=== PATIENT | male | born 1965 | race Caucasian/White ===

== ENCOUNTER 2020-04-20 17:35 | Inpatient (IN) | payer BC ==
[~2020-04-20] VITALS: Ht 177.8 cm; Wt 101.7 kg
[2020-04-20] MEDS ORDERED: ondansetron/PF 4mg/2ml inj IV ONE (17:45)
[2020-04-20] MEDS ORDERED: normal saline 1000ML IV soln IVB ONE (17:45)
[2020-04-20] MEDS ORDERED: KETAMINE IV ONE (17:45)
[2020-04-20] MEDS ORDERED: NORMAL SALINE IV ONE (17:45)
[2020-04-20 18:29] LABS: BASOPHILS # (AUTO) 0.1 X10'3 (0-0.2); BASOPHILS % (AUTO) 0.8 % (0-1); EOSINOPHILS # (AUTO) 0.1 X10'3 (0-0.9); EOSINOPHILS % (AUTO) 1.3 % (0-6); HEMATOCRIT 35.7 % (42.0-52.0); HEMOGLOBIN 11.9 g/dl (14.0-17.9); LYMPHOCYTES # (AUTO) 2.8 X10'3 (1.1-4.8); LYMPHOCYTES % (AUTO) 32.3 % (21-51); MEAN CORPUSCULAR HEMOGLOBIN 33.8 PG (27.0-31.0); MEAN CORPUSCULAR HGB CONC 33.2 g/dL (33.0-36.5); MEAN CORPUSCULAR VOLUME 101.7 FL (78-98); MEAN PLATELET VOLUME 7.5 FL (7.4-10.4); MONOCYTES # (AUTO) 0.9 X10'3 (0-0.9); MONOCYTES % (AUTO) 10.4 % (2-12); NEUTROPHILS # (AUTO) 4.8 X10'3 (1.8-7.7); NEUTROPHILS % (AUTO) 55.2 % (42-75); PLATELET COUNT 271 X10'3 (140-440); RED BLOOD COUNT 3.51 X10'6 (4.70-6.10); RED CELL DISTRIBUTION WIDTH 13.3 % (11.5-14.5); WHITE BLOOD COUNT 8.8 X10'3 (4.5-11.0)
[2020-04-20 18:45] LABS: ALANINE AMINOTRANSFERASE 33 U/L (12-78); ALBUMIN/GLOBULIN RATIO 0.9 (1.1-1.5); ALKALINE PHOSPHATASE 72 IU/L (46-116); ANION GAP 18 (8-16); ASPARTATE AMINO TRANSFERASE 18 U/L (10-37); BILIRUBIN,TOTAL 0.2 MG/DL (0.1-1.0); BLOOD UREA NITROGEN 9 MG/DL (7-18); BUN/CREATININE RATIO 5.6 (5.4-32.0); CALCIUM 7.8 MG/DL (8.5-10.1); CHLORIDE 105 MMOL/L (99-107); GLUCOSE 257 MG/DL (70-104); LIPASE 124 U/L (73-393); POTASSIUM 3.3 MMOL/L (3.5-5.1); SODIUM 143 MMOL/L (135-145); TOTAL CARBON DIOXIDE 20.1 MMOL/L (24-32); TOTAL PROTEIN 6.2 G/DL (6.4-8.2); eGFR 45 ML/MIN
[2020-04-20] MEDS ORDERED: normal saline 1000ML IV soln IV ONE (18:55)
--- NOTE | 2020-04-20 18:55 | NUR ---
COVERING PRIMARY RN FOR BREAK, PT PALE AND DIAPHORETIC AND BP 81/44. PLACED PT ON MONITOR TO GO TO CT. AT CT PT DESATED TO LOW 70S%. PLACED PT ON NC @ 8 L DUE TO LACK OF SUPPLIES IN CT ROOM. CAME BACK TO ER AND MOVED PT TO ROOM 4, [facility] AND AT BEDSIDE
[2020-04-20] MEDS ORDERED: iohexol 350MG/ML 100ml bottle IV ONE (18:57)
--- NOTE | 2020-04-20 19:20 | NUR ---
pt is still pale and diaphoretic. pt is alert and oriented. aware of situation. MD Aceves at bedside.
--- NOTE | 2020-04-20 19:29 | NUR ---
doing central line before going to OR
[2020-04-20] MEDS ORDERED: INSULIN R 100 UNIT in NS 100ML (1 UNIT/1 ML) BAG IV ONE (19:45)
[2020-04-20] MEDS ORDERED: desflurane 240ml liquid inh. IH ONE (19:45)
[2020-04-20] MEDS ORDERED: neostigmine methylsulfate 1 MG/ML 10ml vial ONE (19:45)
[2020-04-20] MEDS ORDERED: pancuronium br 1mg/ml inj IV ONE (19:45)
[2020-04-20] MEDS ORDERED: MIDAZolam 5mg/5ml vial ONE (19:51)
[2020-04-20] MEDS ORDERED: fentaNYL /PF 50mcg/ml 5ml ampule ONE ×2 (19:51→22:34)
--- NOTE | 2020-04-20 19:52 | NUR ---
PTS AT BEDSIDE NOW AND TALKING WITH DR. SALCIDO ABOUT PLAN OF CARE.
[2020-04-20] MEDS ORDERED: etomidate 2mg/ml inj. ONE (20:24)
[2020-04-20] MEDS ORDERED: phenylephrine inj 50 MG in normal saline 250ml IV soln 245 ML IV SCH (20:30)
[2020-04-20] MEDS ORDERED: rocuronium 10mg/ml inj IV ONE ×2 (20:36→23:59)
[2020-04-20] MEDS ORDERED: ceFAZolin 1000mg inj ONE ×2 (20:36)
[2020-04-20 21:01] LABS: ABG BASE EXCESS -12.1 mmol/L (-2.0-2.0); ABG HCO3 13.2 mmol/L (22.0-26.0); ABG OXYGEN SATURATION 98.4 % (94-97); ABG PCO2 (T) 28.6 mmHg (35.0-48.0); ABG PO2 (T) 176.9 mmHg (75.0-100.0); FCOHb 0.3 % (0.0-3.9); FMetHb 0.1 % (0.0-1.5); TOTAL HEMOGLOBIN 11.3 G/dl (14.0-18.0)
[2020-04-20] MEDS ORDERED: sodium bicarbonate (8.4%) inj. 1 MEQ/ML ML ONE ×4 (21:08→23:39)
[2020-04-20] MEDS: heparin 10,000 units/1 ML INJ ONE ×2 (21:14→22:59)
--- NOTE | 2020-04-20 21:38 | NUR ---
Patient to OR at approximately 2000.
[2020-04-20] MEDS ORDERED: ondansetron/PF 4mg/2ml inj IV PRN (22:00)
[2020-04-20] MEDS ORDERED: magnesium hydroxide 30ml (MOM) UD suspension PO PRN (22:00)
[2020-04-20] MEDS ORDERED: acetaminophen 325mg tablet PO PRN ×2 (22:00)
[2020-04-20 22:01] LABS: ISTAT CREATININE 1.2 mg/dL (0.8-1.3); ISTAT HGB 9.9 g/dl (14.0-18.0); ISTAT IONIZED CALCIUM 1.01 mmol/L (1.03-1.32); ISTAT K 3.8 mmol/L (3.5-5.1); POC BUN/CREATININE RATIO 6.7 (5.4-32.0)
[2020-04-20] MEDS ORDERED: FENTANYL-0.9 % NACL/PF 100 ML IV PRN (22:20)
[2020-04-20] MEDS ORDERED: propofol 1000mg/100ml bottle 100 ML IV SCH (22:20)
[2020-04-20] MEDS ORDERED: midazolam 100mg in NS 100ml 100 ML IV PRN (22:20)
[2020-04-20 23:36] LABS: ABG BASE EXCESS -16.3 mmol/L (-2.0-2.0); ABG HCO3 12.8 mmol/L (22.0-26.0); ABG OXYGEN SATURATION 98.3 % (94-97); ABG PCO2 (T) 42.5 mmHg (35.0-48.0); ABG PO2 (T) 182.6 mmHg (75.0-100.0); FCOHb 0.3 % (0.0-3.9); FMetHb 0.1 % (0.0-1.5); FO2Hb 97.9 % (94-97); TOTAL HEMOGLOBIN 11.9 G/dl (14.0-18.0)
[2020-04-20] MEDS ORDERED: insulin regular, human U-100 3ml vial - multi-dose ONE (23:38)
[2020-04-20] MEDS ORDERED: heparin 1,000unit/ml 10ml vial 10 ML ONE (23:59)
[2020-04-21] VITALS (37 sets, daily range): BP systolic 72–142; BP diastolic 49–103
[2020-04-21 00:02] LABS: PARTIAL THROMBOPLASTIN TIME 69 SECONDS (22-32)
[2020-04-21] MEDS ORDERED: morphine 10mg/ml inj. ONE (01:32)
[2020-04-21 01:45] LABS: ABG BASE EXCESS -10.4 mmol/L (-2.0-2.0); ABG HCO3 16.6 mmol/L (22.0-26.0); ABG OXYGEN SATURATION 98.8 % (94-97); ABG PCO2 (T) 38.9 mmHg (35.0-48.0); ABG PO2 (T) 390.9 mmHg (75.0-100.0); FCOHb 0.2 % (0.0-3.9); FMetHb 0.1 % (0.0-1.5); FO2Hb 98.5 % (94-97); PATIENT TEMPERATURE 35.9; PEEP 5 cm H2O; RESPIRATORY RATE 18 b/min; TIDAL VOLUME 600 mL
[2020-04-21] MEDS ORDERED: NORepinephrine 8mg/ 250ml NS 250 ML IV ONE ×2 (01:50→14:30)
[2020-04-21] MEDS ORDERED: acetaminophen 650mg rectal suppository RC PRN (01:50)
[2020-04-21] MEDS ORDERED: potassium Cl 20mEq/100mL bag 100 ML IV PRN ×3 (01:50→18:35)
[2020-04-21] MEDS ORDERED: NORepinephrine inj. 8 MG in normal saline 250ml IV soln 242 ML IV SCH (01:50)
[2020-04-21] MEDS ORDERED: albuterol 2.5 MG/3 ML nebule NEB PRN (01:50)
[2020-04-21] MEDS ORDERED: magnesium 4gm in 100ml NS 100 ML IV PRN (01:50)
[2020-04-21] MEDS ORDERED: acetaminophen 325mg tablet PO PRN ×2 (01:50)
[2020-04-21] MEDS: NORepinephrine 8mg/ 250ml NS 250 ML IV SCH ×2 (02:00→11:44)
[2020-04-21 02:34] LABS: BASOPHILS % (AUTO) 0.2 % (0-1); EOSINOPHILS % (AUTO) 0.1 % (0-6); HEMATOCRIT 25.8 % (42.0-52.0); HEMOGLOBIN 8.5 g/dl (14.0-17.9); LYMPHOCYTES # (AUTO) 1.6 X10'3 (1.1-4.8); LYMPHOCYTES % (AUTO) 11.9 % (21-51); MEAN CORPUSCULAR HEMOGLOBIN 32.3 PG (27.0-31.0); MEAN CORPUSCULAR VOLUME 97.9 FL (78-98); MONOCYTES # (AUTO) 0.9 X10'3 (0-0.9); MONOCYTES % (AUTO) 6.6 % (2-12); NEUTROPHILS # (AUTO) 10.6 X10'3 (1.8-7.7); NEUTROPHILS % (AUTO) 81.2 % (42-75); PLATELET COUNT 179 X10'3 (140-440); RED BLOOD COUNT 2.64 X10'6 (4.70-6.10); RED CELL DISTRIBUTION WIDTH 16.1 % (11.5-14.5)
[2020-04-21] MEDS ORDERED: calcium chloride 100 MG/1 ML inj IV ONE ×3 (02:44→20:22)
[2020-04-21 02:47] LABS: ALANINE AMINOTRANSFERASE 19 U/L (12-78); ALBUMIN 1.7 G/DL (3.4-5.0); ALKALINE PHOSPHATASE 42 IU/L (46-116); ANION GAP 19 (8-16); BILIRUBIN,TOTAL 0.8 MG/DL (0.1-1.0); BLOOD UREA NITROGEN 9 MG/DL (7-18); BUN/CREATININE RATIO 5.4 (5.4-32.0); CHLORIDE 117 MMOL/L (99-107); CREATININE 1.66 MG/DL (0.60-1.10); GLUCOSE 319 MG/DL (70-104); MAGNESIUM 1.9 MG/DL (1.5-2.4); SODIUM 152 MMOL/L (135-145); TOTAL CARBON DIOXIDE 15.7 MMOL/L (24-32); TOTAL PROTEIN 3.4 G/DL (6.4-8.2); eGFR 43 ML/MIN
[2020-04-21] MEDS ORDERED: albumin (Human) 5% 250ml 500 ML IV ONE (02:47)
[2020-04-21] MEDS: vasopressin inj. 40 UNIT in normal saline 50ml IV soln 38 ML IV SCH ×2 (02:50→11:44)
[2020-04-21] MEDS ORDERED: epiNEPHrine inj 5 MG, calcium chloride inj. 1,000 MG in normal saline 250ml IV soln 235 ML IV PRN (02:50)
[2020-04-21] MEDS ORDERED: albumin (Human) 5% 250ml 250 ML IV ONE ×2 (02:50)
[2020-04-21] MEDS ORDERED: vasopressin inj. 40 UNIT in normal saline 50ml IV soln 40 ML IV SCH (02:50)
[2020-04-21] MEDS ORDERED: vasoPRESSIN 20 units/ml inj. ONE ×2 (02:50→18:35)
[2020-04-21 02:52] LABS: ASPARTATE AMINO TRANSFERASE 47 U/L (10-37); PHOSPHORUS 4.1 MG/DL (2.3-4.5); POTASSIUM 4.5 MMOL/L (3.5-5.1)
[2020-04-21 03:13] LABS: CALCIUM 5.5 MG/DL (8.5-10.1)
[2020-04-21] MEDS ORDERED: calcium chloride 100 MG/1 ML inj IV PRN (03:20)
[2020-04-21 03:34] LABS: TOTAL CELLS COUNTED 100
[2020-04-21 03:35] LABS: ANISOCYTOSIS 1+; PLATELET ESTIMATE NORMAL; TOXIC GRANULATION 2+
[2020-04-21 03:47] LABS: D-DIMER 8.73 MG/L FEU (0-0.50)
[2020-04-21 03:49] LABS: PLATELET COUNT 179 X10'3 (140-440)
[2020-04-21] MEDS: ipratropium/albuterol 3ml nebule NEB SCH ×6 (04:10→23:24)
--- NOTE | 2020-04-21 04:50 | NUR ---
[id number] received pt from OR with minimal report. pt is in a ST at 140, CVL and Art line in place zeroed and transduced, CXR obtained. pt has a curlex wrap to the LLL that is has bright red blood oozing, folely cath in place with hematuria as well, distal pulses are weak but dopler, pt is mottled from the waist down, Dr Moreira requested 10mg morphine to be given. Pt became unstable SBP down to lower 50's nurse practitioner at bedside Levophed, vasopressin and briefly epi-faizan drip, Dr. Ca in placed large volume line in the Right groin, around 0245 1 amp ca cl given per orders, 0250 250 ml of 5% albumin given for low blood pressure. Pt had a clonic tonic sezure like activity lasting approximally 30 sec, 2 mg versed given per nurse practitioners orders, no further seizure like activity at this time.
[2020-04-21] MEDS ORDERED: vancomycin/NS 1 GM ADD-VANTAGE 250 ML IV SCH ×2 (06:00→19:00)
--- NOTE | 2020-04-21 06:30 | NUR ---
Patient in room ICU 2042. I have received report from Chantell GASTELUM and had the opportunity to ask questions and assume patient care. pateint laying in bed eyes closed, on ventilator fio2 50% peep5 sating high 90's having a hard time establishing a good pleth due to patients current temperature 35.9. levophed, vasopressin, fentanyl, versed and ns infusing to R ij central line, patient has a R writ art line in place as well as a R femoral cordis. Patel draining to gravity
[2020-04-21] MEDS: docusate sodium 100mg/10ml UD cup PO SCH ×2 (08:00→20:00)
[2020-04-21] MEDS: vancomycin/NS 1 GM ADD-VANTAGE 250 ML IV SCH ×2 (08:06→21:46)
[2020-04-21 08:23] LABS: BASOPHILS % (AUTO) 0.3 % (0-1); EOSINOPHILS % (AUTO) 0 % (0-6); HEMATOCRIT 31.9 % (42.0-52.0); HEMOGLOBIN 10.7 g/dl (14.0-17.9); LYMPHOCYTES # (AUTO) 1.3 X10'3 (1.1-4.8); MEAN CORPUSCULAR HEMOGLOBIN 31.6 PG (27.0-31.0); MEAN CORPUSCULAR HGB CONC 33.6 g/dL (33.0-36.5); MEAN PLATELET VOLUME 7.8 FL (7.4-10.4); MONOCYTES # (AUTO) 0.6 X10'3 (0-0.9); MONOCYTES % (AUTO) 6.8 % (2-12); NEUTROPHILS # (AUTO) 7.1 X10'3 (1.8-7.7); NEUTROPHILS % (AUTO) 78.9 % (42-75); PLATELET COUNT 143 X10'3 (140-440); RED CELL DISTRIBUTION WIDTH 15.4 % (11.5-14.5); WHITE BLOOD COUNT 9.1 X10'3 (4.5-11.0)
[2020-04-21 08:31] LABS: ALANINE AMINOTRANSFERASE 117 U/L (12-78); ALBUMIN 2.5 G/DL (3.4-5.0); ALBUMIN/GLOBULIN RATIO 1.3 (1.1-1.5); ALKALINE PHOSPHATASE 52 IU/L (46-116); ANION GAP 13 (8-16); BLOOD UREA NITROGEN 12 MG/DL (7-18); BUN/CREATININE RATIO 5.3 (5.4-32.0); CALCIUM 7.4 MG/DL (8.5-10.1); CHLORIDE 116 MMOL/L (99-107); CREATININE 2.27 MG/DL (0.60-1.10); GLUCOSE 152 MG/DL (70-104); SODIUM 151 MMOL/L (135-145); TOTAL PROTEIN 4.4 G/DL (6.4-8.2); eGFR 30 ML/MIN
[2020-04-21 08:33] LABS: ASPARTATE AMINO TRANSFERASE 203 U/L (10-37); PHOSPHORUS 3.7 MG/DL (2.3-4.5); POTASSIUM 4.7 MMOL/L (3.5-5.1)
[2020-04-21] MEDS ORDERED: dextrose 50%-water 50ml dispensing syringe IV PRN ×2 (08:40)
[2020-04-21] MEDS ORDERED: MESSAGE TO PHARMACY PO ONE (08:40)
[2020-04-21] MEDS ORDERED: glucagon, human recombinant 1mg kit SUBCUT PRN (08:40)
[2020-04-21] MEDS ORDERED: dextrose ORAL solution 15 GM/59 ML bottle PO PRN ×2 (08:40)
[2020-04-21] MEDS ORDERED: sodium bicarbonate (8.4%) inj. 150 MEQ in dextrose 5%-water 1,000 ML IV SCH (08:40)
[2020-04-21 08:56] LABS: D-DIMER 5.46 MG/L FEU (0-0.50); PARTIAL THROMBOPLASTIN TIME 30 SECONDS (22-32)
[2020-04-21 09:08] LABS: PLATELET COUNT 141 X10'3 (140-440)
[2020-04-21] MEDS: pantoprazole 40 MG vial IV SCH (09:16)
[2020-04-21] MEDS: piperacillin/tazo 3.375gm/50ml 50 ML IV SCH ×2 (09:17→16:32)
[2020-04-21] MEDS: levetiracetam inj 750 MG in normal saline 100ml IV soln 92.5 ML IV SCH ×2 (09:17→21:47)
[2020-04-21] MEDS ORDERED: normal saline 1000ml 1,000 ML IV ONE (09:45)
[2020-04-21] MEDS: sodium bicarbonate (8.4%) inj. 150 MEQ in dextrose 5%-water 1,000 ML IV SCH (10:47)
[2020-04-21] MEDS ORDERED: DIPH25TA62 PO (10:58)
[2020-04-21] MEDS ORDERED: calcium chloride inj. 1,000 MG in normal saline 100ml IV soln 100 ML IV PRN ×3 (11:45→18:35)
[2020-04-21 12:03] LABS: BASOPHILS % (AUTO) 0.2 % (0-1); EOSINOPHILS % (AUTO) 0.1 % (0-6); HEMATOCRIT 28.8 % (42.0-52.0); HEMOGLOBIN 9.7 g/dl (14.0-17.9); LYMPHOCYTES # (AUTO) 1.5 X10'3 (1.1-4.8); LYMPHOCYTES % (AUTO) 15.6 % (21-51); MEAN CORPUSCULAR HEMOGLOBIN 31.5 PG (27.0-31.0); MEAN CORPUSCULAR HGB CONC 33.7 g/dL (33.0-36.5); MEAN CORPUSCULAR VOLUME 93.4 FL (78-98); MEAN PLATELET VOLUME 8.1 FL (7.4-10.4); MONOCYTES # (AUTO) 0.7 X10'3 (0-0.9); MONOCYTES % (AUTO) 7.2 % (2-12); NEUTROPHILS # (AUTO) 7.4 X10'3 (1.8-7.7); NEUTROPHILS % (AUTO) 76.9 % (42-75); PLATELET COUNT 125 X10'3 (140-440); RED BLOOD COUNT 3.08 X10'6 (4.70-6.10); RED CELL DISTRIBUTION WIDTH 15.2 % (11.5-14.5); WHITE BLOOD COUNT 9.7 X10'3 (4.5-11.0)
--- NOTE | 2020-04-21 12:03 | NUR ---
Called Dr. Dela Cruz to update him on patients current pressure support status and the increase in size of his belly since shift change at 0630, He inquired about his H/H informed him of the most recent values from 8am, stated that he would be in around noon to round on his patients
--- NOTE | 2020-04-21 12:15 | NUR ---
Initial: Pt intubated s/p aortobiiliac bypass graft, L femoral embolectomy, L tibial embolectomy, and 4-compartment fasciotomy lower L leg per surgeon note. DX ruptured abdominal aortic aneurysm, large R iliac aneurysm, and moderate L iliac aneurysm per surgeon note. Also DX MARCELINO, hypernatremia, seizure, sepsis, and LE ischemia may need CVVH per reverberatory skimmer at rounds. OG in place w/ Na 151. MAP 73 receiving vasopressin and to remain NPO at this time per MD. EN recs below if to start once pt hemodynamically stable post-op. Receiving electrolyte replacement per protocol. Will continue to monitor. Rec: 1. IF TF; Vital High Protein at 70ml/hr 2. IF TF; water flush 200ml Q4 3. IF TF; PALB Q /; daily wts 4. IF TF; consider Mayito BID for wound healing needs post-op 5. Once PO/EN MVI/mineral supplementation for wound healing needs 6. bowel care per rx 7. daily wts Addendum: 04/21/20 at [address] Amended: Links added.
[2020-04-21 12:25] LABS: ALANINE AMINOTRANSFERASE 630 U/L (12-78); ALBUMIN 2.1 G/DL (3.4-5.0); ALBUMIN/GLOBULIN RATIO 1.1 (1.1-1.5); ALKALINE PHOSPHATASE 46 IU/L (46-116); ANION GAP 17 (8-16); BILIRUBIN,TOTAL 1.1 MG/DL (0.1-1.0); BLOOD UREA NITROGEN 15 MG/DL (7-18); BUN/CREATININE RATIO 6.5 (5.4-32.0); CALCIUM 6.8 MG/DL (8.5-10.1); CHLORIDE 120 MMOL/L (99-107); CREATININE 2.32 MG/DL (0.60-1.10); GLUCOSE 112 MG/DL (70-104); SODIUM 153 MMOL/L (135-145); TOTAL CARBON DIOXIDE 16.3 MMOL/L (24-32); eGFR 29 ML/MIN
[2020-04-21 12:30] LABS: ASPARTATE AMINO TRANSFERASE 862 U/L (10-37); POTASSIUM 5.2 MMOL/L (3.5-5.1)
[2020-04-21] MEDS ORDERED: calcium chloride inj. 1,000 MG in normal saline 100ml IV soln 90 ML IV PRN (12:58)
[2020-04-21 13:39] LABS: TROPONIN I 1.07 NG/ML (0.0-0.05)
[2020-04-21] MEDS ORDERED: hydrocortisone sod succ/PF 100mg/2ml inj. IV ONE (15:21)
--- NOTE | 2020-04-21 15:30 | NUR ---
Sent patients yellow ring home with Aissatou Hansen.
[2020-04-21] MEDS: NORepinephrine inj. 32 MG in normal saline 250ml IV soln 218 ML IV SCH (16:32)
--- NOTE | 2020-04-21 17:25 | NUR ---
Shift note Rounds: Q6 labs; lactic ionca, cmp, cbc and a random trop, added hydrocortisone 100mg Q6. Dr. Pappas stated he will discuss with the patients with that he needs CVVH and that he will need to place a sarika 1300 Dr. Pappas placed sarika and discussed case the Dr. Dela Cruz, they agreed that patient needs to go back to OR. [address] Pappas to make him aware of patients increased heart rate and fever, stated that the patient is very septic and that he needs to go back to OR and needs CVVH started as soon as back from OR
[2020-04-21 17:30] LABS: ABG BASE EXCESS -13.3 mmol/L (-2.0-2.0); ABG OXYGEN SATURATION 93.3 % (94-97); ABG PCO2 (T) 33.7 mmHg (35.0-48.0); ABG PO2 (T) 88.8 mmHg (75.0-100.0); FCOHb 0.2 % (0.0-3.9); FMetHb 0.2 % (0.0-1.5); FO2Hb 92.9 % (94-97); PATIENT TEMPERATURE 38.7; PEEP 5 cm H2O; RESPIRATORY RATE 18 b/min; TIDAL VOLUME 600 mL; TOTAL HEMOGLOBIN 10.6 G/dl (14.0-18.0)
[2020-04-21 17:32] LABS: BASOPHILS % (AUTO) 0.2 % (0-1); EOSINOPHILS % (AUTO) 0 % (0-6); HEMATOCRIT 28.9 % (42.0-52.0); HEMOGLOBIN 9.7 g/dl (14.0-17.9); LYMPHOCYTES # (AUTO) 1.1 X10'3 (1.1-4.8); LYMPHOCYTES % (AUTO) 9.1 % (21-51); MEAN CORPUSCULAR HEMOGLOBIN 31.4 PG (27.0-31.0); MEAN CORPUSCULAR HGB CONC 33.4 g/dL (33.0-36.5); MEAN CORPUSCULAR VOLUME 93.9 FL (78-98); MEAN PLATELET VOLUME 8.7 FL (7.4-10.4); MONOCYTES % (AUTO) 7.8 % (2-12); NEUTROPHILS # (AUTO) 10.2 X10'3 (1.8-7.7); NEUTROPHILS % (AUTO) 82.9 % (42-75); PLATELET COUNT 120 X10'3 (140-440); RED BLOOD COUNT 3.08 X10'6 (4.70-6.10); RED CELL DISTRIBUTION WIDTH 15.7 % (11.5-14.5); WHITE BLOOD COUNT 12.4 X10'3 (4.5-11.0)
[2020-04-21 17:42] LABS: ALBUMIN 2.2 G/DL (3.4-5.0); ALBUMIN/GLOBULIN RATIO 1.2 (1.1-1.5); ALKALINE PHOSPHATASE 58 IU/L (46-116); ANION GAP 14 (8-16); BILIRUBIN,TOTAL 0.8 MG/DL (0.1-1.0); BLOOD UREA NITROGEN 19 MG/DL (7-18); CALCIUM 7.2 MG/DL (8.5-10.1); CHLORIDE 120 MMOL/L (99-107); CREATININE 3.16 MG/DL (0.60-1.10); GLUCOSE 127 MG/DL (70-104); POTASSIUM 5.3 MMOL/L (3.5-5.1); SODIUM 152 MMOL/L (135-145); TOTAL CARBON DIOXIDE 17.8 MMOL/L (24-32); TOTAL PROTEIN 4.1 G/DL (6.4-8.2); eGFR 20 ML/MIN
[2020-04-21 17:56] LABS: VANCOMYCIN,RANDOM 12.8 UG/ML
[2020-04-21 18:18] LABS: ALANINE AMINOTRANSFERASE 3330 U/L (12-78); ASPARTATE AMINO TRANSFERASE > 7000 U/L (10-37)
[2020-04-21] MEDS ORDERED: albumin (human) 25% 100ml IV 100 ML IV ONE (18:25)
[2020-04-21] MEDS ORDERED: VANCOMYCIN LEVEL IV ONE (18:30)
--- NOTE | 2020-04-21 18:30 | NUR ---
Patient in room ICU 2042. I have received report from Rossana GASTELUM and had the opportunity to ask questions and assume patient care. Patient hypotensive, on max dose pressors. To OR with anesthesiologist and surgical team Addendum: 04/22/20 at 0319 by Rosey Luna RN Amended: Links added.
[2020-04-21] MEDS ORDERED: fentaNYL /PF 50mcg/ml 5ml ampule ONE (18:34)
[2020-04-21] MEDS ORDERED: sevoflurane 250ml liquid IH ONE (18:35)
[2020-04-21] MEDS ORDERED: NORepinephrine 8 MG in NS 250 ML BAG (32 mcg/ml) IV ONE (18:35)
[2020-04-21] MEDS ORDERED: rocuronium 10mg/ml inj IV ONE (18:35)
[2020-04-21] MEDS ORDERED: phenylephrine 10mg/ml inj. ONE (18:36)
--- NOTE | 2020-04-21 20:18 | NUR ---
Received to room 2043B, accompanied by anesthesia and surgical crew. See assessment records. Report received from anesthesia and circulating RN. [place]/CVP line and IVs noted in IV assessment records. All sites without redness or swelling. Vasoactive drugs infusing per Central Line. Transfered to bedside monitor, Art line and CVP zeroed and transduced. Placed on ventilator by RT.
[2020-04-21 20:35] LABS: ABG BASE EXCESS -13.7 mmol/L (-2.0-2.0); ABG HCO3 13.5 mmol/L (22.0-26.0); ABG OXYGEN SATURATION 92.1 % (94-97); ABG PCO2 (T) 36.8 mmHg (35.0-48.0); ABG PO2 (T) 74.2 mmHg (75.0-100.0); FCOHb 0.3 % (0.0-3.9); FMetHb 0.2 % (0.0-1.5); FO2Hb 91.6 % (94-97); PATIENT TEMPERATURE 37.5; PEEP 5 cm H2O; RESPIRATORY RATE 18 b/min; TIDAL VOLUME 600 mL; TOTAL HEMOGLOBIN 11.7 G/dl (14.0-18.0)
[2020-04-21 20:37] LABS: BASOPHILS % (AUTO) 0.1 % (0-1); EOSINOPHILS # (AUTO) 0.1 X10'3 (0-0.9); EOSINOPHILS % (AUTO) 0.6 % (0-6); HEMATOCRIT 32.4 % (42.0-52.0); HEMOGLOBIN 10.9 g/dl (14.0-17.9); LYMPHOCYTES # (AUTO) 0.7 X10'3 (1.1-4.8); LYMPHOCYTES % (AUTO) 6.7 % (21-51); MEAN CORPUSCULAR HEMOGLOBIN 31.7 PG (27.0-31.0); MEAN CORPUSCULAR HGB CONC 33.6 g/dL (33.0-36.5); MEAN CORPUSCULAR VOLUME 94.4 FL (78-98); MEAN PLATELET VOLUME 8.5 FL (7.4-10.4); MONOCYTES # (AUTO) 0.5 X10'3 (0-0.9); MONOCYTES % (AUTO) 5.4 % (2-12); NEUTROPHILS # (AUTO) 8.8 X10'3 (1.8-7.7); NEUTROPHILS % (AUTO) 87.2 % (42-75); PLATELET COUNT 80 X10'3 (140-440); RED BLOOD COUNT 3.43 X10'6 (4.70-6.10); RED CELL DISTRIBUTION WIDTH 14.9 % (11.5-14.5); WHITE BLOOD COUNT 10.1 X10'3 (4.5-11.0)
[2020-04-21 20:50] LABS: PARTIAL THROMBOPLASTIN TIME 35 SECONDS (22-32)
[2020-04-21 21:02] LABS: ALBUMIN 1.8 G/DL (3.4-5.0); ALKALINE PHOSPHATASE 59 IU/L (46-116); ANION GAP 15 (8-16); BILIRUBIN,TOTAL 0.7 MG/DL (0.1-1.0); BLOOD UREA NITROGEN 22 MG/DL (7-18); BUN/CREATININE RATIO 6.7 (5.4-32.0); CALCIUM 6.5 MG/DL (8.5-10.1); CHLORIDE 116 MMOL/L (99-107); GLUCOSE 158 MG/DL (70-104); MAGNESIUM 1.3 MG/DL (1.5-2.4); PHOSPHORUS 7.8 MG/DL (2.3-4.5); SODIUM 148 MMOL/L (135-145); TOTAL CARBON DIOXIDE 16.6 MMOL/L (24-32); TOTAL PROTEIN 3.6 G/DL (6.4-8.2); eGFR 19 ML/MIN
[2020-04-21 21:20] LABS: POTASSIUM 5.6 MMOL/L (3.5-5.1)
[2020-04-21] MEDS: hydrocortisone sod succ/PF 100mg/2ml inj. IV SCH (21:46)
[2020-04-21 22:34] LABS: ALANINE AMINOTRANSFERASE 3951 U/L (12-78)
[2020-04-21 22:41] LABS: ASPARTATE AMINO TRANSFERASE 6016 U/L (10-37)
--- NOTE | 2020-04-21 23:22 | NUR ---
CVVLois Ordonez at bedside, orders received. Dialysis nurse at bedside. Line care per terry cloth cutter hand. Titrating Levophed per MD order.
[2020-04-21] MEDS ORDERED: tPA-cathflo 2 MG/2 ml IV flush IVF ONE ×2 (23:25)
[2020-04-21] MEDS: bicarb dialysis sol 2K+/3 Ca2+ 5,000 ML HE SCH (23:58)
[2020-04-22] VITALS (24 sets, daily range): BP systolic 91–126; BP diastolic 55–70
--- NOTE | 2020-04-22 01:33 | NUR ---
0053: CVVH restarted. 0133: CVVH running without issue, patient tolerating well.
[2020-04-22] MEDS: sodium bicarbonate (8.4%) inj. 150 MEQ in dextrose 5%-water 1,000 ML IV SCH ×2 (01:41→16:43)
[2020-04-22] MEDS: piperacillin/tazo 3.375gm/50ml 50 ML IV SCH ×3 (01:41→16:43)
[2020-04-22] MEDS: mineral oil/petrolatum ophthal oint EACHEYE SCH ×4 (02:54→20:40)
[2020-04-22] MEDS: hydrocortisone sod succ/PF 100mg/2ml inj. IV SCH ×4 (02:54→20:39)
[2020-04-22 02:56] LABS: BASOPHILS % (AUTO) 0.2 % (0-1); EOSINOPHILS # (AUTO) 0.1 X10'3 (0-0.9); EOSINOPHILS % (AUTO) 0.7 % (0-6); HEMATOCRIT 33.3 % (42.0-52.0); HEMOGLOBIN 11.4 g/dl (14.0-17.9); LYMPHOCYTES # (AUTO) 0.9 X10'3 (1.1-4.8); LYMPHOCYTES % (AUTO) 7.2 % (21-51); MEAN CORPUSCULAR HEMOGLOBIN 31.7 PG (27.0-31.0); MEAN CORPUSCULAR HGB CONC 34.3 g/dL (33.0-36.5); MEAN CORPUSCULAR VOLUME 92.5 FL (78-98); MEAN PLATELET VOLUME 8.9 FL (7.4-10.4); MONOCYTES # (AUTO) 0.4 X10'3 (0-0.9); MONOCYTES % (AUTO) 3.3 % (2-12); NEUTROPHILS # (AUTO) 10.4 X10'3 (1.8-7.7); NEUTROPHILS % (AUTO) 88.6 % (42-75); PLATELET COUNT 107 X10'3 (140-440); RED CELL DISTRIBUTION WIDTH 14.8 % (11.5-14.5); WHITE BLOOD COUNT 11.8 X10'3 (4.5-11.0)
[2020-04-22] MEDS: insulin Lispro (HumaLOG) vial - multi-dose SQ SCH ×3 (02:57→14:00)
[2020-04-22] MEDS: FENTANYL-0.9 % NACL/PF 100 ML IV PRN ×4 (03:03→18:08)
[2020-04-22] MEDS: midazolam 100mg in NS 100ml 100 ML IV PRN ×2 (03:04→08:58)
[2020-04-22 03:10] LABS: PARTIAL THROMBOPLASTIN TIME 35 SECONDS (22-32)
[2020-04-22 03:15] LABS: ALBUMIN 2.1 G/DL (3.4-5.0); ALKALINE PHOSPHATASE 63 IU/L (46-116); ANION GAP 14 (8-16); BILIRUBIN,TOTAL 1.1 MG/DL (0.1-1.0); BLOOD UREA NITROGEN 25 MG/DL (7-18); BUN/CREATININE RATIO 7.6 (5.4-32.0); CALCIUM 6.9 MG/DL (8.5-10.1); CHLORIDE 117 MMOL/L (99-107); CREATININE 3.31 MG/DL (0.60-1.10); GLUCOSE 198 MG/DL (70-104); MAGNESIUM 1.5 MG/DL (1.5-2.4); PHOSPHORUS 5.5 MG/DL (2.3-4.5); POTASSIUM 4.6 MMOL/L (3.5-5.1); SODIUM 149 MMOL/L (135-145); TOTAL CARBON DIOXIDE 17.6 MMOL/L (24-32); TOTAL PROTEIN 4.2 G/DL (6.4-8.2); eGFR 19 ML/MIN
[2020-04-22] MEDS: ipratropium/albuterol 3ml nebule NEB SCH ×6 (03:22→23:13)
[2020-04-22 03:26] LABS: TOTAL CELLS COUNTED 100
[2020-04-22 03:27] LABS: PLATELET ESTIMATE DECREASED
[2020-04-22 03:36] LABS: ABG BASE EXCESS -11.3 mmol/L (-2.0-2.0); ABG HCO3 14.5 mmol/L (22.0-26.0); ABG OXYGEN SATURATION 91.7 % (94-97); ABG PCO2 (T) 31.7 mmHg (35.0-48.0); ABG PO2 (T) 64.9 mmHg (75.0-100.0); FCOHb 0.3 % (0.0-3.9); FMetHb 0.1 % (0.0-1.5); FO2Hb 91.3 % (94-97); PATIENT TEMPERATURE 36.6; PEEP 5 cm H2O; RESPIRATORY RATE 18 b/min; TIDAL VOLUME 600 mL; TOTAL HEMOGLOBIN 12.1 G/dl (14.0-18.0)
[2020-04-22 03:40] LABS: ALANINE AMINOTRANSFERASE 4706 U/L (12-78); ASPARTATE AMINO TRANSFERASE 3204 U/L (10-37)
[2020-04-22] MEDS: NORepinephrine inj. 32 MG in normal saline 250ml IV soln 218 ML IV SCH ×2 (03:57→13:55)
[2020-04-22 04:07] LABS: BASOPHILS % (AUTO) 0.3 % (0-1); EOSINOPHILS # (AUTO) 0.2 X10'3 (0-0.9); EOSINOPHILS % (AUTO) 1.3 % (0-6); HEMATOCRIT 34.3 % (42.0-52.0); HEMOGLOBIN 11.7 g/dl (14.0-17.9); LYMPHOCYTES # (AUTO) 0.9 X10'3 (1.1-4.8); LYMPHOCYTES % (AUTO) 7.2 % (21-51); MEAN CORPUSCULAR HGB CONC 34.3 g/dL (33.0-36.5); MEAN CORPUSCULAR VOLUME 93.2 FL (78-98); MONOCYTES # (AUTO) 0.4 X10'3 (0-0.9); MONOCYTES % (AUTO) 3.3 % (2-12); NEUTROPHILS # (AUTO) 10.5 X10'3 (1.8-7.7); NEUTROPHILS % (AUTO) 87.9 % (42-75); PLATELET COUNT 110 X10'3 (140-440); RED BLOOD COUNT 3.67 X10'6 (4.70-6.10); RED CELL DISTRIBUTION WIDTH 15.3 % (11.5-14.5); WHITE BLOOD COUNT 11.9 X10'3 (4.5-11.0)
[2020-04-22 04:19] LABS: ALBUMIN 2.2 G/DL (3.4-5.0); ANION GAP 15 (8-16); BLOOD UREA NITROGEN 24 MG/DL (7-18); BUN/CREATININE RATIO 7.2 (5.4-32.0); CHLORIDE 112 MMOL/L (99-107); CREATININE 3.32 MG/DL (0.60-1.10); GLUCOSE 207 MG/DL (70-104); MAGNESIUM 1.2 MG/DL (1.5-2.4); PHOSPHORUS 5.6 MG/DL (2.3-4.5); POTASSIUM 4.4 MMOL/L (3.5-5.1); SODIUM 145 MMOL/L (135-145); TOTAL CARBON DIOXIDE 17.8 MMOL/L (24-32); eGFR 19 ML/MIN
[2020-04-22] MEDS ORDERED: albumin (Human) 5% 250ml 250 ML IV ONE ×2 (04:40)
--- NOTE | 2020-04-22 06:22 | NUR ---
Late entry: 0300: CVVH machine access pressure greater than -350, machine keeps stopping. Turned down rate from 350 to 300. No further issues. Lois notified. 0622: Problems reprioritized. Patient report given, questions answered & plan of care reviewed with Rossana GASTELUM.
--- NOTE | 2020-04-22 06:30 | NUR ---
Patient in room ICU 2042. I have received report from Rosey GASTELUM and had the opportunity to ask questions and assume patient care.
[2020-04-22] MEDS: docusate sodium 100mg/10ml UD cup PO SCH ×2 (08:00→20:00)
[2020-04-22] MEDS: pantoprazole 40 MG vial IV SCH (08:23)
[2020-04-22] MEDS: vancomycin/NS 1 GM ADD-VANTAGE 250 ML IV SCH (08:24)
[2020-04-22] MEDS: levetiracetam inj 750 MG in normal saline 100ml IV soln 92.5 ML IV SCH ×2 (08:24→20:39)
[2020-04-22] MEDS ORDERED: sodium phosphate inj. 30 MMOL in normal saline 250ml IV soln 250 ML IV PRN (09:30)
[2020-04-22] MEDS ORDERED: calcium chloride inj. 1,000 MG in normal saline 100ml IV soln 100 ML IV PRN (09:30)
--- NOTE | 2020-04-22 10:10 | NUR ---
Rounds note continue CVVH keep even, not ready to take off additional fluid, start TPN today, will need a custom blend per Clinical Sociologist. Added q12 pt/inr labs 1110 Yoni by to round on patient, satisfied with colostomy acknowledged the dark color of loop of bowel says its to be expected since he is still on pressors, stated to reinforce the fasciotomy do not change as he will take him back to OR to close it.
[2020-04-22 10:32] LABS: BASOPHILS % (AUTO) 0.3 % (0-1); EOSINOPHILS # (AUTO) 0.1 X10'3 (0-0.9); HEMATOCRIT 29.8 % (42.0-52.0); HEMOGLOBIN 10.3 g/dl (14.0-17.9); LYMPHOCYTES # (AUTO) 0.8 X10'3 (1.1-4.8); MEAN CORPUSCULAR HEMOGLOBIN 31.9 PG (27.0-31.0); MEAN CORPUSCULAR HGB CONC 34.7 g/dL (33.0-36.5); MONOCYTES # (AUTO) 0.3 X10'3 (0-0.9); MONOCYTES % (AUTO) 2.6 % (2-12); NEUTROPHILS # (AUTO) 9.7 X10'3 (1.8-7.7); NEUTROPHILS % (AUTO) 89.1 % (42-75); PLATELET COUNT 95 X10'3 (140-440); RED BLOOD COUNT 3.24 X10'6 (4.70-6.10); RED CELL DISTRIBUTION WIDTH 14.8 % (11.5-14.5); WHITE BLOOD COUNT 10.8 X10'3 (4.5-11.0)
[2020-04-22 10:50] LABS: ALBUMIN 2.6 G/DL (3.4-5.0); ALBUMIN/GLOBULIN RATIO 1.4 (1.1-1.5); ALKALINE PHOSPHATASE 63 IU/L (46-116); ANION GAP 13 (8-16); BILIRUBIN,TOTAL 1.4 MG/DL (0.1-1.0); BLOOD UREA NITROGEN 23 MG/DL (7-18); BUN/CREATININE RATIO 7.3 (5.4-32.0); CALCIUM 6.8 MG/DL (8.5-10.1); CHLORIDE 110 MMOL/L (99-107); CREATININE 3.13 MG/DL (0.60-1.10); GLUCOSE 228 MG/DL (70-104); MAGNESIUM 1.3 MG/DL (1.5-2.4); PHOSPHORUS 4.5 MG/DL (2.3-4.5); POTASSIUM 3.7 MMOL/L (3.5-5.1); SODIUM 143 MMOL/L (135-145); TOTAL PROTEIN 4.5 G/DL (6.4-8.2); eGFR 21 ML/MIN
[2020-04-22 11:07] LABS: ALANINE AMINOTRANSFERASE 4022 U/L (12-78); ASPARTATE AMINO TRANSFERASE > 7000 U/L (10-37); PLATELET ESTIMATE DECREASED; TOTAL CELLS COUNTED 100
--- NOTE | 2020-04-22 11:16 | NUR ---
unable to elevate patients head to 30 degree, due to a very positional sarika line in the r robbi Addendum: 04/22/20 at 1116 by Rossana Mai RN Amended: Links added.
[2020-04-22] MEDS: fluconazole-Diflucan 200mg/NS 100 ML IV SCH (11:40)
--- NOTE | 2020-04-22 12:16 | NUR ---
TPN Consult: Pt s/p return to OR last night for LE ischemia found to have sigmoid colon ischemia s/p colostomy w/ resection per surgeon note. Pt septic and started on CVVH for renal failure w/ Custom TPN to start today per teletypewriter installer. RD collaborated w/ clinical pharmacist; PN recs below. Electrolytes to dose per pharmacy per teletypewriter installer at rounds. MAP 68 this AM w/ no colostomy output at this time receiving vasopressin and norepinephrine. Will monitor for PN tolerance and sign of refeeding. Rec: 1. Custom TPN per teletypewriter installer on CVVH; to run at 95ml/hr goal. To provide; 2280ml volume, 166g AA, 363g DEX(2.25mg/kg/min), and 2108 total kcals. Initiate at 30ml/hr and advance Q12 as tolerated. 2. monitor for PN tolerance 3. PALB/TG Q /; daily wts 4. monitor for bowel function and colostomy output post-op 5. IF bowel function returns and hemodynamically stable; consider EN Addendum: 04/22/20 at [address] Amended: Links added. Addendum: 04/22/20 at [address] CORRECTION: Rec: 1. Custom TPN per teletypewriter installer on CVVH; to run at 95ml/hr goal. To provide; 2280ml volume, 166g AA, 363g DEX(2.25mg/kg/min), 21g lipids, and 2108 total kcals. Initiate at 30ml/hr and advance Q12 as tolerated.
[2020-04-22] MEDS: magnesium 4gm in 100ml NS 100 ML IV PRN (12:27)
[2020-04-22] MEDS: potassium Cl 20mEq/100mL bag 100 ML IV PRN ×4 (12:41→20:08)
[2020-04-22] MEDS ORDERED: vancomycin/NS 1 GM ADD-VANTAGE 250 ML IV PRN (13:05)
--- NOTE | 2020-04-22 14:17 | NUR ---
Retrieved from pts EMR: Pt is a 54-year-old male who presented with ruptured abdominal aortic and iliac aneurysm. Pt labs show HGB slightly low 10.3, lowered HCT at 10.3, low platelets 95, high lactic acid 6.4, elevated glucose up to 319, very low EGFR at 21, elevated liver enzymes with AST >7000, and ALT 4022 high, and albumin is low 2.6. Wound care consulted for: New ostomy Wound care bedside to see pt. Pt is intubated and sedated at time of visit. On examination, the ostomy has a dark red color, almost purplish. There is no drainage in the bag. Bag was quickly exchanged as an area in the seal was impaired. The sutures are intact and peristomal skin in good condition. Will continue to follow and educate when pt is awake. Addendum: 04/22/20 at 1418 by Keli Farr RN Amended: Links added.
[2020-04-22 16:54] LABS: BASOPHILS % (AUTO) 0.4 % (0-1); EOSINOPHILS # (AUTO) 0.1 X10'3 (0-0.9); EOSINOPHILS % (AUTO) 1.1 % (0-6); HEMATOCRIT 29.4 % (42.0-52.0); HEMOGLOBIN 10.2 g/dl (14.0-17.9); LYMPHOCYTES # (AUTO) 0.7 X10'3 (1.1-4.8); LYMPHOCYTES % (AUTO) 6.4 % (21-51); MEAN CORPUSCULAR HEMOGLOBIN 31.7 PG (27.0-31.0); MEAN CORPUSCULAR HGB CONC 34.7 g/dL (33.0-36.5); MEAN CORPUSCULAR VOLUME 91.5 FL (78-98); MEAN PLATELET VOLUME 8.8 FL (7.4-10.4); MONOCYTES # (AUTO) 0.3 X10'3 (0-0.9); MONOCYTES % (AUTO) 2.9 % (2-12); NEUTROPHILS % (AUTO) 89.2 % (42-75); PLATELET COUNT 91 X10'3 (140-440); RED BLOOD COUNT 3.21 X10'6 (4.70-6.10); RED CELL DISTRIBUTION WIDTH 14.9 % (11.5-14.5); WHITE BLOOD COUNT 11.2 X10'3 (4.5-11.0)
[2020-04-22 17:26] LABS: ALBUMIN 2.5 G/DL (3.4-5.0); ALBUMIN/GLOBULIN RATIO 1.2 (1.1-1.5); ALKALINE PHOSPHATASE 60 IU/L (46-116); ANION GAP 9 (8-16); BILIRUBIN,TOTAL 1.6 MG/DL (0.1-1.0); BLOOD UREA NITROGEN 22 MG/DL (7-18); BUN/CREATININE RATIO 7.2 (5.4-32.0); CALCIUM 7.2 MG/DL (8.5-10.1); CHLORIDE 112 MMOL/L (99-107); CREATININE 3.06 MG/DL (0.60-1.10); GLUCOSE 221 MG/DL (70-104); MAGNESIUM 2.4 MG/DL (1.5-2.4); PHOSPHORUS 3.1 MG/DL (2.3-4.5); POTASSIUM 3.4 MMOL/L (3.5-5.1); SODIUM 144 MMOL/L (135-145); TOTAL CARBON DIOXIDE 23.4 MMOL/L (24-32); TOTAL PROTEIN 4.6 G/DL (6.4-8.2); eGFR 21 ML/MIN
[2020-04-22 17:49] LABS: ALANINE AMINOTRANSFERASE 3673 U/L (12-78); ASPARTATE AMINO TRANSFERASE > 7000 U/L (10-37)
--- NOTE | 2020-04-22 18:24 | NUR ---
Problems reprioritized. Patient report given, questions answered & plan of care reviewed with Rosey GASTELUM.
--- NOTE | 2020-04-22 18:30 | NUR ---
Patient in room ICU 2042. I have received report from Rossana GASTELUM and had the opportunity to ask questions and assume patient care. Addendum: 04/22/20 at 1943 by Rosey Luna RN Amended: Links added.
--- NOTE | 2020-04-22 20:21 | NUR ---
HOB 10 degrees dialysis catheter in R groin positional, patient unstable. Addendum: 04/22/20 at 2021 by Rosey Luna RN Amended: Links added.
[2020-04-22] MEDS: insulin regular, human U-100 3ml vial - multi-dose SQ SCH (20:55)
[2020-04-22] MEDS ORDERED: [UNRECOGNIZED DRUG - REMARK] IV SCH ×7 (21:00)
[2020-04-22] MEDS: insulin glargine (Lantus) pen - multi-dose SQ SCH (21:06)
--- NOTE | 2020-04-22 22:47 | NUR ---
CVVH running without incident. Titrating levophed.
[2020-04-22 23:17] LABS: BASOPHILS % (AUTO) 0.3 % (0-1); EOSINOPHILS # (AUTO) 0.1 X10'3 (0-0.9); EOSINOPHILS % (AUTO) 1.3 % (0-6); HEMATOCRIT 28.6 % (42.0-52.0); HEMOGLOBIN 10.1 g/dl (14.0-17.9); LYMPHOCYTES # (AUTO) 0.5 X10'3 (1.1-4.8); LYMPHOCYTES % (AUTO) 4.3 % (21-51); MEAN CORPUSCULAR HEMOGLOBIN 32.6 PG (27.0-31.0); MEAN CORPUSCULAR HGB CONC 35.3 g/dL (33.0-36.5); MEAN CORPUSCULAR VOLUME 92.5 FL (78-98); MEAN PLATELET VOLUME 8.9 FL (7.4-10.4); MONOCYTES # (AUTO) 0.3 X10'3 (0-0.9); MONOCYTES % (AUTO) 2.4 % (2-12); NEUTROPHILS # (AUTO) 9.9 X10'3 (1.8-7.7); NEUTROPHILS % (AUTO) 91.7 % (42-75); PLATELET COUNT 81 X10'3 (140-440); RED BLOOD COUNT 3.09 X10'6 (4.70-6.10); RED CELL DISTRIBUTION WIDTH 14.8 % (11.5-14.5); WHITE BLOOD COUNT 10.8 X10'3 (4.5-11.0)
[2020-04-22 23:40] LABS: ALBUMIN 2.3 G/DL (3.4-5.0); ALKALINE PHOSPHATASE 71 IU/L (46-116); ANION GAP 6 (8-16); BILIRUBIN,TOTAL 1.7 MG/DL (0.1-1.0); BLOOD UREA NITROGEN 22 MG/DL (7-18); BUN/CREATININE RATIO 7.3 (5.4-32.0); CALCIUM 7.1 MG/DL (8.5-10.1); CHLORIDE 111 MMOL/L (99-107); CREATININE 3.01 MG/DL (0.60-1.10); GLUCOSE 237 MG/DL (70-104); PHOSPHORUS 2.6 MG/DL (2.3-4.5); POTASSIUM 3.6 MMOL/L (3.5-5.1); SODIUM 143 MMOL/L (135-145); TOTAL CARBON DIOXIDE 25.6 MMOL/L (24-32); TOTAL PROTEIN 4.5 G/DL (6.4-8.2); eGFR 22 ML/MIN
[2020-04-22] MEDS: bicarb dialysis sol 2K+/3 Ca2+ 5,000 ML HE SCH (23:45)
[2020-04-23] VITALS (24 sets, daily range): BP systolic 82–141; BP diastolic 48–78
[2020-04-23 00:27] LABS: ALANINE AMINOTRANSFERASE 2973 U/L (12-78); ASPARTATE AMINO TRANSFERASE 4507 U/L (10-37)
[2020-04-23] MEDS: FENTANYL-0.9 % NACL/PF 100 ML IV PRN ×4 (01:11→23:47)
[2020-04-23] MEDS: midazolam 100mg in NS 100ml 100 ML IV PRN ×3 (01:12→20:08)
[2020-04-23] MEDS: hydrocortisone sod succ/PF 100mg/2ml inj. IV SCH ×4 (01:12→20:13)
[2020-04-23] MEDS: mineral oil/petrolatum ophthal oint EACHEYE SCH ×4 (01:12→20:08)
[2020-04-23] MEDS: NORepinephrine inj. 32 MG in normal saline 250ml IV soln 218 ML IV SCH ×2 (01:45→14:57)
[2020-04-23] MEDS ORDERED: lactulose 20gm/30ml cup PO PRN (01:50)
[2020-04-23 01:51] LABS: ABG BASE EXCESS -2.8 mmol/L (-2.0-2.0); ABG HCO3 21.9 mmol/L (22.0-26.0); ABG OXYGEN SATURATION 89.6 % (94-97); ABG PCO2 (T) 38.1 mmHg (35.0-48.0); ABG PO2 (T) 63.1 mmHg (75.0-100.0); FCOHb 0.3 % (0.0-3.9); FMetHb 0.1 % (0.0-1.5); FO2Hb 89.2 % (94-97); PATIENT TEMPERATURE 37.5; PEEP 5 cm H2O; RESPIRATORY RATE 18 b/min; TIDAL VOLUME 600 mL; TOTAL HEMOGLOBIN 9.5 G/dl (14.0-18.0)
[2020-04-23] MEDS: vasopressin inj. 40 UNIT in normal saline 50ml IV soln 38 ML IV SCH (02:50)
[2020-04-23] MEDS: VANCOMYCIN LEVEL IV SCH (03:00)
[2020-04-23] MEDS: ipratropium/albuterol 3ml nebule NEB SCH ×6 (03:03→23:32)
--- NOTE | 2020-04-23 03:19 | NUR ---
[id number] CVVH down, jewelry bench worker notified. restarted at 0205 but line positional. line repositioned and secured, moved CVVH machine and placed patient in reverse trendelenburg to reduce pressure. patient also requiring increased FiO2, ABG and chest xray obtained. Lois at bedside, no new orders at this time. 0319:CVVH running without issue at this time. Maintaining sat of 92% on current FiO2. Will continue to monitor closely.
[2020-04-23] MEDS: insulin regular, human U-100 3ml vial - multi-dose SQ SCH ×4 (04:28→20:36)
[2020-04-23 04:31] LABS: PARTIAL THROMBOPLASTIN TIME 40 SECONDS (22-32)
[2020-04-23 04:35] LABS: BASOPHILS # (AUTO) 0.1 X10'3 (0-0.2); BASOPHILS % (AUTO) 0.6 % (0-1); EOSINOPHILS % (AUTO) 0.3 % (0-6); HEMATOCRIT 27.4 % (42.0-52.0); HEMOGLOBIN 9.5 g/dl (14.0-17.9); LYMPHOCYTES # (AUTO) 0.5 X10'3 (1.1-4.8); LYMPHOCYTES % (AUTO) 4.5 % (21-51); MEAN CORPUSCULAR HGB CONC 34.6 g/dL (33.0-36.5); MEAN CORPUSCULAR VOLUME 92.5 FL (78-98); MEAN PLATELET VOLUME 8.7 FL (7.4-10.4); MONOCYTES # (AUTO) 0.3 X10'3 (0-0.9); MONOCYTES % (AUTO) 2.4 % (2-12); NEUTROPHILS # (AUTO) 10.2 X10'3 (1.8-7.7); NEUTROPHILS % (AUTO) 92.2 % (42-75); PLATELET COUNT 77 X10'3 (140-440); RED BLOOD COUNT 2.96 X10'6 (4.70-6.10); RED CELL DISTRIBUTION WIDTH 14.7 % (11.5-14.5)
[2020-04-23 04:43] LABS: ALBUMIN 2.1 G/DL (3.4-5.0); ALBUMIN/GLOBULIN RATIO 0.9 (1.1-1.5); ALKALINE PHOSPHATASE 68 IU/L (46-116); ANION GAP 6 (8-16); BILIRUBIN,TOTAL 1.8 MG/DL (0.1-1.0); BLOOD UREA NITROGEN 23 MG/DL (7-18); BUN/CREATININE RATIO 7.3 (5.4-32.0); CALCIUM 6.6 MG/DL (8.5-10.1); CHLORIDE 111 MMOL/L (99-107); CREATININE 3.16 MG/DL (0.60-1.10); GLUCOSE 235 MG/DL (70-104); MAGNESIUM 1.9 MG/DL (1.5-2.4); PHOSPHORUS 2.2 MG/DL (2.3-4.5); POTASSIUM 3.3 MMOL/L (3.5-5.1); PREALBUMIN 12.5 MG/DL (19-36); SODIUM 143 MMOL/L (135-145); TOTAL CARBON DIOXIDE 25.8 MMOL/L (24-32); TOTAL PROTEIN 4.4 G/DL (6.4-8.2); TRIGLYCERIDES 241 MG/DL (20-135); VANCOMYCIN,TROUGH 16.4 UG/ML (6.0-14.0); eGFR 20 ML/MIN
[2020-04-23 04:54] LABS: PLATELET ESTIMATE DECREASED; TOTAL CELLS COUNTED 100
[2020-04-23 05:06] LABS: ALANINE AMINOTRANSFERASE 2786 U/L (12-78); ASPARTATE AMINO TRANSFERASE 3374 U/L (10-37)
[2020-04-23] MEDS: potassium Cl 20mEq/100mL bag 100 ML IV PRN ×5 (05:13→23:30)
--- NOTE | 2020-04-23 06:25 | NUR ---
Problems reprioritized. Patient report given, questions answered & plan of care reviewed with Jigar GASTELUM.
[2020-04-23] MEDS: piperacillin/tazo 3.375gm/50ml 50 ML IV SCH ×4 (07:57→23:30)
[2020-04-23] MEDS: fluconazole-Diflucan 200mg/NS 100 ML IV SCH (07:58)
[2020-04-23] MEDS: sodium bicarbonate (8.4%) inj. 150 MEQ in dextrose 5%-water 1,000 ML IV SCH ×2 (07:58→23:29)
[2020-04-23] MEDS: docusate sodium 100mg/10ml UD cup PO SCH ×2 (07:58→20:00)
[2020-04-23] MEDS: pantoprazole 40 MG vial IV SCH (07:58)
[2020-04-23] MEDS: levetiracetam inj 750 MG in normal saline 100ml IV soln 92.5 ML IV SCH ×2 (07:58→20:13)
[2020-04-23] MEDS ORDERED: BICARB DIALYSIS 4K/2.5 Ca2+sol 5,000 ML HE SCH (09:40)
--- NOTE | 2020-04-23 10:00 | NUR ---
Dr. Olsen at bedside rounding on patient. Orders to have wound care put wound care orders in for all wounds.
[2020-04-23 10:42] LABS: BASOPHILS % (AUTO) 0.3 % (0-1); EOSINOPHILS # (AUTO) 0.1 X10'3 (0-0.9); NEUTROPHILS # (AUTO) 9.4 X10'3 (1.8-7.7); WHITE BLOOD COUNT 10.2 X10'3 (4.5-11.0)
[2020-04-23 10:44] LABS: EOSINOPHILS % (AUTO) 0.7 % (0-6); HEMOGLOBIN 9.1 g/dl (14.0-17.9); LYMPHOCYTES # (AUTO) 0.5 X10'3 (1.1-4.8); LYMPHOCYTES % (AUTO) 4.7 % (21-51); MEAN CORPUSCULAR HEMOGLOBIN 32.2 PG (27.0-31.0); MEAN CORPUSCULAR VOLUME 91.9 FL (78-98); MONOCYTES # (AUTO) 0.2 X10'3 (0-0.9); MONOCYTES % (AUTO) 2.4 % (2-12); NEUTROPHILS % (AUTO) 91.9 % (42-75); PLATELET COUNT 69 X10'3 (140-440); RED BLOOD COUNT 2.84 X10'6 (4.70-6.10); RED CELL DISTRIBUTION WIDTH 14.8 % (11.5-14.5)
[2020-04-23] MEDS: Duosol 4K/3 Ca (w/calcium) 5,000 ML HE SCH ×8 (10:57→19:34)
[2020-04-23 11:05] LABS: ALBUMIN/GLOBULIN RATIO 0.9 (1.1-1.5); ALKALINE PHOSPHATASE 69 IU/L (46-116); ANION GAP 7 (8-16); BILIRUBIN,TOTAL 1.8 MG/DL (0.1-1.0); BLOOD UREA NITROGEN 26 MG/DL (7-18); BUN/CREATININE RATIO 8.8 (5.4-32.0); CHLORIDE 109 MMOL/L (99-107); CREATININE 2.96 MG/DL (0.60-1.10); GLUCOSE 289 MG/DL (70-104); MAGNESIUM 1.8 MG/DL (1.5-2.4); SODIUM 142 MMOL/L (135-145); TOTAL CARBON DIOXIDE 26.1 MMOL/L (24-32); TOTAL PROTEIN 4.2 G/DL (6.4-8.2); eGFR 22 ML/MIN
[2020-04-23 11:13] LABS: ALANINE AMINOTRANSFERASE 2498 U/L (12-78); POTASSIUM 3.6 MMOL/L (3.5-5.1)
[2020-04-23 11:50] LABS: PHOSPHORUS 1.6 MG/DL (2.3-4.5)
[2020-04-23 11:52] LABS: ASPARTATE AMINO TRANSFERASE 2370 U/L (10-37)
[2020-04-23] MEDS: sodium phosphate inj. 30 MMOL in normal saline 250ml IV soln 250 ML IV PRN ×2 (12:19→20:07)
[2020-04-23 12:46] LABS: NUCLEATED RED BLOOD CELLS 3 /100WBC (0-0); TOTAL CELLS COUNTED 100
--- NOTE | 2020-04-23 12:53 | NUR ---
Dr. Pappas aware of Bicarb of 21 on ABG this AM; orders to continue Bicarb drip for now.
[2020-04-23 12:56] LABS: PLATELET ESTIMATE DECREASED; TOXIC GRANULATION 2+; TOXIC VACUOLATION 2+
[2020-04-23] MEDS ORDERED: [UNRECOGNIZED DRUG - REMARK] IV SCH ×7 (17:00)
[2020-04-23 17:41] LABS: EOSINOPHILS % (AUTO) 0.3 % (0-6); LYMPHOCYTES # (AUTO) 0.5 X10'3 (1.1-4.8); MONOCYTES # (AUTO) 0.3 X10'3 (0-0.9); MONOCYTES % (AUTO) 2.9 % (2-12); NEUTROPHILS # (AUTO) 10.1 X10'3 (1.8-7.7); PLATELET COUNT 61 X10'3 (140-440)
[2020-04-23 17:43] LABS: BASOPHILS % (AUTO) 0.2 % (0-1); HEMOGLOBIN 8.7 g/dl (14.0-17.9); LYMPHOCYTES % (AUTO) 4.4 % (21-51); MEAN CORPUSCULAR HGB CONC 34.9 g/dL (33.0-36.5); MEAN CORPUSCULAR VOLUME 91.6 FL (78-98); MEAN PLATELET VOLUME 8.8 FL (7.4-10.4); NEUTROPHILS % (AUTO) 92.2 % (42-75); RED BLOOD COUNT 2.73 X10'6 (4.70-6.10); RED CELL DISTRIBUTION WIDTH 15.1 % (11.5-14.5); WHITE BLOOD COUNT 10.9 X10'3 (4.5-11.0)
[2020-04-23 17:59] LABS: ALBUMIN 1.9 G/DL (3.4-5.0); ALBUMIN/GLOBULIN RATIO 0.8 (1.1-1.5); ALKALINE PHOSPHATASE 74 IU/L (46-116); ANION GAP 6 (8-16); BLOOD UREA NITROGEN 29 MG/DL (7-18); BUN/CREATININE RATIO 9.6 (5.4-32.0); CALCIUM 6.9 MG/DL (8.5-10.1); CHLORIDE 108 MMOL/L (99-107); CREATININE 3.01 MG/DL (0.60-1.10); GLUCOSE 287 MG/DL (70-104); MAGNESIUM 1.7 MG/DL (1.5-2.4); PHOSPHORUS 2.1 MG/DL (2.3-4.5); POTASSIUM 3.3 MMOL/L (3.5-5.1); SODIUM 141 MMOL/L (135-145); TOTAL CARBON DIOXIDE 27.5 MMOL/L (24-32); TOTAL PROTEIN 4.3 G/DL (6.4-8.2); eGFR 22 ML/MIN
[2020-04-23 18:05] LABS: ALANINE AMINOTRANSFERASE 2269 U/L (12-78); ASPARTATE AMINO TRANSFERASE 1676 U/L (10-37)
--- NOTE | 2020-04-23 18:19 | NUR ---
Problems reprioritized. Patient report given, questions answered & plan of care reviewed with Deana GASTELUM.
--- NOTE | 2020-04-23 18:25 | NUR ---
Patient in room ICU 2042. I have received report from Jigar GASTELUM and had the opportunity to ask questions and assume patient care.
[2020-04-23] MEDS: insulin glargine (Lantus) pen - multi-dose SQ SCH (20:36)
[2020-04-23] MEDS: [UNRECOGNIZED DRUG - REMARK] IV SCH ×7 (20:37)
[2020-04-23] MEDS: magnesium 4gm in 100ml NS 100 ML IV PRN (21:11)
[2020-04-23 22:59] LABS: BASOPHILS % (AUTO) 0.2 % (0-1); EOSINOPHILS # (AUTO) 0.1 X10'3 (0-0.9); EOSINOPHILS % (AUTO) 0.4 % (0-6); HEMOGLOBIN 8.9 g/dl (14.0-17.9); LYMPHOCYTES # (AUTO) 0.8 X10'3 (1.1-4.8); MONOCYTES # (AUTO) 0.4 X10'3 (0-0.9)
[2020-04-23 23:02] LABS: HEMATOCRIT 25.5 % (42.0-52.0); LYMPHOCYTES % (AUTO) 5.9 % (21-51); MEAN CORPUSCULAR HEMOGLOBIN 32.2 PG (27.0-31.0); MEAN CORPUSCULAR HGB CONC 34.8 g/dL (33.0-36.5); MEAN CORPUSCULAR VOLUME 92.6 FL (78-98); MEAN PLATELET VOLUME 8.9 FL (7.4-10.4); MONOCYTES % (AUTO) 3.1 % (2-12); NEUTROPHILS # (AUTO) 12.3 X10'3 (1.8-7.7); NEUTROPHILS % (AUTO) 90.4 % (42-75); PLATELET COUNT 64 X10'3 (140-440); RED BLOOD COUNT 2.76 X10'6 (4.70-6.10); RED CELL DISTRIBUTION WIDTH 14.7 % (11.5-14.5); WHITE BLOOD COUNT 13.6 X10'3 (4.5-11.0)
[2020-04-23 23:15] LABS: ALBUMIN 1.9 G/DL (3.4-5.0); ALBUMIN/GLOBULIN RATIO 0.7 (1.1-1.5); ALKALINE PHOSPHATASE 82 IU/L (46-116); ANION GAP 4 (8-16); BILIRUBIN,TOTAL 2.3 MG/DL (0.1-1.0); BLOOD UREA NITROGEN 32 MG/DL (7-18); BUN/CREATININE RATIO 10.5 (5.4-32.0); CALCIUM 7.3 MG/DL (8.5-10.1); CHLORIDE 108 MMOL/L (99-107); CREATININE 3.06 MG/DL (0.60-1.10); GLUCOSE 288 MG/DL (70-104); MAGNESIUM 2.6 MG/DL (1.5-2.4); PHOSPHORUS 2.5 MG/DL (2.3-4.5); POTASSIUM 3.7 MMOL/L (3.5-5.1); SODIUM 140 MMOL/L (135-145); TOTAL CARBON DIOXIDE 28.3 MMOL/L (24-32); TOTAL PROTEIN 4.5 G/DL (6.4-8.2); eGFR 21 ML/MIN
[2020-04-23 23:17] LABS: ALANINE AMINOTRANSFERASE 2163 U/L (12-78); ASPARTATE AMINO TRANSFERASE 1387 U/L (10-37)
[2020-04-24] VITALS (24 sets, daily range): BP systolic 88–132; BP diastolic 20–79
--- NOTE | 2020-04-24 00:15 | NUR ---
Fi02 increased from 75-80% d/t O2 sat consistently ranging from 89-92%. Will continue to monitor.
--- NOTE | 2020-04-24 02:00 | NUR ---
CVVH Machine went down at 0120, child care counselor was still in unit. Machine was back up an running by 0200. Will continue to monitor.
[2020-04-24] MEDS: mineral oil/petrolatum ophthal oint EACHEYE SCH ×4 (02:13→19:42)
[2020-04-24] MEDS: hydrocortisone sod succ/PF 100mg/2ml inj. IV SCH ×4 (02:14→19:41)
[2020-04-24] MEDS: insulin regular, human U-100 3ml vial - multi-dose SQ SCH ×2 (02:17→07:36)
[2020-04-24] MEDS: VANCOMYCIN LEVEL IV SCH (02:26)
[2020-04-24 03:41] LABS: BASOPHILS % (AUTO) 0.3 % (0-1); HEMOGLOBIN 8.7 g/dl (14.0-17.9); LYMPHOCYTES # (AUTO) 0.8 X10'3 (1.1-4.8); RED BLOOD COUNT 2.77 X10'6 (4.70-6.10)
[2020-04-24 03:42] LABS: EOSINOPHILS # (AUTO) 0.1 X10'3 (0-0.9); EOSINOPHILS % (AUTO) 0.4 % (0-6); HEMATOCRIT 25.6 % (42.0-52.0); LYMPHOCYTES % (AUTO) 5.9 % (21-51); MEAN CORPUSCULAR HEMOGLOBIN 31.4 PG (27.0-31.0); MEAN CORPUSCULAR VOLUME 92.5 FL (78-98); MEAN PLATELET VOLUME 10.3 FL (7.4-10.4); MONOCYTES # (AUTO) 0.4 X10'3 (0-0.9); MONOCYTES % (AUTO) 3.1 % (2-12); NEUTROPHILS # (AUTO) 12.6 X10'3 (1.8-7.7); NEUTROPHILS % (AUTO) 90.3 % (42-75); PLATELET COUNT 67 X10'3 (140-440); RED CELL DISTRIBUTION WIDTH 14.9 % (11.5-14.5)
[2020-04-24 03:54] LABS: PARTIAL THROMBOPLASTIN TIME 36 SECONDS (22-32)
[2020-04-24] MEDS: ipratropium/albuterol 3ml nebule NEB SCH ×6 (03:57→22:45)
[2020-04-24 04:04] LABS: NUCLEATED RED BLOOD CELLS 3 /100WBC (0-0); TOTAL CELLS COUNTED 100
[2020-04-24 04:05] LABS: ALANINE AMINOTRANSFERASE 2082 U/L (12-78); ALBUMIN 1.9 G/DL (3.4-5.0); ALBUMIN/GLOBULIN RATIO 0.7 (1.1-1.5); ALKALINE PHOSPHATASE 83 IU/L (46-116); ANION GAP 6 (8-16); ASPARTATE AMINO TRANSFERASE 1213 U/L (10-37); BILIRUBIN,TOTAL 2.3 MG/DL (0.1-1.0); BLOOD UREA NITROGEN 34 MG/DL (7-18); BUN/CREATININE RATIO 11.2 (5.4-32.0); CALCIUM 7.3 MG/DL (8.5-10.1); CHLORIDE 107 MMOL/L (99-107); CREATININE 3.03 MG/DL (0.60-1.10); GLUCOSE 302 MG/DL (70-104); MAGNESIUM 2.4 MG/DL (1.5-2.4); PHOSPHORUS 2.6 MG/DL (2.3-4.5); PLATELET ESTIMATE DECREASED; POTASSIUM 4.2 MMOL/L (3.5-5.1); SODIUM 139 MMOL/L (135-145); TOTAL CARBON DIOXIDE 26.5 MMOL/L (24-32); TOTAL PROTEIN 4.6 G/DL (6.4-8.2); VANCOMYCIN,TROUGH 8.9 UG/ML (6.0-14.0); eGFR 22 ML/MIN
[2020-04-24 04:20] LABS: ABG BASE EXCESS 0.2 mmol/L (-2.0-2.0); ABG HCO3 24.6 mmol/L (22.0-26.0); ABG OXYGEN SATURATION 90.9 % (94-97); ABG PCO2 (T) 38.9 mmHg (35.0-48.0); ABG PO2 (T) 62.4 mmHg (75.0-100.0); FCOHb 0.3 % (0.0-3.9); FMetHb 0.3 % (0.0-1.5); FO2Hb 90.4 % (94-97); PATIENT TEMPERATURE 37.1; PEEP 5 cm H2O; RESPIRATORY RATE 18 b/min; TIDAL VOLUME 600 mL; TOTAL HEMOGLOBIN 9.5 G/dl (14.0-18.0)
[2020-04-24] MEDS: midazolam 100mg in NS 100ml 100 ML IV PRN ×2 (05:05→15:10)
[2020-04-24] MEDS: Duosol 4K/3 Ca (w/calcium) 5,000 ML HE SCH ×5 (05:58→13:22)
--- NOTE | 2020-04-24 06:29 | NUR ---
Problems reprioritized. Patient report given, questions answered & plan of care reviewed with Jigar GASTELUM.
[2020-04-24] MEDS: pantoprazole 40 MG vial IV SCH (07:20)
[2020-04-24] MEDS: piperacillin/tazo 3.375gm/50ml 50 ML IV SCH ×2 (07:20→16:11)
[2020-04-24] MEDS: fluconazole-Diflucan 200mg/NS 100 ML IV SCH (07:21)
[2020-04-24] MEDS: levetiracetam inj 750 MG in normal saline 100ml IV soln 92.5 ML IV SCH ×2 (07:21→19:42)
[2020-04-24] MEDS: docusate sodium 100mg/10ml UD cup PO SCH ×2 (07:21→19:42)
[2020-04-24] MEDS ORDERED: vancomycin/NS 1 GM ADD-VANTAGE 250 ML IV ONE (08:00)
[2020-04-24] MEDS: FENTANYL-0.9 % NACL/PF 100 ML IV PRN ×2 (08:54→18:29)
--- NOTE | 2020-04-24 09:36 | NUR ---
IR to patient bedside for Thoracentesis, scanned and not enough fluid to drain per bao cruz Nursing staff informed
[2020-04-24 10:15] LABS: HEMATOCRIT 24.5 % (42.0-52.0); LYMPHOCYTES # (AUTO) 0.9 X10'3 (1.1-4.8); MONOCYTES # (AUTO) 0.5 X10'3 (0-0.9); NEUTROPHILS # (AUTO) 12.6 X10'3 (1.8-7.7); WHITE BLOOD COUNT 14.1 X10'3 (4.5-11.0)
[2020-04-24 10:17] LABS: BASOPHILS # (AUTO) 0.1 X10'3 (0-0.2); BASOPHILS % (AUTO) 0.4 % (0-1); EOSINOPHILS % (AUTO) 0.1 % (0-6); HEMOGLOBIN 8.3 g/dl (14.0-17.9); LYMPHOCYTES % (AUTO) 6.7 % (21-51); MEAN CORPUSCULAR HEMOGLOBIN 31.5 PG (27.0-31.0); MEAN CORPUSCULAR HGB CONC 33.9 g/dL (33.0-36.5); MEAN CORPUSCULAR VOLUME 92.9 FL (78-98); MONOCYTES % (AUTO) 3.4 % (2-12); NEUTROPHILS % (AUTO) 89.4 % (42-75); PLATELET COUNT 61 X10'3 (140-440); RED BLOOD COUNT 2.64 X10'6 (4.70-6.10); RED CELL DISTRIBUTION WIDTH 14.9 % (11.5-14.5)
[2020-04-24 10:26] LABS: ALBUMIN 1.8 G/DL (3.4-5.0); ANION GAP 10 (8-16); BLOOD UREA NITROGEN 37 MG/DL (7-18); BUN/CREATININE RATIO 12.5 (5.4-32.0); CALCIUM 7.4 MG/DL (8.5-10.1); CHLORIDE 104 MMOL/L (99-107); CREATININE 2.97 MG/DL (0.60-1.10); GLUCOSE 294 MG/DL (70-104); PHOSPHORUS 1.5 MG/DL (2.3-4.5); POTASSIUM 3.8 MMOL/L (3.5-5.1); SODIUM 138 MMOL/L (135-145); TOTAL CARBON DIOXIDE 24.4 MMOL/L (24-32); eGFR 22 ML/MIN
--- NOTE | 2020-04-24 11:30 | NUR ---
After sedation vacation, patient started to have small hiccups/seizure-like activity. Dr. Pappas called. Orders to re-sedate the patient and get an EEG.
[2020-04-24] MEDS: sodium phosphate inj. 30 MMOL in normal saline 250ml IV soln 250 ML IV PRN (11:47)
[2020-04-24] MEDS: NORepinephrine inj. 32 MG in normal saline 250ml IV soln 218 ML IV SCH (12:33)
[2020-04-24] MEDS: Insulin Reg/NS 100units/100mL 100 ML IV SCH ×2 (13:10→21:50)
--- NOTE | 2020-04-24 13:15 | NUR ---
Reassessment: continues with intubation, sedation, and custom TPN-tolerating. S/p ex lap with sigmoid resection and colostomy. Pt septic and started on CVVH for renal failure. No colostomy output yet. Pt receiving insulin drip in view of elevated blood glucose. Will continue to follow, no change in nutrition intervention at this time. Rec: 1. Custom TPN per assistant casino shift manager on CVVH; to run at 95ml/hr goal. To provide; 2280ml volume, 166g AA, 363g DEX(2.25mg/kg/min), 21g lipids, and 2108 total kcals. 2. PALB/TG Q /; daily wts 3. monitor for bowel function and colostomy output post-op 4. When bowel function returns and hemodynamically stable; consider EN Addendum: 04/24/20 at [address] Amended: Links added.
[2020-04-24] MEDS: sodium bicarbonate (8.4%) inj. 150 MEQ in dextrose 5%-water 1,000 ML IV SCH (13:55)
[2020-04-24] MEDS: insulin Lispro (HumaLOG) vial - multi-dose SQ PRN ×3 (14:14→16:15)
[2020-04-24 17:31] LABS: BASOPHILS % (AUTO) 0.3 % (0-1); EOSINOPHILS # (AUTO) 0.1 X10'3 (0-0.9); EOSINOPHILS % (AUTO) 0.4 % (0-6); HEMOGLOBIN 8.3 g/dl (14.0-17.9); RED BLOOD COUNT 2.64 X10'6 (4.70-6.10); WHITE BLOOD COUNT 15.8 X10'3 (4.5-11.0)
[2020-04-24 17:32] LABS: HEMATOCRIT 24.5 % (42.0-52.0); LYMPHOCYTES # (AUTO) 1.1 X10'3 (1.1-4.8); LYMPHOCYTES % (AUTO) 6.9 % (21-51); MEAN CORPUSCULAR HEMOGLOBIN 31.5 PG (27.0-31.0); MEAN CORPUSCULAR VOLUME 92.8 FL (78-98); MEAN PLATELET VOLUME 9.6 FL (7.4-10.4); MONOCYTES # (AUTO) 0.7 X10'3 (0-0.9); MONOCYTES % (AUTO) 4.4 % (2-12); NEUTROPHILS # (AUTO) 13.9 X10'3 (1.8-7.7); PLATELET COUNT 59 X10'3 (140-440); RED CELL DISTRIBUTION WIDTH 14.9 % (11.5-14.5)
[2020-04-24 17:40] LABS: ALBUMIN 1.8 G/DL (3.4-5.0); ANION GAP 9 (8-16); BLOOD UREA NITROGEN 40 MG/DL (7-18); BUN/CREATININE RATIO 13.4 (5.4-32.0); CALCIUM 7.1 MG/DL (8.5-10.1); CHLORIDE 104 MMOL/L (99-107); CREATININE 2.98 MG/DL (0.60-1.10); GLUCOSE 245 MG/DL (70-104); MAGNESIUM 1.8 MG/DL (1.5-2.4); PHOSPHORUS 2.7 MG/DL (2.3-4.5); POTASSIUM 3.7 MMOL/L (3.5-5.1); SODIUM 139 MMOL/L (135-145); TOTAL CARBON DIOXIDE 26.1 MMOL/L (24-32); eGFR 22 ML/MIN
--- NOTE | 2020-04-24 18:16 | NUR ---
Problems reprioritized. Patient report given, questions answered & plan of care reviewed with Deana GASTELUM.
[2020-04-24] MEDS: potassium Cl 20mEq/100mL bag 100 ML IV PRN ×2 (18:28→19:47)
[2020-04-24] MEDS: [UNRECOGNIZED DRUG - REMARK] IV SCH ×7 (19:41)
--- NOTE | 2020-04-24 20:40 | NUR ---
CVVH Machine went down and partial return possible. Several attempts were made to get it running all with no effect. Laborer [place] professor of voice called and will be in.
[2020-04-24] MEDS ORDERED: tPA-cathflo 2 MG/2 ml IV flush IVF ONE (21:00)
[2020-04-24] MEDS: insulin glargine (Lantus) pen - multi-dose SQ SCH (21:00)
--- NOTE | 2020-04-24 21:30 | NUR ---
technical service specialist instilled tPA into both ports of the Marco A Cath with plan of leaving in line for 1 hr. Will continue to monitor.
[2020-04-24 22:54] LABS: EOSINOPHILS # (AUTO) 0.1 X10'3 (0-0.9); HEMOGLOBIN 7.7 g/dl (14.0-17.9); MONOCYTES # (AUTO) 0.7 X10'3 (0-0.9); MONOCYTES % (AUTO) 4.3 % (2-12); RED BLOOD COUNT 2.41 X10'6 (4.70-6.10)
[2020-04-24 22:56] LABS: BASOPHILS % (AUTO) 0.2 % (0-1); EOSINOPHILS % (AUTO) 0.4 % (0-6); HEMATOCRIT 22.8 % (42.0-52.0); LYMPHOCYTES # (AUTO) 1.2 X10'3 (1.1-4.8); LYMPHOCYTES % (AUTO) 7.6 % (21-51); MEAN CORPUSCULAR HEMOGLOBIN 31.9 PG (27.0-31.0); MEAN CORPUSCULAR HGB CONC 33.7 g/dL (33.0-36.5); MEAN CORPUSCULAR VOLUME 94.7 FL (78-98); NEUTROPHILS # (AUTO) 13.3 X10'3 (1.8-7.7); NEUTROPHILS % (AUTO) 87.5 % (42-75); PLATELET COUNT 60 X10'3 (140-440); RED CELL DISTRIBUTION WIDTH 14.9 % (11.5-14.5); WHITE BLOOD COUNT 15.2 X10'3 (4.5-11.0)
[2020-04-24 23:16] LABS: ALBUMIN 1.7 G/DL (3.4-5.0); ANION GAP 8 (8-16); BLOOD UREA NITROGEN 47 MG/DL (7-18); BUN/CREATININE RATIO 14.7 (5.4-32.0); CALCIUM 7.5 MG/DL (8.5-10.1); CHLORIDE 104 MMOL/L (99-107); GLUCOSE 212 MG/DL (70-104); MAGNESIUM 1.9 MG/DL (1.5-2.4); PHOSPHORUS 2.3 MG/DL (2.3-4.5); SODIUM 139 MMOL/L (135-145); TOTAL CARBON DIOXIDE 26.8 MMOL/L (24-32); eGFR 20 ML/MIN
[2020-04-24 23:23] LABS: POTASSIUM 4.6 MMOL/L (3.5-5.1)
[2020-04-25] VITALS (26 sets, daily range): BP systolic 85–137; BP diastolic 53–76
[2020-04-25] MEDS: piperacillin/tazo 3.375gm/50ml 50 ML IV SCH ×3 (00:09→15:29)
[2020-04-25] MEDS ORDERED: heparin 1,000 units/ml 10ml inj HE ONE ×2 (00:45)
--- NOTE | 2020-04-25 01:00 | NUR ---
charging machine operator called transmission operator MD to make aware of Marco A not working properly despite trying tPA in both ports. No new orders were received and requested to be addressed during day shift.
[2020-04-25] MEDS: Insulin Reg/NS 100units/100mL 100 ML IV SCH ×4 (01:12→19:20)
[2020-04-25] MEDS: FENTANYL-0.9 % NACL/PF 100 ML IV PRN ×3 (01:12→22:54)
[2020-04-25] MEDS: midazolam 100mg in NS 100ml 100 ML IV PRN ×2 (01:13→21:22)
[2020-04-25] MEDS: mineral oil/petrolatum ophthal oint EACHEYE SCH ×4 (02:05→20:29)
[2020-04-25] MEDS: hydrocortisone sod succ/PF 100mg/2ml inj. IV SCH ×4 (02:05→20:29)
[2020-04-25] MEDS: ipratropium/albuterol 3ml nebule NEB SCH ×6 (02:36→22:38)
[2020-04-25] MEDS: VANCOMYCIN LEVEL IV SCH (02:38)
[2020-04-25 02:50] LABS: ABG BASE EXCESS -3.6 mmol/L (-2.0-2.0); ABG HCO3 20.2 mmol/L (22.0-26.0); ABG OXYGEN SATURATION 93.4 % (94-97); ABG PCO2 (T) 32.2 mmHg (35.0-48.0); ABG PO2 (T) 70.1 mmHg (75.0-100.0); FCOHb 0.3 % (0.0-3.9); FMetHb 0.1 % (0.0-1.5); PATIENT TEMPERATURE 37.4; PEEP 5 cm H2O; RESPIRATORY RATE 18 b/min; TIDAL VOLUME 600 mL; TOTAL HEMOGLOBIN 8.1 G/dl (14.0-18.0)
[2020-04-25 03:37] LABS: EOSINOPHILS # (AUTO) 0.1 X10'3 (0-0.9); MONOCYTES # (AUTO) 0.8 X10'3 (0-0.9)
[2020-04-25 03:40] LABS: BASOPHILS % (AUTO) 0.3 % (0-1); EOSINOPHILS % (AUTO) 0.4 % (0-6); HEMOGLOBIN 7.2 g/dl (14.0-17.9); LYMPHOCYTES # (AUTO) 1.2 X10'3 (1.1-4.8); LYMPHOCYTES % (AUTO) 8.3 % (21-51); MEAN CORPUSCULAR HEMOGLOBIN 31.7 PG (27.0-31.0); MEAN CORPUSCULAR HGB CONC 33.9 g/dL (33.0-36.5); MEAN CORPUSCULAR VOLUME 93.6 FL (78-98); MEAN PLATELET VOLUME 9.7 FL (7.4-10.4); MONOCYTES % (AUTO) 5.6 % (2-12); NEUTROPHILS # (AUTO) 12.7 X10'3 (1.8-7.7); NEUTROPHILS % (AUTO) 85.4 % (42-75); PLATELET COUNT 58 X10'3 (140-440); RED BLOOD COUNT 2.29 X10'6 (4.70-6.10); RED CELL DISTRIBUTION WIDTH 15.3 % (11.5-14.5); WHITE BLOOD COUNT 14.9 X10'3 (4.5-11.0)
[2020-04-25 03:41] LABS: PARTIAL THROMBOPLASTIN TIME 32 SECONDS (22-32)
[2020-04-25 03:56] LABS: HEMATOCRIT 21.4 % (42.0-52.0)
[2020-04-25 04:04] LABS: ALBUMIN 1.6 G/DL (3.4-5.0); ALBUMIN/GLOBULIN RATIO 0.6 (1.1-1.5); ALKALINE PHOSPHATASE 82 IU/L (46-116); ANION GAP 8 (8-16); ASPARTATE AMINO TRANSFERASE 457 U/L (10-37); BILIRUBIN,TOTAL 3.2 MG/DL (0.1-1.0); BLOOD UREA NITROGEN 56 MG/DL (7-18); BUN/CREATININE RATIO 15.3 (5.4-32.0); CALCIUM 7.3 MG/DL (8.5-10.1); CHLORIDE 107 MMOL/L (99-107); CREATININE 3.65 MG/DL (0.60-1.10); GLUCOSE 171 MG/DL (70-104); MAGNESIUM 1.8 MG/DL (1.5-2.4); PHOSPHORUS 1.7 MG/DL (2.3-4.5); POTASSIUM 4.4 MMOL/L (3.5-5.1); SODIUM 141 MMOL/L (135-145); TOTAL CARBON DIOXIDE 25.7 MMOL/L (24-32); TOTAL PROTEIN 4.5 G/DL (6.4-8.2); eGFR 17 ML/MIN
[2020-04-25 04:05] LABS: VANCOMYCIN,TROUGH 15.4 UG/ML (6.0-14.0)
[2020-04-25 04:07] LABS: ALANINE AMINOTRANSFERASE 1372 U/L (12-78)
--- NOTE | 2020-04-25 04:10 | NUR ---
TANJA Monique notified d/t receiving a critical HCT of 21.4. Vital signs are stable with HR trending in mid 90's and SBP greater than 110. PT is on Levophed and has remained on same dose with no need to titrate up. No outwards sign of bleeding noted. Will continue to monitor.
[2020-04-25] MEDS: sodium bicarbonate (8.4%) inj. 150 MEQ in dextrose 5%-water 1,000 ML IV SCH ×2 (05:15→20:35)
[2020-04-25] MEDS: sodium phosphate inj. 30 MMOL in normal saline 250ml IV soln 250 ML IV PRN (05:34)
[2020-04-25 06:27] LABS: ANISOCYTOSIS 1+; NUCLEATED RED BLOOD CELLS 7 /100WBC (0-0); PLATELET ESTIMATE DECREASED; POLYCHROMASIA FEW; TOTAL CELLS COUNTED 100; TOXIC GRANULATION 1+
--- NOTE | 2020-04-25 06:32 | NUR ---
Problems reprioritized. Patient report given, questions answered & plan of care reviewed with Pilar GASTELUM.
[2020-04-25] MEDS: levetiracetam inj 750 MG in normal saline 100ml IV soln 92.5 ML IV SCH ×2 (07:29→20:29)
[2020-04-25] MEDS: fluconazole-Diflucan 200mg/NS 100 ML IV SCH (07:30)
[2020-04-25] MEDS: pantoprazole 40 MG vial IV SCH (07:31)
[2020-04-25] MEDS: docusate sodium 100mg/10ml UD cup PO SCH ×3 (07:32→20:00)
[2020-04-25 10:12] LABS: EOSINOPHILS # (AUTO) 0.1 X10'3 (0-0.9); EOSINOPHILS % (AUTO) 0.5 % (0-6)
[2020-04-25 10:14] LABS: BASOPHILS % (AUTO) 0.1 % (0-1); LYMPHOCYTES % (AUTO) 6.2 % (21-51); MEAN CORPUSCULAR HEMOGLOBIN 32.1 PG (27.0-31.0); MEAN CORPUSCULAR HGB CONC 33.8 g/dL (33.0-36.5); MEAN CORPUSCULAR VOLUME 95.2 FL (78-98); MEAN PLATELET VOLUME 9.7 FL (7.4-10.4); MONOCYTES % (AUTO) 6.6 % (2-12); NEUTROPHILS # (AUTO) 13.5 X10'3 (1.8-7.7); NEUTROPHILS % (AUTO) 86.6 % (42-75); PLATELET COUNT 60 X10'3 (140-440); RED BLOOD COUNT 2.14 X10'6 (4.70-6.10); RED CELL DISTRIBUTION WIDTH 15.3 % (11.5-14.5); WHITE BLOOD COUNT 15.5 X10'3 (4.5-11.0)
[2020-04-25 10:20] LABS: ALBUMIN 1.5 G/DL (3.4-5.0); ANION GAP 11 (8-16); BLOOD UREA NITROGEN 70 MG/DL (7-18); BUN/CREATININE RATIO 17.1 (5.4-32.0); CHLORIDE 103 MMOL/L (99-107); CREATININE 4.09 MG/DL (0.60-1.10); GLUCOSE 113 MG/DL (70-104); HEMATOCRIT 20.4 % (42.0-52.0); HEMOGLOBIN 6.9 g/dl (14.0-17.9); MAGNESIUM 1.7 MG/DL (1.5-2.4); PHOSPHORUS 3.1 MG/DL (2.3-4.5); POTASSIUM 4.3 MMOL/L (3.5-5.1); SODIUM 139 MMOL/L (135-145); TOTAL CARBON DIOXIDE 24.7 MMOL/L (24-32); eGFR 15 ML/MIN
[2020-04-25 10:57] LABS: NUCLEATED RED BLOOD CELLS 11 /100WBC (0-0); TOTAL CELLS COUNTED 100
[2020-04-25 10:58] LABS: ANISOCYTOSIS 1+; PLATELET ESTIMATE DECREASED
[2020-04-25 10:59] LABS: POLYCHROMASIA 3+; TOXIC GRANULATION 1+
[2020-04-25] MEDS: NORepinephrine inj. 32 MG in normal saline 250ml IV soln 218 ML IV SCH (14:05)
[2020-04-25 15:26] LABS: ABG BASE EXCESS -2.7 mmol/L (-2.0-2.0); ABG HCO3 21.1 mmol/L (22.0-26.0); ABG OXYGEN SATURATION 92.8 % (94-97); ABG PO2 (T) 59.9 mmHg (75.0-100.0); FCOHb 0.3 % (0.0-3.9); FLOW 40 L/min; FMetHb 0.3 % (0.0-1.5); FO2Hb 92.2 % (94-97); PATIENT TEMPERATURE 35.9; PEEP 5 cm H2O; RESPIRATORY RATE 18 b/min; TIDAL VOLUME 600 mL; TOTAL HEMOGLOBIN 8.2 G/dl (14.0-18.0)
[2020-04-25 15:59] LABS: EOSINOPHILS # (AUTO) 0.1 X10'3 (0-0.9); LYMPHOCYTES # (AUTO) 1.5 X10'3 (1.1-4.8)
[2020-04-25 16:00] LABS: BASOPHILS % (AUTO) 0.3 % (0-1); EOSINOPHILS % (AUTO) 0.8 % (0-6); HEMATOCRIT 22.8 % (42.0-52.0); HEMOGLOBIN 7.6 g/dl (14.0-17.9); LYMPHOCYTES % (AUTO) 10.1 % (21-51); MEAN CORPUSCULAR HEMOGLOBIN 31.2 PG (27.0-31.0); MEAN CORPUSCULAR HGB CONC 33.6 g/dL (33.0-36.5); MEAN CORPUSCULAR VOLUME 92.7 FL (78-98); MEAN PLATELET VOLUME 9.8 FL (7.4-10.4); MONOCYTES # (AUTO) 0.6 X10'3 (0-0.9); MONOCYTES % (AUTO) 3.7 % (2-12); NEUTROPHILS # (AUTO) 12.8 X10'3 (1.8-7.7); NEUTROPHILS % (AUTO) 85.1 % (42-75); RED BLOOD COUNT 2.46 X10'6 (4.70-6.10); RED CELL DISTRIBUTION WIDTH 15.3 % (11.5-14.5)
[2020-04-25 16:10] LABS: ALBUMIN 1.4 G/DL (3.4-5.0); ANION GAP 8 (8-16); BLOOD UREA NITROGEN 69 MG/DL (7-18); BUN/CREATININE RATIO 18.1 (5.4-32.0); CALCIUM 7.1 MG/DL (8.5-10.1); CHLORIDE 105 MMOL/L (99-107); CREATININE 3.81 MG/DL (0.60-1.10); GLUCOSE 153 MG/DL (70-104); PHOSPHORUS 2.6 MG/DL (2.3-4.5); POTASSIUM 4.3 MMOL/L (3.5-5.1); SODIUM 137 MMOL/L (135-145); TOTAL CARBON DIOXIDE 24.3 MMOL/L (24-32); eGFR 17 ML/MIN
[2020-04-25 16:20] LABS: PLATELET COUNT 50 X10'3 (140-440)
[2020-04-25 16:53] LABS: MAGNESIUM 1.7 MG/DL (1.5-2.4)
--- NOTE | 2020-04-25 18:20 | NUR ---
Patient in room ICU 2042. I have received report from NIRAV Quezada and had the opportunity to ask questions and assume patient care.
--- NOTE | 2020-04-25 18:49 | NUR ---
phone call to hot pond operator animal humane agent supervisor. Machine is currently down and off. Alarmed "venous air" attempted to clear alarm by regional sales manager. Lines flushed with normal saline. Blood unable to be returned.
[2020-04-25] MEDS: [UNRECOGNIZED DRUG - REMARK] IV SCH ×7 (20:30)
[2020-04-25] MEDS: insulin glargine (Lantus) pen - multi-dose SQ SCH (21:26)
[2020-04-25] MEDS: CALCIUM CHLORIDE IV SCH ×4 (21:33→21:45)
[2020-04-25] MEDS: [UNRECOGNIZED DRUG - OTHER] IV SCH ×4 (21:33→21:45)
[2020-04-25] MEDS: CALCIUM IV SCH ×4 (21:33→21:45)
[2020-04-25 22:45] LABS: EOSINOPHILS # (AUTO) 0.1 X10'3 (0-0.9); EOSINOPHILS % (AUTO) 0.6 % (0-6); HEMOGLOBIN 7.9 g/dl (14.0-17.9)
[2020-04-25 22:47] LABS: BASOPHILS % (AUTO) 0.2 % (0-1); HEMATOCRIT 23.4 % (42.0-52.0); LYMPHOCYTES # (AUTO) 1.5 X10'3 (1.1-4.8); LYMPHOCYTES % (AUTO) 9.3 % (21-51); MEAN CORPUSCULAR HEMOGLOBIN 31.6 PG (27.0-31.0); MEAN CORPUSCULAR HGB CONC 33.8 g/dL (33.0-36.5); MEAN CORPUSCULAR VOLUME 93.7 FL (78-98); MEAN PLATELET VOLUME 9.8 FL (7.4-10.4); MONOCYTES # (AUTO) 0.8 X10'3 (0-0.9); MONOCYTES % (AUTO) 5.2 % (2-12); NEUTROPHILS # (AUTO) 13.7 X10'3 (1.8-7.7); NEUTROPHILS % (AUTO) 84.7 % (42-75); PLATELET COUNT 54 X10'3 (140-440); WHITE BLOOD COUNT 16.2 X10'3 (4.5-11.0)
[2020-04-25 23:30] LABS: CHLORIDE 104 MMOL/L (99-107); POTASSIUM 4.3 MMOL/L (3.5-5.1); SODIUM 137 MMOL/L (135-145)
[2020-04-25 23:51] LABS: ALBUMIN 1.5 G/DL (3.4-5.0); ANION GAP 11 (8-16); BLOOD UREA NITROGEN 70 MG/DL (7-18); CREATININE 3.68 MG/DL (0.60-1.10); GLUCOSE 135 MG/DL (70-104); PHOSPHORUS 2.3 MG/DL (2.3-4.5); TOTAL CARBON DIOXIDE 21.7 MMOL/L (24-32); eGFR 17 ML/MIN
[2020-04-26] VITALS (24 sets, daily range): BP systolic 89–132; BP diastolic 48–63
[2020-04-26] MEDS: piperacillin/tazo 3.375gm/50ml 50 ML IV SCH ×3 (00:09→16:02)
[2020-04-26] MEDS: Insulin Reg/NS 100units/100mL 100 ML IV SCH ×4 (01:18→20:02)
[2020-04-26] MEDS: magnesium 4gm in 100ml NS 100 ML IV PRN (01:23)
[2020-04-26] MEDS: sodium phosphate inj. 30 MMOL in normal saline 250ml IV soln 250 ML IV PRN (02:08)
[2020-04-26] MEDS: mineral oil/petrolatum ophthal oint EACHEYE SCH ×4 (02:09→19:58)
[2020-04-26] MEDS: hydrocortisone sod succ/PF 100mg/2ml inj. IV SCH ×4 (02:15→19:58)
[2020-04-26] MEDS: VANCOMYCIN LEVEL IV SCH (03:00)
[2020-04-26] MEDS: ipratropium/albuterol 3ml nebule NEB SCH ×6 (03:37→23:12)
[2020-04-26 04:36] LABS: ABG BASE EXCESS -5.8 mmol/L (-2.0-2.0); ABG HCO3 18.2 mmol/L (22.0-26.0); ABG OXYGEN SATURATION 92.5 % (94-97); ABG PCO2 (T) 29.4 mmHg (35.0-48.0); ABG PO2 (T) 65.2 mmHg (75.0-100.0); FCOHb 0.3 % (0.0-3.9); FMetHb 0.3 % (0.0-1.5); FO2Hb 91.9 % (94-97); PATIENT TEMPERATURE 36.5; RESPIRATORY RATE 18 b/min; TIDAL VOLUME 600 mL; TOTAL HEMOGLOBIN 8.6 G/dl (14.0-18.0)
[2020-04-26 04:54] LABS: MEAN PLATELET VOLUME 10.1 FL (7.4-10.4); MONOCYTES # (AUTO) 1.2 X10'3 (0-0.9); RED CELL DISTRIBUTION WIDTH 16.1 % (11.5-14.5)
[2020-04-26 04:55] LABS: HEMATOCRIT 23.7 % (42.0-52.0); LYMPHOCYTES % (AUTO) 9.5 % (21-51); MEAN CORPUSCULAR HEMOGLOBIN 31.4 PG (27.0-31.0); MEAN CORPUSCULAR HGB CONC 33.6 g/dL (33.0-36.5); MEAN CORPUSCULAR VOLUME 93.6 FL (78-98); NEUTROPHILS % (AUTO) 83.6 % (42-75); PLATELET COUNT 66 X10'3 (140-440); RED BLOOD COUNT 2.53 X10'6 (4.70-6.10)
[2020-04-26 04:56] LABS: BASOPHILS % (AUTO) 0.1 % (0-1); EOSINOPHILS # (AUTO) 0.2 X10'3 (0-0.9); EOSINOPHILS % (AUTO) 0.8 % (0-6); LYMPHOCYTES # (AUTO) 1.9 X10'3 (1.1-4.8); NEUTROPHILS # (AUTO) 16.7 X10'3 (1.8-7.7)
[2020-04-26 05:05] LABS: CHLORIDE 104 MMOL/L (99-107); SODIUM 135 MMOL/L (135-145)
[2020-04-26] MEDS: CALCIUM CHLORIDE IV SCH ×7 (05:09→21:19)
[2020-04-26] MEDS: CALCIUM IV SCH ×7 (05:09→21:19)
[2020-04-26] MEDS: [UNRECOGNIZED DRUG - OTHER] IV SCH ×7 (05:09→21:19)
[2020-04-26] MEDS: FENTANYL-0.9 % NACL/PF 100 ML IV PRN ×3 (05:25→19:16)
[2020-04-26 05:37] LABS: ALANINE AMINOTRANSFERASE 848 U/L (12-78); ALBUMIN 1.5 G/DL (3.4-5.0); ALBUMIN/GLOBULIN RATIO 0.5 (1.1-1.5); ALKALINE PHOSPHATASE 90 IU/L (46-116); ANION GAP 10 (8-16); ASPARTATE AMINO TRANSFERASE 289 U/L (10-37); BILIRUBIN,TOTAL 3.8 MG/DL (0.1-1.0); BLOOD UREA NITROGEN 67 MG/DL (7-18); BUN/CREATININE RATIO 19.2 (5.4-32.0); CALCIUM 7.3 MG/DL (8.5-10.1); CREATININE 3.49 MG/DL (0.60-1.10); GLUCOSE 154 MG/DL (70-104); MAGNESIUM 2.6 MG/DL (1.5-2.4); PHOSPHORUS 3.5 MG/DL (2.3-4.5); TOTAL CARBON DIOXIDE 20.8 MMOL/L (24-32); TOTAL PROTEIN 4.6 G/DL (6.4-8.2); eGFR 18 ML/MIN
[2020-04-26 05:40] LABS: PARTIAL THROMBOPLASTIN TIME 27 SECONDS (22-32)
[2020-04-26 05:41] LABS: ANISOCYTOSIS 1+; NUCLEATED RED BLOOD CELLS 10 /100WBC (0-0); PLATELET ESTIMATE DECREASED; TOTAL CELLS COUNTED 100; TOXIC GRANULATION 1+
[2020-04-26 05:42] LABS: POLYCHROMASIA 1+
--- NOTE | 2020-04-26 06:24 | NUR ---
Problems reprioritized. Patient report given, questions answered & plan of care reviewed with NIRAV Tracy.
--- NOTE | 2020-04-26 06:30 | NUR ---
Patient in room ICU 2042. I have received report from Wilda GASTELUM and had the opportunity to ask questions and assume patient care.
[2020-04-26] MEDS: pantoprazole 40 MG vial IV SCH (07:42)
[2020-04-26] MEDS: levetiracetam inj 750 MG in normal saline 100ml IV soln 92.5 ML IV SCH ×2 (07:42→19:58)
[2020-04-26] MEDS: fluconazole-Diflucan 200mg/NS 100 ML IV SCH (07:42)
[2020-04-26] MEDS: docusate sodium 100mg/10ml UD cup PO SCH ×3 (07:43→20:29)
[2020-04-26] MEDS: midazolam 100mg in NS 100ml 100 ML IV PRN ×2 (07:43→21:36)
[2020-04-26 10:13] LABS: EOSINOPHILS # (AUTO) 0.1 X10'3 (0-0.9); HEMOGLOBIN 7.9 g/dl (14.0-17.9)
[2020-04-26 10:14] LABS: BASOPHILS % (AUTO) 0.1 % (0-1); EOSINOPHILS % (AUTO) 0.7 % (0-6); HEMATOCRIT 23.8 % (42.0-52.0); LYMPHOCYTES # (AUTO) 1.4 X10'3 (1.1-4.8); LYMPHOCYTES % (AUTO) 7.6 % (21-51); MEAN CORPUSCULAR HEMOGLOBIN 31.3 PG (27.0-31.0); MEAN CORPUSCULAR HGB CONC 33.1 g/dL (33.0-36.5); MEAN CORPUSCULAR VOLUME 94.5 FL (78-98); MONOCYTES # (AUTO) 0.4 X10'3 (0-0.9); MONOCYTES % (AUTO) 2.1 % (2-12); NEUTROPHILS # (AUTO) 16.2 X10'3 (1.8-7.7); NEUTROPHILS % (AUTO) 89.5 % (42-75); PLATELET COUNT 63 X10'3 (140-440); RED BLOOD COUNT 2.52 X10'6 (4.70-6.10); RED CELL DISTRIBUTION WIDTH 16.3 % (11.5-14.5); WHITE BLOOD COUNT 18.1 X10'3 (4.5-11.0)
[2020-04-26 10:28] LABS: ALBUMIN 1.6 G/DL (3.4-5.0); BLOOD UREA NITROGEN 67 MG/DL (7-18); BUN/CREATININE RATIO 20.7 (5.4-32.0); CALCIUM 7.6 MG/DL (8.5-10.1); CREATININE 3.24 MG/DL (0.60-1.10); GLUCOSE 131 MG/DL (70-104); PHOSPHORUS 3.3 MG/DL (2.3-4.5); TOTAL CARBON DIOXIDE 19.4 MMOL/L (24-32); eGFR 20 ML/MIN
[2020-04-26] MEDS: sodium bicarbonate (8.4%) inj. 150 MEQ in dextrose 5%-water 1,000 ML IV SCH (10:49)
[2020-04-26 11:30] LABS: CHLORIDE 104 MMOL/L (99-107); POTASSIUM 4.7 MMOL/L (3.5-5.1)
[2020-04-26 11:35] LABS: ANION GAP 10 (8-16); SODIUM 133 MMOL/L (135-145)
[2020-04-26 13:49] LABS: MAGNESIUM 2.6 MG/DL (1.5-2.4)
[2020-04-26 14:36] LABS: VANCOMYCIN,RANDOM 9.2 UG/ML
[2020-04-26] MEDS ORDERED: vancomycin/NS 1 GM ADD-VANTAGE 250 ML IV ONE (15:00)
[2020-04-26 16:11] LABS: EOSINOPHILS # (AUTO) 0.1 X10'3 (0-0.9); HEMATOCRIT 22.4 % (42.0-52.0); HEMOGLOBIN 7.5 g/dl (14.0-17.9); MONOCYTES # (AUTO) 0.7 X10'3 (0-0.9); RED BLOOD COUNT 2.37 X10'6 (4.70-6.10); RED CELL DISTRIBUTION WIDTH 16.1 % (11.5-14.5)
[2020-04-26 16:13] LABS: BASOPHILS # (AUTO) 0.1 X10'3 (0-0.2); BASOPHILS % (AUTO) 0.3 % (0-1); EOSINOPHILS % (AUTO) 0.5 % (0-6); LYMPHOCYTES # (AUTO) 1.4 X10'3 (1.1-4.8); LYMPHOCYTES % (AUTO) 7.5 % (21-51); MEAN CORPUSCULAR HEMOGLOBIN 31.6 PG (27.0-31.0); MEAN CORPUSCULAR HGB CONC 33.4 g/dL (33.0-36.5); MEAN CORPUSCULAR VOLUME 94.6 FL (78-98); MEAN PLATELET VOLUME 9.9 FL (7.4-10.4); MONOCYTES % (AUTO) 3.8 % (2-12); NEUTROPHILS # (AUTO) 16.5 X10'3 (1.8-7.7); NEUTROPHILS % (AUTO) 87.9 % (42-75); PLATELET COUNT 65 X10'3 (140-440); WHITE BLOOD COUNT 18.8 X10'3 (4.5-11.0)
[2020-04-26 16:24] LABS: ALBUMIN 1.5 G/DL (3.4-5.0); ANION GAP 11 (8-16); BLOOD UREA NITROGEN 67 MG/DL (7-18); BUN/CREATININE RATIO 22.1 (5.4-32.0); CALCIUM 7.6 MG/DL (8.5-10.1); CHLORIDE 105 MMOL/L (99-107); CREATININE 3.03 MG/DL (0.60-1.10); GLUCOSE 117 MG/DL (70-104); MAGNESIUM 2.5 MG/DL (1.5-2.4); PHOSPHORUS 2.8 MG/DL (2.3-4.5); POTASSIUM 4.6 MMOL/L (3.5-5.1); SODIUM 135 MMOL/L (135-145); TOTAL CARBON DIOXIDE 19.1 MMOL/L (24-32); eGFR 22 ML/MIN
[2020-04-26] MEDS: [UNRECOGNIZED DRUG - REMARK] IV SCH ×7 (16:59)
--- NOTE | 2020-04-26 18:20 | NUR ---
Patient in room ICU 2042. I have received report from NIRAV Tracy and had the opportunity to ask questions and assume patient care.
--- NOTE | 2020-04-26 18:23 | NUR ---
Problems reprioritized. Patient report given, questions answered & plan of care reviewed with Wilda GASTELUM.
--- NOTE | 2020-04-26 19:00 | NUR ---
Unable to turn patient secondary to positional sarika, CVVH in progress. Heels floated and have padded socked on heels. hips shifted left and right every 2 hours. Upper extremities on pillows.
[2020-04-26] MEDS: insulin glargine (Lantus) pen - multi-dose SQ SCH (20:32)
--- NOTE | 2020-04-26 22:40 | NUR ---
Phone call to Amanda Monique NP re: rust/ blood colored output in OG tube. Patient currently getting 40mg once daily. ORDER to increase Protonix 40 mg BID to start in the morning.
[2020-04-26 22:49] LABS: BASOPHILS % (AUTO) 0.2 % (0-1); EOSINOPHILS # (AUTO) 0.1 X10'3 (0-0.9)
[2020-04-26 22:50] LABS: EOSINOPHILS % (AUTO) 0.6 % (0-6); HEMATOCRIT 22.6 % (42.0-52.0); HEMOGLOBIN 7.6 g/dl (14.0-17.9); LYMPHOCYTES # (AUTO) 1.3 X10'3 (1.1-4.8); LYMPHOCYTES % (AUTO) 6.7 % (21-51); MEAN CORPUSCULAR HGB CONC 33.7 g/dL (33.0-36.5); MEAN PLATELET VOLUME 9.8 FL (7.4-10.4); MONOCYTES # (AUTO) 0.8 X10'3 (0-0.9); NEUTROPHILS # (AUTO) 17.6 X10'3 (1.8-7.7); NEUTROPHILS % (AUTO) 88.5 % (42-75); PLATELET COUNT 68 X10'3 (140-440); RED BLOOD COUNT 2.38 X10'6 (4.70-6.10); RED CELL DISTRIBUTION WIDTH 16.2 % (11.5-14.5); WHITE BLOOD COUNT 19.9 X10'3 (4.5-11.0)
[2020-04-26 23:00] LABS: ALBUMIN 1.5 G/DL (3.4-5.0); ANION GAP 11 (8-16); BLOOD UREA NITROGEN 63 MG/DL (7-18); BUN/CREATININE RATIO 22.1 (5.4-32.0); CALCIUM 7.8 MG/DL (8.5-10.1); CHLORIDE 104 MMOL/L (99-107); CREATININE 2.85 MG/DL (0.60-1.10); GLUCOSE 115 MG/DL (70-104); MAGNESIUM 2.4 MG/DL (1.5-2.4); PHOSPHORUS 2.7 MG/DL (2.3-4.5); POTASSIUM 4.5 MMOL/L (3.5-5.1); SODIUM 135 MMOL/L (135-145); TOTAL CARBON DIOXIDE 20.1 MMOL/L (24-32); eGFR 23 ML/MIN
[2020-04-27] VITALS (22 sets, daily range): BP systolic 105–135; BP diastolic 51–64
[2020-04-27] MEDS: piperacillin/tazo 3.375gm/50ml 50 ML IV SCH ×3 (00:08→18:10)
[2020-04-27] MEDS: sodium bicarbonate (8.4%) inj. 150 MEQ in dextrose 5%-water 1,000 ML IV SCH ×2 (01:18→14:17)
[2020-04-27] MEDS: FENTANYL-0.9 % NACL/PF 100 ML IV PRN ×4 (01:23→20:59)
[2020-04-27] MEDS: hydrocortisone sod succ/PF 100mg/2ml inj. IV SCH ×4 (02:01→19:24)
[2020-04-27] MEDS: mineral oil/petrolatum ophthal oint EACHEYE SCH ×4 (02:01→19:24)
--- NOTE | 2020-04-27 02:02 | NUR ---
patient restless during dressing change and bed bath. Opens eyes, moves his head and lower extremities. Increase in heart rate, respiratory rate and blood pressure noted. Patient given bolus of Versed and Fentanyl for sedation and pain control. Dressing to Marco A catheter to right femoral reinforced. CVVH machine not tolerating movement of sand bags.
[2020-04-27] MEDS: ipratropium/albuterol 3ml nebule NEB SCH ×6 (02:20→22:51)
[2020-04-27 02:40] LABS: ABG BASE EXCESS -8.7 mmol/L (-2.0-2.0); ABG HCO3 15.4 mmol/L (22.0-26.0); ABG OXYGEN SATURATION 94.3 % (94-97); ABG PCO2 (T) 25.9 mmHg (35.0-48.0); ABG PO2 (T) 73.4 mmHg (75.0-100.0); FCOHb 0.3 % (0.0-3.9); FMetHb 0.1 % (0.0-1.5); FO2Hb 93.9 % (94-97); PATIENT TEMPERATURE 36.1; PEEP 5 cm H2O; RESPIRATORY RATE 18 b/min; TIDAL VOLUME 600 mL; TOTAL HEMOGLOBIN 8.4 G/dl (14.0-18.0)
[2020-04-27] MEDS: VANCOMYCIN LEVEL IV SCH (03:00)
[2020-04-27 04:04] LABS: BASOPHILS # (AUTO) 0.1 X10'3 (0-0.2); BASOPHILS % (AUTO) 0.2 % (0-1); EOSINOPHILS # (AUTO) 0.1 X10'3 (0-0.9); EOSINOPHILS % (AUTO) 0.6 % (0-6); HEMOGLOBIN 7.8 g/dl (14.0-17.9)
[2020-04-27 04:06] LABS: HEMATOCRIT 23.5 % (42.0-52.0); LYMPHOCYTES # (AUTO) 1.4 X10'3 (1.1-4.8); MEAN CORPUSCULAR HEMOGLOBIN 31.4 PG (27.0-31.0); MEAN CORPUSCULAR VOLUME 95.1 FL (78-98); MEAN PLATELET VOLUME 9.5 FL (7.4-10.4); MONOCYTES # (AUTO) 0.8 X10'3 (0-0.9); MONOCYTES % (AUTO) 3.5 % (2-12); NEUTROPHILS # (AUTO) 20.6 X10'3 (1.8-7.7); NEUTROPHILS % (AUTO) 89.7 % (42-75); PLATELET COUNT 67 X10'3 (140-440); RED BLOOD COUNT 2.47 X10'6 (4.70-6.10); RED CELL DISTRIBUTION WIDTH 16.3 % (11.5-14.5)
[2020-04-27 04:11] LABS: PARTIAL THROMBOPLASTIN TIME 24 SECONDS (22-32)
[2020-04-27 04:16] LABS: ALANINE AMINOTRANSFERASE 677 U/L (12-78); ALBUMIN 1.6 G/DL (3.4-5.0); ALKALINE PHOSPHATASE 106 IU/L (46-116); ANION GAP 10 (8-16); ASPARTATE AMINO TRANSFERASE 154 U/L (10-37); BLOOD UREA NITROGEN 64 MG/DL (7-18); BUN/CREATININE RATIO 23.4 (5.4-32.0); CHLORIDE 103 MMOL/L (99-107); CREATININE 2.74 MG/DL (0.60-1.10); GLUCOSE 155 MG/DL (70-104); MAGNESIUM 2.5 MG/DL (1.5-2.4); POTASSIUM 5.1 MMOL/L (3.5-5.1); PREALBUMIN 12.7 MG/DL (19-36); SODIUM 133 MMOL/L (135-145); TOTAL CARBON DIOXIDE 20.2 MMOL/L (24-32); VANCOMYCIN,TROUGH 14.2 UG/ML (6.0-14.0); eGFR 24 ML/MIN
[2020-04-27 04:17] LABS: ALBUMIN/GLOBULIN RATIO 0.5 (1.1-1.5); PHOSPHORUS 3.1 MG/DL (2.3-4.5); TOTAL PROTEIN 4.9 G/DL (6.4-8.2); TRIGLYCERIDES 134 MG/DL (20-135)
[2020-04-27] MEDS: CALCIUM IV SCH ×11 (05:05→22:15)
[2020-04-27] MEDS: [UNRECOGNIZED DRUG - OTHER] IV SCH ×11 (05:05→22:15)
[2020-04-27] MEDS: CALCIUM CHLORIDE IV SCH ×11 (05:05→22:15)
[2020-04-27 05:12] LABS: ANISOCYTOSIS 1+; PLATELET ESTIMATE DECREASED; POLYCHROMASIA FEW; TOTAL CELLS COUNTED 100; TOXIC GRANULATION 2+
[2020-04-27] MEDS: Insulin Reg/NS 100units/100mL 100 ML IV SCH ×3 (06:05→21:21)
--- NOTE | 2020-04-27 06:18 | NUR ---
Problems reprioritized. Patient report given, questions answered & plan of care reviewed with NIRAV Tracy.
--- NOTE | 2020-04-27 06:30 | NUR ---
Patient in room ICU 2042. I have received report from Wilda GASTELUM and had the opportunity to ask questions and assume patient care.
[2020-04-27] MEDS: docusate sodium 100mg/10ml UD cup PO SCH ×2 (08:00→18:44)
[2020-04-27] MEDS: pantoprazole 40 MG vial IV SCH ×2 (08:15→19:24)
[2020-04-27] MEDS: fluconazole-Diflucan 200mg/NS 100 ML IV SCH (08:16)
[2020-04-27] MEDS: levetiracetam inj 750 MG in normal saline 100ml IV soln 92.5 ML IV SCH ×2 (08:16→19:24)
[2020-04-27] MEDS: midazolam 100mg in NS 100ml 100 ML IV PRN ×3 (08:17→22:33)
--- NOTE | 2020-04-27 08:39 | NUR ---
UNABLE TO RAISE BED TO 30 DEGREES DUE TO POSITIONAL R SONIA SANDEEP BEING VERY POSITIONAL Addendum: 04/27/20 at 0840 by Rossana Mai RN Amended: Links added.
--- NOTE | 2020-04-27 10:24 | NUR ---
ROUNDS NOTE Per Dr. Pappas we will get a cta as a follow up to an abnormal EEG, he has also ordered a picc line and would like to see if we could get a TDC placed, he would like to try and remove 100mls/hr in addition to the fluids running in he would also like a daily lactic acid and increase the rate of the bicarb drip to 100mls/hr instead of 75mls/hr
[2020-04-27 10:28] LABS: EOSINOPHILS # (AUTO) 0.1 X10'3 (0-0.9); MEAN PLATELET VOLUME 9.8 FL (7.4-10.4); NEUTROPHILS # (AUTO) 18.5 X10'3 (1.8-7.7); RED BLOOD COUNT 2.42 X10'6 (4.70-6.10)
[2020-04-27 10:30] LABS: BASOPHILS % (AUTO) 0.1 % (0-1); EOSINOPHILS % (AUTO) 0.5 % (0-6); HEMATOCRIT 22.9 % (42.0-52.0); HEMOGLOBIN 7.5 g/dl (14.0-17.9); LYMPHOCYTES % (AUTO) 5.1 % (21-51); MEAN CORPUSCULAR HEMOGLOBIN 31.2 PG (27.0-31.0); MEAN CORPUSCULAR HGB CONC 32.9 g/dL (33.0-36.5); MEAN CORPUSCULAR VOLUME 94.8 FL (78-98); MONOCYTES # (AUTO) 0.7 X10'3 (0-0.9); MONOCYTES % (AUTO) 3.3 % (2-12); PLATELET COUNT 70 X10'3 (140-440); RED CELL DISTRIBUTION WIDTH 16.2 % (11.5-14.5); WHITE BLOOD COUNT 20.4 X10'3 (4.5-11.0)
[2020-04-27 10:47] LABS: ANION GAP 10 (8-16); BLOOD UREA NITROGEN 64 MG/DL (7-18); BUN/CREATININE RATIO 24.6 (5.4-32.0); CALCIUM 7.9 MG/DL (8.5-10.1); CHLORIDE 104 MMOL/L (99-107); GLUCOSE 145 MG/DL (70-104); MAGNESIUM 2.3 MG/DL (1.5-2.4); PHOSPHORUS 2.8 MG/DL (2.3-4.5); POTASSIUM 4.7 MMOL/L (3.5-5.1); SODIUM 134 MMOL/L (135-145); TOTAL CARBON DIOXIDE 19.7 MMOL/L (24-32); TOTAL PROTEIN 4.8 G/DL (6.4-8.2); eGFR 26 ML/MIN
[2020-04-27 10:48] LABS: ALANINE AMINOTRANSFERASE 604 U/L (12-78); ALBUMIN 1.5 G/DL (3.4-5.0); ALBUMIN/GLOBULIN RATIO 0.5 (1.1-1.5); ALKALINE PHOSPHATASE 109 IU/L (46-116); ASPARTATE AMINO TRANSFERASE 142 U/L (10-37)
[2020-04-27 11:12] LABS: ANISOCYTOSIS 1+; NUCLEATED RED BLOOD CELLS 2 /100WBC (0-0); PLATELET ESTIMATE DECREASED; TOTAL CELLS COUNTED 100
[2020-04-27 11:13] LABS: TOXIC GRANULATION 1+
[2020-04-27 11:14] LABS: POLYCHROMASIA FEW
[2020-04-27] MEDS: NORepinephrine inj. 32 MG in normal saline 250ml IV soln 218 ML IV SCH (14:05)
[2020-04-27] MEDS: vancomycin/NS 1 GM ADD-VANTAGE 250 ML IV SCH (14:16)
[2020-04-27] MEDS ORDERED: iohexol 350MG/ML 100ml bottle IV ONE (15:11)
--- NOTE | 2020-04-27 15:13 | NUR ---
[facility] LINE INFORMATION: REF: [id number] LOT: [id number] EXP: 04/01/2021 Addendum: 04/27/20 at 1513 by Ramila Thornton RN Amended: Links added.
[2020-04-27] MEDS ORDERED: LIDOcaine 1%/PF 5ML 10 MG/ML VIAL ONE ×2 (16:00→16:30)
[2020-04-27] MEDS ORDERED: heparin 1,000unit/ml 10ml vial 10 ML ONE (16:00)
--- NOTE | 2020-04-27 16:45 | NUR ---
Back from CT and Angio for CTA head and TDC placement, vital signs stable during transportation and procedures, vital signs did not transfer with monitor once back to bedside, insulin gtt shut off during transport and procedures due to lack of having a working glucometer
--- NOTE | 2020-04-27 16:47 | NUR ---
Stoma was visualized at bedside, very dark in coloration, a deep, beet red. Minimal serosanginous drainage has not changed even though pt is several days post-op. Bag is intact without any impairment at this time. Will continue to follow Addendum: 04/27/20 at 1648 by Keli Farr RN Amended: Links added.
--- NOTE | 2020-04-27 18:30 | NUR ---
Patient in room ICU 2042. I have received report from NIRAV Tracy and had the opportunity to ask questions and assume patient care. Patient with new TDC placed to right upper chest. New PICC line to right arm. New peripheral IV line to left arm. java developer consultant at bedside to restart CVVH. CVVH was off while patient was off unit with day shift RN for CT and TDC placement. Patient is intubated and sedated. FiO2 70%. PEEP 8 on the ventilator.
--- NOTE | 2020-04-27 18:34 | NUR ---
Problems reprioritized. Patient report given, questions answered & plan of care reviewed with Wilda GASTELUM.
[2020-04-27] MEDS: heparin, porcine 5000 units/ml vial SQ SCH (19:25)
[2020-04-27] MEDS: insulin glargine (Lantus) pen - multi-dose SQ SCH (21:41)
[2020-04-27] MEDS: [UNRECOGNIZED DRUG - REMARK] IV SCH ×7 (22:17)
[2020-04-27 23:00] LABS: EOSINOPHILS # (AUTO) 0.1 X10'3 (0-0.9); LYMPHOCYTES # (AUTO) 0.8 X10'3 (1.1-4.8); MONOCYTES # (AUTO) 1.3 X10'3 (0-0.9); MONOCYTES % (AUTO) 5.7 % (2-12)
[2020-04-27 23:02] LABS: BASOPHILS # (AUTO) 0.1 X10'3 (0-0.2); BASOPHILS % (AUTO) 0.3 % (0-1); EOSINOPHILS % (AUTO) 0.4 % (0-6); HEMATOCRIT 22.1 % (42.0-52.0); HEMOGLOBIN 7.3 g/dl (14.0-17.9); LYMPHOCYTES % (AUTO) 3.2 % (21-51); MEAN CORPUSCULAR HEMOGLOBIN 31.7 PG (27.0-31.0); MEAN CORPUSCULAR HGB CONC 33.2 g/dL (33.0-36.5); MEAN CORPUSCULAR VOLUME 95.7 FL (78-98); MEAN PLATELET VOLUME 10.5 FL (7.4-10.4); NEUTROPHILS # (AUTO) 21.1 X10'3 (1.8-7.7); NEUTROPHILS % (AUTO) 90.4 % (42-75); PLATELET COUNT 77 X10'3 (140-440); RED BLOOD COUNT 2.31 X10'6 (4.70-6.10); RED CELL DISTRIBUTION WIDTH 16.1 % (11.5-14.5); WHITE BLOOD COUNT 23.3 X10'3 (4.5-11.0)
[2020-04-27 23:16] LABS: ALANINE AMINOTRANSFERASE 518 U/L (12-78); ALBUMIN 1.5 G/DL (3.4-5.0); ALKALINE PHOSPHATASE 118 IU/L (46-116); ANION GAP 12 (8-16); ASPARTATE AMINO TRANSFERASE 136 U/L (10-37); BILIRUBIN,TOTAL 4.4 MG/DL (0.1-1.0); BLOOD UREA NITROGEN 68 MG/DL (7-18); BUN/CREATININE RATIO 24.8 (5.4-32.0); CALCIUM 7.8 MG/DL (8.5-10.1); CHLORIDE 101 MMOL/L (99-107); CREATININE 2.74 MG/DL (0.60-1.10); GLUCOSE 121 MG/DL (70-104); MAGNESIUM 2.4 MG/DL (1.5-2.4); POTASSIUM 4.8 MMOL/L (3.5-5.1); SODIUM 133 MMOL/L (135-145); TOTAL CARBON DIOXIDE 20.2 MMOL/L (24-32); eGFR 24 ML/MIN
[2020-04-27 23:22] LABS: ALBUMIN/GLOBULIN RATIO 0.5 (1.1-1.5); PHOSPHORUS 3.3 MG/DL (2.3-4.5); TOTAL PROTEIN 4.7 G/DL (6.4-8.2)
[2020-04-28] VITALS (28 sets, daily range): BP systolic 89–139; BP diastolic 46–70
[2020-04-28] MEDS: piperacillin/tazo 3.375gm/50ml 50 ML IV SCH ×3 (00:14→17:25)
[2020-04-28] MEDS: sodium bicarbonate (8.4%) inj. 150 MEQ in dextrose 5%-water 1,000 ML IV SCH ×2 (00:59→14:51)
[2020-04-28] MEDS: CALCIUM IV SCH (01:48)
[2020-04-28] MEDS: CALCIUM CHLORIDE IV SCH (01:48)
[2020-04-28] MEDS: [UNRECOGNIZED DRUG - OTHER] IV SCH (01:48)
--- NOTE | 2020-04-28 02:05 | NUR ---
Spoke with nurse practitioner Amanda Monique regarding rt Yair needing dc'd. Explained that in report we were told to Dc the rt femoral Yair, however there are no orders to reflect the need to DC the line. Amanda Monique stated to not dec the Yair at this time and to have the day nurse clarify With dr Pappas in the morning
[2020-04-28] MEDS: mineral oil/petrolatum ophthal oint EACHEYE SCH ×4 (02:35→20:19)
[2020-04-28] MEDS: hydrocortisone sod succ/PF 100mg/2ml inj. IV SCH ×4 (02:35→20:19)
[2020-04-28] MEDS: FENTANYL-0.9 % NACL/PF 100 ML IV PRN ×4 (02:47→20:20)
[2020-04-28 02:49] LABS: ANISOCYTOSIS 1+; NUCLEATED RED BLOOD CELLS 2 /100WBC (0-0); PLATELET ESTIMATE DECREASED; TOTAL CELLS COUNTED 100
[2020-04-28 02:51] LABS: POLYCHROMASIA 1+
[2020-04-28 02:53] LABS: TOXIC GRANULATION 1+
[2020-04-28 02:57] LABS: BURR CELLS FEW
--- NOTE | 2020-04-28 03:00 | NUR ---
Dressing changes for Abdominal incision and left lower leg per wound care instructions completed. Patient tolerated well. Patient able to tolerate full turn to change linen and assess backside. Patient with blanchable redness to coccyx, optifoam placed.
[2020-04-28] MEDS: ipratropium/albuterol 3ml nebule NEB SCH ×6 (03:29→23:23)
[2020-04-28 03:41] LABS: ABG BASE EXCESS -6.5 mmol/L (-2.0-2.0); ABG HCO3 18.4 mmol/L (22.0-26.0); ABG OXYGEN SATURATION 97.6 % (94-97); ABG PCO2 (T) 32.3 mmHg (35.0-48.0); ABG PO2 (T) 97.3 mmHg (75.0-100.0); FCOHb 0.3 % (0.0-3.9); FO2Hb 97.3 % (94-97); PATIENT TEMPERATURE 35.8; PEEP 8 cm H2O; RESPIRATORY RATE 18 b/min; TIDAL VOLUME 600 mL; TOTAL HEMOGLOBIN 7.9 G/dl (14.0-18.0)
[2020-04-28 04:16] LABS: HEMOGLOBIN 7.4 g/dl (14.0-17.9); MONOCYTES # (AUTO) 0.9 X10'3 (0-0.9); MONOCYTES % (AUTO) 4.4 % (2-12); NEUTROPHILS # (AUTO) 19.6 X10'3 (1.8-7.7)
[2020-04-28 04:18] LABS: BASOPHILS # (AUTO) 0.1 X10'3 (0-0.2); BASOPHILS % (AUTO) 0.3 % (0-1); EOSINOPHILS # (AUTO) 0.1 X10'3 (0-0.9); EOSINOPHILS % (AUTO) 0.3 % (0-6); HEMATOCRIT 22.5 % (42.0-52.0); LYMPHOCYTES # (AUTO) 0.7 X10'3 (1.1-4.8); LYMPHOCYTES % (AUTO) 3.5 % (21-51); MEAN CORPUSCULAR HEMOGLOBIN 31.5 PG (27.0-31.0); MEAN CORPUSCULAR HGB CONC 32.9 g/dL (33.0-36.5); MEAN CORPUSCULAR VOLUME 95.8 FL (78-98); MEAN PLATELET VOLUME 9.7 FL (7.4-10.4); NEUTROPHILS % (AUTO) 91.5 % (42-75); PLATELET COUNT 77 X10'3 (140-440); RED BLOOD COUNT 2.35 X10'6 (4.70-6.10); RED CELL DISTRIBUTION WIDTH 16.1 % (11.5-14.5); WHITE BLOOD COUNT 21.4 X10'3 (4.5-11.0)
[2020-04-28 04:23] LABS: PARTIAL THROMBOPLASTIN TIME 24 SECONDS (22-32)
[2020-04-28 04:26] LABS: ALANINE AMINOTRANSFERASE 462 U/L (12-78); ALBUMIN 1.5 G/DL (3.4-5.0); ALKALINE PHOSPHATASE 125 IU/L (46-116); ANION GAP 7 (8-16); ASPARTATE AMINO TRANSFERASE 141 U/L (10-37); BILIRUBIN,TOTAL 4.5 MG/DL (0.1-1.0); BLOOD UREA NITROGEN 63 MG/DL (7-18); BUN/CREATININE RATIO 24.1 (5.4-32.0); CALCIUM 7.7 MG/DL (8.5-10.1); CHLORIDE 103 MMOL/L (99-107); CREATININE 2.61 MG/DL (0.60-1.10); GLUCOSE 122 MG/DL (70-104); MAGNESIUM 2.2 MG/DL (1.5-2.4); POTASSIUM 4.7 MMOL/L (3.5-5.1); SODIUM 132 MMOL/L (135-145); TOTAL CARBON DIOXIDE 21.9 MMOL/L (24-32); eGFR 26 ML/MIN
[2020-04-28 04:29] LABS: ALBUMIN/GLOBULIN RATIO 0.5 (1.1-1.5); PHOSPHORUS 3.2 MG/DL (2.3-4.5); TOTAL PROTEIN 4.7 G/DL (6.4-8.2)
[2020-04-28] MEDS: Duosol 4K/3 Ca (w/calcium) 5,000 ML HE SCH ×6 (05:20→11:00)
--- NOTE | 2020-04-28 06:26 | NUR ---
Problems reprioritized. Patient report given, questions answered & plan of care reviewed with NIRAV Tracy.
--- NOTE | 2020-04-28 06:30 | NUR ---
Patient in room ICU 2042. I have received report from Wilda GASTELUM and had the opportunity to ask questions and assume patient care.
[2020-04-28] MEDS: heparin, porcine 5000 units/ml vial SQ SCH ×2 (07:27→20:20)
[2020-04-28] MEDS: fluconazole-Diflucan 200mg/NS 100 ML IV SCH (07:27)
[2020-04-28] MEDS: pantoprazole 40 MG vial IV SCH ×2 (07:27→20:19)
[2020-04-28] MEDS: levetiracetam inj 750 MG in normal saline 100ml IV soln 92.5 ML IV SCH ×2 (07:27→20:19)
[2020-04-28] MEDS: docusate sodium 100mg/10ml UD cup PO SCH (08:00)
--- NOTE | 2020-04-28 08:24 | NUR ---
large mid line incision patient in reverse Trendelenburg Addendum: 04/28/20 at 0824 by Rossana Mai RN Amended: Links added.
[2020-04-28] MEDS ORDERED: albumin (human) 25% 100ml IV 100 ML IV PRN (10:00)
[2020-04-28] MEDS ORDERED: epoetin 20,000 units/ml inj IV ONE (10:00)
--- NOTE | 2020-04-28 10:00 | NUR ---
Rounds note, per Dr. Pappas he would like a thoracentesis based on the AM cxr, he ordered Relistor, he will be stopping the CVVH and trying HD he would like 3L off dependant on patients tolerance
[2020-04-28] MEDS ORDERED: heparin 1,000 units/ml 10ml inj HE ONE ×2 (10:05)
[2020-04-28 10:19] LABS: BASOPHILS % (AUTO) 0 % (0-1); EOSINOPHILS # (AUTO) 0.1 X10'3 (0-0.9); EOSINOPHILS % (AUTO) 0.2 % (0-6); LYMPHOCYTES # (AUTO) 0.5 X10'3 (1.1-4.8); LYMPHOCYTES % (AUTO) 2.2 % (21-51); MEAN CORPUSCULAR HEMOGLOBIN 31.1 PG (27.0-31.0); MEAN CORPUSCULAR HGB CONC 32.6 g/dL (33.0-36.5); MEAN CORPUSCULAR VOLUME 95.4 FL (78-98); MEAN PLATELET VOLUME 9.9 FL (7.4-10.4); MONOCYTES % (AUTO) 4.6 % (2-12); NEUTROPHILS # (AUTO) 19.5 X10'3 (1.8-7.7); PLATELET COUNT 80 X10'3 (140-440); RED BLOOD COUNT 2.26 X10'6 (4.70-6.10); RED CELL DISTRIBUTION WIDTH 16.2 % (11.5-14.5)
[2020-04-28 10:22] LABS: HEMATOCRIT 21.5 % (42.0-52.0)
[2020-04-28 10:35] LABS: ALANINE AMINOTRANSFERASE 444 U/L (12-78); ALBUMIN 1.5 G/DL (3.4-5.0); ALKALINE PHOSPHATASE 120 IU/L (46-116); ANION GAP 8 (8-16); ASPARTATE AMINO TRANSFERASE 115 U/L (10-37); BILIRUBIN,TOTAL 4.4 MG/DL (0.1-1.0); BLOOD UREA NITROGEN 66 MG/DL (7-18); BUN/CREATININE RATIO 26.8 (5.4-32.0); CALCIUM 7.7 MG/DL (8.5-10.1); CHLORIDE 102 MMOL/L (99-107); CREATININE 2.46 MG/DL (0.60-1.10); GLUCOSE 170 MG/DL (70-104); MAGNESIUM 2.2 MG/DL (1.5-2.4); POTASSIUM 4.9 MMOL/L (3.5-5.1); SODIUM 133 MMOL/L (135-145); TOTAL CARBON DIOXIDE 23.3 MMOL/L (24-32); eGFR 27 ML/MIN
[2020-04-28] MEDS ORDERED: methylnaltrexone br 12mg/0.6ml inj***SubQ only SQ ONE (10:35)
[2020-04-28 10:38] LABS: ALBUMIN/GLOBULIN RATIO 0.5 (1.1-1.5); PHOSPHORUS 3.2 MG/DL (2.3-4.5); TOTAL PROTEIN 4.7 G/DL (6.4-8.2)
[2020-04-28 10:45] LABS: ANISOCYTOSIS 1+; PLATELET ESTIMATE DECREASED; TOTAL CELLS COUNTED 100
[2020-04-28 10:46] LABS: POLYCHROMASIA 1+
[2020-04-28] MEDS: midazolam 100mg in NS 100ml 100 ML IV PRN ×2 (10:51→18:58)
--- NOTE | 2020-04-28 11:27 | NUR ---
Marco A from right groin removed cannula intact, no hematoma present pulses in bilateral feet will continue to monitor
--- NOTE | 2020-04-28 11:31 | NUR ---
TF Consult: Trickle TF to start via OGTF today per surgeon request. Pt tolerating TPN at goal. EN recs below; will monitor for EN tolerance and colostomy output. S/p TDC w/ CVVH to stop today and to start on scheduled HD per dedicated local truck driver at rounds. So far little ostomy output post-op per RN w/ relistor to start today per dedicated local truck driver at rounds. Consider weaning PN IF EN advances, pt tolerating EN, and colostomy output post-op. Rec: 1. Custom TPN per dedicated local truck driver on CVVH; to run at 95ml/hr goal. To provide; 2280ml volume, 166g AA, 363g DEX(2.25mg/kg/min), 21g lipids, and 2108 total kcals. 2. Trickle OGTF per MD using Vital High Protein at 10ml/hr; to provide 240ml volume, 240kcals, 202ml free water, and 21g protein. 3. IF to advance EN; Vital High Protein at 95ml/hr goal; to provide 2280ml volume, 1915ml free water, 2280kcals, and 200g protein. Advance 20ml Q8 to goal as tolerated. 3. PALB/TG Q /; daily wts 4. monitor for bowel function and colostomy output post-op 5. monitor for EN tolerance Addendum: 04/28/20 at [address] Amended: Links added.
[2020-04-28] MEDS: Insulin Reg/NS 100units/100mL 100 ML IV SCH (12:20)
[2020-04-28] MEDS ORDERED: dextrose ORAL solution 15 GM/59 ML bottle OGT PRN ×2 (15:03)
[2020-04-28] MEDS ORDERED: lactulose 20gm/30ml cup OGT PRN (15:04)
[2020-04-28] MEDS ORDERED: magnesium hydroxide 30ml (MOM) UD suspension OGT PRN (15:04)
[2020-04-28 16:34] LABS: HEMATOCRIT 22.1 % (42.0-52.0); HEMOGLOBIN 7.4 g/dl (14.0-17.9); MEAN CORPUSCULAR HEMOGLOBIN 31.7 PG (27.0-31.0); MEAN CORPUSCULAR HGB CONC 33.6 g/dL (33.0-36.5); MEAN CORPUSCULAR VOLUME 94.3 FL (78-98); MEAN PLATELET VOLUME 9.3 FL (7.4-10.4); PLATELET COUNT 74 X10'3 (140-440); RED BLOOD COUNT 2.34 X10'6 (4.70-6.10); RED CELL DISTRIBUTION WIDTH 15.6 % (11.5-14.5); WHITE BLOOD COUNT 20.1 X10'3 (4.5-11.0)
[2020-04-28 16:51] LABS: ABG BASE EXCESS 4.2 mmol/L (-2.0-2.0); ABG HCO3 28.7 mmol/L (22.0-26.0); ABG OXYGEN SATURATION 93.8 % (94-97); ABG PO2 (T) 68.1 mmHg (75.0-100.0); FCOHb 0.3 % (0.0-3.9); FMetHb 0.1 % (0.0-1.5); FO2Hb 93.4 % (94-97); PEEP 8 cm H2O; RESPIRATORY RATE 18 b/min; TIDAL VOLUME 600 mL; TOTAL HEMOGLOBIN 7.8 G/dl (14.0-18.0)
--- NOTE | 2020-04-28 17:00 | NUR ---
Notified Dr. Pappas of new ABG results and the HCO3 of 28, he ordered to stop the HCO3 gtt until the patient meets protocol.
[2020-04-28] MEDS: vancomycin/NS 1 GM ADD-VANTAGE 250 ML IV SCH (17:25)
--- NOTE | 2020-04-28 18:18 | NUR ---
Problems reprioritized. Patient report given, questions answered & plan of care reviewed with Flor GASTELUM.
--- NOTE | 2020-04-28 18:25 | NUR ---
Patient in room ICU 2042. I have received report from Rossana Blake RN and had the opportunity to ask questions and assume patient care.
[2020-04-28] MEDS: docusate sodium 100mg/10ml UD cup OGT SCH (20:19)
[2020-04-28] MEDS: insulin glargine (Lantus) pen - multi-dose SQ SCH (21:10)
[2020-04-28 21:16] LABS: HEMATOCRIT 22.5 % (42.0-52.0); HEMOGLOBIN 7.6 g/dl (14.0-17.9); MEAN CORPUSCULAR HGB CONC 33.9 g/dL (33.0-36.5); MEAN CORPUSCULAR VOLUME 94.5 FL (78-98); MEAN PLATELET VOLUME 9.5 FL (7.4-10.4); PLATELET COUNT 77 X10'3 (140-440); RED BLOOD COUNT 2.38 X10'6 (4.70-6.10); RED CELL DISTRIBUTION WIDTH 15.3 % (11.5-14.5); WHITE BLOOD COUNT 18.8 X10'3 (4.5-11.0)
[2020-04-28] MEDS: [UNRECOGNIZED DRUG - REMARK] IV SCH ×7 (22:06)
[2020-04-29] VITALS (24 sets, daily range): BP systolic 99–193; BP diastolic 50–90
--- NOTE | 2020-04-29 00:08 | NUR ---
Problems reprioritized. Patient report given, questions answered & plan of care reviewed with Nicky GASTELUM.
[2020-04-29] MEDS: piperacillin/tazo 3.375gm/50ml 50 ML IV SCH ×4 (00:10→23:58)
--- NOTE | 2020-04-29 00:30 | NUR ---
assumed care of pt, drips checked
[2020-04-29 01:15] LABS: HEMATOCRIT 23.6 % (42.0-52.0); MEAN CORPUSCULAR HEMOGLOBIN 32.1 PG (27.0-31.0); MEAN CORPUSCULAR VOLUME 94.4 FL (78-98); MEAN PLATELET VOLUME 9.8 FL (7.4-10.4); PLATELET COUNT 90 X10'3 (140-440); RED CELL DISTRIBUTION WIDTH 15.4 % (11.5-14.5); WHITE BLOOD COUNT 21.4 X10'3 (4.5-11.0)
[2020-04-29] MEDS: FENTANYL-0.9 % NACL/PF 100 ML IV PRN ×5 (01:28→21:56)
[2020-04-29] MEDS: midazolam 100mg in NS 100ml 100 ML IV PRN ×4 (01:29→20:27)
[2020-04-29] MEDS: mineral oil/petrolatum ophthal oint EACHEYE SCH ×4 (02:00→20:21)
[2020-04-29] MEDS: ipratropium/albuterol 3ml nebule NEB SCH ×6 (02:54→23:15)
[2020-04-29] MEDS: hydrocortisone sod succ/PF 100mg/2ml inj. IV SCH ×4 (03:33→20:21)
[2020-04-29 03:56] LABS: ABG BASE EXCESS -2.7 mmol/L (-2.0-2.0); ABG HCO3 21.4 mmol/L (22.0-26.0); ABG OXYGEN SATURATION 95.6 % (94-97); ABG PO2 (T) 84.1 mmHg (75.0-100.0); FCOHb 0.3 % (0.0-3.9); FMetHb 0.3 % (0.0-1.5); PATIENT TEMPERATURE 37.1; PEEP 8 cm H2O; RESPIRATORY RATE 18 b/min; TIDAL VOLUME 600 mL; TOTAL HEMOGLOBIN 8.4 G/dl (14.0-18.0)
[2020-04-29 05:14] LABS: BASOPHILS % (AUTO) 0.1 % (0-1); EOSINOPHILS % (AUTO) 0.1 % (0-6); HEMATOCRIT 23.2 % (42.0-52.0); HEMOGLOBIN 7.7 g/dl (14.0-17.9); LYMPHOCYTES # (AUTO) 0.8 X10'3 (1.1-4.8); LYMPHOCYTES % (AUTO) 3.9 % (21-51); MEAN CORPUSCULAR HEMOGLOBIN 31.6 PG (27.0-31.0); MEAN CORPUSCULAR HGB CONC 33.4 g/dL (33.0-36.5); MEAN CORPUSCULAR VOLUME 94.8 FL (78-98); MEAN PLATELET VOLUME 9.6 FL (7.4-10.4); MONOCYTES # (AUTO) 0.8 X10'3 (0-0.9); MONOCYTES % (AUTO) 3.9 % (2-12); NEUTROPHILS # (AUTO) 18.7 X10'3 (1.8-7.7); PLATELET COUNT 95 X10'3 (140-440); RED BLOOD COUNT 2.44 X10'6 (4.70-6.10); RED CELL DISTRIBUTION WIDTH 15.8 % (11.5-14.5); WHITE BLOOD COUNT 20.3 X10'3 (4.5-11.0)
[2020-04-29 05:26] LABS: PARTIAL THROMBOPLASTIN TIME 24 SECONDS (22-32)
[2020-04-29 05:28] LABS: ALANINE AMINOTRANSFERASE 346 U/L (12-78); ALBUMIN 1.4 G/DL (3.4-5.0); ALKALINE PHOSPHATASE 141 IU/L (46-116); ANION GAP 8 (8-16); ASPARTATE AMINO TRANSFERASE 118 U/L (10-37); BILIRUBIN,TOTAL 5.3 MG/DL (0.1-1.0); BLOOD UREA NITROGEN 61 MG/DL (7-18); BUN/CREATININE RATIO 23.3 (5.4-32.0); CALCIUM 7.3 MG/DL (8.5-10.1); CHLORIDE 101 MMOL/L (99-107); CREATININE 2.62 MG/DL (0.60-1.10); GLUCOSE 134 MG/DL (70-104); SODIUM 135 MMOL/L (135-145); TOTAL CARBON DIOXIDE 25.9 MMOL/L (24-32); eGFR 25 ML/MIN
[2020-04-29] MEDS: Insulin Reg/NS 100units/100mL 100 ML IV SCH ×2 (05:31→22:17)
[2020-04-29 05:37] LABS: ALBUMIN/GLOBULIN RATIO 0.5 (1.1-1.5); PHOSPHORUS 2.7 MG/DL (2.3-4.5); TOTAL PROTEIN 4.5 G/DL (6.4-8.2)
--- NOTE | 2020-04-29 06:30 | NUR ---
Patient in room ICU 2042. I have received report from NIRAV Mcgregor and had the opportunity to ask questions and assume patient care. Patient in bed, sedation infusing per protocol. No distress noted. Patient VS stable at this time. Will continue to monitor.
[2020-04-29 06:35] LABS: LARGE PLATELETS FEW; PLATELET ESTIMATE DECREASED; POLYCHROMASIA 1+; TOTAL CELLS COUNTED 100; TOXIC GRANULATION 3+
[2020-04-29 06:36] LABS: ANISOCYTOSIS 1+
[2020-04-29] MEDS: levetiracetam inj 750 MG in normal saline 100ml IV soln 92.5 ML IV SCH ×2 (08:04→20:21)
[2020-04-29] MEDS: fluconazole-Diflucan 200mg/NS 100 ML IV SCH (08:04)
[2020-04-29] MEDS: pantoprazole 40 MG vial IV SCH ×2 (08:04→20:21)
[2020-04-29] MEDS: heparin, porcine 5000 units/ml vial SQ SCH ×2 (08:05→20:24)
[2020-04-29] MEDS: docusate sodium 100mg/10ml UD cup OGT SCH ×2 (08:05→20:21)
[2020-04-29 09:30] LABS: HEMATOCRIT 22.9 % (42.0-52.0); HEMOGLOBIN 7.6 g/dl (14.0-17.9); MEAN CORPUSCULAR HEMOGLOBIN 31.1 PG (27.0-31.0); MEAN CORPUSCULAR VOLUME 94.2 FL (78-98); MEAN PLATELET VOLUME 9.8 FL (7.4-10.4); PLATELET COUNT 94 X10'3 (140-440); RED BLOOD COUNT 2.43 X10'6 (4.70-6.10); RED CELL DISTRIBUTION WIDTH 15.9 % (11.5-14.5); WHITE BLOOD COUNT 19.8 X10'3 (4.5-11.0)
[2020-04-29] MEDS ORDERED: calcium chloride inj. 1,000 MG in normal saline 100ml IV soln 100 ML IV PRN (09:30)
[2020-04-29] MEDS ORDERED: Duosol 4K/3 Ca (w/calcium) 5,000 ML HE SCH (09:30)
[2020-04-29] MEDS ORDERED: potassium Cl 20mEq/100mL bag 100 ML IV PRN (09:30)
[2020-04-29] MEDS ORDERED: calcium chloride inj. 10,000 MG in normal saline 500ml IV soln 400 ML IV PRN (09:30)
[2020-04-29] MEDS ORDERED: sodium phosphate inj. 30 MMOL in normal saline 250ml IV soln 250 ML IV PRN (09:30)
[2020-04-29] MEDS ORDERED: magnesium 4gm in 100ml NS 100 ML IV PRN (09:30)
[2020-04-29] MEDS: Duosol 4K/3 Ca (w/calcium) 5,000 ML HE SCH ×7 (10:03→20:37)
[2020-04-29 13:15] LABS: HEMATOCRIT 23.9 % (42.0-52.0); HEMOGLOBIN 7.8 g/dl (14.0-17.9); MEAN CORPUSCULAR HEMOGLOBIN 30.9 PG (27.0-31.0); MEAN CORPUSCULAR HGB CONC 32.5 g/dL (33.0-36.5); MEAN PLATELET VOLUME 9.5 FL (7.4-10.4); PLATELET COUNT 101 X10'3 (140-440); RED BLOOD COUNT 2.52 X10'6 (4.70-6.10); RED CELL DISTRIBUTION WIDTH 16.2 % (11.5-14.5); WHITE BLOOD COUNT 20.9 X10'3 (4.5-11.0)
[2020-04-29] MEDS: NORepinephrine inj. 32 MG in normal saline 250ml IV soln 218 ML IV SCH (14:05)
--- NOTE | 2020-04-29 15:08 | NUR ---
Ostomy still looking very dark red in color, minimal drainage in bag, serosanguinous. The primary RN states no bowel sound at this time Addendum: 04/29/20 at 1509 by Keli Farr RN Amended: Links added.
[2020-04-29] MEDS ORDERED: metoclopramide 10mg tablet OGT SCH (15:55)
[2020-04-29 16:17] LABS: BASOPHILS % (AUTO) 0.2 % (0-1); EOSINOPHILS % (AUTO) 0.2 % (0-6); HEMATOCRIT 23.8 % (42.0-52.0); HEMOGLOBIN 7.8 g/dl (14.0-17.9); LYMPHOCYTES # (AUTO) 0.7 X10'3 (1.1-4.8); LYMPHOCYTES % (AUTO) 3.4 % (21-51); MEAN CORPUSCULAR HGB CONC 32.7 g/dL (33.0-36.5); MEAN CORPUSCULAR VOLUME 94.9 FL (78-98); MEAN PLATELET VOLUME 9.7 FL (7.4-10.4); MONOCYTES % (AUTO) 4.7 % (2-12); NEUTROPHILS # (AUTO) 19.2 X10'3 (1.8-7.7); NEUTROPHILS % (AUTO) 91.5 % (42-75); PLATELET COUNT 103 X10'3 (140-440); RED BLOOD COUNT 2.51 X10'6 (4.70-6.10); RED CELL DISTRIBUTION WIDTH 15.8 % (11.5-14.5)
[2020-04-29 16:30] LABS: ALBUMIN 1.4 G/DL (3.4-5.0); ANION GAP 9 (8-16); BLOOD UREA NITROGEN 74 MG/DL (7-18); BUN/CREATININE RATIO 25.6 (5.4-32.0); CHLORIDE 101 MMOL/L (99-107); CREATININE 2.89 MG/DL (0.60-1.10); GLUCOSE 147 MG/DL (70-104); MAGNESIUM 2.1 MG/DL (1.5-2.4); POTASSIUM 4.1 MMOL/L (3.5-5.1); SODIUM 135 MMOL/L (135-145); TOTAL CARBON DIOXIDE 24.6 MMOL/L (24-32); eGFR 23 ML/MIN
[2020-04-29 16:37] LABS: PHOSPHORUS 3.4 MG/DL (2.3-4.5)
[2020-04-29] MEDS: methylnaltrexone br 12mg/0.6ml inj***SubQ only SQ SCH (16:38)
[2020-04-29] MEDS: [UNRECOGNIZED DRUG - REMARK] IV SCH ×7 (17:28)
--- NOTE | 2020-04-29 18:30 | NUR ---
Patient in room ICU 2042. I have received report from Janene GASTELUM and had the opportunity to ask questions and assume patient care.
[2020-04-29] MEDS: insulin glargine (Lantus) pen - multi-dose SQ SCH (20:35)
[2020-04-29 21:42] LABS: BASOPHILS % (AUTO) 0.1 % (0-1); EOSINOPHILS % (AUTO) 0.2 % (0-6); HEMATOCRIT 25.7 % (42.0-52.0); HEMOGLOBIN 8.7 g/dl (14.0-17.9); LYMPHOCYTES # (AUTO) 0.8 X10'3 (1.1-4.8); LYMPHOCYTES % (AUTO) 3.5 % (21-51); MEAN CORPUSCULAR HEMOGLOBIN 32.1 PG (27.0-31.0); MEAN CORPUSCULAR HGB CONC 33.7 g/dL (33.0-36.5); MEAN PLATELET VOLUME 9.5 FL (7.4-10.4); MONOCYTES # (AUTO) 0.9 X10'3 (0-0.9); MONOCYTES % (AUTO) 3.9 % (2-12); NEUTROPHILS # (AUTO) 21.5 X10'3 (1.8-7.7); NEUTROPHILS % (AUTO) 92.3 % (42-75); PLATELET COUNT 109 X10'3 (140-440); WHITE BLOOD COUNT 23.3 X10'3 (4.5-11.0)
[2020-04-29 21:48] LABS: ALBUMIN 1.6 G/DL (3.4-5.0); ANION GAP 7 (8-16); BLOOD UREA NITROGEN 71 MG/DL (7-18); BUN/CREATININE RATIO 25.7 (5.4-32.0); CHLORIDE 99 MMOL/L (99-107); CREATININE 2.76 MG/DL (0.60-1.10); GLUCOSE 102 MG/DL (70-104); POTASSIUM 3.7 MMOL/L (3.5-5.1); SODIUM 131 MMOL/L (135-145); eGFR 24 ML/MIN
[2020-04-29 21:54] LABS: PHOSPHORUS 2.9 MG/DL (2.3-4.5)
[2020-04-29] MEDS: potassium Cl 20mEq/100mL bag 100 ML IV PRN ×2 (22:00→23:07)
[2020-04-30] VITALS (24 sets, daily range): BP systolic 89–158; BP diastolic 50–81
[2020-04-30] MEDS: hydrocortisone sod succ/PF 100mg/2ml inj. IV SCH ×4 (01:35→20:33)
[2020-04-30] MEDS: mineral oil/petrolatum ophthal oint EACHEYE SCH ×4 (01:35→20:33)
[2020-04-30] MEDS: midazolam 100mg in NS 100ml 100 ML IV PRN ×3 (01:36→13:19)
[2020-04-30] MEDS: FENTANYL-0.9 % NACL/PF 100 ML IV PRN ×4 (01:37→17:12)
[2020-04-30 03:13] LABS: BASOPHILS # (AUTO) 0.1 X10'3 (0-0.2); BASOPHILS % (AUTO) 0.4 % (0-1); EOSINOPHILS % (AUTO) 0.2 % (0-6); HEMATOCRIT 24.2 % (42.0-52.0); LYMPHOCYTES # (AUTO) 0.5 X10'3 (1.1-4.8); LYMPHOCYTES % (AUTO) 2.7 % (21-51); MEAN CORPUSCULAR HEMOGLOBIN 31.1 PG (27.0-31.0); MEAN CORPUSCULAR HGB CONC 33.1 g/dL (33.0-36.5); MEAN CORPUSCULAR VOLUME 93.9 FL (78-98); MEAN PLATELET VOLUME 9.8 FL (7.4-10.4); MONOCYTES # (AUTO) 0.7 X10'3 (0-0.9); MONOCYTES % (AUTO) 3.6 % (2-12); NEUTROPHILS # (AUTO) 18.1 X10'3 (1.8-7.7); NEUTROPHILS % (AUTO) 93.1 % (42-75); PLATELET COUNT 96 X10'3 (140-440); RED BLOOD COUNT 2.58 X10'6 (4.70-6.10); WHITE BLOOD COUNT 19.4 X10'3 (4.5-11.0)
[2020-04-30 03:17] LABS: PARTIAL THROMBOPLASTIN TIME 22 SECONDS (22-32)
[2020-04-30] MEDS: ipratropium/albuterol 3ml nebule NEB SCH ×6 (03:17→23:03)
[2020-04-30 03:21] LABS: ALANINE AMINOTRANSFERASE 297 U/L (12-78); ALBUMIN 1.4 G/DL (3.4-5.0); ALKALINE PHOSPHATASE 159 IU/L (46-116); ANION GAP 9 (8-16); ASPARTATE AMINO TRANSFERASE 99 U/L (10-37); BILIRUBIN,TOTAL 5.4 MG/DL (0.1-1.0); BLOOD UREA NITROGEN 71 MG/DL (7-18); BUN/CREATININE RATIO 26.8 (5.4-32.0); CALCIUM 7.7 MG/DL (8.5-10.1); CHLORIDE 101 MMOL/L (99-107); CREATININE 2.65 MG/DL (0.60-1.10); GLUCOSE 99 MG/DL (70-104); POTASSIUM 3.9 MMOL/L (3.5-5.1); PREALBUMIN 20.3 MG/DL (19-36); SODIUM 135 MMOL/L (135-145); TOTAL CARBON DIOXIDE 25.5 MMOL/L (24-32); eGFR 25 ML/MIN
[2020-04-30 03:25] LABS: ALBUMIN/GLOBULIN RATIO 0.4 (1.1-1.5); PHOSPHORUS 2.5 MG/DL (2.3-4.5); TOTAL PROTEIN 4.8 G/DL (6.4-8.2); TRIGLYCERIDES 145 MG/DL (20-135)
[2020-04-30] MEDS: Duosol 4K/3 Ca (w/calcium) 5,000 ML HE SCH ×8 (03:28→22:46)
[2020-04-30 03:31] LABS: ABG BASE EXCESS -2.6 mmol/L (-2.0-2.0); ABG HCO3 21.5 mmol/L (22.0-26.0); ABG OXYGEN SATURATION 95.7 % (94-97); ABG PCO2 (T) 32.9 mmHg (35.0-48.0); ABG PO2 (T) 76.7 mmHg (75.0-100.0); FCOHb 0.3 % (0.0-3.9); FO2Hb 95.4 % (94-97); PEEP 8 cm H2O; RESPIRATORY RATE 18 b/min; TIDAL VOLUME 600 mL
[2020-04-30] MEDS: potassium Cl 20mEq/100mL bag 100 ML IV PRN ×2 (04:40→05:27)
[2020-04-30 05:06] LABS: PLATELET ESTIMATE DECREASED; TOTAL CELLS COUNTED 100
[2020-04-30 05:08] LABS: ANISOCYTOSIS 1+; POLYCHROMASIA 1+
[2020-04-30 05:09] LABS: TOXIC VACUOLATION 2+
[2020-04-30 05:10] LABS: LARGE PLATELETS FEW; STOMATOCYTES FEW; TARGET CELLS FEW
--- NOTE | 2020-04-30 05:46 | NUR ---
CVVH filter clotted off and machine down at 0515. Able to flush blood back to pt. janitor caretaker notified.
--- NOTE | 2020-04-30 06:27 | NUR ---
Problems reprioritized. Patient report given, questions answered & plan of care reviewed with Ajay GASTELUM.
[2020-04-30] MEDS: docusate sodium 100mg/10ml UD cup OGT SCH ×2 (07:40→20:33)
[2020-04-30] MEDS: fluconazole-Diflucan 200mg/NS 100 ML IV SCH (07:40)
[2020-04-30] MEDS: pantoprazole 40 MG vial IV SCH ×2 (07:41→20:32)
[2020-04-30] MEDS: heparin, porcine 5000 units/ml vial SQ SCH ×2 (07:41→19:40)
[2020-04-30] MEDS ORDERED: methylnaltrexone br 12mg/0.6ml inj***SubQ only SQ SCH (08:00)
[2020-04-30] MEDS ORDERED: metoclopramide 5 mg/ml inj IV PRN (08:35)
[2020-04-30] MEDS: Insulin Reg/NS 100units/100mL 100 ML IV SCH (08:47)
[2020-04-30] MEDS: levetiracetam inj 750 MG in normal saline 100ml IV soln 92.5 ML IV SCH ×2 (08:48→20:37)
[2020-04-30 08:53] LABS: HBSAG SCREEN Negative (Negative)
[2020-04-30] MEDS: piperacillin/tazo 3.375gm/50ml 50 ML IV SCH ×2 (09:23→16:53)
[2020-04-30 10:13] LABS: ALBUMIN 1.6 G/DL (3.4-5.0); ANION GAP 10 (8-16); BLOOD UREA NITROGEN 74 MG/DL (7-18); BUN/CREATININE RATIO 26.9 (5.4-32.0); CHLORIDE 95 MMOL/L (99-107); CREATININE 2.75 MG/DL (0.60-1.10); MAGNESIUM 1.9 MG/DL (1.5-2.4); POTASSIUM 4.4 MMOL/L (3.5-5.1); SODIUM 129 MMOL/L (135-145); TOTAL CARBON DIOXIDE 23.7 MMOL/L (24-32); eGFR 24 ML/MIN
[2020-04-30 10:14] LABS: GLUCOSE 122 MG/DL (70-104); PHOSPHORUS 2.4 MG/DL (2.3-4.5)
[2020-04-30] MEDS ORDERED: OLANZapine **IM** 10 mg inj. IM ONE (10:25)
[2020-04-30] MEDS: metoclopramide 5 mg/ml inj IV SCH ×3 (11:20→20:33)
[2020-04-30 11:50] LABS: BASOPHILS % (AUTO) 0.1 % (0-1); EOSINOPHILS % (AUTO) 0.1 % (0-6); HEMATOCRIT 24.2 % (42.0-52.0); LYMPHOCYTES # (AUTO) 0.7 X10'3 (1.1-4.8); LYMPHOCYTES % (AUTO) 2.9 % (21-51); MEAN CORPUSCULAR HEMOGLOBIN 31.4 PG (27.0-31.0); MEAN CORPUSCULAR HGB CONC 33.1 g/dL (33.0-36.5); MEAN CORPUSCULAR VOLUME 94.6 FL (78-98); MEAN PLATELET VOLUME 8.7 FL (7.4-10.4); MONOCYTES # (AUTO) 0.8 X10'3 (0-0.9); MONOCYTES % (AUTO) 3.3 % (2-12); NEUTROPHILS # (AUTO) 22.2 X10'3 (1.8-7.7); NEUTROPHILS % (AUTO) 93.6 % (42-75); RED BLOOD COUNT 2.56 X10'6 (4.70-6.10); RED CELL DISTRIBUTION WIDTH 16.2 % (11.5-14.5); WHITE BLOOD COUNT 23.7 X10'3 (4.5-11.0)
[2020-04-30 12:05] LABS: PLATELET COUNT 35 X10'3 (140-440)
--- NOTE | 2020-04-30 12:07 | NUR ---
F/u: Pt restarted on CVVH per w/ augustus TF GRV 350ml this AM. Still no colostomy output per RN though continues to tolerate PN at goal. Meeting protein needs for CVVH; will monitor for additional protein needs. Addendum: 04/30/20 at [address] Amended: Links added.
[2020-04-30] MEDS ORDERED: VANCOMYCIN LEVEL IV ONE (12:30)
[2020-04-30 15:29] LABS: BASOPHILS % (AUTO) 0.2 % (0-1); HEMOGLOBIN 8.4 g/dl (14.0-17.9); MEAN CORPUSCULAR HGB CONC 32.7 g/dL (33.0-36.5); NEUTROPHILS # (AUTO) 20.6 X10'3 (1.8-7.7)
[2020-04-30 15:30] LABS: EOSINOPHILS % (AUTO) 0.1 % (0-6); HEMATOCRIT 25.6 % (42.0-52.0); LYMPHOCYTES # (AUTO) 0.5 X10'3 (1.1-4.8); LYMPHOCYTES % (AUTO) 2.4 % (21-51); MEAN CORPUSCULAR HEMOGLOBIN 31.1 PG (27.0-31.0); MEAN CORPUSCULAR VOLUME 95.1 FL (78-98); MEAN PLATELET VOLUME 10.2 FL (7.4-10.4); MONOCYTES # (AUTO) 0.9 X10'3 (0-0.9); MONOCYTES % (AUTO) 3.9 % (2-12); NEUTROPHILS % (AUTO) 93.4 % (42-75); RED BLOOD COUNT 2.69 X10'6 (4.70-6.10); RED CELL DISTRIBUTION WIDTH 16.1 % (11.5-14.5)
[2020-04-30 15:33] LABS: PLATELET COUNT 39 X10'3 (140-440)
[2020-04-30 15:41] LABS: ALBUMIN 1.5 G/DL (3.4-5.0); ANION GAP 7 (8-16); BLOOD UREA NITROGEN 77 MG/DL (7-18); BUN/CREATININE RATIO 28.7 (5.4-32.0); CHLORIDE 100 MMOL/L (99-107); CREATININE 2.68 MG/DL (0.60-1.10); GLUCOSE 155 MG/DL (70-104); POTASSIUM 4.8 MMOL/L (3.5-5.1); SODIUM 131 MMOL/L (135-145); TOTAL CARBON DIOXIDE 24.5 MMOL/L (24-32); eGFR 25 ML/MIN
[2020-04-30 15:42] LABS: PHOSPHORUS 2.8 MG/DL (2.3-4.5)
--- NOTE | 2020-04-30 15:48 | NUR ---
I have reviewed and agree with all medications administered and interventions performed by [facility] Student Tonio Wills Addendum: 04/30/20 at 1548 by Marlys [address] RT Amended: Links added.
[2020-04-30] MEDS: dexmedetomidin/NS 400mcg/100ml 100 ML IV SCH (16:53)
[2020-04-30] MEDS: [UNRECOGNIZED DRUG - REMARK] IV SCH ×7 (16:53)
--- NOTE | 2020-04-30 18:20 | NUR ---
Patient in room ICU 2042. I have received report from Ajay GASTELUM and had the opportunity to ask questions and assume patient care.
--- NOTE | 2020-04-30 18:28 | NUR ---
Problems reprioritized. Patient report given, questions answered & plan of care reviewed with Janene GASTELUM.
[2020-04-30] MEDS: diatr meglu/diatrizoate 30ml oral sol.-(3 dose) bottle PO SCH (20:33)
[2020-04-30] MEDS: insulin glargine (Lantus) pen - multi-dose SQ SCH (21:30)
[2020-04-30 22:19] LABS: BASOPHILS % (AUTO) 0.2 % (0-1); EOSINOPHILS % (AUTO) 0.1 % (0-6); HEMATOCRIT 24.8 % (42.0-52.0); HEMOGLOBIN 8.2 g/dl (14.0-17.9); LYMPHOCYTES # (AUTO) 0.4 X10'3 (1.1-4.8); LYMPHOCYTES % (AUTO) 2.4 % (21-51); MEAN CORPUSCULAR HGB CONC 32.9 g/dL (33.0-36.5); MEAN CORPUSCULAR VOLUME 94.3 FL (78-98); MEAN PLATELET VOLUME 10.6 FL (7.4-10.4); MONOCYTES # (AUTO) 0.8 X10'3 (0-0.9); MONOCYTES % (AUTO) 4.5 % (2-12); NEUTROPHILS # (AUTO) 16.7 X10'3 (1.8-7.7); NEUTROPHILS % (AUTO) 92.8 % (42-75); RED BLOOD COUNT 2.63 X10'6 (4.70-6.10); RED CELL DISTRIBUTION WIDTH 16.1 % (11.5-14.5)
[2020-04-30 22:23] LABS: PLATELET COUNT 42 X10'3 (140-440)
[2020-04-30 22:32] LABS: ALBUMIN 1.5 G/DL (3.4-5.0); ANION GAP 7 (8-16); BLOOD UREA NITROGEN 78 MG/DL (7-18); BUN/CREATININE RATIO 29.8 (5.4-32.0); CHLORIDE 100 MMOL/L (99-107); CREATININE 2.62 MG/DL (0.60-1.10); GLUCOSE 134 MG/DL (70-104); POTASSIUM 4.6 MMOL/L (3.5-5.1); SODIUM 131 MMOL/L (135-145); TOTAL CARBON DIOXIDE 23.8 MMOL/L (24-32); eGFR 25 ML/MIN
[2020-04-30 22:37] LABS: PHOSPHORUS 3.1 MG/DL (2.3-4.5)
[2020-05-01] VITALS (24 sets, daily range): BP systolic 90–159; BP diastolic 49–83
[2020-05-01] MEDS: piperacillin/tazo 3.375gm/50ml 50 ML IV SCH ×2 (00:50→08:29)
[2020-05-01] MEDS: dexmedetomidin/NS 400mcg/100ml 100 ML IV SCH ×2 (00:51→08:11)
[2020-05-01] MEDS: mineral oil/petrolatum ophthal oint EACHEYE SCH ×4 (02:32→20:37)
[2020-05-01] MEDS: hydrocortisone sod succ/PF 100mg/2ml inj. IV SCH ×4 (02:33→20:47)
[2020-05-01] MEDS: metoclopramide 5 mg/ml inj IV SCH ×4 (02:33→20:48)
[2020-05-01] MEDS: ipratropium/albuterol 3ml nebule NEB SCH ×6 (02:36→23:29)
[2020-05-01 03:51] LABS: ABG BASE EXCESS -1.2 mmol/L (-2.0-2.0); ABG HCO3 22.3 mmol/L (22.0-26.0); ABG OXYGEN SATURATION 94.8 % (94-97); ABG PCO2 (T) 31.1 mmHg (35.0-48.0); FCOHb 0.3 % (0.0-3.9); FMetHb 0.3 % (0.0-1.5); FO2Hb 94.2 % (94-97); PEEP 8 cm H2O; RESPIRATORY RATE 18 b/min; TIDAL VOLUME 600 mL; TOTAL HEMOGLOBIN 9.6 G/dl (14.0-18.0)
[2020-05-01 04:14] LABS: BASOPHILS % (AUTO) 0.1 % (0-1); EOSINOPHILS % (AUTO) 0 % (0-6); HEMATOCRIT 26.3 % (42.0-52.0); HEMOGLOBIN 8.7 g/dl (14.0-17.9); LYMPHOCYTES # (AUTO) 0.5 X10'3 (1.1-4.8); LYMPHOCYTES % (AUTO) 2.7 % (21-51); MEAN CORPUSCULAR HEMOGLOBIN 31.1 PG (27.0-31.0); MEAN CORPUSCULAR HGB CONC 32.9 g/dL (33.0-36.5); MEAN CORPUSCULAR VOLUME 94.5 FL (78-98); MEAN PLATELET VOLUME 10.1 FL (7.4-10.4); MONOCYTES # (AUTO) 0.7 X10'3 (0-0.9); MONOCYTES % (AUTO) 3.7 % (2-12); NEUTROPHILS # (AUTO) 17.7 X10'3 (1.8-7.7); NEUTROPHILS % (AUTO) 93.5 % (42-75); RED BLOOD COUNT 2.79 X10'6 (4.70-6.10); RED CELL DISTRIBUTION WIDTH 16.5 % (11.5-14.5)
[2020-05-01 04:17] LABS: PLATELET COUNT 44 X10'3 (140-440)
[2020-05-01 04:36] LABS: PARTIAL THROMBOPLASTIN TIME 23 SECONDS (22-32)
[2020-05-01 04:41] LABS: ALANINE AMINOTRANSFERASE 259 U/L (12-78); ALBUMIN 1.6 G/DL (3.4-5.0); ALKALINE PHOSPHATASE 168 IU/L (46-116); ANION GAP 8 (8-16); ASPARTATE AMINO TRANSFERASE 90 U/L (10-37); BILIRUBIN,TOTAL 6.2 MG/DL (0.1-1.0); BLOOD UREA NITROGEN 78 MG/DL (7-18); BUN/CREATININE RATIO 29.5 (5.4-32.0); CALCIUM 7.8 MG/DL (8.5-10.1); CHLORIDE 101 MMOL/L (99-107); CREATININE 2.64 MG/DL (0.60-1.10); GLUCOSE 146 MG/DL (70-104); MAGNESIUM 1.9 MG/DL (1.5-2.4); POTASSIUM 4.6 MMOL/L (3.5-5.1); SODIUM 132 MMOL/L (135-145); TOTAL CARBON DIOXIDE 23.1 MMOL/L (24-32); eGFR 25 ML/MIN
[2020-05-01 04:43] LABS: ALBUMIN/GLOBULIN RATIO 0.4 (1.1-1.5); PHOSPHORUS 3.3 MG/DL (2.3-4.5); TOTAL PROTEIN 5.3 G/DL (6.4-8.2)
[2020-05-01] MEDS: Insulin Reg/NS 100units/100mL 100 ML IV SCH ×2 (05:07→23:43)
[2020-05-01] MEDS: Duosol 4K/3 Ca (w/calcium) 5,000 ML HE SCH ×9 (06:00→17:39)
--- NOTE | 2020-05-01 06:28 | NUR ---
Problems reprioritized. Patient report given, questions answered & plan of care reviewed with Jong GASTELUM.
[2020-05-01] MEDS: diatr meglu/diatrizoate 30ml oral sol.-(3 dose) bottle PO SCH ×2 (07:45→20:35)
--- NOTE | 2020-05-01 07:48 | NUR ---
tube feed held on NOC. Per report, patient not tolerating his trickle feeds and we plan to go to CT abd today since he has not been tolerating his TF or stooling. residual 325 this am; GRV not returned. Oral contrast given. Holding other PO meds and will clarify diet orders with this AM Addendum: 05/01/20 at 4158 by Jong Castle RN Spoke with Dr Pappas; hold po meds, relistor, and tube feed for now, and we will re assess after CT
[2020-05-01] MEDS: heparin, porcine 5000 units/ml vial SQ SCH ×2 (08:00→20:50)
[2020-05-01] MEDS: levetiracetam inj 750 MG in normal saline 100ml IV soln 92.5 ML IV SCH ×2 (08:31→20:50)
[2020-05-01] MEDS: pantoprazole 40 MG vial IV SCH ×2 (08:32→20:47)
[2020-05-01] MEDS: fluconazole-Diflucan 200mg/NS 100 ML IV SCH (08:54)
[2020-05-01] MEDS ORDERED: heparin 1,000 units/ml 10ml inj HE ONE ×2 (09:05)
[2020-05-01] MEDS: FENTANYL-0.9 % NACL/PF 100 ML IV PRN ×3 (09:07→23:28)
[2020-05-01 10:04] LABS: BASOPHILS % (AUTO) 0 % (0-1); EOSINOPHILS % (AUTO) 0 % (0-6); HEMATOCRIT 26.1 % (42.0-52.0); HEMOGLOBIN 8.8 g/dl (14.0-17.9); LYMPHOCYTES # (AUTO) 1.3 X10'3 (1.1-4.8); LYMPHOCYTES % (AUTO) 7.2 % (21-51); MEAN CORPUSCULAR HGB CONC 33.7 g/dL (33.0-36.5); MEAN CORPUSCULAR VOLUME 94.9 FL (78-98); MEAN PLATELET VOLUME 10.3 FL (7.4-10.4); MONOCYTES # (AUTO) 0.6 X10'3 (0-0.9); MONOCYTES % (AUTO) 3.6 % (2-12); NEUTROPHILS # (AUTO) 15.4 X10'3 (1.8-7.7); NEUTROPHILS % (AUTO) 89.2 % (42-75); RED BLOOD COUNT 2.76 X10'6 (4.70-6.10); WHITE BLOOD COUNT 17.3 X10'3 (4.5-11.0)
[2020-05-01 10:14] LABS: PLATELET COUNT 47 X10'3 (140-440)
[2020-05-01 10:17] LABS: ALBUMIN 1.6 G/DL (3.4-5.0); ANION GAP 10 (8-16); BLOOD UREA NITROGEN 80 MG/DL (7-18); BUN/CREATININE RATIO 32.1 (5.4-32.0); CHLORIDE 100 MMOL/L (99-107); CREATININE 2.49 MG/DL (0.60-1.10); GLUCOSE 119 MG/DL (70-104); SODIUM 133 MMOL/L (135-145); TOTAL CARBON DIOXIDE 22.7 MMOL/L (24-32); eGFR 27 ML/MIN
[2020-05-01 10:19] LABS: PHOSPHORUS 3.4 MG/DL (2.3-4.5); POTASSIUM 4.6 MMOL/L (3.5-5.1)
[2020-05-01 10:57] LABS: ANISOCYTOSIS 1+; PLATELET ESTIMATE DECREASED; TOTAL CELLS COUNTED 100
[2020-05-01 10:59] LABS: POLYCHROMASIA 1+; SCHISTOCYTES FEW; TARGET CELLS FEW; TOXIC GRANULATION 2+
--- NOTE | 2020-05-01 11:04 | NUR ---
Blood returned and hep locked for CT Addendum: 05/01/20 at 1217 by Jong Castle RN Back from CT. patient on monitor and settled in bed. HD nurse notified to place patient back on CV
[2020-05-01] MEDS ORDERED: iohexol 300mg/ml 100ml inj. ONE (11:08)
--- NOTE | 2020-05-01 12:03 | NUR ---
Reassessment 05/01: Intubated, sedated, with CVVH. No colostomy output. Pending CT scan to abdomen. GRV high with trickle tube feeding, TF turned off last night. Tolerating TPN at goal rate. Not yet received relistor d/t possible ileus? All discussed at critical care rounds. Meeting protein needs for CVVH; will monitor for additional protein needs. Rec: 1. Custom TPN per water main installer helper on CVVH; to run at 95ml/hr goal. To provide; 2280ml volume, 166g AA, 363g DEX(2.25mg/kg/min), 21g lipids, and 2108 total kcals. 2. IF to advance EN; Vital High Protein at 95ml/hr goal; to provide 2280ml volume, 1915ml free water, 2280kcals, and 200g protein. Advance 20ml Q8 to goal as tolerated. 3. PALB/TG Q /; daily wts 4. monitor for bowel function and colostomy output post-op Addendum: 05/01/20 at [address] Amended: Links added.
[2020-05-01] MEDS: levoFLOXACIN-Levaquin 250mg/D5 50 ML IV SCH (12:59)
--- NOTE | 2020-05-01 13:19 | NUR ---
Called Dr Pappas to inform him that the CT has resulted. Also asked to clarify orders for tube feed (which is still off), PO med from this morning, and relistor. He told me to wait, and he would look into it and get back to me Addendum: 05/01/20 at 1350 by Jong Castle RN Dr Pappas called back with orders to resume trickle feed
[2020-05-01] MEDS ORDERED: metoclopramide 5 mg/ml inj IV PRN (13:30)
[2020-05-01] MEDS ORDERED: methylnaltrexone br 12mg/0.6ml inj***SubQ only SQ SCH (13:30)
--- NOTE | 2020-05-01 13:30 | NUR ---
CVVH back up
[2020-05-01] MEDS: docusate sodium 100mg/10ml UD cup OGT SCH ×2 (13:50→20:49)
[2020-05-01] MEDS: lactulose 20gm/30ml cup PO SCH ×2 (13:50→20:49)
[2020-05-01] MEDS: methylnaltrexone br 12mg/0.6ml inj***SubQ only SQ SCH (13:51)
[2020-05-01] MEDS: NORepinephrine inj. 32 MG in normal saline 250ml IV soln 218 ML IV SCH (14:05)
--- NOTE | 2020-05-01 15:24 | NUR ---
Tube feed started at 10 per MD orders
[2020-05-01 15:48] LABS: BASOPHILS # (AUTO) 0.1 X10'3 (0-0.2); BASOPHILS % (AUTO) 0.4 % (0-1); EOSINOPHILS % (AUTO) 0.1 % (0-6); HEMATOCRIT 26.9 % (42.0-52.0); LYMPHOCYTES # (AUTO) 0.2 X10'3 (1.1-4.8); LYMPHOCYTES % (AUTO) 1.4 % (21-51); MEAN CORPUSCULAR HEMOGLOBIN 31.7 PG (27.0-31.0); MEAN CORPUSCULAR HGB CONC 33.5 g/dL (33.0-36.5); MEAN CORPUSCULAR VOLUME 94.7 FL (78-98); MONOCYTES # (AUTO) 1.1 X10'3 (0-0.9); MONOCYTES % (AUTO) 5.9 % (2-12); NEUTROPHILS # (AUTO) 16.7 X10'3 (1.8-7.7); NEUTROPHILS % (AUTO) 92.2 % (42-75); PLATELET COUNT 53 X10'3 (140-440); RED BLOOD COUNT 2.83 X10'6 (4.70-6.10); RED CELL DISTRIBUTION WIDTH 16.1 % (11.5-14.5); WHITE BLOOD COUNT 18.1 X10'3 (4.5-11.0)
[2020-05-01 15:59] LABS: AMYLASE 95 U/L (25-115); LIPASE 252 U/L (73-393)
[2020-05-01 16:00] LABS: ALBUMIN 1.6 G/DL (3.4-5.0); ANION GAP 8 (8-16); BLOOD UREA NITROGEN 83 MG/DL (7-18); BUN/CREATININE RATIO 32.7 (5.4-32.0); CHLORIDE 101 MMOL/L (99-107); CREATININE 2.54 MG/DL (0.60-1.10); GLUCOSE 140 MG/DL (70-104); SODIUM 131 MMOL/L (135-145); TOTAL CARBON DIOXIDE 21.9 MMOL/L (24-32); eGFR 26 ML/MIN
[2020-05-01 16:01] LABS: PHOSPHORUS 3.8 MG/DL (2.3-4.5); POTASSIUM 4.9 MMOL/L (3.5-5.1)
[2020-05-01] MEDS: dexmedetomidine/D5W 100mL 100 ML IV SCH ×3 (16:13→23:26)
--- NOTE | 2020-05-01 18:20 | NUR ---
Patient in room ICU 2042. I have received report from Jong GASTELUM and had the opportunity to ask questions and assume patient care.
[2020-05-01] MEDS: midazolam 100mg in NS 100ml 100 ML IV PRN (18:58)
[2020-05-01] MEDS: [UNRECOGNIZED DRUG - REMARK] IV SCH ×7 (18:59)
[2020-05-01] MEDS: insulin glargine (Lantus) pen - multi-dose SQ SCH (21:54)
[2020-05-01 22:23] LABS: BASOPHILS # (AUTO) 0.1 X10'3 (0-0.2); BASOPHILS % (AUTO) 0.4 % (0-1); EOSINOPHILS % (AUTO) 0 % (0-6); HEMATOCRIT 24.8 % (42.0-52.0); HEMOGLOBIN 8.1 g/dl (14.0-17.9); LYMPHOCYTES # (AUTO) 0.3 X10'3 (1.1-4.8); LYMPHOCYTES % (AUTO) 2.3 % (21-51); MEAN CORPUSCULAR HEMOGLOBIN 31.1 PG (27.0-31.0); MEAN CORPUSCULAR HGB CONC 32.8 g/dL (33.0-36.5); MEAN CORPUSCULAR VOLUME 94.9 FL (78-98); MEAN PLATELET VOLUME 9.8 FL (7.4-10.4); MONOCYTES # (AUTO) 0.7 X10'3 (0-0.9); MONOCYTES % (AUTO) 4.7 % (2-12); NEUTROPHILS # (AUTO) 12.9 X10'3 (1.8-7.7); NEUTROPHILS % (AUTO) 92.6 % (42-75); PLATELET COUNT 53 X10'3 (140-440); RED BLOOD COUNT 2.61 X10'6 (4.70-6.10); RED CELL DISTRIBUTION WIDTH 16.9 % (11.5-14.5); WHITE BLOOD COUNT 13.9 X10'3 (4.5-11.0)
[2020-05-01 22:37] LABS: ALBUMIN 1.5 G/DL (3.4-5.0); ANION GAP 9 (8-16); BLOOD UREA NITROGEN 86 MG/DL (7-18); BUN/CREATININE RATIO 34.7 (5.4-32.0); CHLORIDE 101 MMOL/L (99-107); CREATININE 2.48 MG/DL (0.60-1.10); GLUCOSE 143 MG/DL (70-104); MAGNESIUM 1.9 MG/DL (1.5-2.4); POTASSIUM 4.5 MMOL/L (3.5-5.1); SODIUM 132 MMOL/L (135-145); TOTAL CARBON DIOXIDE 21.7 MMOL/L (24-32); eGFR 27 ML/MIN
[2020-05-02] VITALS (24 sets, daily range): BP systolic 94–174; BP diastolic 51–94
[2020-05-02] MEDS: mineral oil/petrolatum ophthal oint EACHEYE SCH ×4 (02:10→21:03)
[2020-05-02] MEDS: Duosol 4K/3 Ca (w/calcium) 5,000 ML HE SCH ×11 (02:18→22:41)
[2020-05-02] MEDS: hydrocortisone sod succ/PF 100mg/2ml inj. IV SCH ×3 (02:23→21:04)
[2020-05-02] MEDS: metoclopramide 5 mg/ml inj IV SCH ×4 (02:24→21:04)
[2020-05-02] MEDS: lactulose 20gm/30ml cup PO SCH ×4 (02:24→21:05)
[2020-05-02] MEDS: dexmedetomidine/D5W 100mL 100 ML IV SCH ×5 (02:39→22:22)
[2020-05-02] MEDS: ipratropium/albuterol 3ml nebule NEB SCH ×6 (02:59→23:31)
[2020-05-02 03:11] LABS: ABG BASE EXCESS -5.7 mmol/L (-2.0-2.0); ABG HCO3 18.6 mmol/L (22.0-26.0); ABG OXYGEN SATURATION 96.9 % (94-97); ABG PCO2 (T) 30.6 mmHg (35.0-48.0); ABG PO2 (T) 90.7 mmHg (75.0-100.0); FCOHb 0.3 % (0.0-3.9); FO2Hb 96.6 % (94-97); PATIENT TEMPERATURE 35.9; PEEP 8 cm H2O; RESPIRATORY RATE 14 b/min; TIDAL VOLUME 600 mL; TOTAL HEMOGLOBIN 9.3 G/dl (14.0-18.0)
[2020-05-02] MEDS: FENTANYL-0.9 % NACL/PF 100 ML IV PRN ×4 (03:12→19:12)
[2020-05-02 04:47] LABS: BASOPHILS % (AUTO) 0.3 % (0-1); EOSINOPHILS % (AUTO) 0 % (0-6); HEMATOCRIT 26.9 % (42.0-52.0); HEMOGLOBIN 8.9 g/dl (14.0-17.9); LYMPHOCYTES # (AUTO) 0.4 X10'3 (1.1-4.8); LYMPHOCYTES % (AUTO) 2.3 % (21-51); MEAN CORPUSCULAR HEMOGLOBIN 31.6 PG (27.0-31.0); MEAN CORPUSCULAR HGB CONC 33.2 g/dL (33.0-36.5); MEAN CORPUSCULAR VOLUME 95.3 FL (78-98); MEAN PLATELET VOLUME 10.4 FL (7.4-10.4); MONOCYTES # (AUTO) 0.6 X10'3 (0-0.9); MONOCYTES % (AUTO) 3.6 % (2-12); NEUTROPHILS # (AUTO) 14.7 X10'3 (1.8-7.7); NEUTROPHILS % (AUTO) 93.8 % (42-75); PLATELET COUNT 63 X10'3 (140-440); RED BLOOD COUNT 2.82 X10'6 (4.70-6.10); RED CELL DISTRIBUTION WIDTH 16.6 % (11.5-14.5); WHITE BLOOD COUNT 15.7 X10'3 (4.5-11.0)
[2020-05-02 04:55] LABS: ALBUMIN 1.7 G/DL (3.4-5.0); ANION GAP 8 (8-16); BLOOD UREA NITROGEN 81 MG/DL (7-18); CHLORIDE 100 MMOL/L (99-107); CREATININE 2.38 MG/DL (0.60-1.10); GLUCOSE 129 MG/DL (70-104); MAGNESIUM 1.9 MG/DL (1.5-2.4); PARTIAL THROMBOPLASTIN TIME 23 SECONDS (22-32); SODIUM 130 MMOL/L (135-145); TOTAL CARBON DIOXIDE 21.8 MMOL/L (24-32); eGFR 28 ML/MIN
[2020-05-02 05:00] LABS: POTASSIUM 4.5 MMOL/L (3.5-5.1)
[2020-05-02] MEDS: midazolam 100mg in NS 100ml 100 ML IV PRN ×3 (06:02→17:32)
--- NOTE | 2020-05-02 06:19 | NUR ---
Problems reprioritized. Patient report given, questions answered & plan of care reviewed with Jong GASTELUM.
--- NOTE | 2020-05-02 06:21 | NUR ---
Student Medication Administration: For this medication-pass time frame, all medication were reviewed, dispensed, administered and documented per hospital policy by Luisito ZAZUETA. Student documentation: I have reviewed and agree with all interventions, assessments performed and documented by Luisito ZAZUETA.
--- NOTE | 2020-05-02 07:26 | NUR ---
Patient neuro status seems similar to yesterday. he was well sedated when i came on shift, and did not get agitated or restless with any care. With no changes to sedation, he is now starting to wake up and shake head around, peak pressuring the vent., but VSS. will continue to adjust sedation as appropriate
[2020-05-02] MEDS: pantoprazole 40 MG vial IV SCH ×2 (07:35→21:03)
[2020-05-02] MEDS: levetiracetam inj 750 MG in normal saline 100ml IV soln 92.5 ML IV SCH ×2 (07:35→21:16)
[2020-05-02] MEDS: docusate sodium 100mg/10ml UD cup OGT SCH ×2 (07:38→21:05)
[2020-05-02] MEDS: levoFLOXACIN-Levaquin 250mg/D5 50 ML IV SCH (07:38)
[2020-05-02 07:55] LABS: ANISOCYTOSIS 1+; PLATELET ESTIMATE DECREASED; TOTAL CELLS COUNTED 100; TOXIC GRANULATION 2+
[2020-05-02] MEDS: heparin, porcine 5000 units/ml vial SQ SCH ×2 (08:00→21:09)
[2020-05-02] MEDS ORDERED: CISatracurium besylate inj. 100 MG in normal saline 100ml IV soln 90 ML IV PRN (10:15)
[2020-05-02] MEDS ORDERED: heparin 1,000 units/ml 10ml inj HE ONE ×2 (10:35)
[2020-05-02] MEDS ORDERED: [UNRECOGNIZED DRUG - REMARK] IV SCH ×6 (10:41)
[2020-05-02 10:55] LABS: BASOPHILS % (AUTO) 0.2 % (0-1); EOSINOPHILS % (AUTO) 0 % (0-6); HEMOGLOBIN 9.2 g/dl (14.0-17.9); LYMPHOCYTES # (AUTO) 0.3 X10'3 (1.1-4.8); LYMPHOCYTES % (AUTO) 1.6 % (21-51); MEAN CORPUSCULAR HEMOGLOBIN 32.2 PG (27.0-31.0); MEAN CORPUSCULAR HGB CONC 33.9 g/dL (33.0-36.5); MEAN PLATELET VOLUME 10.1 FL (7.4-10.4); MONOCYTES # (AUTO) 0.6 X10'3 (0-0.9); NEUTROPHILS % (AUTO) 94.2 % (42-75); PLATELET COUNT 69 X10'3 (140-440); RED BLOOD COUNT 2.85 X10'6 (4.70-6.10); RED CELL DISTRIBUTION WIDTH 16.7 % (11.5-14.5); WHITE BLOOD COUNT 15.9 X10'3 (4.5-11.0)
[2020-05-02 11:08] LABS: ALBUMIN 1.7 G/DL (3.4-5.0); ANION GAP 8 (8-16); BLOOD UREA NITROGEN 81 MG/DL (7-18); BUN/CREATININE RATIO 37.3 (5.4-32.0); CHLORIDE 100 MMOL/L (99-107); CREATININE 2.17 MG/DL (0.60-1.10); GLUCOSE 120 MG/DL (70-104); MAGNESIUM 1.9 MG/DL (1.5-2.4); SODIUM 130 MMOL/L (135-145); TOTAL CARBON DIOXIDE 21.6 MMOL/L (24-32); eGFR 32 ML/MIN
[2020-05-02 11:10] LABS: PHOSPHORUS 3.7 MG/DL (2.3-4.5); POTASSIUM 4.7 MMOL/L (3.5-5.1)
--- NOTE | 2020-05-02 12:01 | NUR ---
Preparing patient for MRI. Nimbex is on patient no longer moving. Stopping all non essential drips; keeping fentanyl/versed/nimbex. Blood returned and CVVH stopped. Tube feed turned off; GRV 450 not returned
--- NOTE | 2020-05-02 12:23 | NUR ---
Patients BP very labile. goes from [id number]. Sedation helps bring pressure down but he is unstable. HR goes from 80-100. Have given 25mg of versed and 300mcg of fent in the last 90min; notified. Confirmed with him that he still wants me to go down with the patient being unstable and is ok with the high doses of sedation
--- NOTE | 2020-05-02 15:00 | NUR ---
Back from MRI with no complications. Placed patient back on monitor and drips back in pump and running. Patient BP still very. Not starting CVVH back up per Dr Pappas. Unable to calculate the exact amount of fent/versed while i was gone because it was on dial-a-flow.
[2020-05-02 15:42] LABS: BASOPHILS # (AUTO) 0.1 X10'3 (0-0.2); BASOPHILS % (AUTO) 0.7 % (0-1); EOSINOPHILS % (AUTO) 0 % (0-6); HEMOGLOBIN 9.4 g/dl (14.0-17.9); LYMPHOCYTES # (AUTO) 2.1 X10'3 (1.1-4.8); LYMPHOCYTES % (AUTO) 12.7 % (21-51); MEAN CORPUSCULAR HEMOGLOBIN 32.1 PG (27.0-31.0); MEAN CORPUSCULAR HGB CONC 33.5 g/dL (33.0-36.5); MEAN CORPUSCULAR VOLUME 95.8 FL (78-98); MONOCYTES # (AUTO) 0.5 X10'3 (0-0.9); MONOCYTES % (AUTO) 3.1 % (2-12); NEUTROPHILS # (AUTO) 13.7 X10'3 (1.8-7.7); NEUTROPHILS % (AUTO) 83.5 % (42-75); PLATELET COUNT 96 X10'3 (140-440); RED BLOOD COUNT 2.93 X10'6 (4.70-6.10); RED CELL DISTRIBUTION WIDTH 16.5 % (11.5-14.5); WHITE BLOOD COUNT 16.4 X10'3 (4.5-11.0)
[2020-05-02 15:54] LABS: ALBUMIN 1.8 G/DL (3.4-5.0); ANION GAP 8 (8-16); BLOOD UREA NITROGEN 94 MG/DL (7-18); BUN/CREATININE RATIO 38.2 (5.4-32.0); CHLORIDE 100 MMOL/L (99-107); CREATININE 2.46 MG/DL (0.60-1.10); GLUCOSE 124 MG/DL (70-104); SODIUM 130 MMOL/L (135-145); TOTAL CARBON DIOXIDE 22.1 MMOL/L (24-32); eGFR 27 ML/MIN
[2020-05-02 15:55] LABS: POTASSIUM 5.3 MMOL/L (3.5-5.1)
[2020-05-02] MEDS: Insulin Reg/NS 100units/100mL 100 ML IV SCH (17:35)
[2020-05-02] MEDS: NORepinephrine inj. 32 MG in normal saline 250ml IV soln 218 ML IV SCH (17:36)
--- NOTE | 2020-05-02 18:30 | NUR ---
Patient in room ICU 2042. I have received report from Jong GASTELUM and had the opportunity to ask questions and assume patient care.
[2020-05-02] MEDS: lactobacillus rhamnosus 10,000 MMU CELLS/CAPSULE PO SCH (21:04)
[2020-05-02] MEDS: insulin glargine (Lantus) pen - multi-dose SQ SCH (21:48)
[2020-05-02] MEDS: [UNRECOGNIZED DRUG - REMARK] IV SCH ×6 (23:24)
[2020-05-03] VITALS (25 sets, daily range): BP systolic 92–159; BP diastolic 45–86
[2020-05-03] MEDS: FENTANYL-0.9 % NACL/PF 100 ML IV PRN ×8 (00:09→22:44)
[2020-05-03] MEDS: Duosol 4K/3 Ca (w/calcium) 5,000 ML HE SCH ×5 (00:25→07:21)
[2020-05-03] MEDS: dexmedetomidine/D5W 100mL 100 ML IV SCH ×10 (00:38→22:20)
[2020-05-03] MEDS: lactulose 20gm/30ml cup PO SCH ×4 (02:46→19:48)
[2020-05-03] MEDS: metoclopramide 5 mg/ml inj IV SCH ×4 (02:46→19:49)
[2020-05-03] MEDS: mineral oil/petrolatum ophthal oint EACHEYE SCH ×4 (02:46→19:51)
[2020-05-03 03:10] LABS: BASOPHILS % (AUTO) 0.2 % (0-1); EOSINOPHILS % (AUTO) 0.1 % (0-6); HEMATOCRIT 25.7 % (42.0-52.0); HEMOGLOBIN 8.6 g/dl (14.0-17.9); LYMPHOCYTES # (AUTO) 0.4 X10'3 (1.1-4.8); LYMPHOCYTES % (AUTO) 2.7 % (21-51); MEAN CORPUSCULAR HGB CONC 33.4 g/dL (33.0-36.5); MEAN CORPUSCULAR VOLUME 95.8 FL (78-98); MONOCYTES # (AUTO) 0.7 X10'3 (0-0.9); MONOCYTES % (AUTO) 4.5 % (2-12); NEUTROPHILS # (AUTO) 15.5 X10'3 (1.8-7.7); NEUTROPHILS % (AUTO) 92.5 % (42-75); PLATELET COUNT 99 X10'3 (140-440); RED BLOOD COUNT 2.69 X10'6 (4.70-6.10); RED CELL DISTRIBUTION WIDTH 17.1 % (11.5-14.5); WHITE BLOOD COUNT 16.7 X10'3 (4.5-11.0)
[2020-05-03 03:18] LABS: PARTIAL THROMBOPLASTIN TIME 25 SECONDS (22-32)
[2020-05-03 03:21] LABS: ALBUMIN 1.6 G/DL (3.4-5.0); ANION GAP 11 (8-16); BLOOD UREA NITROGEN 126 MG/DL (7-18); BUN/CREATININE RATIO 35.7 (5.4-32.0); CHLORIDE 98 MMOL/L (99-107); CREATININE 3.53 MG/DL (0.60-1.10); GLUCOSE 135 MG/DL (70-104); MAGNESIUM 2.1 MG/DL (1.5-2.4); SODIUM 127 MMOL/L (135-145); eGFR 18 ML/MIN
[2020-05-03 03:24] LABS: PHOSPHORUS 4.8 MG/DL (2.3-4.5); POTASSIUM 5.2 MMOL/L (3.5-5.1)
[2020-05-03] MEDS: ipratropium/albuterol 3ml nebule NEB SCH ×6 (03:35→23:13)
[2020-05-03 04:41] LABS: ABG BASE EXCESS -10.6 mmol/L (-2.0-2.0); ABG HCO3 14.1 mmol/L (22.0-26.0); ABG OXYGEN SATURATION 96.3 % (94-97); FCOHb 0.3 % (0.0-3.9); FMetHb 0.1 % (0.0-1.5); FO2Hb 95.9 % (94-97); PATIENT TEMPERATURE 36.6; PEEP 8 cm H2O; RESPIRATORY RATE 14 b/min; TIDAL VOLUME 600 mL; TOTAL HEMOGLOBIN 9.4 G/dl (14.0-18.0)
--- NOTE | 2020-05-03 07:23 | NUR ---
Problems reprioritized. Patient report given, questions answered & plan of care reviewed with Desi GASTELUM.
[2020-05-03 07:26] LABS: NUCLEATED RED BLOOD CELLS 1 /100WBC (0-0); TOTAL CELLS COUNTED 100
[2020-05-03 07:28] LABS: ANISOCYTOSIS 1+; PLATELET ESTIMATE DECREASED; POLYCHROMASIA FEW; TEAR DROP CELLS FEW
[2020-05-03 07:29] LABS: ACANTHOCYTES 1+; TOXIC GRANULATION 1+
[2020-05-03] MEDS: lactobacillus rhamnosus 10,000 MMU CELLS/CAPSULE PO SCH ×2 (07:38→19:50)
[2020-05-03] MEDS: hydrocortisone sod succ/PF 100mg/2ml inj. IV SCH ×2 (07:38→19:49)
[2020-05-03] MEDS: docusate sodium 100mg/10ml UD cup OGT SCH ×2 (07:38→19:49)
[2020-05-03] MEDS: levoFLOXACIN-Levaquin 250mg/D5 50 ML IV SCH (07:39)
[2020-05-03] MEDS: pantoprazole 40 MG vial IV SCH ×2 (07:39→19:49)
[2020-05-03] MEDS: heparin, porcine 5000 units/ml vial SQ SCH ×2 (07:39→19:51)
[2020-05-03] MEDS: levetiracetam inj 750 MG in normal saline 100ml IV soln 92.5 ML IV SCH ×2 (07:39→19:50)
[2020-05-03] MEDS: methylnaltrexone br 12mg/0.6ml inj***SubQ only SQ SCH (07:39)
[2020-05-03 08:55] LABS: ALANINE AMINOTRANSFERASE 243 U/L (12-78); ALBUMIN/GLOBULIN RATIO 0.4 (1.1-1.5); ALKALINE PHOSPHATASE 150 IU/L (46-116); ASPARTATE AMINO TRANSFERASE 95 U/L (10-37); BILIRUBIN,DIRECT 5.9 MG/DL (0-0.3); BILIRUBIN,TOTAL 7.1 MG/DL (0.1-1.0); TOTAL PROTEIN 5.3 G/DL (6.4-8.2)
[2020-05-03] MEDS ORDERED: albumin (human) 25% 100ml IV 100 ML IV PRN (09:05)
[2020-05-03] MEDS ORDERED: heparin 1,000 units/ml 10ml inj IV ONE (09:05)
[2020-05-03] MEDS ORDERED: heparin 1,000unit/ml 10ml vial 10 ML IV ONE (09:05)
[2020-05-03] MEDS ORDERED: epoetin 20,000 units/ml inj IV ONE (09:05)
[2020-05-03] MEDS ORDERED: heparin 1,000 units/ml 10ml inj HE ONE ×2 (09:10)
[2020-05-03] MEDS: midazolam 100mg in NS 100ml 100 ML IV PRN ×2 (15:55→23:21)
--- NOTE | 2020-05-03 18:13 | NUR ---
Patient in room ICU 2042. I have received report from NIRAV Weeks and had the opportunity to ask questions and assume patient care.
[2020-05-03] MEDS: insulin glargine (Lantus) pen - multi-dose SQ SCH (21:42)
[2020-05-03] MEDS: [UNRECOGNIZED DRUG - REMARK] IV SCH ×6 (22:05)
[2020-05-03] MEDS: NORepinephrine inj. 32 MG in normal saline 250ml IV soln 218 ML IV SCH (22:21)
[2020-05-04] VITALS (24 sets, daily range): BP systolic 91–199; BP diastolic 46–91
--- NOTE | 2020-05-04 00:34 | NUR ---
Patient very restless to agitated throughout the shift. Rapidly shaking his head from side to side, breath stacking. During these episodes patient requiring Versed boluses to prevent extubation. Patient's behavior mildly decreases in response to verbal explanation and re orientation. Patient does not follow commands.
[2020-05-04] MEDS: dexmedetomidine/D5W 100mL 100 ML IV SCH ×6 (00:42→20:30)
[2020-05-04] MEDS: FENTANYL-0.9 % NACL/PF 100 ML IV PRN ×4 (02:06→11:31)
[2020-05-04] MEDS: mineral oil/petrolatum ophthal oint EACHEYE SCH ×4 (02:07→20:00)
[2020-05-04] MEDS: lactulose 20gm/30ml cup PO SCH ×4 (02:08→20:00)
[2020-05-04] MEDS: metoclopramide 5 mg/ml inj IV SCH ×4 (02:08→20:44)
[2020-05-04 02:18] LABS: BASOPHILS % (AUTO) 0.3 % (0-1); EOSINOPHILS % (AUTO) 0 % (0-6); HEMATOCRIT 22.8 % (42.0-52.0); HEMOGLOBIN 7.6 g/dl (14.0-17.9); LYMPHOCYTES # (AUTO) 0.4 X10'3 (1.1-4.8); LYMPHOCYTES % (AUTO) 2.8 % (21-51); MEAN CORPUSCULAR HEMOGLOBIN 31.5 PG (27.0-31.0); MEAN CORPUSCULAR HGB CONC 33.2 g/dL (33.0-36.5); MEAN CORPUSCULAR VOLUME 94.8 FL (78-98); MEAN PLATELET VOLUME 9.6 FL (7.4-10.4); MONOCYTES # (AUTO) 0.6 X10'3 (0-0.9); MONOCYTES % (AUTO) 4.6 % (2-12); NEUTROPHILS # (AUTO) 12.4 X10'3 (1.8-7.7); NEUTROPHILS % (AUTO) 92.3 % (42-75); PLATELET COUNT 104 X10'3 (140-440); RED BLOOD COUNT 2.41 X10'6 (4.70-6.10); WHITE BLOOD COUNT 13.5 X10'3 (4.5-11.0)
[2020-05-04 02:30] LABS: PARTIAL THROMBOPLASTIN TIME 27 SECONDS (22-32)
[2020-05-04] MEDS: ipratropium/albuterol 3ml nebule NEB SCH ×6 (03:12→23:05)
[2020-05-04 03:37] LABS: ALANINE AMINOTRANSFERASE 223 U/L (12-78); ALBUMIN 1.9 G/DL (3.4-5.0); ALKALINE PHOSPHATASE 137 IU/L (46-116); ASPARTATE AMINO TRANSFERASE 132 U/L (10-37); BILIRUBIN,TOTAL 8.7 MG/DL (0.1-1.0); BLOOD UREA NITROGEN 96 MG/DL (7-18); BUN/CREATININE RATIO 29.5 (5.4-32.0); CALCIUM 7.3 MG/DL (8.5-10.1); CHLORIDE 99 MMOL/L (99-107); CREATININE 3.25 MG/DL (0.60-1.10); GLUCOSE 143 MG/DL (70-104); TOTAL CARBON DIOXIDE 24.5 MMOL/L (24-32); eGFR 20 ML/MIN
[2020-05-04 03:51] LABS: ALBUMIN/GLOBULIN RATIO 0.6 (1.1-1.5); ANION GAP 15 (8-16); PHOSPHORUS 5.6 MG/DL (2.3-4.5); POTASSIUM 4.6 MMOL/L (3.5-5.1); SODIUM 138 MMOL/L (135-145); TOTAL PROTEIN 5.3 G/DL (6.4-8.2); TRIGLYCERIDES 118 MG/DL (20-135)
[2020-05-04 04:01] LABS: ABG OXYGEN SATURATION 98.6 % (94-97); ABG PCO2 (T) 35.6 mmHg (35.0-48.0); ABG PO2 (T) 154.2 mmHg (75.0-100.0); FCOHb 1.1 % (0.0-3.9); FMetHb 0.3 % (0.0-1.5); FO2Hb 97.2 % (94-97); PATIENT TEMPERATURE 37.1; PEEP 5 cm H2O; RESPIRATORY RATE 14 b/min; TOTAL HEMOGLOBIN 8.1 G/dl (14.0-18.0)
--- NOTE | 2020-05-04 05:10 | NUR ---
Patient extremely agitated during dressing change. Versed and Fentanyl bolus adminstered. Levophed was turned off for a short period of time when patient was hypertensive. Patients blood pressure did not tolerate drip being off and was restarted.
--- NOTE | 2020-05-04 05:39 | NUR ---
Tameka Jennings NP called re: continued high residuals on trickle tube feed at 10 ml/hr. Current Residual 475ml. 225ml was returned secondary to risk of patient vomiting. Per TANJA Jennings continue the tube feed.
[2020-05-04] MEDS: midazolam 100mg in NS 100ml 100 ML IV PRN (05:45)
--- NOTE | 2020-05-04 06:20 | NUR ---
Problems reprioritized. Patient report given, questions answered & plan of care reviewed with NIRAV Tracy.
[2020-05-04] MEDS: hydrocortisone sod succ/PF 100mg/2ml inj. IV SCH ×2 (07:41→20:44)
[2020-05-04] MEDS: docusate sodium 100mg/10ml UD cup OGT SCH ×2 (07:41→20:00)
[2020-05-04] MEDS: pantoprazole 40 MG vial IV SCH ×2 (07:42→20:44)
[2020-05-04] MEDS: heparin, porcine 5000 units/ml vial SQ SCH ×2 (07:43→20:45)
[2020-05-04] MEDS: lactobacillus rhamnosus 10,000 MMU CELLS/CAPSULE PO SCH ×2 (07:43→20:00)
[2020-05-04] MEDS: levoFLOXACIN-Levaquin 250mg/D5 50 ML IV SCH (07:43)
[2020-05-04] MEDS: levetiracetam inj 750 MG in normal saline 100ml IV soln 92.5 ML IV SCH ×2 (08:06→20:44)
[2020-05-04] MEDS: Insulin Reg/NS 100units/100mL 100 ML IV SCH (09:56)
--- NOTE | 2020-05-04 10:00 | NUR ---
Rounds note Per Dr. Ca stop precedex so that he can assess patients mentation, turn off all sedation at 1430, draw a blood gas at 1500 and extubate patient at 1515
[2020-05-04 13:30] LABS: ABG BASE EXCESS -6.8 mmol/L (-2.0-2.0); ABG HCO3 17.5 mmol/L (22.0-26.0); ABG OXYGEN SATURATION 94.7 % (94-97); ABG PCO2 (T) 30.5 mmHg (35.0-48.0); ABG PO2 (T) 75.3 mmHg (75.0-100.0); FCOHb 0.4 % (0.0-3.9); FMetHb 0.1 % (0.0-1.5); FO2Hb 94.2 % (94-97); PEEP 5 cm H2O; TOTAL HEMOGLOBIN 9.5 G/dl (14.0-18.0)
[2020-05-04] MEDS ORDERED: epoetin 20,000 units/ml inj IV ONE (13:40)
[2020-05-04] MEDS ORDERED: heparin 1,000unit/ml 10ml vial 10 ML IV ONE (13:40)
[2020-05-04] MEDS ORDERED: albumin (human) 25% 100ml IV 100 ML IV PRN (13:40)
[2020-05-04] MEDS ORDERED: heparin 1,000 units/ml 10ml inj HE ONE ×2 (13:45)
[2020-05-04] MEDS ORDERED: dexmedetomidin/NS 400mcg/100ml 100 ML IV SCH (13:45)
[2020-05-04] MEDS ORDERED: labetalol 20mg/4ml (5mg/ml) syringe IV PRN (13:50)
--- NOTE | 2020-05-04 14:00 | NUR ---
D/C restraints after extubation
--- NOTE | 2020-05-04 14:33 | NUR ---
F/u 05/04: Pt tolerating custom PN at goal s/p HD yesterday w/ possible return to CVVH near future per MD note. ALB 1.8 to receive 200cc 25% ALB w/ HD per [facility] [employer]; received 100cc yesterday and 1500cc removed during HD per HD RN at rounds. Receiving trickle TF at 10ml/hr though GRV over 600 yesterday and remain elevated w/ no colostomy output post-op. Started on relistor, reglan, colace, and PRN lactulose last given 05/01 for bowel care; likely impacted by amount of opiates since admit. Prior PALB WNL w/ current PN regimen pending new PALB today. Night Baker requests current custom PN volume to run cyclic nocturnally in hopes of GI improvement; is okay w/ running for 15 hours to not exceed 4mg/kg/min dex loading. RD collaborated w/ clinical pharmacist; goal rate and weaning at initiation/end to be determined per pharmacy. Will continue to monitor for PN tolerance at new cyclic schedule, EN tolerance, and GI function. Rec: 1. Custom Cyclic nocturnal TPN to run for 15 hours per [facility] electronic on HD. Wean rate and goal rate per clinical pharmacist. To provide; 2280ml volume, 166g AA, 363g DEX, 21g lipids, and 2108 total kcals. 2. Trickle OGTF using Vital High Protein at 10ml/hr; to provide 240ml volume, 240 kcals, 202ml free water, and 21g protein. 3. IF to advance EN; Vital High Protein at 95ml/hr goal; to provide 2280ml volume, 1915ml free water, 2280kcals, and 200g protein. Advance 20ml Q8 to goal as tolerated. 3. PALB/TG Q /; daily wts 4. monitor for bowel function and colostomy output post-op; routine bowel care w/ opioid antagonist and promotility agent per MD 5. monitor for PN tolerance at new cyclic schedule Addendum: 05/04/20 at [address] Amended: Links added.
--- NOTE | 2020-05-04 16:23 | NUR ---
unable to place corpak at this time to dialysis, needs to be placed after dialysis
--- NOTE | 2020-05-04 18:15 | NUR ---
Patient in room ICU 2042. I have received report from NIRAV Tracy and had the opportunity to ask questions and assume patient care. Patient is extubated currently on a simple mask at 4 lpm. Oxygen saturation at 98%. Heart rate 107, Respiratory rate 32, BP 154/69. Patient appears agitated in bed, moving head left to right, eye open spontaneously - not making eye contact, not following commands. Patient tenses extremities, in what appears to be attempts to move. No movement on command. Patient lung sounds are course bilaterally, with audible course upper airway sounds. Patient is off all sedation at this time. Addendum: 05/04/20 at 1915 by Aparna Silva RN oxygen flow increased to 6 lpm via mask.
--- NOTE | 2020-05-04 19:00 | NUR ---
Tameka Jennings NP. at bedside. Repeat ABG ordered and order for NT suction
[2020-05-04] MEDS: [UNRECOGNIZED DRUG - REMARK] IV SCH ×6 (19:17)
[2020-05-04 19:26] LABS: ABG BASE EXCESS -1.1 mmol/L (-2.0-2.0); ABG HCO3 21.5 mmol/L (22.0-26.0); ABG OXYGEN SATURATION 96.9 % (94-97); ABG PCO2 (T) 28.5 mmHg (35.0-48.0); FCOHb 0.4 % (0.0-3.9); FMetHb 0.2 % (0.0-1.5); FO2Hb 96.3 % (94-97)
[2020-05-04] MEDS: insulin glargine (Lantus) pen - multi-dose SQ SCH (22:34)
--- NOTE | 2020-05-04 23:10 | NUR ---
Corepack placed. Patient with positive gag reflex. Patient vomited bright/ dark green bile during procedure. Oral suctioning throughout procedure. KUB xray ordered for confirmation of placement. Addendum: 05/05/20 at 0014 by Aparna Silva RN 0000: Tameka Jennings NP at bedside to view x-ray. Corepack pulled and reinserted. Follow-up x-ray ordered. Abdomen and Chest.
[2020-05-05] VITALS (24 sets, daily range): BP systolic 124–166; BP diastolic 59–78
--- NOTE | 2020-05-05 00:38 | NUR ---
Okay to start use [employer] to restart trickle feed per Tameka Jennings NP.
[2020-05-05] MEDS: mineral oil/petrolatum ophthal oint EACHEYE SCH ×4 (02:00→20:00)
--- NOTE | 2020-05-05 02:00 | NUR ---
Tube feed restarted at 10ml/hr per MD order. Vital HP.
[2020-05-05] MEDS: lactulose 20gm/30ml cup PO SCH ×5 (02:02→23:51)
[2020-05-05] MEDS: metoclopramide 5 mg/ml inj IV SCH ×4 (02:03→20:22)
[2020-05-05] MEDS: labetalol 20mg/4ml (5mg/ml) syringe IV PRN ×2 (02:30→15:30)
[2020-05-05] MEDS: ipratropium/albuterol 3ml nebule NEB SCH ×6 (02:57→23:17)
[2020-05-05 03:59] LABS: BASOPHILS % (AUTO) 0 % (0-1); EOSINOPHILS % (AUTO) 0 % (0-6); HEMATOCRIT 23.5 % (42.0-52.0); HEMOGLOBIN 7.9 g/dl (14.0-17.9); LYMPHOCYTES # (AUTO) 0.1 X10'3 (1.1-4.8); LYMPHOCYTES % (AUTO) 1.6 % (21-51); MEAN CORPUSCULAR HEMOGLOBIN 31.7 PG (27.0-31.0); MEAN CORPUSCULAR HGB CONC 33.5 g/dL (33.0-36.5); MEAN CORPUSCULAR VOLUME 94.7 FL (78-98); MEAN PLATELET VOLUME 9.6 FL (7.4-10.4); MONOCYTES # (AUTO) 0.4 X10'3 (0-0.9); NEUTROPHILS # (AUTO) 8.5 X10'3 (1.8-7.7); NEUTROPHILS % (AUTO) 94.4 % (42-75); PLATELET COUNT 115 X10'3 (140-440); RED BLOOD COUNT 2.49 X10'6 (4.70-6.10); RED CELL DISTRIBUTION WIDTH 17.4 % (11.5-14.5)
[2020-05-05 04:10] LABS: PARTIAL THROMBOPLASTIN TIME 29 SECONDS (22-32)
[2020-05-05 04:13] LABS: ALANINE AMINOTRANSFERASE 187 U/L (12-78); ALKALINE PHOSPHATASE 115 IU/L (46-116); ANION GAP 12 (8-16); ASPARTATE AMINO TRANSFERASE 108 U/L (10-37); BILIRUBIN,TOTAL 7.3 MG/DL (0.1-1.0); BLOOD UREA NITROGEN 99 MG/DL (7-18); BUN/CREATININE RATIO 28.1 (5.4-32.0); CALCIUM 7.8 MG/DL (8.5-10.1); CHLORIDE 98 MMOL/L (99-107); CREATININE 3.52 MG/DL (0.60-1.10); GLUCOSE 229 MG/DL (70-104); MAGNESIUM 1.9 MG/DL (1.5-2.4); POTASSIUM 3.6 MMOL/L (3.5-5.1); SODIUM 131 MMOL/L (135-145); TOTAL CARBON DIOXIDE 21.2 MMOL/L (24-32); eGFR 18 ML/MIN
[2020-05-05 04:14] LABS: ALBUMIN/GLOBULIN RATIO 0.6 (1.1-1.5); PHOSPHORUS 2.7 MG/DL (2.3-4.5); TOTAL PROTEIN 5.1 G/DL (6.4-8.2)
[2020-05-05] MEDS: dexmedetomidine/D5W 100mL 100 ML IV SCH ×3 (05:15→22:31)
[2020-05-05] MEDS: Insulin Reg/NS 100units/100mL 100 ML IV SCH (05:40)
--- NOTE | 2020-05-05 06:20 | NUR ---
Problems reprioritized. Patient report given, questions answered & plan of care reviewed with NIRAV Tracy.
--- NOTE | 2020-05-05 06:30 | NUR ---
Patient in room ICU 2042. I have received report from Wilda GASTELUM and had the opportunity to ask questions and assume patient care.
[2020-05-05] MEDS: levoFLOXACIN-Levaquin 250mg/D5 50 ML IV SCH (08:10)
[2020-05-05] MEDS: levetiracetam inj 750 MG in normal saline 100ml IV soln 92.5 ML IV SCH ×2 (08:11→20:30)
[2020-05-05] MEDS: methylnaltrexone br 12mg/0.6ml inj***SubQ only SQ SCH (08:11)
[2020-05-05] MEDS: docusate sodium 100mg/10ml UD cup OGT SCH ×2 (08:11→20:22)
[2020-05-05] MEDS: pantoprazole 40 MG vial IV SCH ×2 (08:11→20:22)
[2020-05-05] MEDS: lactobacillus rhamnosus 10,000 MMU CELLS/CAPSULE PO SCH ×2 (08:12→20:22)
[2020-05-05] MEDS: hydrocortisone sod succ/PF 100mg/2ml inj. IV SCH ×2 (08:12→20:30)
[2020-05-05] MEDS: heparin, porcine 5000 units/ml vial SQ SCH ×2 (08:13→20:23)
--- NOTE | 2020-05-05 08:40 | NUR ---
Dr Vallejo by to round on patient, stated he will be taking him back to OR tomorrow to close his lower left leg, he also stated to remove abdominal nasima
--- NOTE | 2020-05-05 10:25 | NUR ---
Noted pt extubated this AM; tolerating custom nocturnal PN and trickle TF at this time. Noted 175ml colostomy output first this admit. Will monitor for nutrition support tolerance and PO diet advancement as medically indicated post-op. Addendum: 05/05/20 at [address] Amended: Links added.
[2020-05-05] MEDS: NORepinephrine inj. 32 MG in normal saline 250ml IV soln 218 ML IV SCH (14:05)
[2020-05-05] MEDS ORDERED: heparin 1,000unit/ml 10ml vial 10 ML IV ONE (16:35)
[2020-05-05] MEDS ORDERED: albumin (human) 25% 100ml IV 100 ML IV PRN (16:35)
[2020-05-05] MEDS ORDERED: epoetin 20,000 units/ml inj IV ONE (16:35)
[2020-05-05] MEDS ORDERED: heparin 1,000 units/ml 10ml inj HE ONE (16:35)
[2020-05-05] MEDS ORDERED: heparin 1,000 units/ml 10ml inj IV ONE (16:35)
--- NOTE | 2020-05-05 18:15 | NUR ---
Patient in room ICU 2042. I have received report from NIRAV Tracy and had the opportunity to ask questions and assume patient care.
[2020-05-05] MEDS: [UNRECOGNIZED DRUG - REMARK] IV SCH ×6 (20:20)
[2020-05-05] MEDS: insulin glargine (Lantus) pen - multi-dose SQ SCH (21:46)
--- NOTE | 2020-05-05 23:44 | NUR ---
Call to Tameka Jennings NP re: patient to OR in the morning 05/06 at 1115. Order for NPO at midnight received. Hold 0200 dose of Lactulose.
[2020-05-06] VITALS (25 sets, daily range): BP systolic 92–155; BP diastolic 55–81
--- NOTE | 2020-05-06 00:05 | NUR ---
Patient with occasional strong cough. Patient is weak, able to move upper extremities. Very weak to lower extremities. Patient appears to occasionally respond to verbal stimuli. Will open eyes and attempt to cough when instructed. This has been inconsistent throughout shift.
[2020-05-06] MEDS: mineral oil/petrolatum ophthal oint EACHEYE SCH ×5 (02:22→19:21)
[2020-05-06] MEDS: metoclopramide 5 mg/ml inj IV SCH ×4 (02:22→19:22)
[2020-05-06] MEDS: Insulin Reg/NS 100units/100mL 100 ML IV SCH ×2 (02:25→21:40)
[2020-05-06] MEDS: insulin Lispro (HumaLOG) vial - multi-dose SQ PRN ×5 (02:34→06:08)
[2020-05-06 03:03] LABS: BASOPHILS % (AUTO) 0.2 % (0-1); EOSINOPHILS % (AUTO) 0 % (0-6); HEMATOCRIT 23.4 % (42.0-52.0); HEMOGLOBIN 7.9 g/dl (14.0-17.9); LYMPHOCYTES # (AUTO) 0.2 X10'3 (1.1-4.8); LYMPHOCYTES % (AUTO) 1.9 % (21-51); MEAN CORPUSCULAR HEMOGLOBIN 32.1 PG (27.0-31.0); MEAN CORPUSCULAR HGB CONC 33.9 g/dL (33.0-36.5); MEAN CORPUSCULAR VOLUME 94.8 FL (78-98); MEAN PLATELET VOLUME 9.7 FL (7.4-10.4); MONOCYTES # (AUTO) 0.6 X10'3 (0-0.9); MONOCYTES % (AUTO) 5.3 % (2-12); NEUTROPHILS # (AUTO) 9.8 X10'3 (1.8-7.7); NEUTROPHILS % (AUTO) 92.6 % (42-75); PLATELET COUNT 137 X10'3 (140-440); RED BLOOD COUNT 2.47 X10'6 (4.70-6.10); RED CELL DISTRIBUTION WIDTH 17.9 % (11.5-14.5); WHITE BLOOD COUNT 10.6 X10'3 (4.5-11.0)
[2020-05-06] MEDS: ipratropium/albuterol 3ml nebule NEB SCH ×6 (03:10→23:37)
[2020-05-06 03:16] LABS: PARTIAL THROMBOPLASTIN TIME 30 SECONDS (22-32)
[2020-05-06 03:20] LABS: ALANINE AMINOTRANSFERASE 192 U/L (12-78); ALBUMIN 1.7 G/DL (3.4-5.0); ALKALINE PHOSPHATASE 129 IU/L (46-116); ASPARTATE AMINO TRANSFERASE 95 U/L (10-37); BILIRUBIN,TOTAL 6.5 MG/DL (0.1-1.0); CALCIUM 7.7 MG/DL (8.5-10.1); CREATININE 4.82 MG/DL (0.60-1.10); GLUCOSE 259 MG/DL (70-104); MAGNESIUM 2.2 MG/DL (1.5-2.4); TOTAL CARBON DIOXIDE 17.6 MMOL/L (24-32); eGFR 13 ML/MIN
[2020-05-06 03:23] LABS: ALBUMIN/GLOBULIN RATIO 0.5 (1.1-1.5); PHOSPHORUS 4.7 MG/DL (2.3-4.5); POTASSIUM 4.1 MMOL/L (3.5-5.1); TOTAL PROTEIN 5.4 G/DL (6.4-8.2)
[2020-05-06 03:35] LABS: ANION GAP 15 (8-16); CHLORIDE 95 MMOL/L (99-107); SODIUM 128 MMOL/L (135-145)
[2020-05-06 03:37] LABS: BLOOD UREA NITROGEN 157 MG/DL (7-18); BUN/CREATININE RATIO 32.6 (5.4-32.0)
--- NOTE | 2020-05-06 04:00 | NUR ---
Dressing changed to midline abdominal surgical wound. The distal part of the wound is coming open. [place] were removed on 05/05. Steristrips in place. Additional steristrips placed over wound. Island dressing placed over incision. Left lower leg dressing changed per wound care orders.
--- NOTE | 2020-05-06 05:34 | NUR ---
Na 128. Result to Tameka Jennings NP. No new orders at this time.
--- NOTE | 2020-05-06 06:45 | NUR ---
Patient in room ICU 2042. I have received report from NIRAV Braun and had the opportunity to ask questions and assume patient care.
--- NOTE | 2020-05-06 06:52 | NUR ---
Problems reprioritized. Patient report given, questions answered & plan of care reviewed with NIRAV Miramontes.
[2020-05-06] MEDS: dexmedetomidine/D5W 100mL 100 ML IV SCH ×2 (07:30→16:15)
[2020-05-06] MEDS ORDERED: epoetin 20,000 units/ml inj IV ONE (08:00)
[2020-05-06] MEDS: lactulose 20gm/30ml cup PO SCH ×3 (08:00→19:24)
[2020-05-06] MEDS ORDERED: heparin 1,000unit/ml 10ml vial 10 ML IV ONE (08:00)
[2020-05-06] MEDS: heparin, porcine 5000 units/ml vial SQ SCH ×2 (08:00→19:29)
[2020-05-06] MEDS: docusate sodium 100mg/10ml UD cup OGT SCH ×2 (08:00→19:24)
[2020-05-06] MEDS ORDERED: heparin 1,000 units/ml 10ml inj HE ONE ×2 (08:00)
[2020-05-06] MEDS: lactobacillus rhamnosus 10,000 MMU CELLS/CAPSULE PO SCH ×2 (08:00→19:24)
[2020-05-06] MEDS ORDERED: albumin (human) 25% 100ml IV 100 ML IV PRN ×2 (08:00→11:30)
[2020-05-06] MEDS: hydrocortisone sod succ/PF 100mg/2ml inj. IV SCH ×2 (08:59→19:23)
[2020-05-06] MEDS: pantoprazole 40 MG vial IV SCH ×2 (09:02→19:21)
[2020-05-06] MEDS: levoFLOXACIN-Levaquin 250mg/D5 50 ML IV SCH (09:03)
[2020-05-06] MEDS: levetiracetam inj 750 MG in normal saline 100ml IV soln 92.5 ML IV SCH ×2 (09:03→19:21)
[2020-05-06] MEDS ORDERED: labetalol 20mg/4ml (5mg/ml) syringe IV PRN (10:00)
[2020-05-06] MEDS ORDERED: fentaNYL/PF 50MCG/1 ML 2ML syringe IV PRN ×2 (10:00)
[2020-05-06] MEDS ORDERED: hydrALAZINE 20mg/ml inj. IV PRN (10:00)
[2020-05-06] MEDS ORDERED: ondansetron/PF 4mg/2ml inj IV PRN ×2 (10:00→13:05)
[2020-05-06] MEDS ORDERED: ringers solution, lacted 1,000 ML IV SCH ×2 (10:00→13:05)
[2020-05-06 10:39] LABS: OCCULT BLOOD STOOL NEGATIVE (Neg)
[2020-05-06] MEDS ORDERED: etomidate 2mg/ml inj. ONE (10:39)
[2020-05-06] MEDS ORDERED: rocuronium 10mg/ml inj IV ONE (10:40)
[2020-05-06] MEDS ORDERED: normal saline 1000ml 250 ML IV PRN (11:30)
[2020-05-06] MEDS: scopolamine 1.5mg patch.TD72 TD SCH (11:54)
[2020-05-06] MEDS ORDERED: mupirocin 2% ointment 22GM TP SCH (13:00)
[2020-05-06] MEDS ORDERED: meperidine/PF 25mg/ml syringe IV PRN ×3 (13:05)
[2020-05-06] MEDS ORDERED: proCHLORperazine 10 MG/2 ml inj IV PRN (13:05)
--- NOTE | 2020-05-06 15:11 | NUR ---
Patient in room ICU 2042. I have received report from Fe GASTELUM and had the opportunity to ask questions and assume patient care.
--- NOTE | 2020-05-06 15:11 | NUR ---
Problems reprioritized. Patient report given, questions answered & plan of care reviewed with NIRAV Quezada. Pt resting comfortably, all pt needs met at this time.
[2020-05-06] MEDS: mupirocin 2% nasal ointment 1gm UD NS SCH ×2 (15:34→19:24)
--- NOTE | 2020-05-06 18:15 | NUR ---
Patient in room ICU 2042. I have received report from Pilar GASTELUM and had the opportunity to ask questions and assume patient care. Pt. is sleeping and does not awaken when I speak to him. He responds to slight pain but will not open his eyes. He is tachypneic but is saturating well on 5L High flow. Will continue to monitor.
[2020-05-06] MEDS: [UNRECOGNIZED DRUG - REMARK] IV SCH ×6 (19:28)
[2020-05-06] MEDS: insulin glargine (Lantus) pen - multi-dose SQ SCH (21:42)
[2020-05-07] VITALS (27 sets, daily range): BP systolic 103–168; BP diastolic 54–84
[2020-05-07] MEDS: metoclopramide 5 mg/ml inj IV SCH ×4 (03:09→21:07)
[2020-05-07] MEDS: lactulose 20gm/30ml cup PO SCH ×4 (03:09→21:07)
[2020-05-07] MEDS: mineral oil/petrolatum ophthal oint EACHEYE SCH ×4 (03:09→21:06)
[2020-05-07] MEDS: dexmedetomidine/D5W 100mL 100 ML IV SCH ×4 (03:11→23:29)
[2020-05-07 03:49] LABS: BASOPHILS % (AUTO) 0.3 % (0-1); EOSINOPHILS % (AUTO) 0.1 % (0-6); HEMATOCRIT 23.4 % (42.0-52.0); HEMOGLOBIN 8.1 g/dl (14.0-17.9); LYMPHOCYTES # (AUTO) 0.2 X10'3 (1.1-4.8); LYMPHOCYTES % (AUTO) 1.9 % (21-51); MEAN CORPUSCULAR HEMOGLOBIN 32.4 PG (27.0-31.0); MEAN CORPUSCULAR HGB CONC 34.4 g/dL (33.0-36.5); MEAN CORPUSCULAR VOLUME 94.2 FL (78-98); MEAN PLATELET VOLUME 8.6 FL (7.4-10.4); MONOCYTES # (AUTO) 0.7 X10'3 (0-0.9); MONOCYTES % (AUTO) 6.9 % (2-12); NEUTROPHILS % (AUTO) 90.8 % (42-75); PLATELET COUNT 139 X10'3 (140-440); RED BLOOD COUNT 2.49 X10'6 (4.70-6.10); RED CELL DISTRIBUTION WIDTH 17.1 % (11.5-14.5); WHITE BLOOD COUNT 9.9 X10'3 (4.5-11.0)
[2020-05-07 04:02] LABS: PARTIAL THROMBOPLASTIN TIME 28 SECONDS (22-32)
[2020-05-07 04:04] LABS: ALANINE AMINOTRANSFERASE 147 U/L (12-78); ALBUMIN 2.2 G/DL (3.4-5.0); ALKALINE PHOSPHATASE 138 IU/L (46-116); ANION GAP 14 (8-16); ASPARTATE AMINO TRANSFERASE 65 U/L (10-37); BILIRUBIN,TOTAL 6.2 MG/DL (0.1-1.0); BLOOD UREA NITROGEN 98 MG/DL (7-18); BUN/CREATININE RATIO 27.5 (5.4-32.0); CALCIUM 7.8 MG/DL (8.5-10.1); CHLORIDE 98 MMOL/L (99-107); CREATININE 3.57 MG/DL (0.60-1.10); GLUCOSE 130 MG/DL (70-104); MAGNESIUM 2.2 MG/DL (1.5-2.4); SODIUM 134 MMOL/L (135-145); TOTAL CARBON DIOXIDE 22.5 MMOL/L (24-32); eGFR 18 ML/MIN
[2020-05-07 04:05] LABS: ALBUMIN/GLOBULIN RATIO 0.6 (1.1-1.5); TOTAL PROTEIN 5.7 G/DL (6.4-8.2); TRIGLYCERIDES 132 MG/DL (20-135)
[2020-05-07] MEDS: ipratropium/albuterol 3ml nebule NEB SCH ×6 (04:08→22:51)
--- NOTE | 2020-05-07 06:15 | NUR ---
Problems reprioritized. Patient report given, questions answered & plan of care reviewed with Arianna GASTELUM.
--- NOTE | 2020-05-07 06:24 | NUR ---
Patient in room ICU 2042. I have received report from Keli GASTELUM and had the opportunity to ask questions and assume patient care.
[2020-05-07] MEDS ORDERED: heparin 1,000 units/ml 10ml inj HE ONE ×2 (06:30)
[2020-05-07] MEDS ORDERED: epoetin 20,000 units/ml inj IV ONE (06:30)
[2020-05-07] MEDS: heparin, porcine 5000 units/ml vial SQ SCH ×2 (08:00→21:08)
[2020-05-07] MEDS: pantoprazole 40 MG vial IV SCH ×2 (08:00→21:07)
[2020-05-07] MEDS: levetiracetam inj 750 MG in normal saline 100ml IV soln 92.5 ML IV SCH ×2 (10:53→21:07)
[2020-05-07] MEDS: levoFLOXACIN-Levaquin 250mg/D5 50 ML IV SCH (10:54)
[2020-05-07] MEDS: lactobacillus rhamnosus 10,000 MMU CELLS/CAPSULE PO SCH ×2 (10:55→21:07)
[2020-05-07] MEDS: docusate sodium 100mg/10ml UD cup OGT SCH ×2 (10:55→21:07)
[2020-05-07] MEDS: methylnaltrexone br 12mg/0.6ml inj***SubQ only SQ SCH (10:56)
[2020-05-07] MEDS: hydrocortisone sod succ/PF 100mg/2ml inj. IV SCH (10:56)
[2020-05-07] MEDS: mupirocin 2% nasal ointment 1gm UD NS SCH ×2 (10:57→20:00)
[2020-05-07] MEDS ORDERED: heparin 1,000unit/ml 10ml vial 10 ML IV ONE (11:30)
[2020-05-07] MEDS ORDERED: DEXMEDETOMIDINE IV ONE (12:00)
[2020-05-07] MEDS ORDERED: DEXTROSE IV ONE (12:00)
[2020-05-07] MEDS ORDERED: sevoflurane 250ml liquid IH ONE (12:00)
[2020-05-07] MEDS ORDERED: ondansetron/PF 4mg/2ml inj ONE ×2 (12:00→12:50)
--- NOTE | 2020-05-07 12:16 | NUR ---
taken to OR for closure of fasciotomy to LLE and revision of colostomy @ 1200
[2020-05-07] MEDS ORDERED: fentaNYL/PF 50MCG/1 ML 2ML syringe ONE (12:48)
[2020-05-07] MEDS ORDERED: dexamethasone sod phosphate 4mg/ml inj. ONE (12:50)
[2020-05-07] MEDS ORDERED: propofol inj 20 ML IV ONE (12:50)
[2020-05-07] MEDS ORDERED: ceFOXitin 1000 MG inj ONE ×2 (12:50)
[2020-05-07] MEDS ORDERED: rocuronium 10mg/ml inj IV ONE (12:51)
[2020-05-07] MEDS ORDERED: LIDOcaine 2% (20mg/ml) 5ml vial ONE (12:51)
[2020-05-07] MEDS ORDERED: ePHEDrine 50MG/ML INJ. ONE (12:51)
[2020-05-07] MEDS ORDERED: neostigmine methylsulfate 1 MG/ML 10ml vial ONE (14:01)
[2020-05-07] MEDS ORDERED: glycopyrrolate 0.2mg/ml inj ONE (14:01)
[2020-05-07] MEDS: NORepinephrine inj. 32 MG in normal saline 250ml IV soln 218 ML IV SCH (14:05)
--- NOTE | 2020-05-07 14:28 | NUR ---
Reassessment: pt s/p fasciotomy closure of left leg 05/07, per [employer] Operations Specialist at rounds to increase tube feed rate as tolerate. Nutrition consult pending. Tolerating custom nocturnal PN and trickle TF at this time. 325 ml colostomy output 05/06. S/p ex lap with sigmoid resection and colostomy. Rec: 1. Custom Cyclic nocturnal TPN to run for 15 hours per it desktop support technician on HD. Wean rate and goal rate per clinical pharmacist. To provide; 2280ml volume, 166g AA, 363g DEX, 21g lipids, and 2108 total kcals. 2. Trickle OGTF using Vital High Protein at 10ml/hr; to provide 240ml volume, 240 kcals, 202ml free water, and 21g protein. 3. IF to advance EN; Vital High Protein at 95ml/hr goal; to provide 2280ml volume, 1915ml free water, 2280kcals, and 200g protein. Advance 20ml Q8 to goal as tolerated. 3. PALB/TG Q /; daily wts 4. bowel care as needed Addendum: 05/07/20 at [address] Amended: Links added.
--- NOTE | 2020-05-07 14:48 | NUR ---
Tube feeding consult. pt s/p fasciotomy closure of left leg 05/07, per Field Cane Scaler at rounds to increase tube feed rate as tolerate. Tolerating custom nocturnal PN and trickle TF at this time. 325 ml colostomy output 05/06. S/p ex lap with sigmoid resection and colostomy. Rec: 1. Custom Cyclic nocturnal TPN to run for 15 hours per supervisor home economics on HD. Wean rate and goal rate per clinical pharmacist. To provide; 2280ml volume, 166g AA, 363g DEX, 21g lipids, and 2108 total kcals. 2. Vital High Protein at 95ml/hr goal; to provide 2280ml volume, 1915ml free water, 2280kcals, and 200g protein. Start at 10 and advance by 30 ml q 8 hours as tolerated to goal as tolerated. 3. PALB/TG Q /; daily wts 4. bowel care as needed Addendum: 05/07/20 at [address] Amended: Links added.
--- NOTE | 2020-05-07 18:17 | NUR ---
Problems reprioritized. Patient report given, questions answered & plan of care reviewed with Deana GASTELUM.
--- NOTE | 2020-05-07 18:19 | NUR ---
Patient in room ICU 2042. I have received report from Arianna GASTELUM and had the opportunity to ask questions and assume patient care.
[2020-05-07] MEDS: risperiDONE 0.5mg tablet PO SCH (21:08)
[2020-05-07] MEDS: [UNRECOGNIZED DRUG - REMARK] IV SCH ×6 (21:16)
[2020-05-07] MEDS: insulin glargine (Lantus) pen - multi-dose SQ SCH (21:52)
[2020-05-07] MEDS: insulin regular, human U-100 3ml vial - multi-dose SQ SCH (21:53)
[2020-05-08] VITALS (24 sets, daily range): BP systolic 90–146; BP diastolic 49–70
[2020-05-08] MEDS: insulin regular, human U-100 3ml vial - multi-dose SQ SCH ×4 (02:49→19:52)
[2020-05-08] MEDS: metoclopramide 5 mg/ml inj IV SCH ×4 (02:52→20:16)
[2020-05-08] MEDS: lactulose 20gm/30ml cup PO SCH ×4 (02:52→20:15)
[2020-05-08] MEDS: mineral oil/petrolatum ophthal oint EACHEYE SCH ×6 (02:52→20:17)
[2020-05-08] MEDS: ipratropium/albuterol 3ml nebule NEB SCH ×6 (02:56→23:12)
[2020-05-08 03:00] LABS: BASOPHILS % (AUTO) 0.4 % (0-1); EOSINOPHILS % (AUTO) 0 % (0-6); HEMATOCRIT 22.8 % (42.0-52.0); HEMOGLOBIN 7.8 g/dl (14.0-17.9); LYMPHOCYTES # (AUTO) 0.2 X10'3 (1.1-4.8); LYMPHOCYTES % (AUTO) 2.7 % (21-51); MEAN CORPUSCULAR HEMOGLOBIN 32.3 PG (27.0-31.0); MEAN CORPUSCULAR VOLUME 94.9 FL (78-98); MEAN PLATELET VOLUME 8.9 FL (7.4-10.4); MONOCYTES # (AUTO) 0.4 X10'3 (0-0.9); MONOCYTES % (AUTO) 4.2 % (2-12); NEUTROPHILS % (AUTO) 92.7 % (42-75); PLATELET COUNT 130 X10'3 (140-440); RED BLOOD COUNT 2.41 X10'6 (4.70-6.10); RED CELL DISTRIBUTION WIDTH 17.5 % (11.5-14.5); WHITE BLOOD COUNT 8.6 X10'3 (4.5-11.0)
[2020-05-08 03:11] LABS: ABG BASE EXCESS -3.8 mmol/L (-2.0-2.0); ABG HCO3 21.9 mmol/L (22.0-26.0); ABG OXYGEN SATURATION 98.5 % (94-97); ABG PCO2 (T) 43.6 mmHg (35.0-48.0); ABG PO2 (T) 150.5 mmHg (75.0-100.0); FCOHb 0.3 % (0.0-3.9); FMetHb 0.3 % (0.0-1.5); FO2Hb 97.9 % (94-97); PATIENT TEMPERATURE 37.7; PEEP 5 cm H2O; RESPIRATORY RATE 20 b/min; TIDAL VOLUME 650 mL; TOTAL HEMOGLOBIN 8.8 G/dl (14.0-18.0)
[2020-05-08 03:19] LABS: ALANINE AMINOTRANSFERASE 119 U/L (12-78); ALBUMIN 1.9 G/DL (3.4-5.0); ALKALINE PHOSPHATASE 152 IU/L (46-116); ANION GAP 10 (8-16); ASPARTATE AMINO TRANSFERASE 48 U/L (10-37); BILIRUBIN,TOTAL 6.4 MG/DL (0.1-1.0); BLOOD UREA NITROGEN 84 MG/DL (7-18); BUN/CREATININE RATIO 24.4 (5.4-32.0); CALCIUM 7.5 MG/DL (8.5-10.1); CHLORIDE 99 MMOL/L (99-107); CREATININE 3.44 MG/DL (0.60-1.10); GLUCOSE 232 MG/DL (70-104); PREALBUMIN 14.5 MG/DL (19-36); SODIUM 131 MMOL/L (135-145); TOTAL CARBON DIOXIDE 22.1 MMOL/L (24-32); eGFR 19 ML/MIN
[2020-05-08 03:23] LABS: ALBUMIN/GLOBULIN RATIO 0.5 (1.1-1.5); TOTAL PROTEIN 5.6 G/DL (6.4-8.2)
[2020-05-08] MEDS: dexmedetomidine/D5W 100mL 100 ML IV SCH ×5 (04:20→21:08)
[2020-05-08 04:21] LABS: PARTIAL THROMBOPLASTIN TIME 28 SECONDS (22-32)
--- NOTE | 2020-05-08 06:40 | NUR ---
Problems reprioritized. Patient report given, questions answered & plan of care reviewed with Jigar GASTELUM.
[2020-05-08] MEDS: docusate sodium 100mg/10ml UD cup OGT SCH ×2 (08:00→20:15)
[2020-05-08] MEDS: levetiracetam inj 750 MG in normal saline 100ml IV soln 92.5 ML IV SCH ×2 (08:35→20:15)
[2020-05-08] MEDS: lactobacillus rhamnosus 10,000 MMU CELLS/CAPSULE PO SCH ×2 (08:43→20:00)
[2020-05-08] MEDS: levoFLOXACIN-Levaquin 250mg/D5 50 ML IV SCH (08:43)
[2020-05-08] MEDS: pantoprazole 40 MG vial IV SCH ×2 (08:43→20:15)
[2020-05-08] MEDS: heparin, porcine 5000 units/ml vial SQ SCH ×2 (08:44→20:19)
[2020-05-08] MEDS: mupirocin 2% nasal ointment 1gm UD NS SCH ×2 (08:46→20:16)
--- NOTE | 2020-05-08 14:30 | NUR ---
Problems reprioritized. Patient report given, questions answered & plan of care reviewed with Osiris GASTELUM.
[2020-05-08] MEDS: acetaminophen 325mg/10.15ml oral unit dose solution OGT PRN ×2 (16:13→23:42)
--- NOTE | 2020-05-08 18:12 | NUR ---
Problems reprioritized. Patient report given, questions answered & plan of care reviewed with NIRAV Avery.
[2020-05-08] MEDS: insulin glargine (Lantus) pen - multi-dose SQ SCH (19:53)
[2020-05-08] MEDS: risperiDONE 0.5mg tablet PO SCH (20:16)
[2020-05-08] MEDS ORDERED: fentaNYL/PF 50MCG/1 ML 2ML syringe IV PRN (21:50)
[2020-05-08] MEDS: fentaNYL/PF 50MCG/1 ML 2ML syringe IV PRN (22:12)
[2020-05-09] VITALS (24 sets, daily range): BP systolic 78–148; BP diastolic 49–75
[2020-05-09] MEDS: fentaNYL/PF 50MCG/1 ML 2ML syringe IV PRN ×4 (00:13→23:46)
[2020-05-09] MEDS: lactulose 20gm/30ml cup PO SCH ×4 (02:00→19:31)
[2020-05-09] MEDS: mineral oil/petrolatum ophthal oint EACHEYE SCH ×8 (02:00→20:08)
[2020-05-09] MEDS: metoclopramide 5 mg/ml inj IV SCH ×4 (02:00→19:30)
[2020-05-09] MEDS: ipratropium/albuterol 3ml nebule NEB SCH ×6 (02:40→23:18)
[2020-05-09 03:15] LABS: ABG OXYGEN SATURATION 97.9 % (94-97); ABG PCO2 (T) 36.8 mmHg (35.0-48.0); FCOHb 0.1 % (0.0-3.9); FMetHb 0.4 % (0.0-1.5); FO2Hb 97.4 % (94-97); PATIENT TEMPERATURE 38.1; PEEP 5 cm H2O; RESPIRATORY RATE 12 b/min; TIDAL VOLUME 650 mL; TOTAL HEMOGLOBIN 7.9 G/dl (14.0-18.0)
[2020-05-09 04:22] LABS: BASOPHILS % (AUTO) 0.2 % (0-1); HEMOGLOBIN 7.2 g/dl (14.0-17.9); MONOCYTES # (AUTO) 0.2 X10'3 (0-0.9)
[2020-05-09 04:23] LABS: EOSINOPHILS % (AUTO) 0.3 % (0-6); LYMPHOCYTES # (AUTO) 0.2 X10'3 (1.1-4.8); LYMPHOCYTES % (AUTO) 1.7 % (21-51); MEAN CORPUSCULAR HEMOGLOBIN 31.4 PG (27.0-31.0); MEAN CORPUSCULAR HGB CONC 33.5 g/dL (33.0-36.5); MEAN CORPUSCULAR VOLUME 93.7 FL (78-98); MEAN PLATELET VOLUME 10.2 FL (7.4-10.4); MONOCYTES % (AUTO) 1.8 % (2-12); NEUTROPHILS # (AUTO) 9.1 X10'3 (1.8-7.7); PLATELET COUNT 167 X10'3 (140-440); RED BLOOD COUNT 2.29 X10'6 (4.70-6.10); RED CELL DISTRIBUTION WIDTH 17.2 % (11.5-14.5); WHITE BLOOD COUNT 9.4 X10'3 (4.5-11.0)
[2020-05-09 04:32] LABS: HEMATOCRIT 21.4 % (42.0-52.0)
[2020-05-09 05:20] LABS: ANISOCYTOSIS 1+; HYPOCHROMASIA 1+; PLATELET ESTIMATE NORMAL; POLYCHROMASIA FEW
[2020-05-09 06:22] LABS: PARTIAL THROMBOPLASTIN TIME 27 SECONDS (22-32)
[2020-05-09 06:40] LABS: ALANINE AMINOTRANSFERASE 96 U/L (12-78); ALBUMIN 1.6 G/DL (3.4-5.0); ALKALINE PHOSPHATASE 145 IU/L (46-116); ANION GAP 15 (8-16); ASPARTATE AMINO TRANSFERASE 49 U/L (10-37); BILIRUBIN,TOTAL 5.2 MG/DL (0.1-1.0); BLOOD UREA NITROGEN 133 MG/DL (7-18); BUN/CREATININE RATIO 26.3 (5.4-32.0); CALCIUM 7.1 MG/DL (8.5-10.1); CHLORIDE 97 MMOL/L (99-107); CREATININE 5.06 MG/DL (0.60-1.10); GLUCOSE 114 MG/DL (70-104); POTASSIUM 5.3 MMOL/L (3.5-5.1); SODIUM 130 MMOL/L (135-145); TOTAL CARBON DIOXIDE 18.1 MMOL/L (24-32); eGFR 12 ML/MIN
[2020-05-09 06:42] LABS: ALBUMIN/GLOBULIN RATIO 0.4 (1.1-1.5); TOTAL PROTEIN 5.3 G/DL (6.4-8.2)
[2020-05-09] MEDS: lactobacillus rhamnosus 10,000 MMU CELLS/CAPSULE PO SCH ×2 (08:00→19:31)
[2020-05-09] MEDS: levetiracetam inj 750 MG in normal saline 100ml IV soln 92.5 ML IV SCH ×2 (08:00→19:30)
[2020-05-09] MEDS: heparin, porcine 5000 units/ml vial SQ SCH ×2 (08:00→19:31)
[2020-05-09] MEDS: methylnaltrexone br 12mg/0.6ml inj***SubQ only SQ SCH (08:00)
[2020-05-09] MEDS: mupirocin 2% nasal ointment 1gm UD NS SCH ×2 (08:00→19:31)
[2020-05-09] MEDS: docusate sodium 100mg/10ml UD cup OGT SCH ×2 (08:00→19:31)
[2020-05-09] MEDS: pantoprazole 40 MG vial IV SCH ×2 (08:00→20:00)
[2020-05-09] MEDS: levoFLOXACIN-Levaquin 250mg/D5 50 ML IV SCH (08:00)
[2020-05-09] MEDS ORDERED: heparin 1,000unit/ml 10ml vial 10 ML IV ONE (08:25)
[2020-05-09] MEDS ORDERED: normal saline 1000ml 250 ML IV PRN (08:25)
[2020-05-09] MEDS ORDERED: albumin (human) 25% 100ml IV 100 ML IV PRN (08:25)
[2020-05-09] MEDS: insulin regular, human U-100 3ml vial - multi-dose SQ SCH ×3 (08:30→20:14)
[2020-05-09] MEDS ORDERED: heparin 1,000 units/ml 10ml inj HE ONE ×2 (08:30)
[2020-05-09] MEDS ORDERED: NORepinephrine 8mg/ 250ml NS 250 ML IV ONE (10:26)
[2020-05-09] MEDS: NORepinephrine 8mg/ 250ml NS 250 ML IV SCH (10:39)
--- NOTE | 2020-05-09 10:45 | NUR ---
MD at bedside and made aware that patient has been hypotensive all morning despite stopping the precedex, and that his abdomen is very firm and distended with a black stoma on the colostomy. Orders for levo
[2020-05-09] MEDS ORDERED: LIDOcaine 2% 10ml TOPICAL JELLY (Urojet) TP ONE (13:30)
[2020-05-09] MEDS: scopolamine 1.5mg patch.TD72 TD SCH (15:34)
--- NOTE | 2020-05-09 19:14 | NUR ---
reviewed vital signs that were charted for me by a coworker. RR was not being picked up right due to irregular breathing pattern. Resp rate was closer to 18-28 throughout the day, with some short periods of RR up to 40.
[2020-05-09] MEDS: insulin glargine (Lantus) pen - multi-dose SQ SCH (20:17)
[2020-05-09] MEDS: risperiDONE 0.5mg tablet PO SCH (21:00)
[2020-05-10] VITALS (41 sets, daily range): BP systolic 87–139; BP diastolic 44–76
[2020-05-10] MEDS: metoclopramide 5 mg/ml inj IV SCH ×4 (02:00→20:06)
[2020-05-10] MEDS: mineral oil/petrolatum ophthal oint EACHEYE SCH ×7 (02:00→20:00)
[2020-05-10] MEDS: lactulose 20gm/30ml cup PO SCH ×4 (02:00→20:11)
[2020-05-10 02:56] LABS: BASOPHILS % (AUTO) 0.4 % (0-1); EOSINOPHILS % (AUTO) 0.1 % (0-6); HEMOGLOBIN 7.1 g/dl (14.0-17.9); LYMPHOCYTES # (AUTO) 0.1 X10'3 (1.1-4.8); LYMPHOCYTES % (AUTO) 0.7 % (21-51); MEAN CORPUSCULAR HEMOGLOBIN 31.6 PG (27.0-31.0); MEAN PLATELET VOLUME 9.2 FL (7.4-10.4); MONOCYTES # (AUTO) 0.3 X10'3 (0-0.9); MONOCYTES % (AUTO) 2.9 % (2-12); NEUTROPHILS # (AUTO) 9.4 X10'3 (1.8-7.7); NEUTROPHILS % (AUTO) 95.9 % (42-75); PLATELET COUNT 99 X10'3 (140-440); RED BLOOD COUNT 2.24 X10'6 (4.70-6.10); RED CELL DISTRIBUTION WIDTH 17.4 % (11.5-14.5); WHITE BLOOD COUNT 9.8 X10'3 (4.5-11.0)
[2020-05-10 03:01] LABS: HEMATOCRIT 20.8 % (42.0-52.0)
[2020-05-10] MEDS: dexmedetomidine/D5W 100mL 100 ML IV SCH ×3 (03:03→16:30)
[2020-05-10 03:05] LABS: PARTIAL THROMBOPLASTIN TIME 31 SECONDS (22-32)
[2020-05-10] MEDS: insulin regular, human U-100 3ml vial - multi-dose SQ SCH ×3 (03:10→14:38)
[2020-05-10 03:14] LABS: ALANINE AMINOTRANSFERASE 98 U/L (12-78); ALBUMIN 1.9 G/DL (3.4-5.0); ALKALINE PHOSPHATASE 148 IU/L (46-116); ANION GAP 11 (8-16); ASPARTATE AMINO TRANSFERASE 56 U/L (10-37); BILIRUBIN,TOTAL 5.4 MG/DL (0.1-1.0); BLOOD UREA NITROGEN 91 MG/DL (7-18); BUN/CREATININE RATIO 23.5 (5.4-32.0); CALCIUM 7.7 MG/DL (8.5-10.1); CHLORIDE 100 MMOL/L (99-107); CREATININE 3.88 MG/DL (0.60-1.10); GLUCOSE 157 MG/DL (70-104); MAGNESIUM 2.1 MG/DL (1.5-2.4); POTASSIUM 4.5 MMOL/L (3.5-5.1); SODIUM 134 MMOL/L (135-145); TOTAL CARBON DIOXIDE 22.8 MMOL/L (24-32); eGFR 16 ML/MIN
[2020-05-10] MEDS: ipratropium/albuterol 3ml nebule NEB SCH ×5 (03:15→19:40)
[2020-05-10 03:26] LABS: ABG HCO3 22.8 mmol/L (22.0-26.0); ABG OXYGEN SATURATION 94.2 % (94-97); ABG PCO2 (T) 41.2 mmHg (35.0-48.0); FCOHb 0.1 % (0.0-3.9); FMetHb 0.4 % (0.0-1.5); FO2Hb 93.7 % (94-97); PATIENT TEMPERATURE 38.2; PEEP 5 cm H2O; RESPIRATORY RATE 12 b/min; TIDAL VOLUME 650 mL; TOTAL HEMOGLOBIN 7.6 G/dl (14.0-18.0)
[2020-05-10 03:29] LABS: ALBUMIN/GLOBULIN RATIO 0.5 (1.1-1.5)
--- NOTE | 2020-05-10 06:00 | NUR ---
Patient in room ICU 2042. I have received report from Boo GASTELUM and had the opportunity to ask questions and assume patient care.
[2020-05-10] MEDS: levetiracetam inj 750 MG in normal saline 100ml IV soln 92.5 ML IV SCH ×2 (07:58→20:11)
[2020-05-10] MEDS: levoFLOXACIN-Levaquin 250mg/D5 50 ML IV SCH (07:58)
[2020-05-10] MEDS: pantoprazole 40 MG vial IV SCH ×2 (07:59→20:52)
[2020-05-10] MEDS: mupirocin 2% nasal ointment 1gm UD NS SCH ×2 (07:59→20:05)
[2020-05-10] MEDS: docusate sodium 100mg/10ml UD cup OGT SCH ×2 (07:59→20:00)
[2020-05-10] MEDS: lactobacillus rhamnosus 10,000 MMU CELLS/CAPSULE PO SCH ×2 (07:59→20:11)
[2020-05-10] MEDS: heparin, porcine 5000 units/ml vial SQ SCH ×2 (08:00→20:00)
[2020-05-10] MEDS: acetaminophen 325mg/10.15ml oral unit dose solution OGT PRN (09:47)
[2020-05-10] MEDS: fentaNYL/PF 50MCG/1 ML 2ML syringe IV PRN (09:47)
[2020-05-10] MEDS ORDERED: midazolam 100mg in NS 100ml 100 ML IV PRN (10:10)
[2020-05-10] MEDS: midazolam 100mg in NS 100ml 100 ML IV PRN (10:17)
[2020-05-10] MEDS: FENTANYL-0.9 % NACL/PF 100 ML IV PRN (10:40)
--- NOTE | 2020-05-10 15:33 | NUR ---
Reassessment: tube feeding at goal. Intubated, sedated s/p fasciotomy closure of left leg 05/07. Had 400 ml stool output in colostomy 05/08 and surprising 2000 ml out on 05/09, pt is receiving colace BID. No longer on TPN. Abdomen large, distended, tender. Stoma is necrotic. Recommend to hold bowel care meds while with high volume liquid stool, d/w RN and will d/w MD at critical care rounds. Rec: 1. Vital High Protein at 95ml/hr goal; to provide 2280ml volume, 1915ml free water, 2280kcals, and 200g protein. 2. PALB Q /; daily wts 3. bowel care as needed, hold with liquid stools Addendum: 05/10/20 at [address] Amended: Links added.
[2020-05-10] MEDS: NORepinephrine 8mg/ 250ml NS 250 ML IV SCH (16:15)
--- NOTE | 2020-05-10 18:06 | NUR ---
Patient in room ICU 2042. I have received report from Rossana GASTELUM and had the opportunity to ask questions and assume patient care. Pt received orally intubated #8.0 ETT secured with anchorfast @ 24.5 cm teeth. A/C PRVC mode FIO2 30% TV 650 rate 12 +5 PEEP. Observed TV 944 RR 15 oxygen sat 94%.Pt is sedated RASS -2 on fentanyl & versed drips. Skin is pale jaundice. Rhythm is sinus tach HR 107-115. Pulses are palpable, capillary refill brisk to all nail beds. Right radial arterial line intact, good wave form.Edema is generalized, 2+ to lower extremities PICC line right upper arm, triple lumen. Dialysis access sarika cath dual lumen to right upper chest. Right nares Corpak in place with continuous tube feedings Vital HP@ 95ml/hr. Abdomen is large, distended with tympanic BS. Colostomy to mid abdomen is intact drainage bag with small amount of liquid yellow/ brown fluid. Abdominal dressing is clean & dry.Left groin dressing is clean & dry, nasima to surgical incision. Left lower extremity with clean dry dressing gauze wrap. Patel drains small amount of yellow urine along tubing. Safety precautions observed, bilateral soft wrist restraints secure. No distress at shift change. Addendum: 05/11/20 at 0544 by Patricia Arita RN Edema is 3+
--- NOTE | 2020-05-10 18:06 | NUR ---
Problems reprioritized. Patient report given, questions answered & plan of care reviewed with Patricia GASTELUM.
[2020-05-10] MEDS: insulin glargine (Lantus) pen - multi-dose SQ SCH (20:05)
[2020-05-10] MEDS: risperiDONE 0.5mg tablet PO SCH (20:52)
[2020-05-11] VITALS (33 sets, daily range): BP systolic 94–137; BP diastolic 40–59
[2020-05-11] MEDS: ipratropium/albuterol 3ml nebule NEB SCH ×7 (00:01→23:56)
[2020-05-11] MEDS: dexmedetomidine/D5W 100mL 100 ML IV SCH (01:15)
[2020-05-11] MEDS: FENTANYL-0.9 % NACL/PF 100 ML IV PRN ×2 (01:15→21:29)
[2020-05-11 01:33] LABS: BASOPHILS % (AUTO) 0.1 % (0-1); EOSINOPHILS % (AUTO) 0.3 % (0-6); LYMPHOCYTES # (AUTO) 0.2 X10'3 (1.1-4.8); LYMPHOCYTES % (AUTO) 2.4 % (21-51); MEAN CORPUSCULAR HGB CONC 33.9 g/dL (33.0-36.5); MEAN CORPUSCULAR VOLUME 94.4 FL (78-98); MONOCYTES # (AUTO) 0.2 X10'3 (0-0.9); MONOCYTES % (AUTO) 2.2 % (2-12); NEUTROPHILS # (AUTO) 7.7 X10'3 (1.8-7.7); PLATELET COUNT 85 X10'3 (140-440); RED BLOOD COUNT 1.91 X10'6 (4.70-6.10); RED CELL DISTRIBUTION WIDTH 17.5 % (11.5-14.5); WHITE BLOOD COUNT 8.1 X10'3 (4.5-11.0)
[2020-05-11 01:44] LABS: ALANINE AMINOTRANSFERASE 80 U/L (12-78); ALBUMIN 1.5 G/DL (3.4-5.0); ALKALINE PHOSPHATASE 143 IU/L (46-116); ANION GAP 14 (8-16); ASPARTATE AMINO TRANSFERASE 49 U/L (10-37); BILIRUBIN,TOTAL 3.8 MG/DL (0.1-1.0); BLOOD UREA NITROGEN 134 MG/DL (7-18); BUN/CREATININE RATIO 25.1 (5.4-32.0); CALCIUM 7.5 MG/DL (8.5-10.1); CHLORIDE 100 MMOL/L (99-107); CREATININE 5.33 MG/DL (0.60-1.10); GLUCOSE 163 MG/DL (70-104); MAGNESIUM 2.2 MG/DL (1.5-2.4); SODIUM 136 MMOL/L (135-145); TOTAL CARBON DIOXIDE 21.7 MMOL/L (24-32); eGFR 11 ML/MIN
[2020-05-11 01:49] LABS: HEMOGLOBIN 6.1 g/dl (14.0-17.9)
[2020-05-11 01:53] LABS: ALBUMIN/GLOBULIN RATIO 0.4 (1.1-1.5); POTASSIUM 4.8 MMOL/L (3.5-5.1); TOTAL PROTEIN 5.4 G/DL (6.4-8.2)
[2020-05-11 02:04] LABS: PARTIAL THROMBOPLASTIN TIME 28 SECONDS (22-32)
[2020-05-11] MEDS: insulin regular, human U-100 3ml vial - multi-dose SQ SCH ×2 (02:19→20:06)
[2020-05-11] MEDS: mineral oil/petrolatum ophthal oint EACHEYE SCH ×4 (02:20→20:07)
[2020-05-11] MEDS: lactulose 20gm/30ml cup PO SCH ×2 (02:22→08:16)
[2020-05-11] MEDS: metoclopramide 5 mg/ml inj IV SCH ×4 (02:22→19:49)
[2020-05-11 03:10] LABS: ABG BASE EXCESS -4.8 mmol/L (-2.0-2.0); ABG HCO3 20.8 mmol/L (22.0-26.0); ABG OXYGEN SATURATION 93.6 % (94-97); ABG PO2 (T) 76.8 mmHg (75.0-100.0); FCOHb 0.7 % (0.0-3.9); FMetHb 0.2 % (0.0-1.5); FO2Hb 92.8 % (94-97); PATIENT TEMPERATURE 36.9; PEEP 5 cm H2O; RESPIRATORY RATE 12 b/min; TIDAL VOLUME 650 mL; TOTAL HEMOGLOBIN 6.8 G/dl (14.0-18.0)
--- NOTE | 2020-05-11 06:20 | NUR ---
Problems reprioritized. Patient report given, questions answered & plan of care reviewed.
--- NOTE | 2020-05-11 06:30 | NUR ---
Patient in room ICU 2042. I have received report from Patricia GASTELUM and had the opportunity to ask questions and assume patient care.
[2020-05-11] MEDS: midazolam 100mg in NS 100ml 100 ML IV PRN (06:32)
[2020-05-11] MEDS ORDERED: normal saline 1000ml 250 ML IV PRN ×2 (07:50→17:25)
[2020-05-11] MEDS ORDERED: normal saline 1000ml 100 ML IV PRN ×2 (07:50→17:25)
[2020-05-11] MEDS ORDERED: heparin 1,000 units/ml 10ml inj HE ONE (07:55)
[2020-05-11] MEDS: docusate sodium 100mg/10ml UD cup OGT SCH ×2 (08:00→20:00)
[2020-05-11] MEDS: levoFLOXACIN-Levaquin 250mg/D5 50 ML IV SCH (08:16)
[2020-05-11] MEDS: levetiracetam inj 750 MG in normal saline 100ml IV soln 92.5 ML IV SCH (08:16)
[2020-05-11] MEDS: lactobacillus rhamnosus 10,000 MMU CELLS/CAPSULE PO SCH ×2 (08:17→19:48)
[2020-05-11] MEDS: methylnaltrexone br 12mg/0.6ml inj***SubQ only SQ SCH (08:17)
[2020-05-11] MEDS: pantoprazole 40 MG vial IV SCH ×2 (08:17→19:48)
[2020-05-11] MEDS: mupirocin 2% nasal ointment 1gm UD NS SCH ×2 (08:18→19:48)
[2020-05-11] MEDS: NORepinephrine 8mg/ 250ml NS 250 ML IV SCH (08:23)
[2020-05-11] MEDS ORDERED: albumin (human) 25% 100 ML IV solution IV ONE (10:25)
--- NOTE | 2020-05-11 12:40 | NUR ---
Reassessment: tube feeding at goal. Intubated, sedated s/p fasciotomy closure of left leg 05/07. Abdomen large, distended, tender. Stoma is necrotic. Has high stool output more than 2 liters per day for two days, discussed at rounds, RN is holding colace and discontinued lactulose. Rec: 1. Vital High Protein at 95ml/hr goal; to provide 2280ml volume, 1915ml free water, 2280kcals, and 200g protein. 2. PALB Q ; daily wts 3. bowel care as needed, hold with liquid stools Addendum: 05/11/20 at [address] Amended: Links added.
[2020-05-11 16:10] LABS: MEAN CORPUSCULAR HGB CONC 34.7 g/dL (33.0-36.5); MEAN CORPUSCULAR VOLUME 92.1 FL (78-98); PLATELET COUNT 84 X10'3 (140-440); RED BLOOD COUNT 2.19 X10'6 (4.70-6.10); RED CELL DISTRIBUTION WIDTH 17.2 % (11.5-14.5); WHITE BLOOD COUNT 7.3 X10'3 (4.5-11.0)
[2020-05-11 16:19] LABS: HEMATOCRIT 20.1 % (42.0-52.0)
[2020-05-11] MEDS ORDERED: epoetin 20,000 units/ml inj IV ONE (17:25)
[2020-05-11] MEDS ORDERED: albumin (human) 25% 100ml IV 200 ML IV PRN (17:25)
--- NOTE | 2020-05-11 18:15 | NUR ---
Patient in room ICU 2042. I have received report from Rossana GASTELUM and had the opportunity to ask questions and assume patient care. Pt remains intubated, ETT #8.0 @25cm teeth. A/C PRVC mode FIO2 30% TV 650 Rate 12 + 5 PEEP. Observed TV 790 RR 15, oxygen saturation is 98%. Rhythm is sinus HR 66. Right radial arterial line is transduced with good wave form. Edema is generalized 3+. Corpak to right nares with continuous feedings Vital HP at 95ml/hr. HOB elevated 30 degrees. Pt is sedated on fentanyl & versed drips. PICC line to right upper arm triple lumen, dressing dated 05/05/10. Right upper chest with tunneled dialysis catheter dual lumen. Dressing dated 05/09/20. Abdomen with colostomy, stool is liquid yellow/brown. Surgical dressing is clean & dry. Left groin with dressing, surgical incision approximated with nasima. Scrotum is weepy, drainage is yellow. Patel cath drains small amount of cloudy yellow urine. Left lower extremity with surgical incisions to lateral sides of calf, sutures intact. Incision drains large amounts of yellow fluid. Safety precautions observed side rails up x4, bilateral soft wrist restraints secure. No distress at shift change.
[2020-05-11] MEDS: insulin glargine (Lantus) pen - multi-dose SQ SCH (20:04)
[2020-05-11] MEDS: risperiDONE 0.5mg tablet PO SCH (20:22)
[2020-05-12] VITALS (44 sets, daily range): BP systolic 80–142; BP diastolic 43–68
[2020-05-12] MEDS: mineral oil/petrolatum ophthal oint EACHEYE SCH ×4 (01:50→20:16)
[2020-05-12] MEDS: metoclopramide 5 mg/ml inj IV SCH ×4 (01:57→20:18)
[2020-05-12] MEDS: ipratropium/albuterol 3ml nebule NEB SCH ×6 (02:40→23:18)
[2020-05-12 02:48] LABS: BASOPHILS % (AUTO) 0.3 % (0-1); EOSINOPHILS # (AUTO) 0.1 X10'3 (0-0.9); EOSINOPHILS % (AUTO) 2.2 % (0-6); LYMPHOCYTES # (AUTO) 0.2 X10'3 (1.1-4.8); LYMPHOCYTES % (AUTO) 2.6 % (21-51); MEAN CORPUSCULAR HEMOGLOBIN 30.9 PG (27.0-31.0); MEAN CORPUSCULAR HGB CONC 33.7 g/dL (33.0-36.5); MEAN CORPUSCULAR VOLUME 91.6 FL (78-98); MEAN PLATELET VOLUME 9.3 FL (7.4-10.4); MONOCYTES # (AUTO) 0.2 X10'3 (0-0.9); MONOCYTES % (AUTO) 2.8 % (2-12); NEUTROPHILS # (AUTO) 5.5 X10'3 (1.8-7.7); NEUTROPHILS % (AUTO) 92.1 % (42-75); PLATELET COUNT 69 X10'3 (140-440); RED BLOOD COUNT 2.22 X10'6 (4.70-6.10); RED CELL DISTRIBUTION WIDTH 17.1 % (11.5-14.5)
[2020-05-12 02:56] LABS: ABG HCO3 26.3 mmol/L (22.0-26.0); ABG OXYGEN SATURATION 95.8 % (94-97); ABG PCO2 (T) 45.1 mmHg (35.0-48.0); ALLEN'S TEST POSITIVE; FCOHb 0.7 % (0.0-3.9); FMetHb 0.1 % (0.0-1.5); PATIENT TEMPERATURE 36.8; PEEP 5 cm H2O; RESPIRATORY RATE 12 b/min; TIDAL VOLUME 650 mL; TOTAL HEMOGLOBIN 7.5 G/dl (14.0-18.0)
[2020-05-12 03:00] LABS: PARTIAL THROMBOPLASTIN TIME 28 SECONDS (22-32)
[2020-05-12 03:03] LABS: ALANINE AMINOTRANSFERASE 73 U/L (12-78); ALBUMIN 1.7 G/DL (3.4-5.0); ANION GAP 7 (8-16); ASPARTATE AMINO TRANSFERASE 55 U/L (10-37); BILIRUBIN,TOTAL 4.1 MG/DL (0.1-1.0); BLOOD UREA NITROGEN 94 MG/DL (7-18); BUN/CREATININE RATIO 26.6 (5.4-32.0); CALCIUM 7.9 MG/DL (8.5-10.1); CHLORIDE 104 MMOL/L (99-107); CREATININE 3.53 MG/DL (0.60-1.10); GLUCOSE 90 MG/DL (70-104); MAGNESIUM 2.1 MG/DL (1.5-2.4); POTASSIUM 4.3 MMOL/L (3.5-5.1); SODIUM 137 MMOL/L (135-145); TOTAL CARBON DIOXIDE 26.5 MMOL/L (24-32); eGFR 18 ML/MIN
[2020-05-12 03:09] LABS: ALKALINE PHOSPHATASE 179 IU/L (46-116); TOTAL PROTEIN 5.6 G/DL (6.4-8.2)
[2020-05-12 03:11] LABS: ALBUMIN/GLOBULIN RATIO 0.4 (1.1-1.5); HEMATOCRIT 20.3 % (42.0-52.0); HEMOGLOBIN 6.9 g/dl (14.0-17.9)
--- NOTE | 2020-05-12 03:26 | NUR ---
Call placed to Amanda Monique regarding lab results, message left awaiting return call.
--- NOTE | 2020-05-12 04:00 | NUR ---
Amanda Monique contacted & aware of lab results. Order received for 1 U PRBC. No active bleeding noted.
--- NOTE | 2020-05-12 06:15 | NUR ---
Problems reprioritized. Patient report given, questions answered & plan of care reviewed.
--- NOTE | 2020-05-12 06:15 | NUR ---
Patient in room ICU 2042. I have received report from RN and had the opportunity to ask questions and assume patient care.
[2020-05-12] MEDS: NORepinephrine 8mg/ 250ml NS 250 ML IV SCH ×2 (07:22→18:34)
[2020-05-12] MEDS: levoFLOXACIN-Levaquin 250mg/D5 50 ML IV SCH (07:54)
[2020-05-12] MEDS: docusate sodium 100mg/10ml UD cup OGT SCH ×2 (08:10→20:00)
[2020-05-12] MEDS: pantoprazole 40 MG vial IV SCH ×2 (08:10→20:17)
[2020-05-12] MEDS: lactobacillus rhamnosus 10,000 MMU CELLS/CAPSULE PO SCH ×2 (08:10→20:17)
[2020-05-12] MEDS: insulin regular, human U-100 3ml vial - multi-dose SQ SCH ×3 (08:13→20:16)
[2020-05-12] MEDS: mupirocin 2% nasal ointment 1gm UD NS SCH ×2 (08:15→20:17)
[2020-05-12 08:20] LABS: TOTAL CELLS COUNTED 100
[2020-05-12 08:21] LABS: ANISOCYTOSIS 1+; PLATELET ESTIMATE DECREASED; TARGET CELLS 1+; TOXIC GRANULATION 4+
[2020-05-12] MEDS ORDERED: albumin (Human) 5% 250ml 250 ML IV ONE (10:29)
[2020-05-12] MEDS ORDERED: albumin (human) 25% 100ml IV 100 ML IV ONE ×2 (10:33)
[2020-05-12] MEDS ORDERED: albumin (human) 25% 100 ML IV solution IV ONE ×2 (10:35→10:55)
[2020-05-12] MEDS ORDERED: epoetin 20,000 units/ml inj IV ONE (11:20)
[2020-05-12] MEDS ORDERED: normal saline 1000ml 250 ML IV PRN (11:20)
[2020-05-12] MEDS: scopolamine 1.5mg patch.TD72 TD SCH (11:21)
[2020-05-12] MEDS ORDERED: heparin 1,000 units/ml 10ml inj HE ONE ×2 (11:35)
[2020-05-12] MEDS: levoTHYROXINE 75mcg tablet PO SCH (14:15)
[2020-05-12] MEDS: FENTANYL-0.9 % NACL/PF 100 ML IV PRN (14:16)
[2020-05-12] MEDS: midazolam 100mg in NS 100ml 100 ML IV PRN (14:16)
[2020-05-12 14:54] LABS: HEMATOCRIT 22.9 % (42.0-52.0); HEMOGLOBIN 7.8 g/dl (14.0-17.9); MEAN CORPUSCULAR HGB CONC 34.2 g/dL (33.0-36.5); MEAN CORPUSCULAR VOLUME 90.4 FL (78-98); PLATELET COUNT 65 X10'3 (140-440); RED BLOOD COUNT 2.53 X10'6 (4.70-6.10); RED CELL DISTRIBUTION WIDTH 16.6 % (11.5-14.5); WHITE BLOOD COUNT 5.8 X10'3 (4.5-11.0)
[2020-05-12] MEDS: acetaminophen 325mg/10.15ml oral unit dose solution OGT PRN (17:38)
--- NOTE | 2020-05-12 18:27 | NUR ---
Problems reprioritized. Patient report given, questions answered & plan of care reviewed with RN.
[2020-05-12] MEDS: insulin glargine (Lantus) pen - multi-dose SQ SCH (20:13)
[2020-05-12] MEDS: risperiDONE 0.5mg tablet PO SCH (20:18)
[2020-05-13] VITALS (42 sets, daily range): BP systolic 91–149; BP diastolic 41–69
[2020-05-13] MEDS: insulin regular, human U-100 3ml vial - multi-dose SQ SCH ×4 (01:50→20:20)
[2020-05-13] MEDS: mineral oil/petrolatum ophthal oint EACHEYE SCH ×4 (01:51→20:55)
[2020-05-13 02:44] LABS: PARTIAL THROMBOPLASTIN TIME 29 SECONDS (22-32)
[2020-05-13 02:47] LABS: ALANINE AMINOTRANSFERASE 70 U/L (12-78); ALKALINE PHOSPHATASE 227 IU/L (46-116); ANION GAP 11 (8-16); ASPARTATE AMINO TRANSFERASE 62 U/L (10-37); BILIRUBIN,TOTAL 5.3 MG/DL (0.1-1.0); BLOOD UREA NITROGEN 79 MG/DL (7-18); BUN/CREATININE RATIO 26.3 (5.4-32.0); CALCIUM 7.7 MG/DL (8.5-10.1); CHLORIDE 101 MMOL/L (99-107); GLUCOSE 109 MG/DL (70-104); MAGNESIUM 2.1 MG/DL (1.5-2.4); POTASSIUM 4.5 MMOL/L (3.5-5.1); SODIUM 136 MMOL/L (135-145); TOTAL CARBON DIOXIDE 24.3 MMOL/L (24-32); eGFR 22 ML/MIN
[2020-05-13 02:49] LABS: BASOPHILS % (AUTO) 0.3 % (0-1); EOSINOPHILS # (AUTO) 0.2 X10'3 (0-0.9); EOSINOPHILS % (AUTO) 3.6 % (0-6); HEMOGLOBIN 7.2 g/dl (14.0-17.9); LYMPHOCYTES # (AUTO) 0.3 X10'3 (1.1-4.8); LYMPHOCYTES % (AUTO) 4.9 % (21-51); MEAN CORPUSCULAR HEMOGLOBIN 30.8 PG (27.0-31.0); MEAN CORPUSCULAR HGB CONC 33.9 g/dL (33.0-36.5); MEAN CORPUSCULAR VOLUME 90.9 FL (78-98); MEAN PLATELET VOLUME 9.8 FL (7.4-10.4); MONOCYTES # (AUTO) 0.2 X10'3 (0-0.9); MONOCYTES % (AUTO) 3.3 % (2-12); NEUTROPHILS # (AUTO) 5.2 X10'3 (1.8-7.7); NEUTROPHILS % (AUTO) 87.9 % (42-75); PLATELET COUNT 71 X10'3 (140-440); RED BLOOD COUNT 2.35 X10'6 (4.70-6.10); RED CELL DISTRIBUTION WIDTH 16.1 % (11.5-14.5); WHITE BLOOD COUNT 5.9 X10'3 (4.5-11.0)
[2020-05-13 02:50] LABS: ALBUMIN/GLOBULIN RATIO 0.5 (1.1-1.5); TOTAL PROTEIN 5.7 G/DL (6.4-8.2)
[2020-05-13 03:04] LABS: HEMATOCRIT 21.4 % (42.0-52.0)
[2020-05-13] MEDS: ipratropium/albuterol 3ml nebule NEB SCH ×6 (03:21→22:56)
[2020-05-13 03:36] LABS: ABG BASE EXCESS 0.8 mmol/L (-2.0-2.0); ABG HCO3 25.5 mmol/L (22.0-26.0); ABG OXYGEN SATURATION 96.8 % (94-97); ABG PCO2 (T) 41.4 mmHg (35.0-48.0); ABG PO2 (T) 95.4 mmHg (75.0-100.0); FCOHb 0.7 % (0.0-3.9); FMetHb 0.1 % (0.0-1.5); PEEP 5 cm H2O; RESPIRATORY RATE 12 b/min; TIDAL VOLUME 650 mL; TOTAL HEMOGLOBIN 9.3 G/dl (14.0-18.0)
[2020-05-13] MEDS: metoclopramide 5 mg/ml inj IV SCH ×5 (03:50→20:51)
[2020-05-13] MEDS: FENTANYL-0.9 % NACL/PF 100 ML IV PRN (04:38)
--- NOTE | 2020-05-13 06:00 | NUR ---
Patient in room ICU 2042. I have received report from Patricia GASTELUM and had the opportunity to ask questions and assume patient care.
--- NOTE | 2020-05-13 06:23 | NUR ---
Problems reprioritized. Patient report given, questions answered & plan of care reviewed with Jeremie GASTELUM.
[2020-05-13] MEDS: levoTHYROXINE 75mcg tablet PO SCH (07:26)
[2020-05-13] MEDS: docusate sodium 100mg/10ml UD cup OGT SCH ×2 (07:27→20:51)
[2020-05-13] MEDS: pantoprazole 40 MG vial IV SCH ×2 (07:27→20:51)
[2020-05-13] MEDS: mupirocin 2% nasal ointment 1gm UD NS SCH ×2 (07:27→20:00)
[2020-05-13] MEDS: levoFLOXACIN-Levaquin 250mg/D5 50 ML IV SCH (07:27)
[2020-05-13] MEDS: lactobacillus rhamnosus 10,000 MMU CELLS/CAPSULE PO SCH ×2 (07:27→20:51)
[2020-05-13] MEDS: methylnaltrexone br 12mg/0.6ml inj***SubQ only SQ SCH (07:28)
[2020-05-13] MEDS: acetaminophen 325mg/10.15ml oral unit dose solution OGT PRN ×3 (07:38→21:39)
[2020-05-13] MEDS: heparin, porcine 5000 units/ml vial SQ SCH ×3 (08:00→20:54)
[2020-05-13] MEDS: midazolam 100mg in NS 100ml 100 ML IV PRN (09:59)
--- NOTE | 2020-05-13 11:18 | NUR ---
versed and fentanyl turned off at 1118
[2020-05-13] MEDS ORDERED: dexmedetomidin/NS 400mcg/100ml 100 ML IV SCH (11:55)
[2020-05-13] MEDS ORDERED: DESMOPRESSIN IV ONE (11:55)
[2020-05-13] MEDS ORDERED: NORMAL SALINE IV ONE (11:55)
--- NOTE | 2020-05-13 12:04 | NUR ---
F/u 05/13: Pt tolerating TF at goal GRV WNL. Colostomy 1050ml output yesterday down from 2L output prior though first significant output since admit started last week on multiple bowel care meds. May benefit from Mayito BID for wound healing needs if errand runner agreeable since now solely on EN for nutrition; FELICIA d/w RN. BUN 79 down from prior receiving HD. Will monitor for TF tolerance and additional protein needs this admit. Rec: 1. Vital High Protein at 95ml/hr goal; to provide 2280ml volume, 1915ml free water, 2280kcals, and 200g protein. 2. Consider Mayito BID for wound healing; w/ 180ml free water each administration IF errand runner agreeable on HD 3. PALB Q /; daily wts 4. bowel care as needed; adjust given colostomy output Addendum: 05/13/20 at [address] Amended: Links added.
[2020-05-13] MEDS: dexmedetomidine/D5W 100mL 100 ML IV SCH ×2 (12:28→21:35)
[2020-05-13 12:35] LABS: LACTATE DEHYDROGENASE 337 U/L (85-227)
[2020-05-13 13:40] LABS: ABSOLUTE RETICS # 45500 /CUMM (23000-93000); RETICULOCYTE % (AUTO) 1.9 % (0.5-1.5)
--- NOTE | 2020-05-13 14:49 | NUR ---
This RT is gravely concerened at the idea of extubating Mr. Hansen today he does not follow any commands only tracks with his eyes. His RSBI is over 200 and he is not able to protect his airway RR 50+ . Addendum: 05/13/20 at 1451 by Marlys Daniels RT Amended: Links added.
--- NOTE | 2020-05-13 18:13 | NUR ---
Problems reprioritized. Patient report given, questions answered & plan of care reviewed with Boo GASTELUM.
--- NOTE | 2020-05-13 19:13 | NUR ---
pt placed on spont per dr melchor's, pts resp rate after change raised to 50 from 20 with a mv of 9.2, adverage vt of 200 and rsbi of 258, with obvious resp distress and accessory muscle use, observed pt for 8 mins before deciding pt was failing sbt and changing pt back to prvc. will attempt sbt again in 4 hours.
[2020-05-13] MEDS: insulin glargine (Lantus) pen - multi-dose SQ SCH (20:25)
[2020-05-13] MEDS: famotidine/PF 10 mg/ml inj IV SCH (20:51)
[2020-05-13] MEDS: risperiDONE 0.5mg tablet PO SCH (20:53)
[2020-05-13] MEDS ORDERED: diatr meglu/diatrizoate 30ml oral sol.-(3 dose) bottle NG ONE (22:00)
--- NOTE | 2020-05-13 22:57 | NUR ---
pt placed on spont 04/[address] melchor's orders, pts resp rate immediately jumped to 50 and vt dropped to 150-200, rsbi 281, pt appeared in distress with accessory muscle use. rt and rn observed pt in room for 10 mins, before deciding pt failed sbt and placed back onto prvc
[2020-05-14] VITALS (23 sets, daily range): BP systolic 90–134; BP diastolic 46–70
[2020-05-14] MEDS: metoclopramide 5 mg/ml inj IV SCH ×4 (02:00→20:11)
[2020-05-14] MEDS: mineral oil/petrolatum ophthal oint EACHEYE SCH ×4 (02:00→20:13)
[2020-05-14 03:02] LABS: ABSOLUTE RETICS # 38400 /CUMM (23000-93000); BASOPHILS % (AUTO) 0.5 % (0-1); EOSINOPHILS # (AUTO) 0.2 X10'3 (0-0.9); EOSINOPHILS % (AUTO) 3.7 % (0-6); HEMATOCRIT 24.4 % (42.0-52.0); HEMOGLOBIN 8.3 g/dl (14.0-17.9); LYMPHOCYTES # (AUTO) 0.2 X10'3 (1.1-4.8); LYMPHOCYTES % (AUTO) 3.7 % (21-51); MEAN CORPUSCULAR HGB CONC 34.1 g/dL (33.0-36.5); MEAN CORPUSCULAR VOLUME 91.1 FL (78-98); MEAN PLATELET VOLUME 9.6 FL (7.4-10.4); MONOCYTES # (AUTO) 0.2 X10'3 (0-0.9); MONOCYTES % (AUTO) 3.9 % (2-12); NEUTROPHILS # (AUTO) 5.2 X10'3 (1.8-7.7); NEUTROPHILS % (AUTO) 88.2 % (42-75); PLATELET COUNT 98 X10'3 (140-440); RED BLOOD COUNT 2.68 X10'6 (4.70-6.10); RED CELL DISTRIBUTION WIDTH 16.7 % (11.5-14.5); RETICULOCYTE % (AUTO) 1.4 % (0.5-1.5); WHITE BLOOD COUNT 5.9 X10'3 (4.5-11.0)
[2020-05-14 03:08] LABS: OCCULT BLOOD STOOL NEGATIVE (Neg)
[2020-05-14] MEDS: ipratropium/albuterol 3ml nebule NEB SCH ×6 (03:15→23:31)
[2020-05-14 03:16] LABS: PARTIAL THROMBOPLASTIN TIME 28 SECONDS (22-32)
[2020-05-14 03:21] LABS: ALANINE AMINOTRANSFERASE 68 U/L (12-78); ALBUMIN 1.8 G/DL (3.4-5.0); ALKALINE PHOSPHATASE 251 IU/L (46-116); ANION GAP 13 (8-16); ASPARTATE AMINO TRANSFERASE 60 U/L (10-37); BILIRUBIN,TOTAL 3.9 MG/DL (0.1-1.0); BLOOD UREA NITROGEN 134 MG/DL (7-18); BUN/CREATININE RATIO 29.5 (5.4-32.0); CALCIUM 7.9 MG/DL (8.5-10.1); CHLORIDE 103 MMOL/L (99-107); CREATININE 4.54 MG/DL (0.60-1.10); GLUCOSE 106 MG/DL (70-104); MAGNESIUM 2.5 MG/DL (1.5-2.4); SODIUM 139 MMOL/L (135-145); TOTAL CARBON DIOXIDE 23.3 MMOL/L (24-32); eGFR 13 ML/MIN
[2020-05-14 03:25] LABS: ALBUMIN/GLOBULIN RATIO 0.3 (1.1-1.5); TOTAL PROTEIN 8.4 G/DL (6.4-8.2)
--- NOTE | 2020-05-14 03:25 | NUR ---
pt placed on spont 04/[address] melchor's orders, pts resp rate is maintaining at 22-24 but vt are around 200, rsbi is 108, per dr melchor's orders pt is to be on spont from 0400 check on through morning so pt does not appear in any distress will monitor the pt to see if pt starts taking larger vt and lowers rsbi before changing pt back to prvc. pt has been on spont for 10 mins.
[2020-05-14 03:26] LABS: POTASSIUM 6.1 MMOL/L (3.5-5.1)
[2020-05-14 04:11] LABS: ABG BASE EXCESS -2.9 mmol/L (-2.0-2.0); ABG HCO3 23.3 mmol/L (22.0-26.0); ABG OXYGEN SATURATION 94.9 % (94-97); ABG PCO2 (T) 48.2 mmHg (35.0-48.0); ABG PO2 (T) 92.2 mmHg (75.0-100.0); FCOHb 0.5 % (0.0-3.9); FMetHb 0.1 % (0.0-1.5); FO2Hb 94.3 % (94-97); PATIENT TEMPERATURE 37.5; PEEP 5 cm H2O; TOTAL HEMOGLOBIN 9.4 G/dl (14.0-18.0)
[2020-05-14] MEDS: dexmedetomidine/D5W 100mL 100 ML IV SCH ×3 (04:40→22:09)
--- NOTE | 2020-05-14 04:46 | NUR ---
pt placed back on prvc due to worsening abg's and pt maintained a rsbi of over 100 (117 at time of mode change) for 90 mins, resp rate maintained around 20-24 but vt stayed around 200 with minimal pt effort.
[2020-05-14] MEDS ORDERED: epoetin 20,000 units/ml inj IV ONE (06:10)
[2020-05-14] MEDS ORDERED: normal saline 1000ml 100 ML IV PRN (06:10)
[2020-05-14] MEDS ORDERED: heparin 1,000 units/ml 10ml inj HE ONE (06:15)
--- NOTE | 2020-05-14 06:45 | NUR ---
Patient in room ICU 2042. I have received report from Boo GASTELUM and had the opportunity to ask questions and assume patient care.
[2020-05-14 08:05] LABS: NUCLEATED RED BLOOD CELLS 1 /100WBC (0-0); TOTAL CELLS COUNTED 100
[2020-05-14 08:09] LABS: ANISOCYTOSIS 1+; LARGE PLATELETS MODERATE; PLATELET ESTIMATE DECREASED; POLYCHROMASIA 1+
[2020-05-14 08:11] LABS: TOXIC GRANULATION 4+
[2020-05-14] MEDS: mupirocin 2% nasal ointment 1gm UD NS SCH ×2 (08:16→20:13)
[2020-05-14] MEDS: docusate sodium 100mg/10ml UD cup OGT SCH ×2 (08:16→20:11)
[2020-05-14] MEDS: lactobacillus rhamnosus 10,000 MMU CELLS/CAPSULE PO SCH ×2 (08:16→20:11)
[2020-05-14] MEDS: pantoprazole 40 MG vial IV SCH ×2 (08:16→20:10)
[2020-05-14] MEDS: levoTHYROXINE 75mcg tablet PO SCH (08:17)
[2020-05-14] MEDS: famotidine/PF 10 mg/ml inj IV SCH ×2 (08:20→20:10)
[2020-05-14] MEDS ORDERED: albumin (human) 25% 100 ML IV solution IV ONE ×2 (09:35)
--- NOTE | 2020-05-14 10:10 | NUR ---
Wound care done on ostomy bag. Stoma appeared to be darken and slush off with much mucous. Charge nurse aware as well as Dr. Ca. Will continue to monitor.
--- NOTE | 2020-05-14 11:49 | NUR ---
Called Pharmacy and Spoke to Rossana. Rossana will be dosing new antibiotic. New order PATRICA Brito.
--- NOTE | 2020-05-14 12:33 | NUR ---
Angio Jovon tech was called to verified procedure and consent. Notify RT and have ext tubing on all tubes, NS TKO 20. Will continue to monitor.
--- NOTE | 2020-05-14 12:34 | NUR ---
F/u 05/14: No Mayito in addition to EN at this time given additional volume on HD per tariff counsel at rounds. Pending PEG and possible tracheostomy today per RN. Will continue to monitor for EN tolerance and additional protein needs post-op. Addendum: 05/14/20 at [address] Amended: Links added.
--- NOTE | 2020-05-14 13:11 | NUR ---
Wound care at bedside to see pt. Pt is intubated/sedated at this time, unresponsive. Ostomy bag was removed and foul odor was noted. This did not register as a normal stool odor. After cleansing site and stoma, it was noted that stoma itself was highly odorous of necrosis. Stoma appears to continue functioning regardless of appearance with yellow-brown liquid stool in bag. There is some mucocutaneous separation along the most distal edge, but doesn't appear full thickness. Only about 10-20% of the stoma appeared as pink/pale red, the rest of the stoma was black and de leon colored with some staining of yellow from stool.There is also a large tail of sloughed off tissue still attached near the base of the sutures. Applied stoma powder/barrier crusting around area as it is excoriated, then placed new appliance. Dr. Olsen and Dr. Ca have been notified of these finding. Addendum: 05/14/20 at 1317 by Keli Farr RN Amended: Links added.
[2020-05-14] MEDS ORDERED: glucagon, human recombinant 1mg kit ONE (13:16)
[2020-05-14] MEDS ORDERED: fentaNYL/PF 50MCG/1 ML 2ML syringe ONE (13:17)
[2020-05-14] MEDS ORDERED: midazolam 2 mg/2 ml injection ONE (13:17)
[2020-05-14] MEDS ORDERED: LIDOcaine 1%/PF 5ML 10 MG/ML VIAL ONE (13:18)
[2020-05-14] MEDS ORDERED: iohexol 300 MG/1 ML 50ml polymer ONE (13:18)
--- NOTE | 2020-05-14 14:46 | NUR ---
Patient arrived back in room. Patient stable and back on all monitors.
--- NOTE | 2020-05-14 14:46 | NUR ---
Patient returned from getting a Peg tube placed. Patient is tolerating well and is resting in bed. Feedings will begin at 2044 tonight at the goal rate 95 Vital High Protein. Will rely message to security tech.
--- NOTE | 2020-05-14 15:00 | NUR ---
Patient left to OR for Trach procedure
[2020-05-14] MEDS ORDERED: LIDOcaine 1% w/epiNEPHrine 1:200,000 30ml vial ONE (15:20)
[2020-05-14] MEDS ORDERED: rocuronium 10mg/ml inj IV ONE (15:45)
--- NOTE | 2020-05-14 16:35 | NUR ---
I have reviewed and agree with all medications administered and interventions performed by [facility] Student ISABEL PAYNE Addendum: 05/14/20 at 1636 by Marlys Daniels RT Amended: Links added.
[2020-05-14] MEDS: piperacillin/tazo 3.375gm/50ml 50 ML IV SCH (17:38)
--- NOTE | 2020-05-14 18:27 | NUR ---
Problems reprioritized. Patient report given, questions answered & plan of care reviewed with Jovon BUS GIRL.
[2020-05-14] MEDS ORDERED: meropenem inj 500 MG in normal saline 100ml IV soln 100 ML IV SCH (20:00)
[2020-05-14] MEDS: heparin, porcine 5000 units/ml vial SQ SCH ×3 (20:00→20:38)
[2020-05-14] MEDS: risperiDONE 0.5mg tablet PO SCH (20:11)
[2020-05-14] MEDS: insulin glargine (Lantus) pen - multi-dose SQ SCH (21:13)
[2020-05-14] MEDS: NORepinephrine 8mg/ 250ml NS 250 ML IV SCH (21:14)
[2020-05-14] MEDS: fentaNYL/PF 50MCG/1 ML 2ML syringe IV PRN (21:35)
[2020-05-15] VITALS (23 sets, daily range): BP systolic 91–138; BP diastolic 50–72
[2020-05-15] MEDS: acetaminophen 325mg/10.15ml oral unit dose solution OGT PRN ×3 (00:58→14:11)
[2020-05-15] MEDS: mineral oil/petrolatum ophthal oint EACHEYE SCH ×4 (01:28→20:54)
[2020-05-15] MEDS: insulin regular, human U-100 3ml vial - multi-dose SQ SCH ×4 (01:47→21:39)
[2020-05-15] MEDS: metoclopramide 5 mg/ml inj IV SCH ×2 (01:49→07:34)
[2020-05-15] MEDS: ipratropium/albuterol 3ml nebule NEB SCH ×6 (03:28→23:03)
[2020-05-15 03:40] LABS: BASOPHILS % (AUTO) 0.4 % (0-1); EOSINOPHILS # (AUTO) 0.3 X10'3 (0-0.9); EOSINOPHILS % (AUTO) 5.2 % (0-6); HEMATOCRIT 24.3 % (42.0-52.0); HEMOGLOBIN 8.3 g/dl (14.0-17.9); LYMPHOCYTES # (AUTO) 0.2 X10'3 (1.1-4.8); LYMPHOCYTES % (AUTO) 4.4 % (21-51); MEAN CORPUSCULAR HEMOGLOBIN 30.9 PG (27.0-31.0); MEAN PLATELET VOLUME 9.7 FL (7.4-10.4); MONOCYTES # (AUTO) 0.2 X10'3 (0-0.9); MONOCYTES % (AUTO) 3.5 % (2-12); NEUTROPHILS # (AUTO) 4.6 X10'3 (1.8-7.7); NEUTROPHILS % (AUTO) 86.5 % (42-75); PLATELET COUNT 128 X10'3 (140-440); RED BLOOD COUNT 2.67 X10'6 (4.70-6.10); RED CELL DISTRIBUTION WIDTH 16.6 % (11.5-14.5); WHITE BLOOD COUNT 5.4 X10'3 (4.5-11.0)
[2020-05-15 03:45] LABS: ABG HCO3 21.9 mmol/L (22.0-26.0); ABG OXYGEN SATURATION 98.8 % (94-97); ABG PCO2 (T) 36.2 mmHg (35.0-48.0); ABG PO2 (T) 153.5 mmHg (75.0-100.0); FCOHb 0.7 % (0.0-3.9); FMetHb 0.3 % (0.0-1.5); FO2Hb 97.8 % (94-97); PATIENT TEMPERATURE 38.5; PEEP 5 cm H2O; RESPIRATORY RATE 12 b/min; TIDAL VOLUME 650 mL
[2020-05-15 03:46] LABS: PARTIAL THROMBOPLASTIN TIME 27 SECONDS (22-32)
[2020-05-15 03:52] LABS: ALANINE AMINOTRANSFERASE 69 U/L (12-78); ALBUMIN 1.9 G/DL (3.4-5.0); ALKALINE PHOSPHATASE 226 IU/L (46-116); ANION GAP 11 (8-16); ASPARTATE AMINO TRANSFERASE 77 U/L (10-37); BILIRUBIN,TOTAL 3.8 MG/DL (0.1-1.0); BLOOD UREA NITROGEN 115 MG/DL (7-18); BUN/CREATININE RATIO 28.3 (5.4-32.0); CALCIUM 7.7 MG/DL (8.5-10.1); CHLORIDE 101 MMOL/L (99-107); CREATININE 4.06 MG/DL (0.60-1.10); GLUCOSE 120 MG/DL (70-104); MAGNESIUM 2.4 MG/DL (1.5-2.4); POTASSIUM 5.5 MMOL/L (3.5-5.1); SODIUM 135 MMOL/L (135-145); TOTAL CARBON DIOXIDE 23.3 MMOL/L (24-32); eGFR 15 ML/MIN
[2020-05-15 03:54] LABS: ALBUMIN/GLOBULIN RATIO 0.4 (1.1-1.5); TOTAL PROTEIN 6.2 G/DL (6.4-8.2)
[2020-05-15] MEDS: dexmedetomidine/D5W 100mL 100 ML IV SCH ×3 (04:54→22:32)
--- NOTE | 2020-05-15 06:05 | NUR ---
Problems reprioritized. Patient report given, questions answered & plan of care reviewed with Fe Akbar RN. Patient vitals stable at shift change.
--- NOTE | 2020-05-15 06:16 | NUR ---
Orientation cell assembly pinner: I have reviewed and agree with all interventions, assessments performed and documented by Janene Lewis RN. Laureano carpet renovator Administration: For this medication-pass time frame, all medication were reviewed, dispensed, administered and documented per hospital policy by Janene Lewis RN..
--- NOTE | 2020-05-15 06:40 | NUR ---
Patient in room ICU 2042. I have received report from Jovon GASTELUM and had the opportunity to ask questions and assume patient care.
[2020-05-15] MEDS: methylnaltrexone br 12mg/0.6ml inj***SubQ only SQ SCH ×2 (07:32→08:00)
[2020-05-15] MEDS: piperacillin/tazo 3.375gm/50ml 50 ML IV SCH (07:32)
[2020-05-15] MEDS: docusate sodium 100mg/10ml UD cup OGT SCH (07:32)
[2020-05-15] MEDS: levoTHYROXINE 75mcg tablet PO SCH (07:34)
[2020-05-15] MEDS: mupirocin 2% nasal ointment 1gm UD NS SCH ×2 (07:34→20:55)
[2020-05-15] MEDS: pantoprazole 40 MG vial IV SCH ×2 (07:34→20:53)
[2020-05-15] MEDS: lactobacillus rhamnosus 10,000 MMU CELLS/CAPSULE PO SCH ×2 (07:34→20:55)
[2020-05-15] MEDS: heparin, porcine 5000 units/ml vial SQ SCH ×2 (07:34→20:55)
[2020-05-15] MEDS: famotidine/PF 10 mg/ml inj IV SCH ×2 (08:26→20:54)
--- NOTE | 2020-05-15 10:46 | NUR ---
Dr. Ca and nurse in rounds at patients bedside. MD is aware of patient's rising temp with no effect of Tylenol. MD also aware of stoma blackened with foul smell, left side and abdomen red hot too touch and hard. MS will come back around and assess. New orders Morphine 2mg Q1 hour PRN and DC Colace and reglan due to high amounts of liquid stool. Awaiting for cultures to come back. Will continue to monitor.
--- NOTE | 2020-05-15 11:40 | NUR ---
Dr. Ca changed Morphine to Dilaudid
--- NOTE | 2020-05-15 11:48 | NUR ---
Dr. Ca back to assess patient. New orders change morphine to Dilaudid 1mg Q4 and to call pharmacy, I spoke to Rossana, for correct dosage 2g IV Aztreonam antibiotics Q6 for sepsis. Alka from infection control was contacted and will be sent photos via the charge nurse today. Awaiting further instructions.
[2020-05-15] MEDS: HYDROmorphone 1 mg/ml syringe IV PRN ×3 (12:10→22:36)
--- NOTE | 2020-05-15 12:42 | NUR ---
Called Dr. Ca regarding critical values on patient. Patient Positive for Gram + cocci clusters aerobe. New orders from Dr. Ca two blood cultures done tomorrow, order is in. As well, as notify Alka in disease control and notify her and ask about a loading dose of vanco or any other recommendation. I left a message for Dr. Paz. Will continue to support and monitor patient.
[2020-05-15] MEDS ORDERED: aztreonam inj. 2,000 MG in normal saline 100ml IV soln 100 ML IV SCH (14:00)
[2020-05-15] MEDS ORDERED: metroNIDAZOLE 500mg tablet PO SCH (16:00)
[2020-05-15] MEDS: metroNIDAZOLE-Flagyl 500mg/NS 100ML IVPB IV SCH (16:13)
--- NOTE | 2020-05-15 16:50 | NUR ---
Blood cultutre positive gram + cocci and clusters anaerobe from left arm drawn 11-12 at 1237. This is the match from right arm that was called into MD. Multiple antibiotics are initiated.
--- NOTE | 2020-05-15 16:51 | NUR ---
Dr. Paz called reagrding patient and possibility of going septic. A loading dose was suggested and MD is onboard of route of treatment. A pharmacy to dose has been ordered and Rossana at pharmacy was called and verified of orders. We will continue to monitor patient.
[2020-05-15] MEDS: vancomycin/NS 1 GM ADD-VANTAGE 250 ML IV SCH (17:14)
--- NOTE | 2020-05-15 18:30 | NUR ---
Problems reprioritized. Patient report given, questions answered & plan of care reviewed with Dorothy GASTELUM.
[2020-05-15] MEDS: aztreonam inj. 1,000 MG in normal saline 100ml IV soln 100 ML IV SCH (20:54)
[2020-05-15] MEDS: scopolamine 1.5mg patch.TD72 TD SCH (21:15)
[2020-05-15] MEDS: risperiDONE 0.5mg tablet PO SCH (21:16)
[2020-05-15] MEDS: insulin glargine (Lantus) pen - multi-dose SQ SCH (21:39)
[2020-05-16] VITALS (23 sets, daily range): BP systolic 100–142; BP diastolic 50–67
[2020-05-16] MEDS: aztreonam inj. 1,000 MG in normal saline 100ml IV soln 100 ML IV SCH ×4 (03:04→21:52)
[2020-05-16] MEDS: mineral oil/petrolatum ophthal oint EACHEYE SCH ×4 (03:05→21:52)
[2020-05-16] MEDS: metroNIDAZOLE-Flagyl 500mg/NS 100ML IVPB IV SCH ×4 (03:05→23:40)
[2020-05-16] MEDS: insulin regular, human U-100 3ml vial - multi-dose SQ SCH ×4 (03:14→21:57)
[2020-05-16] MEDS: ipratropium/albuterol 3ml nebule NEB SCH ×6 (03:18→22:57)
[2020-05-16 03:24] LABS: BASOPHILS % (AUTO) 0.1 % (0-1); EOSINOPHILS # (AUTO) 0.4 X10'3 (0-0.9); EOSINOPHILS % (AUTO) 5.3 % (0-6); HEMATOCRIT 24.3 % (42.0-52.0); LYMPHOCYTES # (AUTO) 0.4 X10'3 (1.1-4.8); LYMPHOCYTES % (AUTO) 5.2 % (21-51); MEAN CORPUSCULAR HEMOGLOBIN 30.7 PG (27.0-31.0); MEAN CORPUSCULAR HGB CONC 33.1 g/dL (33.0-36.5); MEAN CORPUSCULAR VOLUME 92.8 FL (78-98); MEAN PLATELET VOLUME 10.2 FL (7.4-10.4); MONOCYTES # (AUTO) 0.2 X10'3 (0-0.9); MONOCYTES % (AUTO) 2.4 % (2-12); NEUTROPHILS # (AUTO) 7.4 X10'3 (1.8-7.7); PLATELET COUNT 151 X10'3 (140-440); RED BLOOD COUNT 2.61 X10'6 (4.70-6.10); RED CELL DISTRIBUTION WIDTH 17.1 % (11.5-14.5); WHITE BLOOD COUNT 8.5 X10'3 (4.5-11.0)
[2020-05-16 03:29] LABS: PARTIAL THROMBOPLASTIN TIME 27 SECONDS (22-32)
[2020-05-16 03:44] LABS: ALANINE AMINOTRANSFERASE 49 U/L (12-78); ALBUMIN 1.6 G/DL (3.4-5.0); ALBUMIN/GLOBULIN RATIO 0.4 (1.1-1.5); ALKALINE PHOSPHATASE 223 IU/L (46-116); ANION GAP 17 (8-16); ASPARTATE AMINO TRANSFERASE 69 U/L (10-37); BILIRUBIN,TOTAL 2.7 MG/DL (0.1-1.0); CALCIUM 7.9 MG/DL (8.5-10.1); CHLORIDE 102 MMOL/L (99-107); CREATININE 5.14 MG/DL (0.60-1.10); GLUCOSE 130 MG/DL (70-104); MAGNESIUM 2.7 MG/DL (1.5-2.4); POTASSIUM 5.5 MMOL/L (3.5-5.1); SODIUM 139 MMOL/L (135-145); TOTAL CARBON DIOXIDE 20.4 MMOL/L (24-32); TOTAL PROTEIN 6.1 G/DL (6.4-8.2); eGFR 12 ML/MIN
[2020-05-16 03:45] LABS: ABG BASE EXCESS -5.3 mmol/L (-2.0-2.0); ABG HCO3 19.3 mmol/L (22.0-26.0); ABG OXYGEN SATURATION 95.8 % (94-97); ABG PCO2 (T) 33.9 mmHg (35.0-48.0); ABG PO2 (T) 86.9 mmHg (75.0-100.0); FCOHb 0.6 % (0.0-3.9); FO2Hb 95.2 % (94-97); PATIENT TEMPERATURE 36.9; PEEP 5 cm H2O; RESPIRATORY RATE 12 b/min; TIDAL VOLUME 650 mL
[2020-05-16 03:47] LABS: BLOOD UREA NITROGEN 152 MG/DL (7-18); BUN/CREATININE RATIO 29.6 (5.4-32.0)
[2020-05-16] MEDS: lactobacillus rhamnosus 10,000 MMU CELLS/CAPSULE PO SCH ×2 (08:16→21:52)
[2020-05-16] MEDS: mupirocin 2% nasal ointment 1gm UD NS SCH ×2 (08:16→21:52)
[2020-05-16] MEDS: pantoprazole 40 MG vial IV SCH (08:16)
[2020-05-16] MEDS: famotidine/PF 10 mg/ml inj IV SCH ×2 (08:17→21:52)
[2020-05-16] MEDS: heparin, porcine 5000 units/ml vial SQ SCH ×2 (08:17→21:53)
[2020-05-16] MEDS: levoTHYROXINE 75mcg tablet PO SCH (08:17)
[2020-05-16] MEDS ORDERED: heparin 1,000unit/ml 10ml vial 10 ML IV ONE (09:05)
[2020-05-16] MEDS ORDERED: epoetin 20,000 units/ml inj IV ONE (09:05)
[2020-05-16] MEDS ORDERED: normal saline 1000ml 250 ML IV PRN (09:05)
[2020-05-16] MEDS ORDERED: midazolam 2 mg/2 ml injection IV ONE (09:10)
[2020-05-16] MEDS ORDERED: heparin 1,000 units/ml 10ml inj HE ONE ×2 (09:10)
[2020-05-16] MEDS ORDERED: FENTANYL-0.9 % NACL/PF 100 ML IV PRN (09:10)
[2020-05-16] MEDS ORDERED: fentaNYL/PF 50MCG/1 ML 2ML syringe IV PRN (09:10)
[2020-05-16] MEDS ORDERED: midazolam 100mg in NS 100ml 100 ML IV PRN ×2 (09:10→10:55)
--- NOTE | 2020-05-16 11:09 | NUR ---
Reassessment: Pt remains intubated s/p trach and PEG placement. Pt continues tolerating TF via PEG with GRV WNL. Pt previously with lower GRV documented with 0-15 mL however noted that residuals ranging 100-425 mL last night. Most recent GRV check was 75 mL. LBM 05/15 documented with 1045 mL stool output per I&O. Routine and PRN bowel care has been discontinued as well as routine Relistor and PRN Reglan. Will continue to follow closely and make recommendations as appropriate. Rec: 1. Vital High Protein via PEG at 95ml/hr goal; to provide 2280ml volume, 1915ml water, 2280kcals, and 200g protein. 2. Consider Mayito BID for wound healing; w/ 180ml free water each administration IF brush material preparer agreeable on HD 3. PALB Q /; daily wts 4. bowel care as needed; adjust given colostomy output 5. Monitor need for adjustment to TF recommendations Addendum: 05/16/20 at [address] Amended: Links added.
[2020-05-16 11:45] LABS: ABG BASE EXCESS 0.1 mmol/L (-2.0-2.0); ABG OXYGEN SATURATION 98.4 % (94-97); ABG PCO2 (T) 35.5 mmHg (35.0-48.0); ABG PO2 (T) 134.3 mmHg (75.0-100.0); FCOHb 0.5 % (0.0-3.9); FO2Hb 97.9 % (94-97); RESPIRATORY RATE 20 b/min; TIDAL VOLUME 450 mL; TOTAL HEMOGLOBIN 8.9 G/dl (14.0-18.0)
[2020-05-16] MEDS: midazolam 100mg in NS 100ml 100 ML IV PRN (11:55)
[2020-05-16] MEDS: FENTANYL-0.9 % NACL/PF 100 ML IV PRN (11:56)
[2020-05-16 13:25] LABS: CLARITY,URINE CLEAR (Clear); COLOR,URINE YELLOW (Yellow); GLUCOSE, URINE NEGATIVE (Neg); KETONES,URINE NEGATIVE (Neg); LEUKOCYTE ESTERASE ,URINE NEGATIVE (Neg); NITRITES, URINE NEGATIVE (Neg); OCCULT BLOOD,URINE LARGE (Neg); PROTEIN,URINE 100 mg/dl (Neg); UROBILINOGEN,URINE 0.2 E.U/dL (0.2-1.0)
[2020-05-16 13:32] LABS: UA COLLECTION TYPE FOLEY CATH
[2020-05-16 13:33] LABS: RBC,URINE 20-50 /HPF (0-2)
[2020-05-16 13:34] LABS: AMORPHOUS URATES 1+; BACTERIA,URINE FEW /HPF (Neg); HYALINE CASTS 0-3 /LPF (NEGATIVE); MUCUS STRANDS FEW /LPF (Neg); SQUAMOUS EPITHELIAL CELL,UR FEW /LPF (FEW); TOTAL PROTEIN,URINE RANDOM 214.4 MG/DL
[2020-05-16] MEDS: dexmedetomidine/D5W 100mL 100 ML IV SCH ×2 (13:39→22:51)
[2020-05-16 13:46] LABS: UA EOSINOPHILS NO EOS /HPF
[2020-05-16] MEDS: risperiDONE 0.5mg tablet PO SCH (21:53)
[2020-05-16] MEDS: insulin glargine (Lantus) pen - multi-dose SQ SCH (21:58)
[2020-05-17] VITALS (26 sets, daily range): BP systolic 79–130; BP diastolic 43–63
[2020-05-17] MEDS: mineral oil/petrolatum ophthal oint EACHEYE SCH ×4 (02:37→20:23)
[2020-05-17] MEDS: insulin regular, human U-100 3ml vial - multi-dose SQ SCH ×4 (02:40→19:49)
[2020-05-17] MEDS: aztreonam inj. 1,000 MG in normal saline 100ml IV soln 100 ML IV SCH ×4 (02:42→19:47)
[2020-05-17] MEDS: ipratropium/albuterol 3ml nebule NEB SCH ×5 (02:50→19:22)
[2020-05-17 02:53] LABS: PARTIAL THROMBOPLASTIN TIME 26 SECONDS (22-32)
[2020-05-17 02:57] LABS: ALANINE AMINOTRANSFERASE 43 U/L (12-78); ALBUMIN 1.4 G/DL (3.4-5.0); ALBUMIN/GLOBULIN RATIO 0.3 (1.1-1.5); ALKALINE PHOSPHATASE 215 IU/L (46-116); ANION GAP 13 (8-16); ASPARTATE AMINO TRANSFERASE 67 U/L (10-37); BILIRUBIN,TOTAL 2.2 MG/DL (0.1-1.0); BLOOD UREA NITROGEN 105 MG/DL (7-18); BUN/CREATININE RATIO 28.5 (5.4-32.0); CALCIUM 7.8 MG/DL (8.5-10.1); CHLORIDE 104 MMOL/L (99-107); CREATININE 3.68 MG/DL (0.60-1.10); GLUCOSE 97 MG/DL (70-104); MAGNESIUM 2.2 MG/DL (1.5-2.4); POTASSIUM 4.6 MMOL/L (3.5-5.1); SODIUM 140 MMOL/L (135-145); TOTAL CARBON DIOXIDE 23.2 MMOL/L (24-32); TOTAL PROTEIN 6.1 G/DL (6.4-8.2); eGFR 17 ML/MIN
[2020-05-17] MEDS: midazolam 100mg in NS 100ml 100 ML IV PRN (03:36)
[2020-05-17] MEDS: FENTANYL-0.9 % NACL/PF 100 ML IV PRN (03:36)
[2020-05-17 03:37] LABS: BASOPHILS % (AUTO) 0.1 % (0-1); EOSINOPHILS # (AUTO) 0.4 X10'3 (0-0.9); EOSINOPHILS % (AUTO) 4.2 % (0-6); HEMATOCRIT 24.2 % (42.0-52.0); HEMOGLOBIN 8.1 g/dl (14.0-17.9); LYMPHOCYTES # (AUTO) 0.3 X10'3 (1.1-4.8); LYMPHOCYTES % (AUTO) 3.5 % (21-51); MEAN CORPUSCULAR HEMOGLOBIN 30.9 PG (27.0-31.0); MEAN CORPUSCULAR HGB CONC 33.3 g/dL (33.0-36.5); MEAN CORPUSCULAR VOLUME 92.9 FL (78-98); MEAN PLATELET VOLUME 10.4 FL (7.4-10.4); MONOCYTES # (AUTO) 0.2 X10'3 (0-0.9); NEUTROPHILS # (AUTO) 8.7 X10'3 (1.8-7.7); NEUTROPHILS % (AUTO) 90.2 % (42-75); PLATELET COUNT 172 X10'3 (140-440); RED BLOOD COUNT 2.61 X10'6 (4.70-6.10); RED CELL DISTRIBUTION WIDTH 16.6 % (11.5-14.5); WHITE BLOOD COUNT 9.6 X10'3 (4.5-11.0)
[2020-05-17 03:55] LABS: ABG BASE EXCESS -1.8 mmol/L (-2.0-2.0); ABG HCO3 22.4 mmol/L (22.0-26.0); ABG OXYGEN SATURATION 97.7 % (94-97); ABG PCO2 (T) 36.1 mmHg (35.0-48.0); ABG PO2 (T) 113.4 mmHg (75.0-100.0); FCOHb 0.5 % (0.0-3.9); FMetHb 0.3 % (0.0-1.5); FO2Hb 96.9 % (94-97); PATIENT TEMPERATURE 37.5; PEEP 5 cm H2O; RESPIRATORY RATE 20 b/min; TIDAL VOLUME 450 mL; TOTAL HEMOGLOBIN 8.9 G/dl (14.0-18.0)
[2020-05-17] MEDS: heparin, porcine 5000 units/ml vial SQ SCH ×2 (08:00→20:27)
[2020-05-17] MEDS: dexmedetomidine/D5W 100mL 100 ML IV SCH ×2 (08:03→17:15)
[2020-05-17] MEDS: methylnaltrexone br 12mg/0.6ml inj***SubQ only SQ SCH (08:13)
[2020-05-17] MEDS: famotidine/PF 10 mg/ml inj IV SCH ×2 (08:13→20:23)
[2020-05-17] MEDS: metroNIDAZOLE-Flagyl 500mg/NS 100ML IVPB IV SCH ×2 (08:14→15:34)
[2020-05-17] MEDS: lactobacillus rhamnosus 10,000 MMU CELLS/CAPSULE PO SCH ×2 (08:18→20:27)
[2020-05-17] MEDS: mupirocin 2% nasal ointment 1gm UD NS SCH ×2 (08:18→20:23)
[2020-05-17] MEDS: levoTHYROXINE 75mcg tablet PO SCH (08:20)
[2020-05-17] MEDS: acetaminophen 325mg/10.15ml oral unit dose solution OGT PRN (09:16)
[2020-05-17 11:05] LABS: AMYLASE,BODY FLUID 8 U/L; GLUCOSE,BODY FLUID 100 MG/DL; LDH,BODY FLUID 180 U/L; TOTAL PROTEIN,BODY FLUID 3.7 G/DL
--- NOTE | 2020-05-17 11:25 | NUR ---
Medicated with Tylenol for fever. Dr. Mix in to perform para. Aspirated 1000cc. Dr. Bui aware. Fluid sent for pathology.
--- NOTE | 2020-05-17 11:42 | NUR ---
Dr. Bui notified that pt's BP has been low this am. Currenty 74/40. Pt.'s BP has not sustained low and came back up to SBP of 100 except for this moment. Dr. Bui stated to administer 250cc NS bolus.
--- NOTE | 2020-05-17 12:05 | NUR ---
MAP remains low after fluid bolus. Dr. Bui notified. Stated to repeat 250cc NS bolus.
[2020-05-17] MEDS: NORepinephrine 8mg/ 250ml NS 250 ML IV SCH ×2 (12:45→13:18)
--- NOTE | 2020-05-17 12:55 | NUR ---
F/u 05/17: FELICIA d/w investor relations associate regarding TF goal rate decrease to 85ml/hr from 95ml/hr prior given update kcal needs below; investor relations associate agreeable. FELICIA rodriguez/w RN w/ updated EN recs below. Pt currently tolerating EN at goal on HD. Would benefit from Mayito administration once room for 360ml free water on HD per investor relations associate. Will continue to monitor. Rec: 1. Vital High Protein via PEG at 85ml/hr goal; to provide 2040ml volume, 1714ml water, 2040kcals, and 173g protein. 2. Consider Mayito BID for wound healing; w/ 180ml free water each administration IF investor relations associate agreeable on HD 3. PALB Q /; daily wts 4. bowel care as needed; adjust given colostomy output 5. Monitor need for adjustment to TF recommendations Addendum: 05/17/20 at [address] Amended: Links added.
[2020-05-17 13:56] LABS: LYMPHOCYTES,BODY FLUID 5 %; MONOCYTES,BODY FLUID 14 %; NEUTROPHILS,BODY FLUID 81 %
[2020-05-17 13:57] LABS: BFAPPEAR HAZY
[2020-05-17 13:58] LABS: BF RBC COUNT 1450 /CU MM; BF WBC COUNT 950 /CU MM (0-1000); BFCOLOR YELLOW; BFVOLUME 67 ML
--- NOTE | 2020-05-17 14:20 | NUR ---
Dressings changed to abdomen and right groin. Less tape used this time as the tape torn pt's skin. Tegaderm applied to skin tear that was due to the excessive tape.
--- NOTE | 2020-05-17 14:26 | NUR ---
Dr. Bains in to see pt. No new orders.
[2020-05-17] MEDS: vancomycin/NS 1 GM ADD-VANTAGE 250 ML IV SCH (16:44)
--- NOTE | 2020-05-17 18:13 | NUR ---
Problems reprioritized. Patient report given, questions answered & plan of care reviewed with Boo GASTELUM.
[2020-05-17] MEDS: insulin glargine (Lantus) pen - multi-dose SQ SCH (19:51)
[2020-05-17] MEDS: risperiDONE 0.5mg tablet PO SCH (20:27)
[2020-05-18] VITALS (24 sets, daily range): BP systolic 97–132; BP diastolic 48–65
[2020-05-18] MEDS: ipratropium/albuterol 3ml nebule NEB SCH ×7 (00:10→23:52)
[2020-05-18] MEDS: aztreonam inj. 1,000 MG in normal saline 100ml IV soln 100 ML IV SCH ×4 (02:00→21:00)
[2020-05-18] MEDS: mineral oil/petrolatum ophthal oint EACHEYE SCH ×4 (02:00→20:59)
[2020-05-18] MEDS: dexmedetomidine/D5W 100mL 100 ML IV SCH (02:27)
[2020-05-18 03:09] LABS: BASOPHILS % (AUTO) 0.3 % (0-1); EOSINOPHILS # (AUTO) 0.3 X10'3 (0-0.9); EOSINOPHILS % (AUTO) 3.3 % (0-6); HEMATOCRIT 23.9 % (42.0-52.0); LYMPHOCYTES # (AUTO) 0.3 X10'3 (1.1-4.8); LYMPHOCYTES % (AUTO) 2.7 % (21-51); MEAN CORPUSCULAR HEMOGLOBIN 30.5 PG (27.0-31.0); MEAN CORPUSCULAR HGB CONC 33.3 g/dL (33.0-36.5); MEAN CORPUSCULAR VOLUME 91.6 FL (78-98); MEAN PLATELET VOLUME 10.3 FL (7.4-10.4); MONOCYTES # (AUTO) 0.3 X10'3 (0-0.9); NEUTROPHILS # (AUTO) 8.6 X10'3 (1.8-7.7); NEUTROPHILS % (AUTO) 90.7 % (42-75); PLATELET COUNT 213 X10'3 (140-440); RED BLOOD COUNT 2.61 X10'6 (4.70-6.10); RED CELL DISTRIBUTION WIDTH 16.6 % (11.5-14.5); WHITE BLOOD COUNT 9.4 X10'3 (4.5-11.0)
[2020-05-18] MEDS: insulin regular, human U-100 3ml vial - multi-dose SQ SCH ×4 (03:22→21:13)
[2020-05-18 03:26] LABS: PARTIAL THROMBOPLASTIN TIME 26 SECONDS (22-32)
[2020-05-18 03:38] LABS: ALANINE AMINOTRANSFERASE 35 U/L (12-78); ALBUMIN 1.3 G/DL (3.4-5.0); ALBUMIN/GLOBULIN RATIO 0.3 (1.1-1.5); ALKALINE PHOSPHATASE 367 IU/L (46-116); ANION GAP 16 (8-16); ASPARTATE AMINO TRANSFERASE 52 U/L (10-37); BILIRUBIN,TOTAL 2.4 MG/DL (0.1-1.0); BLOOD UREA NITROGEN 136 MG/DL (7-18); CALCIUM 7.6 MG/DL (8.5-10.1); CHLORIDE 103 MMOL/L (99-107); CREATININE 4.54 MG/DL (0.60-1.10); GLUCOSE 134 MG/DL (70-104); MAGNESIUM 2.3 MG/DL (1.5-2.4); POTASSIUM 4.8 MMOL/L (3.5-5.1); SODIUM 138 MMOL/L (135-145); TOTAL CARBON DIOXIDE 18.7 MMOL/L (24-32); TOTAL PROTEIN 6.1 G/DL (6.4-8.2); eGFR 13 ML/MIN
[2020-05-18 04:41] LABS: ABG HCO3 19.5 mmol/L (22.0-26.0); ABG OXYGEN SATURATION 95.8 % (94-97); ABG PCO2 (T) 27.1 mmHg (35.0-48.0); ABG PO2 (T) 86.2 mmHg (75.0-100.0); FCOHb 0.7 % (0.0-3.9); FMetHb 0.3 % (0.0-1.5); FO2Hb 94.8 % (94-97); PATIENT TEMPERATURE 37.9; PEEP 5 cm H2O; RESPIRATORY RATE 20 b/min; TOTAL HEMOGLOBIN 8.6 G/dl (14.0-18.0)
--- NOTE | 2020-05-18 06:20 | NUR ---
Patient in room ICU 2042. I have received report from Boo GASTELUM and had the opportunity to ask questions and assume patient care. Addendum: 05/18/20 at 0620 by Ana Fowler RN Amended: Links added.
[2020-05-18] MEDS: mupirocin 2% nasal ointment 1gm UD NS SCH ×2 (07:48→20:58)
[2020-05-18] MEDS: lactobacillus rhamnosus 10,000 MMU CELLS/CAPSULE PO SCH ×2 (07:48→20:58)
[2020-05-18] MEDS: heparin, porcine 5000 units/ml vial SQ SCH ×2 (07:48→20:58)
[2020-05-18] MEDS: levoTHYROXINE 75mcg tablet PO SCH (07:48)
[2020-05-18] MEDS: famotidine/PF 10 mg/ml inj IV SCH ×2 (07:48→20:58)
[2020-05-18] MEDS ORDERED: heparin 1,000 units/ml 10ml inj HE ONE ×2 (08:00)
[2020-05-18] MEDS ORDERED: heparin 1,000unit/ml 10ml vial 10 ML IV ONE (08:00)
[2020-05-18] MEDS ORDERED: epoetin 20,000 units/ml inj IV ONE (08:00)
[2020-05-18] MEDS ORDERED: normal saline 1000ml 250 ML IV PRN (08:00)
--- NOTE | 2020-05-18 08:42 | NUR ---
Pt. getting HD now.
[2020-05-18] MEDS: metroNIDAZOLE-Flagyl 500mg/NS 100ML IVPB IV SCH ×3 (08:59→16:15)
[2020-05-18] MEDS: scopolamine 1.5mg patch.TD72 TD SCH (10:42)
--- NOTE | 2020-05-18 11:51 | NUR ---
F/u 05/18: Rental Car Deliverer at rounds is agreeable w/ Mayito administration BID w/ total 360ml free water daily on HD given wound healing needs. F/u 05/17: FELICIA rodriguez/w commercial light fixture assembler regarding TF goal rate decrease to 85ml/hr from 95ml/hr prior given update kcal needs below; commercial light fixture assembler agreeable. FELICIA rodriguez/porsche RN w/ updated EN recs below. Pt currently tolerating EN at goal on HD. Would benefit from Mayito administration once room for 360ml free water on HD per commercial light fixture assembler. Will continue to monitor. Rec: 1. Vital High Protein via PEG at 85ml/hr goal; to provide 2040ml volume, 1714ml water, 2040kcals, and 173g protein. 2. Mayito BID for wound healing needs; mix one packet w/ 120ml free water and flush tube w/ 30ml before and after each administration; total 360ml free water daily 3. PALB Q /; daily wts 4. bowel care as needed; adjust given colostomy output Addendum: 05/18/20 at [address] Amended: Links added.
--- NOTE | 2020-05-18 11:51 | NUR ---
WOC team here to assess pt.
[2020-05-18] MEDS: NORepinephrine 8mg/ 250ml NS 250 ML IV SCH (13:23)
[2020-05-18] MEDS: risperiDONE 0.5mg tablet PO SCH (21:03)
[2020-05-18] MEDS: insulin glargine (Lantus) pen - multi-dose SQ SCH (21:16)
[2020-05-18] MEDS: FENTANYL-0.9 % NACL/PF 100 ML IV PRN (23:44)
[2020-05-18] MEDS: midazolam 100mg in NS 100ml 100 ML IV PRN (23:44)
[2020-05-19] VITALS (24 sets, daily range): BP systolic 82–131; BP diastolic 46–72
[2020-05-19] MEDS: metroNIDAZOLE-Flagyl 500mg/NS 100ML IVPB IV SCH ×3 (00:29→15:38)
[2020-05-19] MEDS: acetaminophen 325mg/10.15ml oral unit dose solution OGT PRN (01:05)
[2020-05-19] MEDS: mineral oil/petrolatum ophthal oint EACHEYE SCH ×4 (01:05→20:56)
[2020-05-19] MEDS: aztreonam inj. 1,000 MG in normal saline 100ml IV soln 100 ML IV SCH ×4 (01:43→20:56)
[2020-05-19] MEDS: insulin regular, human U-100 3ml vial - multi-dose SQ SCH ×4 (02:47→22:08)
[2020-05-19 02:48] LABS: BASOPHILS # (AUTO) 0.1 X10'3 (0-0.2); BASOPHILS % (AUTO) 0.6 % (0-1); EOSINOPHILS # (AUTO) 0.2 X10'3 (0-0.9); EOSINOPHILS % (AUTO) 2.2 % (0-6); HEMATOCRIT 22.8 % (42.0-52.0); HEMOGLOBIN 7.6 g/dl (14.0-17.9); LYMPHOCYTES # (AUTO) 0.4 X10'3 (1.1-4.8); LYMPHOCYTES % (AUTO) 4.3 % (21-51); MEAN CORPUSCULAR HEMOGLOBIN 30.5 PG (27.0-31.0); MEAN CORPUSCULAR HGB CONC 33.3 g/dL (33.0-36.5); MEAN CORPUSCULAR VOLUME 91.7 FL (78-98); MEAN PLATELET VOLUME 9.6 FL (7.4-10.4); MONOCYTES # (AUTO) 0.4 X10'3 (0-0.9); MONOCYTES % (AUTO) 3.8 % (2-12); NEUTROPHILS # (AUTO) 8.9 X10'3 (1.8-7.7); NEUTROPHILS % (AUTO) 89.1 % (42-75); PLATELET COUNT 255 X10'3 (140-440); RED BLOOD COUNT 2.48 X10'6 (4.70-6.10); RED CELL DISTRIBUTION WIDTH 16.7 % (11.5-14.5)
[2020-05-19 02:59] LABS: PARTIAL THROMBOPLASTIN TIME 25 SECONDS (22-32)
[2020-05-19 03:04] LABS: ALANINE AMINOTRANSFERASE 49 U/L (12-78); ALBUMIN 1.3 G/DL (3.4-5.0); ALBUMIN/GLOBULIN RATIO 0.3 (1.1-1.5); ALKALINE PHOSPHATASE 437 IU/L (46-116); ANION GAP 13 (8-16); ASPARTATE AMINO TRANSFERASE 65 U/L (10-37); BLOOD UREA NITROGEN 98 MG/DL (7-18); BUN/CREATININE RATIO 28.8 (5.4-32.0); CALCIUM 7.5 MG/DL (8.5-10.1); CHLORIDE 102 MMOL/L (99-107); GLUCOSE 163 MG/DL (70-104); MAGNESIUM 2.1 MG/DL (1.5-2.4); POTASSIUM 4.5 MMOL/L (3.5-5.1); SODIUM 137 MMOL/L (135-145); TOTAL CARBON DIOXIDE 21.6 MMOL/L (24-32); TOTAL PROTEIN 5.9 G/DL (6.4-8.2); eGFR 19 ML/MIN
[2020-05-19] MEDS: ipratropium/albuterol 3ml nebule NEB SCH ×6 (04:08→23:46)
[2020-05-19 05:26] LABS: ABG BASE EXCESS -0.6 mmol/L (-2.0-2.0); ABG HCO3 21.2 mmol/L (22.0-26.0); ABG OXYGEN SATURATION 94.5 % (94-97); ABG PCO2 (T) 26.8 mmHg (35.0-48.0); ABG PO2 (T) 77.5 mmHg (75.0-100.0); FCOHb 0.1 % (0.0-3.9); FMetHb 0.3 % (0.0-1.5); FO2Hb 94.1 % (94-97); PATIENT TEMPERATURE 38.3; PEEP 5 cm H2O; RESPIRATORY RATE 18 b/min; TOTAL HEMOGLOBIN 8.9 G/dl (14.0-18.0)
--- NOTE | 2020-05-19 06:30 | NUR ---
Patient in room ICU 2042. I have received report from Shazia GASTELUM and had the opportunity to ask questions and assume patient care. Addendum: 05/19/20 at 0631 by Ana Fowler RN Amended: Links added.
[2020-05-19] MEDS: lactobacillus rhamnosus 10,000 MMU CELLS/CAPSULE PO SCH ×2 (07:17→20:57)
[2020-05-19] MEDS: levoTHYROXINE 75mcg tablet PO SCH (07:17)
[2020-05-19] MEDS: methylnaltrexone br 12mg/0.6ml inj***SubQ only SQ SCH (07:17)
[2020-05-19] MEDS: famotidine/PF 10 mg/ml inj IV SCH ×2 (07:18→20:56)
[2020-05-19] MEDS: mupirocin 2% nasal ointment 1gm UD NS SCH ×2 (07:18→20:56)
[2020-05-19] MEDS: heparin, porcine 5000 units/ml vial SQ SCH ×2 (07:19→20:57)
--- NOTE | 2020-05-19 10:30 | NUR ---
Pt. had a video call from his family for approx. 30 minutes this am.
--- NOTE | 2020-05-19 10:42 | NUR ---
F/u 05/19: Pt tolerating TF at goal w/ Mayito BID for wound healing. Colostomy 575ml output WNL. Will continue to monitor for additional protein needs post-op. Rec: 1. Vital High Protein via PEG at 85ml/hr goal; to provide 2040ml volume, 1714ml water, 2040kcals, and 173g protein. 2. Mayito BID for wound healing needs; mix one packet w/ 120ml free water and flush tube w/ 30ml before and after each administration; total 360ml free water daily 3. PALB Q ; daily wts 4. bowel care as needed; adjust given colostomy output Addendum: 05/19/20 at [address] Amended: Links added.
[2020-05-19] MEDS: NORepinephrine 8mg/ 250ml NS 250 ML IV SCH (12:16)
--- NOTE | 2020-05-19 13:24 | NUR ---
Dr. Zamorano in to see pt.
[2020-05-19] MEDS: FENTANYL-0.9 % NACL/PF 100 ML IV PRN (15:01)
[2020-05-19] MEDS: vancomycin/NS 1 GM ADD-VANTAGE 250 ML IV SCH (17:38)
--- NOTE | 2020-05-19 17:50 | NUR ---
Pt's called three times this shift to check on pt. Levophed has been off since 1230 this shift.
--- NOTE | 2020-05-19 18:13 | NUR ---
Problems reprioritized. Patient report given, questions answered & plan of care reviewed with Chloe Prado RN.
[2020-05-19] MEDS: insulin glargine (Lantus) pen - multi-dose SQ SCH (22:09)
[2020-05-19] MEDS: risperiDONE 0.5mg tablet PO SCH (22:11)
[2020-05-20] VITALS (24 sets, daily range): BP systolic 81–120; BP diastolic 48–70
[2020-05-20] MEDS: metroNIDAZOLE-Flagyl 500mg/NS 100ML IVPB IV SCH ×3 (00:46→16:25)
[2020-05-20] MEDS: mineral oil/petrolatum ophthal oint EACHEYE SCH ×4 (02:29→20:52)
[2020-05-20] MEDS: aztreonam inj. 1,000 MG in normal saline 100ml IV soln 100 ML IV SCH ×3 (02:29→14:40)
[2020-05-20] MEDS: insulin regular, human U-100 3ml vial - multi-dose SQ SCH ×4 (02:31→20:13)
[2020-05-20] MEDS: ipratropium/albuterol 3ml nebule NEB SCH ×6 (03:00→23:01)
[2020-05-20 03:03] LABS: BASOPHILS % (AUTO) 0 % (0-1); EOSINOPHILS # (AUTO) 0.2 X10'3 (0-0.9); EOSINOPHILS % (AUTO) 2.7 % (0-6); HEMOGLOBIN 7.1 g/dl (14.0-17.9); LYMPHOCYTES # (AUTO) 0.5 X10'3 (1.1-4.8); LYMPHOCYTES % (AUTO) 5.4 % (21-51); MEAN CORPUSCULAR HEMOGLOBIN 30.4 PG (27.0-31.0); MEAN CORPUSCULAR HGB CONC 32.9 g/dL (33.0-36.5); MEAN CORPUSCULAR VOLUME 92.4 FL (78-98); MEAN PLATELET VOLUME 9.9 FL (7.4-10.4); MONOCYTES # (AUTO) 0.3 X10'3 (0-0.9); MONOCYTES % (AUTO) 3.7 % (2-12); NEUTROPHILS # (AUTO) 7.8 X10'3 (1.8-7.7); NEUTROPHILS % (AUTO) 88.2 % (42-75); PLATELET COUNT 259 X10'3 (140-440); RED BLOOD COUNT 2.34 X10'6 (4.70-6.10); WHITE BLOOD COUNT 8.9 X10'3 (4.5-11.0)
[2020-05-20 03:07] LABS: HEMATOCRIT 21.7 % (42.0-52.0)
[2020-05-20 03:15] LABS: PARTIAL THROMBOPLASTIN TIME 25 SECONDS (22-32)
[2020-05-20 03:19] LABS: ALANINE AMINOTRANSFERASE 56 U/L (12-78); ALBUMIN 1.2 G/DL (3.4-5.0); ALBUMIN/GLOBULIN RATIO 0.3 (1.1-1.5); ALKALINE PHOSPHATASE 479 IU/L (46-116); ANION GAP 13 (8-16); ASPARTATE AMINO TRANSFERASE 73 U/L (10-37); BILIRUBIN,TOTAL 2.2 MG/DL (0.1-1.0); BLOOD UREA NITROGEN 129 MG/DL (7-18); BUN/CREATININE RATIO 30.5 (5.4-32.0); CALCIUM 7.7 MG/DL (8.5-10.1); CHLORIDE 106 MMOL/L (99-107); CREATININE 4.23 MG/DL (0.60-1.10); GLUCOSE 114 MG/DL (70-104); MAGNESIUM 2.3 MG/DL (1.5-2.4); SODIUM 142 MMOL/L (135-145); TOTAL CARBON DIOXIDE 22.8 MMOL/L (24-32); TOTAL PROTEIN 5.6 G/DL (6.4-8.2); eGFR 15 ML/MIN
[2020-05-20 03:35] LABS: ABG BASE EXCESS -4.2 mmol/L (-2.0-2.0); ABG HCO3 19.6 mmol/L (22.0-26.0); ABG OXYGEN SATURATION 97.2 % (94-97); ABG PCO2 (T) 30.9 mmHg (35.0-48.0); ABG PO2 (T) 100.9 mmHg (75.0-100.0); FCOHb 0.5 % (0.0-3.9); FO2Hb 96.7 % (94-97); PATIENT TEMPERATURE 37.2; PEEP 5 cm H2O; TOTAL HEMOGLOBIN 7.9 G/dl (14.0-18.0)
--- NOTE | 2020-05-20 06:23 | NUR ---
Patient in room ICU 2042. I have received report from Jolene GASTELUM and had the opportunity to ask questions and assume patient care.
[2020-05-20] MEDS ORDERED: epoetin 20,000 units/ml inj IV ONE (06:35)
[2020-05-20] MEDS ORDERED: normal saline 1000ml 250 ML IV PRN (06:35)
[2020-05-20] MEDS ORDERED: heparin 1,000unit/ml 10ml vial 10 ML IV ONE (06:35)
[2020-05-20] MEDS ORDERED: heparin 1,000 units/ml 10ml inj HE ONE ×2 (06:40)
[2020-05-20] MEDS: famotidine/PF 10 mg/ml inj IV SCH ×2 (08:46→20:49)
[2020-05-20] MEDS: heparin, porcine 5000 units/ml vial SQ SCH ×2 (08:47→20:51)
[2020-05-20] MEDS: lactobacillus rhamnosus 10,000 MMU CELLS/CAPSULE PO SCH ×2 (08:48→20:49)
[2020-05-20] MEDS: mupirocin 2% nasal ointment 1gm UD NS SCH ×2 (08:48→20:49)
[2020-05-20] MEDS: levoTHYROXINE 75mcg tablet PO SCH (08:48)
[2020-05-20] MEDS: FENTANYL-0.9 % NACL/PF 100 ML IV PRN (08:55)
[2020-05-20] MEDS: NORepinephrine 8mg/ 250ml NS 250 ML IV SCH (14:39)
[2020-05-20] MEDS: insulin glargine (Lantus) pen - multi-dose SQ SCH (20:14)
[2020-05-20] MEDS: risperiDONE 0.5mg tablet PO SCH (20:49)
[2020-05-20] MEDS: acetaminophen 325mg/10.15ml oral unit dose solution OGT PRN (22:40)
[2020-05-21] VITALS (24 sets, daily range): BP systolic 97–163; BP diastolic 52–96
[2020-05-21] MEDS: aztreonam inj. 500 MG in normal saline 100ml IV soln 100 ML IV SCH ×3 (00:57→15:02)
[2020-05-21] MEDS: metroNIDAZOLE-Flagyl 500mg/NS 100ML IVPB IV SCH ×4 (00:58→23:03)
[2020-05-21] MEDS: mineral oil/petrolatum ophthal oint EACHEYE SCH ×4 (01:10→20:33)
--- NOTE | 2020-05-21 01:16 | NUR ---
notified PA Michaela of patient condition with shivers and vent Min-vol/resp rate both increasing above alarm set perameters...patient requires increased versed and therefore has decreased blood pressures/ primarily "diastolic" into the low 40's and systolic into the 85 range. I noted this behavior and multiple nurses have noted this on previous shifts. Levophed was started and then notified PA Michaela. It was reiterated that I only use levophed if patients pressures drop into the 80's and map below 60. Once pressures were up Levophed turned off.
[2020-05-21] MEDS: insulin regular, human U-100 3ml vial - multi-dose SQ SCH ×4 (01:58→20:40)
[2020-05-21 02:26] LABS: BASOPHILS # (AUTO) 0.1 X10'3 (0-0.2); BASOPHILS % (AUTO) 0.5 % (0-1); EOSINOPHILS # (AUTO) 0.2 X10'3 (0-0.9); EOSINOPHILS % (AUTO) 1.4 % (0-6); HEMATOCRIT 23.9 % (42.0-52.0); HEMOGLOBIN 7.7 g/dl (14.0-17.9); LYMPHOCYTES # (AUTO) 0.4 X10'3 (1.1-4.8); LYMPHOCYTES % (AUTO) 3.7 % (21-51); MEAN CORPUSCULAR HEMOGLOBIN 30.3 PG (27.0-31.0); MEAN CORPUSCULAR HGB CONC 32.3 g/dL (33.0-36.5); MEAN CORPUSCULAR VOLUME 93.9 FL (78-98); MONOCYTES # (AUTO) 0.6 X10'3 (0-0.9); MONOCYTES % (AUTO) 5.3 % (2-12); NEUTROPHILS # (AUTO) 9.7 X10'3 (1.8-7.7); NEUTROPHILS % (AUTO) 89.1 % (42-75); PLATELET COUNT 283 X10'3 (140-440); RED BLOOD COUNT 2.55 X10'6 (4.70-6.10); RED CELL DISTRIBUTION WIDTH 17.2 % (11.5-14.5); WHITE BLOOD COUNT 10.8 X10'3 (4.5-11.0)
[2020-05-21] MEDS: ipratropium/albuterol 3ml nebule NEB SCH ×6 (02:33→23:04)
[2020-05-21 02:38] LABS: ALANINE AMINOTRANSFERASE 56 U/L (12-78); ALBUMIN 1.2 G/DL (3.4-5.0); ALBUMIN/GLOBULIN RATIO 0.2 (1.1-1.5); ALKALINE PHOSPHATASE 521 IU/L (46-116); ANION GAP 12 (8-16); ASPARTATE AMINO TRANSFERASE 62 U/L (10-37); BILIRUBIN,TOTAL 2.1 MG/DL (0.1-1.0); BLOOD UREA NITROGEN 79 MG/DL (7-18); BUN/CREATININE RATIO 26.6 (5.4-32.0); CALCIUM 7.7 MG/DL (8.5-10.1); CHLORIDE 103 MMOL/L (99-107); CREATININE 2.97 MG/DL (0.60-1.10); GLUCOSE 150 MG/DL (70-104); POTASSIUM 4.1 MMOL/L (3.5-5.1); SODIUM 139 MMOL/L (135-145); TOTAL CARBON DIOXIDE 24.1 MMOL/L (24-32); TOTAL PROTEIN 6.2 G/DL (6.4-8.2); eGFR 22 ML/MIN
[2020-05-21 03:56] LABS: ABG BASE EXCESS -1.8 mmol/L (-2.0-2.0); ABG HCO3 21.7 mmol/L (22.0-26.0); ABG OXYGEN SATURATION 97.3 % (94-97); ABG PCO2 (T) 32.1 mmHg (35.0-48.0); FCOHb 0.8 % (0.0-3.9); FMetHb 0.3 % (0.0-1.5); FO2Hb 96.2 % (94-97); PATIENT TEMPERATURE 37.5; PEEP 5 cm H2O; TOTAL HEMOGLOBIN 8.4 G/dl (14.0-18.0)
[2020-05-21] MEDS: levoTHYROXINE 75mcg tablet PO SCH (08:03)
[2020-05-21] MEDS: lactobacillus rhamnosus 10,000 MMU CELLS/CAPSULE PO SCH ×2 (08:03→20:32)
[2020-05-21] MEDS: mupirocin 2% nasal ointment 1gm UD NS SCH ×2 (08:03→20:32)
[2020-05-21] MEDS: methylnaltrexone br 12mg/0.6ml inj***SubQ only SQ SCH (08:03)
[2020-05-21] MEDS: famotidine/PF 10 mg/ml inj IV SCH ×2 (08:04→20:32)
[2020-05-21] MEDS: heparin, porcine 5000 units/ml vial SQ SCH ×2 (08:04→20:33)
[2020-05-21] MEDS: FENTANYL-0.9 % NACL/PF 100 ML IV PRN (08:34)
[2020-05-21] MEDS: scopolamine 1.5mg patch.TD72 TD SCH (10:50)
[2020-05-21] MEDS ORDERED: VANCOMYCIN LEVEL IV ONE (16:30)
[2020-05-21] MEDS ORDERED: vancomycin/NS 1 GM ADD-VANTAGE 250 ML IV SCH (17:00)
--- NOTE | 2020-05-21 18:10 | NUR ---
Patient report given, questions answered & plan of care reviewed with Boo GASTELUM.
[2020-05-21] MEDS: risperiDONE 0.5mg tablet PO SCH (20:32)
[2020-05-21] MEDS: insulin glargine (Lantus) pen - multi-dose SQ SCH (20:41)
[2020-05-22] VITALS (24 sets, daily range): BP systolic 106–139; BP diastolic 49–74
[2020-05-22] MEDS: aztreonam inj. 500 MG in normal saline 100ml IV soln 100 ML IV SCH ×3 (00:09→19:57)
[2020-05-22] MEDS: mineral oil/petrolatum ophthal oint EACHEYE SCH ×4 (02:22→20:00)
[2020-05-22] MEDS: insulin regular, human U-100 3ml vial - multi-dose SQ SCH ×4 (02:25→19:51)
[2020-05-22 02:46] LABS: BASOPHILS % (AUTO) 0.5 % (0-1); EOSINOPHILS # (AUTO) 0.2 X10'3 (0-0.9); EOSINOPHILS % (AUTO) 1.6 % (0-6); HEMATOCRIT 22.2 % (42.0-52.0); HEMOGLOBIN 7.4 g/dl (14.0-17.9); LYMPHOCYTES # (AUTO) 0.7 X10'3 (1.1-4.8); LYMPHOCYTES % (AUTO) 7.4 % (21-51); MEAN CORPUSCULAR HEMOGLOBIN 31.3 PG (27.0-31.0); MEAN CORPUSCULAR HGB CONC 33.2 g/dL (33.0-36.5); MEAN CORPUSCULAR VOLUME 94.3 FL (78-98); MEAN PLATELET VOLUME 9.7 FL (7.4-10.4); MONOCYTES # (AUTO) 0.4 X10'3 (0-0.9); MONOCYTES % (AUTO) 4.4 % (2-12); NEUTROPHILS # (AUTO) 8.3 X10'3 (1.8-7.7); NEUTROPHILS % (AUTO) 86.1 % (42-75); PLATELET COUNT 286 X10'3 (140-440); RED BLOOD COUNT 2.36 X10'6 (4.70-6.10); RED CELL DISTRIBUTION WIDTH 17.6 % (11.5-14.5); WHITE BLOOD COUNT 9.6 X10'3 (4.5-11.0)
[2020-05-22 02:53] LABS: ALANINE AMINOTRANSFERASE 46 U/L (12-78); ALBUMIN 1.2 G/DL (3.4-5.0); ALBUMIN/GLOBULIN RATIO 0.2 (1.1-1.5); ALKALINE PHOSPHATASE 501 IU/L (46-116); ANION GAP 15 (8-16); ASPARTATE AMINO TRANSFERASE 47 U/L (10-37); BILIRUBIN,TOTAL 1.8 MG/DL (0.1-1.0); BLOOD UREA NITROGEN 108 MG/DL (7-18); BUN/CREATININE RATIO 30.8 (5.4-32.0); CALCIUM 7.7 MG/DL (8.5-10.1); CHLORIDE 103 MMOL/L (99-107); CREATININE 3.51 MG/DL (0.60-1.10); GLUCOSE 121 MG/DL (70-104); POTASSIUM 4.5 MMOL/L (3.5-5.1); SODIUM 140 MMOL/L (135-145); TOTAL CARBON DIOXIDE 21.9 MMOL/L (24-32); TOTAL PROTEIN 6.1 G/DL (6.4-8.2); eGFR 18 ML/MIN
[2020-05-22] MEDS: ipratropium/albuterol 3ml nebule NEB SCH ×6 (03:26→23:09)
[2020-05-22] MEDS: lactobacillus rhamnosus 10,000 MMU CELLS/CAPSULE PO SCH ×2 (07:54→21:00)
[2020-05-22] MEDS: levoTHYROXINE 75mcg tablet PO SCH (07:54)
[2020-05-22] MEDS: heparin, porcine 5000 units/ml vial SQ SCH ×2 (07:55→21:01)
[2020-05-22] MEDS: mupirocin 2% nasal ointment 1gm UD NS SCH ×2 (07:55→21:08)
[2020-05-22] MEDS: famotidine/PF 10 mg/ml inj IV SCH ×2 (07:55→21:03)
[2020-05-22] MEDS ORDERED: epoetin 20,000 units/ml inj IV ONE (08:00)
[2020-05-22] MEDS ORDERED: heparin 1,000unit/ml 10ml vial 10 ML IV ONE (08:00)
[2020-05-22] MEDS ORDERED: normal saline 1000ml 250 ML IV PRN (08:00)
[2020-05-22] MEDS ORDERED: heparin 1,000 units/ml 10ml inj HE ONE ×2 (08:00)
[2020-05-22] MEDS: FENTANYL-0.9 % NACL/PF 100 ML IV PRN (10:38)
--- NOTE | 2020-05-22 10:44 | NUR ---
spoke with Aissatou to see if it was okay to give daughter, Kavya Hansen information. Aissatou said it was okay to give daughter information. SBAR and patient family contact list has been updated.
--- NOTE | 2020-05-22 11:07 | NUR ---
Reassessment: Pt continues tolerating TF at goal rate via PEG with GRV WNL. Pt receiving Mayito BID for wound healing needs. Pt documented with 325 mL stool output 05/21 per I&O. No changes to nutrition interventions at this time. Will continue to follow closely. Recommendations: 1. Vital High Protein via PEG at 85ml/hr goal; to provide 2040ml volume, 1714ml water, 2040kcals, and 173g protein. 2. Mayito BID for wound healing needs; mix one packet w/ 120ml free water and flush tube w/ 30ml before and after each administration; total 360ml free water daily 3. PALB Q ; daily wts 4. bowel care per rx Addendum: 05/22/20 at [address] Amended: Links added.
--- NOTE | 2020-05-22 11:20 | NUR ---
0800 Azactam and Flagyl were held for dialysis per hydrographic engineer. clarified with Elijah pharmacist if able to run Azactam and flagyl after dialysis since they are every 8Hr. Pharmacist okay'd giving the medications.
[2020-05-22] MEDS: metroNIDAZOLE-Flagyl 500mg/NS 100ML IVPB IV SCH ×2 (11:41→17:19)
--- NOTE | 2020-05-22 18:20 | NUR ---
Patient report given, questions answered & plan of care reviewed with Bennie GASTELUM.
[2020-05-22] MEDS: insulin glargine (Lantus) pen - multi-dose SQ SCH (19:53)
[2020-05-22] MEDS: risperiDONE 0.5mg tablet PO SCH (21:00)
[2020-05-23] VITALS (24 sets, daily range): BP systolic 91–131; BP diastolic 49–76
[2020-05-23] MEDS: metroNIDAZOLE-Flagyl 500mg/NS 100ML IVPB IV SCH ×3 (01:14→15:20)
[2020-05-23] MEDS: aztreonam inj. 500 MG in normal saline 100ml IV soln 100 ML IV SCH ×3 (02:00→15:20)
[2020-05-23] MEDS: insulin regular, human U-100 3ml vial - multi-dose SQ SCH ×4 (02:14→19:38)
[2020-05-23] MEDS: mineral oil/petrolatum ophthal oint EACHEYE SCH ×4 (02:15→20:37)
[2020-05-23] MEDS: ipratropium/albuterol 3ml nebule NEB SCH ×6 (02:34→23:18)
[2020-05-23 02:42] LABS: BASOPHILS % (AUTO) 0.6 % (0-1); EOSINOPHILS # (AUTO) 0.1 X10'3 (0-0.9); EOSINOPHILS % (AUTO) 1.3 % (0-6); HEMATOCRIT 22.4 % (42.0-52.0); HEMOGLOBIN 7.5 g/dl (14.0-17.9); LYMPHOCYTES # (AUTO) 0.4 X10'3 (1.1-4.8); LYMPHOCYTES % (AUTO) 5.1 % (21-51); MEAN CORPUSCULAR HEMOGLOBIN 31.5 PG (27.0-31.0); MEAN CORPUSCULAR HGB CONC 33.4 g/dL (33.0-36.5); MEAN CORPUSCULAR VOLUME 94.3 FL (78-98); MEAN PLATELET VOLUME 9.6 FL (7.4-10.4); MONOCYTES # (AUTO) 0.6 X10'3 (0-0.9); MONOCYTES % (AUTO) 6.6 % (2-12); NEUTROPHILS # (AUTO) 7.4 X10'3 (1.8-7.7); NEUTROPHILS % (AUTO) 86.4 % (42-75); PLATELET COUNT 315 X10'3 (140-440); RED BLOOD COUNT 2.38 X10'6 (4.70-6.10); RED CELL DISTRIBUTION WIDTH 17.8 % (11.5-14.5); WHITE BLOOD COUNT 8.6 X10'3 (4.5-11.0)
[2020-05-23 02:56] LABS: ALANINE AMINOTRANSFERASE 43 U/L (12-78); ALBUMIN 1.2 G/DL (3.4-5.0); ALBUMIN/GLOBULIN RATIO 0.2 (1.1-1.5); ALKALINE PHOSPHATASE 532 IU/L (46-116); ANION GAP 9 (8-16); ASPARTATE AMINO TRANSFERASE 47 U/L (10-37); BILIRUBIN,TOTAL 1.6 MG/DL (0.1-1.0); BLOOD UREA NITROGEN 68 MG/DL (7-18); BUN/CREATININE RATIO 26.8 (5.4-32.0); CALCIUM 7.7 MG/DL (8.5-10.1); CHLORIDE 104 MMOL/L (99-107); CREATININE 2.54 MG/DL (0.60-1.10); GLUCOSE 114 MG/DL (70-104); MAGNESIUM 2.1 MG/DL (1.5-2.4); PHOSPHORUS 5.1 MG/DL (2.3-4.5); SODIUM 139 MMOL/L (135-145); TOTAL CARBON DIOXIDE 25.9 MMOL/L (24-32); TOTAL PROTEIN 6.1 G/DL (6.4-8.2); eGFR 26 ML/MIN
[2020-05-23 02:58] LABS: POTASSIUM 4.5 MMOL/L (3.5-5.1)
[2020-05-23] MEDS: mupirocin 2% nasal ointment 1gm UD NS SCH ×2 (07:41→20:35)
[2020-05-23] MEDS: methylnaltrexone br 12mg/0.6ml inj***SubQ only SQ SCH (07:42)
[2020-05-23] MEDS: heparin, porcine 5000 units/ml vial SQ SCH ×2 (07:43→20:26)
[2020-05-23] MEDS: lactobacillus rhamnosus 10,000 MMU CELLS/CAPSULE PO SCH ×2 (07:43→20:27)
[2020-05-23] MEDS: famotidine/PF 10 mg/ml inj IV SCH ×2 (07:43→20:24)
[2020-05-23] MEDS: levoTHYROXINE 75mcg tablet PO SCH (07:43)
[2020-05-23] MEDS: VANCOmycin 1250MG/NS 250ml Bag 250 ML IV SCH (17:54)
[2020-05-23] MEDS: acetaminophen 325mg/10.15ml oral unit dose solution OGT PRN (19:09)
[2020-05-23] MEDS: insulin glargine (Lantus) pen - multi-dose SQ SCH (19:39)
[2020-05-23] MEDS: risperiDONE 0.5mg tablet PO SCH (20:28)
[2020-05-24] VITALS (24 sets, daily range): BP systolic 91–146; BP diastolic 52–82
[2020-05-24] MEDS: FENTANYL-0.9 % NACL/PF 100 ML IV PRN (00:30)
[2020-05-24] MEDS: aztreonam inj. 500 MG in normal saline 100ml IV soln 100 ML IV SCH ×3 (00:37→17:37)
[2020-05-24] MEDS: metroNIDAZOLE-Flagyl 500mg/NS 100ML IVPB IV SCH ×3 (01:46→15:43)
[2020-05-24] MEDS: mineral oil/petrolatum ophthal oint EACHEYE SCH ×4 (02:00→20:00)
[2020-05-24] MEDS: insulin regular, human U-100 3ml vial - multi-dose SQ SCH ×4 (02:35→20:19)
[2020-05-24 03:10] LABS: BASOPHILS % (AUTO) 0.3 % (0-1); EOSINOPHILS # (AUTO) 0.1 X10'3 (0-0.9); EOSINOPHILS % (AUTO) 0.6 % (0-6); HEMATOCRIT 22.8 % (42.0-52.0); HEMOGLOBIN 7.6 g/dl (14.0-17.9); LYMPHOCYTES # (AUTO) 0.5 X10'3 (1.1-4.8); LYMPHOCYTES % (AUTO) 5.9 % (21-51); MEAN CORPUSCULAR HEMOGLOBIN 31.3 PG (27.0-31.0); MEAN CORPUSCULAR HGB CONC 33.1 g/dL (33.0-36.5); MEAN CORPUSCULAR VOLUME 94.4 FL (78-98); MEAN PLATELET VOLUME 9.4 FL (7.4-10.4); MONOCYTES # (AUTO) 0.5 X10'3 (0-0.9); MONOCYTES % (AUTO) 5.6 % (2-12); NEUTROPHILS # (AUTO) 7.9 X10'3 (1.8-7.7); NEUTROPHILS % (AUTO) 87.6 % (42-75); PLATELET COUNT 314 X10'3 (140-440); RED BLOOD COUNT 2.41 X10'6 (4.70-6.10); RED CELL DISTRIBUTION WIDTH 18.2 % (11.5-14.5); WHITE BLOOD COUNT 9.1 X10'3 (4.5-11.0)
[2020-05-24] MEDS: ipratropium/albuterol 3ml nebule NEB SCH ×6 (03:19→23:16)
[2020-05-24 03:31] LABS: ALANINE AMINOTRANSFERASE 39 U/L (12-78); ALBUMIN 1.2 G/DL (3.4-5.0); ALBUMIN/GLOBULIN RATIO 0.2 (1.1-1.5); ALKALINE PHOSPHATASE 549 IU/L (46-116); ANION GAP 8 (8-16); ASPARTATE AMINO TRANSFERASE 39 U/L (10-37); BILIRUBIN,TOTAL 1.4 MG/DL (0.1-1.0); BLOOD UREA NITROGEN 93 MG/DL (7-18); CALCIUM 7.6 MG/DL (8.5-10.1); CHLORIDE 104 MMOL/L (99-107); CREATININE 3.21 MG/DL (0.60-1.10); GLUCOSE 122 MG/DL (70-104); MAGNESIUM 2.2 MG/DL (1.5-2.4); PHOSPHORUS 6.8 MG/DL (2.3-4.5); POTASSIUM 4.5 MMOL/L (3.5-5.1); SODIUM 136 MMOL/L (135-145); TOTAL CARBON DIOXIDE 23.7 MMOL/L (24-32); TOTAL PROTEIN 6.1 G/DL (6.4-8.2); eGFR 20 ML/MIN
--- NOTE | 2020-05-24 06:13 | NUR ---
Patient in room ICU 2042. I have received report from Luma GASTELUM and had the opportunity to ask questions and assume patient care.
[2020-05-24] MEDS: levoTHYROXINE 75mcg tablet PO SCH (07:42)
[2020-05-24] MEDS: mupirocin 2% nasal ointment 1gm UD NS SCH ×2 (07:43→20:03)
[2020-05-24] MEDS: famotidine/PF 10 mg/ml inj IV SCH ×2 (07:43→20:03)
[2020-05-24] MEDS: lactobacillus rhamnosus 10,000 MMU CELLS/CAPSULE PO SCH ×2 (07:44→20:03)
[2020-05-24] MEDS: heparin, porcine 5000 units/ml vial SQ SCH ×2 (07:44→20:04)
[2020-05-24] MEDS: acetaminophen 325mg/10.15ml oral unit dose solution OGT PRN ×2 (09:20→19:49)
[2020-05-24] MEDS: scopolamine 1.5mg patch.TD72 TD SCH (15:43)
--- NOTE | 2020-05-24 18:16 | NUR ---
Problems reprioritized. Patient report given, questions answered & plan of care reviewed with NIRAV Regan.
--- NOTE | 2020-05-24 18:17 | NUR ---
Patient in room ICU 2042. I have received report from Colby, and had the opportunity to ask questions and assume patient care.
[2020-05-24] MEDS: risperiDONE 0.5mg tablet PO SCH (20:02)
[2020-05-24] MEDS: insulin glargine (Lantus) pen - multi-dose SQ SCH (20:20)
[2020-05-25] VITALS (24 sets, daily range): BP systolic 103–158; BP diastolic 59–79
[2020-05-25] MEDS: aztreonam inj. 500 MG in normal saline 100ml IV soln 100 ML IV SCH ×4 (00:07→23:47)
[2020-05-25] MEDS: metroNIDAZOLE-Flagyl 500mg/NS 100ML IVPB IV SCH ×3 (00:07→16:38)
[2020-05-25] MEDS: FENTANYL-0.9 % NACL/PF 100 ML IV PRN (01:11)
[2020-05-25] MEDS: mineral oil/petrolatum ophthal oint EACHEYE SCH (02:00)
[2020-05-25] MEDS: insulin regular, human U-100 3ml vial - multi-dose SQ SCH ×4 (02:10→21:11)
[2020-05-25 02:48] LABS: BASOPHILS # (AUTO) 0.1 X10'3 (0-0.2); EOSINOPHILS # (AUTO) 0.1 X10'3 (0-0.9); EOSINOPHILS % (AUTO) 0.7 % (0-6); HEMATOCRIT 23.6 % (42.0-52.0); HEMOGLOBIN 7.8 g/dl (14.0-17.9); LYMPHOCYTES # (AUTO) 0.5 X10'3 (1.1-4.8); LYMPHOCYTES % (AUTO) 6.9 % (21-51); MEAN CORPUSCULAR HEMOGLOBIN 31.1 PG (27.0-31.0); MEAN CORPUSCULAR HGB CONC 33.2 g/dL (33.0-36.5); MEAN CORPUSCULAR VOLUME 93.6 FL (78-98); MEAN PLATELET VOLUME 9.2 FL (7.4-10.4); MONOCYTES # (AUTO) 0.6 X10'3 (0-0.9); MONOCYTES % (AUTO) 7.4 % (2-12); NEUTROPHILS # (AUTO) 6.7 X10'3 (1.8-7.7); PLATELET COUNT 345 X10'3 (140-440); RED BLOOD COUNT 2.52 X10'6 (4.70-6.10); RED CELL DISTRIBUTION WIDTH 18.6 % (11.5-14.5); WHITE BLOOD COUNT 7.9 X10'3 (4.5-11.0)
[2020-05-25 02:52] LABS: PARTIAL THROMBOPLASTIN TIME 27 SECONDS (22-32)
[2020-05-25 03:10] LABS: ALANINE AMINOTRANSFERASE 55 U/L (12-78); ALBUMIN 1.3 G/DL (3.4-5.0); ALBUMIN/GLOBULIN RATIO 0.2 (1.1-1.5); ALKALINE PHOSPHATASE 791 IU/L (46-116); ANION GAP 12 (8-16); ASPARTATE AMINO TRANSFERASE 80 U/L (10-37); BILIRUBIN,TOTAL 1.6 MG/DL (0.1-1.0); BLOOD UREA NITROGEN 103 MG/DL (7-18); BUN/CREATININE RATIO 29.9 (5.4-32.0); CALCIUM 8.2 MG/DL (8.5-10.1); CHLORIDE 106 MMOL/L (99-107); CREATININE 3.44 MG/DL (0.60-1.10); GLUCOSE 121 MG/DL (70-104); MAGNESIUM 2.5 MG/DL (1.5-2.4); PHOSPHORUS 7.6 MG/DL (2.3-4.5); POTASSIUM 4.8 MMOL/L (3.5-5.1); SODIUM 141 MMOL/L (135-145); TOTAL CARBON DIOXIDE 22.7 MMOL/L (24-32); TOTAL PROTEIN 6.6 G/DL (6.4-8.2); eGFR 19 ML/MIN
[2020-05-25] MEDS: ipratropium/albuterol 3ml nebule NEB SCH ×6 (03:20→23:24)
[2020-05-25 03:58] LABS: PLATELET ESTIMATE NORMAL
[2020-05-25 03:59] LABS: ANISOCYTOSIS 2+; ELLIPTOCYTES FEW; POLYCHROMASIA FEW; TEAR DROP CELLS FEW
--- NOTE | 2020-05-25 06:00 | NUR ---
Patient in room ICU 2042. I have received report from Shereen GASTELUM and had the opportunity to ask questions and assume patient care.
[2020-05-25] MEDS: famotidine/PF 10 mg/ml inj IV SCH ×2 (08:00→21:06)
[2020-05-25] MEDS: levoTHYROXINE 75mcg tablet PO SCH (08:00)
[2020-05-25] MEDS: methylnaltrexone br 12mg/0.6ml inj***SubQ only SQ SCH (08:00)
[2020-05-25] MEDS: lactobacillus rhamnosus 10,000 MMU CELLS/CAPSULE PO SCH ×2 (08:00→21:07)
[2020-05-25] MEDS: heparin, porcine 5000 units/ml vial SQ SCH ×2 (08:03→21:07)
[2020-05-25] MEDS: mupirocin 2% nasal ointment 1gm UD NS SCH ×2 (08:04→21:06)
--- NOTE | 2020-05-25 10:15 | NUR ---
5 setswana dual lumen midline catheter placed to the left basilic vein x1 attempt using ultrasound guidance with tip ending mid axillary aspirates blood and flushes without difficulty. federica picc rn
[2020-05-25 10:53] LABS: PREALBUMIN 14.9 MG/DL (19-36)
--- NOTE | 2020-05-25 11:14 | NUR ---
Right upper arm PICC line D/C'd without incident, cannula intact at 45cm. Tegaderm and gauze placed over site.
--- NOTE | 2020-05-25 12:34 | NUR ---
Right wrist Art line D/C'd with no incident, cannula intact, dry gauze placed over site.
[2020-05-25] MEDS: VANCOmycin 1250MG/NS 250ml Bag 250 ML IV SCH (17:41)
--- NOTE | 2020-05-25 18:15 | NUR ---
Problems reprioritized. Patient report given, questions answered & plan of care reviewed with Janene GASTELUM.
--- NOTE | 2020-05-25 18:25 | NUR ---
Patient in room ICU 2042. I have received report from Kavya GASTELUM and Rossana RN and had the opportunity to ask questions and assume patient care.
[2020-05-25] MEDS: risperiDONE 0.5mg tablet PO SCH (21:06)
[2020-05-25] MEDS: insulin glargine (Lantus) pen - multi-dose SQ SCH (21:13)
[2020-05-25] MEDS: acetaminophen 325mg/10.15ml oral unit dose solution OGT PRN (21:13)
[2020-05-26] VITALS (22 sets, daily range): BP systolic 101–151; BP diastolic 8–94
[2020-05-26] MEDS: metroNIDAZOLE-Flagyl 500mg/NS 100ML IVPB IV SCH ×3 (00:52→15:25)
[2020-05-26] MEDS: FENTANYL-0.9 % NACL/PF 100 ML IV PRN (00:53)
[2020-05-26] MEDS: ipratropium/albuterol 3ml nebule NEB SCH ×6 (02:30→22:56)
[2020-05-26 03:50] LABS: BASOPHILS % (AUTO) 0.4 % (0-1); EOSINOPHILS # (AUTO) 0.1 X10'3 (0-0.9); EOSINOPHILS % (AUTO) 0.8 % (0-6); HEMATOCRIT 22.9 % (42.0-52.0); HEMOGLOBIN 7.5 g/dl (14.0-17.9); LYMPHOCYTES # (AUTO) 0.5 X10'3 (1.1-4.8); LYMPHOCYTES % (AUTO) 6.7 % (21-51); MEAN CORPUSCULAR HEMOGLOBIN 30.6 PG (27.0-31.0); MEAN CORPUSCULAR HGB CONC 32.6 g/dL (33.0-36.5); MEAN CORPUSCULAR VOLUME 93.9 FL (78-98); MONOCYTES # (AUTO) 0.6 X10'3 (0-0.9); MONOCYTES % (AUTO) 7.8 % (2-12); NEUTROPHILS # (AUTO) 6.4 X10'3 (1.8-7.7); NEUTROPHILS % (AUTO) 84.3 % (42-75); PLATELET COUNT 326 X10'3 (140-440); RED BLOOD COUNT 2.44 X10'6 (4.70-6.10); RED CELL DISTRIBUTION WIDTH 19.2 % (11.5-14.5); WHITE BLOOD COUNT 7.6 X10'3 (4.5-11.0)
[2020-05-26 03:54] LABS: ALANINE AMINOTRANSFERASE 48 U/L (12-78); ALBUMIN 1.2 G/DL (3.4-5.0); ALBUMIN/GLOBULIN RATIO 0.2 (1.1-1.5); ALKALINE PHOSPHATASE 700 IU/L (46-116); ANION GAP 13 (8-16); ASPARTATE AMINO TRANSFERASE 54 U/L (10-37); BILIRUBIN,TOTAL 1.3 MG/DL (0.1-1.0); BLOOD UREA NITROGEN 114 MG/DL (7-18); BUN/CREATININE RATIO 31.8 (5.4-32.0); CALCIUM 8.2 MG/DL (8.5-10.1); CHLORIDE 108 MMOL/L (99-107); CREATININE 3.59 MG/DL (0.60-1.10); GLUCOSE 125 MG/DL (70-104); MAGNESIUM 2.6 MG/DL (1.5-2.4); PHOSPHORUS 7.8 MG/DL (2.3-4.5); POTASSIUM 4.7 MMOL/L (3.5-5.1); SODIUM 144 MMOL/L (135-145); TOTAL CARBON DIOXIDE 23.4 MMOL/L (24-32); TOTAL PROTEIN 6.5 G/DL (6.4-8.2); eGFR 18 ML/MIN
[2020-05-26 04:32] LABS: ANISOCYTOSIS 2+; ELLIPTOCYTES FEW; LARGE PLATELETS FEW; PLATELET ESTIMATE NORMAL; POLYCHROMASIA FEW; TEAR DROP CELLS FEW
--- NOTE | 2020-05-26 06:00 | NUR ---
Patient in room ICU 2042. I have received report from Janene GASTELUM and had the opportunity to ask questions and assume patient care.
--- NOTE | 2020-05-26 06:19 | NUR ---
Problems reprioritized. Patient report given, questions answered & plan of care reviewed with Rossana RN & Kavya GASTELUM.
--- NOTE | 2020-05-26 06:21 | NUR ---
Problems reprioritized. Patient report given, questions answered & plan of care reviewed with Rossana RN & Kavya GASTELUM.
--- NOTE | 2020-05-26 06:42 | NUR ---
Patient in room ICU 2042. I have received report from Kavya GASTELUM and had the opportunity to ask questions and assume patient care.
[2020-05-26] MEDS: lactobacillus rhamnosus 10,000 MMU CELLS/CAPSULE PO SCH ×2 (07:52→20:15)
[2020-05-26] MEDS: levoTHYROXINE 75mcg tablet PO SCH (07:52)
[2020-05-26] MEDS: aztreonam inj. 500 MG in normal saline 100ml IV soln 100 ML IV SCH ×2 (07:52→16:37)
[2020-05-26] MEDS: famotidine/PF 10 mg/ml inj IV SCH ×2 (07:52→20:14)
[2020-05-26] MEDS: heparin, porcine 5000 units/ml vial SQ SCH ×2 (07:53→20:15)
[2020-05-26] MEDS: mupirocin 2% nasal ointment 1gm UD NS SCH ×2 (07:53→20:14)
[2020-05-26] MEDS: insulin regular, human U-100 3ml vial - multi-dose SQ SCH ×3 (08:07→20:35)
--- NOTE | 2020-05-26 10:34 | NUR ---
F/u 05/26: Pt tolerating PEG feeds at goal GRV WNL. Colostomy 750ml output yesterday w/ 200ml out thus far today. Phos 7.8 without binder though pending AIR REDUCTION EQUIPMENT OPERATOR BSS near future so no binder at this time per surgeon partner. Will continue to monitor. Recommendations: 1. Vital High Protein via PEG at 85ml/hr goal; to provide 2040ml volume, 1714ml water, 2040kcals, and 173g protein. 2. Mayito BID for wound healing needs; mix one packet w/ 120ml free water and flush tube w/ 30ml before and after each administration; total 360ml free water daily 3. PALB Q /; daily wts 4. Phos binder if MD agreeable 5. bowel care per rx Addendum: 05/26/20 at [address] Amended: Links added.
[2020-05-26] MEDS: acetaminophen 325mg/10.15ml oral unit dose solution OGT PRN (10:47)
[2020-05-26] MEDS ORDERED: vancomycin/NS 1 GM ADD-VANTAGE 250 ML IV PRN (12:00)
--- NOTE | 2020-05-26 18:20 | NUR ---
Problems reprioritized. Patient report given, questions answered & plan of care reviewed with Anne GASTELUM.
[2020-05-26] MEDS ORDERED: HYDROcodone/acetaminophen 10/325mg tab PO PRN (20:15)
[2020-05-26] MEDS ORDERED: HYDROcodone/acetaminophen 5mg/325mg tablet PO PRN (20:15)
[2020-05-26] MEDS: risperiDONE 0.5mg tablet PO SCH (20:21)
[2020-05-26] MEDS: insulin glargine (Lantus) pen - multi-dose SQ SCH (20:36)
[2020-05-26] MEDS: ondansetron/PF 4mg/2ml inj IV PRN (20:53)
[2020-05-27] VITALS (23 sets, daily range): BP systolic 99–158; BP diastolic 63–100
[2020-05-27] MEDS: aztreonam inj. 500 MG in normal saline 100ml IV soln 100 ML IV SCH ×3 (00:08→15:51)
[2020-05-27] MEDS: metroNIDAZOLE-Flagyl 500mg/NS 100ML IVPB IV SCH ×3 (00:53→15:51)
[2020-05-27] MEDS: ipratropium/albuterol 3ml nebule NEB SCH ×6 (02:31→22:59)
[2020-05-27] MEDS: insulin regular, human U-100 3ml vial - multi-dose SQ SCH ×3 (02:43→21:02)
[2020-05-27 03:00] LABS: BASOPHILS % (AUTO) 0.4 % (0-1); EOSINOPHILS % (AUTO) 0.7 % (0-6); LYMPHOCYTES # (AUTO) 0.5 X10'3 (1.1-4.8); LYMPHOCYTES % (AUTO) 7.8 % (21-51); MEAN CORPUSCULAR HEMOGLOBIN 29.9 PG (27.0-31.0); MEAN CORPUSCULAR HGB CONC 31.6 g/dL (33.0-36.5); MEAN CORPUSCULAR VOLUME 94.6 FL (78-98); MEAN PLATELET VOLUME 8.9 FL (7.4-10.4); MONOCYTES # (AUTO) 0.7 X10'3 (0-0.9); MONOCYTES % (AUTO) 10.4 % (2-12); NEUTROPHILS # (AUTO) 5.4 X10'3 (1.8-7.7); NEUTROPHILS % (AUTO) 80.7 % (42-75); PLATELET COUNT 290 X10'3 (140-440); RED BLOOD COUNT 2.29 X10'6 (4.70-6.10); RED CELL DISTRIBUTION WIDTH 19.1 % (11.5-14.5); WHITE BLOOD COUNT 6.7 X10'3 (4.5-11.0)
[2020-05-27] MEDS: VANCOMYCIN LEVEL IV SCH (03:00)
[2020-05-27 03:02] LABS: HEMOGLOBIN 6.8 g/dl (14.0-17.9)
[2020-05-27 03:03] LABS: HEMATOCRIT 21.7 % (42.0-52.0)
[2020-05-27 03:13] LABS: ALBUMIN 1.2 G/DL (3.4-5.0); ALBUMIN/GLOBULIN RATIO 0.2 (1.1-1.5); ALKALINE PHOSPHATASE 627 IU/L (46-116); ANION GAP 13 (8-16); BILIRUBIN,TOTAL 1.1 MG/DL (0.1-1.0); BLOOD UREA NITROGEN 117 MG/DL (7-18); BUN/CREATININE RATIO 34.8 (5.4-32.0); CALCIUM 7.6 MG/DL (8.5-10.1); CHLORIDE 112 MMOL/L (99-107); CREATININE 3.36 MG/DL (0.60-1.10); GLUCOSE 128 MG/DL (70-104); MAGNESIUM 2.3 MG/DL (1.5-2.4); POTASSIUM 4.4 MMOL/L (3.5-5.1); SODIUM 148 MMOL/L (135-145); TOTAL CARBON DIOXIDE 22.9 MMOL/L (24-32); TOTAL PROTEIN 6.3 G/DL (6.4-8.2); VANCOMYCIN,RANDOM 25.1 UG/ML; eGFR 19 ML/MIN
[2020-05-27 03:37] LABS: ALANINE AMINOTRANSFERASE 49 U/L (12-78); ASPARTATE AMINO TRANSFERASE 52 U/L (10-37)
[2020-05-27 04:14] LABS: ANISOCYTOSIS 2+; ELLIPTOCYTES FEW; PLATELET ESTIMATE NORMAL; POLYCHROMASIA FEW; TEAR DROP CELLS FEW
[2020-05-27 04:15] LABS: HYPOCHROMASIA 1+
[2020-05-27 04:16] LABS: ROULEAUX 1+
[2020-05-27 04:17] LABS: SCHISTOCYTES FEW
--- NOTE | 2020-05-27 06:43 | NUR ---
Problems reprioritized. Patient report given, questions answered & plan of care reviewed with Rossana GASTELUM.
--- NOTE | 2020-05-27 07:48 | NUR ---
Patient in room ICU 2042. I have received report from Anne GASTELUM and had the opportunity to ask questions and assume patient care.
[2020-05-27] MEDS: methylnaltrexone br 12mg/0.6ml inj***SubQ only SQ SCH (08:00)
[2020-05-27] MEDS: levoTHYROXINE 75mcg tablet PO SCH (08:16)
[2020-05-27] MEDS: scopolamine 1.5mg patch.TD72 TD SCH (08:17)
[2020-05-27] MEDS: famotidine/PF 10 mg/ml inj IV SCH ×2 (08:17→20:38)
[2020-05-27] MEDS: lactobacillus rhamnosus 10,000 MMU CELLS/CAPSULE PO SCH ×2 (08:18→20:39)
[2020-05-27] MEDS: mupirocin 2% nasal ointment 1gm UD NS SCH ×2 (08:18→20:38)
[2020-05-27] MEDS: heparin, porcine 5000 units/ml vial SQ SCH ×2 (08:18→20:39)
--- NOTE | 2020-05-27 18:04 | NUR ---
Problems reprioritized. Patient report given, questions answered & plan of care reviewed with .
--- NOTE | 2020-05-27 18:15 | NUR ---
Patient in room ICU 2042. I have received report from Rossana GASTELUM and had the opportunity to ask questions and assume patient care.
[2020-05-27] MEDS: risperiDONE 0.5mg tablet PO SCH (20:39)
[2020-05-27] MEDS: insulin glargine (Lantus) pen - multi-dose SQ SCH (21:03)
[2020-05-28] VITALS (24 sets, daily range): BP systolic 109–143; BP diastolic 68–93
[2020-05-28] MEDS: aztreonam inj. 500 MG in normal saline 100ml IV soln 100 ML IV SCH ×3 (00:32→15:27)
[2020-05-28] MEDS: metroNIDAZOLE-Flagyl 500mg/NS 100ML IVPB IV SCH ×3 (01:15→15:27)
[2020-05-28] MEDS: ipratropium/albuterol 3ml nebule NEB SCH ×6 (02:53→22:58)
[2020-05-28] MEDS: insulin regular, human U-100 3ml vial - multi-dose SQ SCH ×4 (03:00→21:05)
[2020-05-28] MEDS: VANCOMYCIN LEVEL IV SCH (03:00)
[2020-05-28 03:47] LABS: BASOPHILS % (AUTO) 0.6 % (0-1); EOSINOPHILS # (AUTO) 0.1 X10'3 (0-0.9); LYMPHOCYTES # (AUTO) 0.6 X10'3 (1.1-4.8); LYMPHOCYTES % (AUTO) 8.2 % (21-51); MEAN CORPUSCULAR HEMOGLOBIN 30.7 PG (27.0-31.0); MEAN CORPUSCULAR HGB CONC 32.3 g/dL (33.0-36.5); MEAN CORPUSCULAR VOLUME 94.9 FL (78-98); MEAN PLATELET VOLUME 8.8 FL (7.4-10.4); MONOCYTES # (AUTO) 0.7 X10'3 (0-0.9); MONOCYTES % (AUTO) 8.6 % (2-12); NEUTROPHILS # (AUTO) 6.2 X10'3 (1.8-7.7); NEUTROPHILS % (AUTO) 81.6 % (42-75); PLATELET COUNT 289 X10'3 (140-440); RED BLOOD COUNT 2.28 X10'6 (4.70-6.10); RED CELL DISTRIBUTION WIDTH 18.9 % (11.5-14.5); WHITE BLOOD COUNT 7.6 X10'3 (4.5-11.0)
[2020-05-28 03:49] LABS: ALANINE AMINOTRANSFERASE 39 U/L (12-78); ALBUMIN 1.2 G/DL (3.4-5.0); ALBUMIN/GLOBULIN RATIO 0.2 (1.1-1.5); ALKALINE PHOSPHATASE 602 IU/L (46-116); ANION GAP 12 (8-16); ASPARTATE AMINO TRANSFERASE 41 U/L (10-37); BILIRUBIN,TOTAL 1.1 MG/DL (0.1-1.0); BLOOD UREA NITROGEN 119 MG/DL (7-18); BUN/CREATININE RATIO 37.7 (5.4-32.0); CHLORIDE 110 MMOL/L (99-107); CREATININE 3.16 MG/DL (0.60-1.10); GLUCOSE 114 MG/DL (70-104); MAGNESIUM 2.1 MG/DL (1.5-2.4); POTASSIUM 4.6 MMOL/L (3.5-5.1); SODIUM 145 MMOL/L (135-145); TOTAL CARBON DIOXIDE 23.2 MMOL/L (24-32); TOTAL PROTEIN 6.6 G/DL (6.4-8.2); VANCOMYCIN,RANDOM 22.5 UG/ML; eGFR 20 ML/MIN
[2020-05-28] MEDS ORDERED: LORazepam 2 mg/ml vial IV PRN (03:50)
[2020-05-28 03:59] LABS: HEMATOCRIT 21.6 % (42.0-52.0)
[2020-05-28 04:44] LABS: PLATELET ESTIMATE NORMAL
[2020-05-28 04:45] LABS: ANISOCYTOSIS 2+; HYPOCHROMASIA 1+; POLYCHROMASIA FEW
[2020-05-28 04:46] LABS: ELLIPTOCYTES FEW; LARGE PLATELETS FEW; STOMATOCYTES FEW
[2020-05-28 04:47] LABS: SCHISTOCYTES FEW
[2020-05-28] MEDS: acetaminophen 325mg/10.15ml oral unit dose solution OGT PRN (05:57)
--- NOTE | 2020-05-28 06:18 | NUR ---
Patient in room ICU 2042. I have received report from NIRAV Ge and had the opportunity to ask questions and assume patient care. Addendum: 05/29/20 at 0620 by Aparna Silva RN WRONG TIME
--- NOTE | 2020-05-28 06:45 | NUR ---
Problems reprioritized. Patient report given, questions answered & plan of care reviewed with Luma GASTELUM.
[2020-05-28] MEDS: mupirocin 2% nasal ointment 1gm UD NS SCH ×2 (07:50→20:50)
[2020-05-28] MEDS: famotidine/PF 10 mg/ml inj IV SCH ×2 (07:50→20:50)
[2020-05-28] MEDS: lactobacillus rhamnosus 10,000 MMU CELLS/CAPSULE PO SCH ×2 (07:50→20:50)
[2020-05-28] MEDS: levoTHYROXINE 75mcg tablet PO SCH (07:51)
[2020-05-28] MEDS: heparin, porcine 5000 units/ml vial SQ SCH ×2 (07:52→20:50)
--- NOTE | 2020-05-28 10:31 | NUR ---
Reassessment: Pt tolerating PEG TF at goal and advanced to pureed/thin diet per INSTRUCTOR WATCH ASSEMBLY recs PO 0-25% overall poor though still meeting nutrition needs. Colostomy 420ml output WNL. Receiving Mayito w/ TF for wound healing needs. Will continue to monitor for PO hx and EN tolerance. Only consider weaning EN IF PO consistently ~65% avg meals. Recommendations: 1. Vital High Protein via PEG at 85ml/hr goal; to provide 2040ml volume, 1714ml water, 2040kcals, and 173g protein. 2. Mayito BID for wound healing needs; mix one packet w/ 120ml free water and flush tube w/ 30ml before and after each administration; total 360ml free water daily 3. PALB Q /; daily wts 4. Phos binder if MD agreeable 5. Only consider weaning EN IF PO consistently at least ~65% avg meals 6. bowel care per rx Addendum: 05/28/20 at [address] Amended: Links added.
[2020-05-28] MEDS: epoetin 20,000 units/ml inj SQ SCH (10:50)
[2020-05-28 10:51] LABS: FERRITIN 778 NG/ML (26-388)
[2020-05-28] MEDS: ondansetron/PF 4mg/2ml inj IV PRN (10:51)
[2020-05-28 11:42] LABS: % IRON SATURATION 31 % (11-46); IRON 33 UG/DL (53-167); TOTAL IRON BINDING CAPACITY 106 UG/DL (259-388)
--- NOTE | 2020-05-28 16:24 | NUR ---
PT PLACED ON PASSY FLOYD VALVE AT 1500. PT SHOWING NO SIGNS OF SOB/DISTRESS. Addendum: 05/28/20 at 1624 [address] RT Amended: Links added.
--- NOTE | 2020-05-28 18:15 | NUR ---
Patient in room ICU 2042. I have received report from NIRAV Ge and had the opportunity to ask questions and assume patient care.
--- NOTE | 2020-05-28 18:37 | NUR ---
Patient report given, questions answered & plan of care reviewed with Wilda GASTELUM.
[2020-05-28] MEDS: risperiDONE 0.5mg tablet PO SCH (20:51)
[2020-05-28] MEDS: insulin glargine (Lantus) pen - multi-dose SQ SCH (21:06)
[2020-05-29] VITALS (24 sets, daily range): BP systolic 111–138; BP diastolic 68–95
[2020-05-29] MEDS: aztreonam inj. 500 MG in normal saline 100ml IV soln 100 ML IV SCH ×3 (00:27→15:24)
[2020-05-29] MEDS: metroNIDAZOLE-Flagyl 500mg/NS 100ML IVPB IV SCH ×3 (00:27→15:24)
[2020-05-29] MEDS: insulin regular, human U-100 3ml vial - multi-dose SQ SCH ×4 (02:46→20:27)
[2020-05-29] MEDS: VANCOMYCIN LEVEL IV SCH (02:47)
[2020-05-29] MEDS: ipratropium/albuterol 3ml nebule NEB SCH ×6 (03:08→23:15)
[2020-05-29 03:12] LABS: BASOPHILS % (AUTO) 0.5 % (0-1); EOSINOPHILS % (AUTO) 0.6 % (0-6); HEMATOCRIT 23.2 % (42.0-52.0); HEMOGLOBIN 7.4 g/dl (14.0-17.9); LYMPHOCYTES # (AUTO) 0.7 X10'3 (1.1-4.8); LYMPHOCYTES % (AUTO) 8.4 % (21-51); MEAN CORPUSCULAR HGB CONC 31.9 g/dL (33.0-36.5); MEAN CORPUSCULAR VOLUME 94.2 FL (78-98); MEAN PLATELET VOLUME 8.6 FL (7.4-10.4); MONOCYTES # (AUTO) 0.8 X10'3 (0-0.9); MONOCYTES % (AUTO) 9.3 % (2-12); NEUTROPHILS # (AUTO) 6.8 X10'3 (1.8-7.7); NEUTROPHILS % (AUTO) 81.2 % (42-75); PLATELET COUNT 308 X10'3 (140-440); RED BLOOD COUNT 2.47 X10'6 (4.70-6.10); RED CELL DISTRIBUTION WIDTH 18.7 % (11.5-14.5); WHITE BLOOD COUNT 8.3 X10'3 (4.5-11.0)
[2020-05-29 03:31] LABS: ALANINE AMINOTRANSFERASE 37 U/L (12-78); ALBUMIN 1.3 G/DL (3.4-5.0); ALBUMIN/GLOBULIN RATIO 0.2 (1.1-1.5); ALKALINE PHOSPHATASE 558 IU/L (46-116); ANION GAP 9 (8-16); ASPARTATE AMINO TRANSFERASE 32 U/L (10-37); BLOOD UREA NITROGEN 118 MG/DL (7-18); CALCIUM 8.5 MG/DL (8.5-10.1); CHLORIDE 113 MMOL/L (99-107); CREATININE 2.88 MG/DL (0.60-1.10); GLUCOSE 118 MG/DL (70-104); MAGNESIUM 2.2 MG/DL (1.5-2.4); POTASSIUM 4.4 MMOL/L (3.5-5.1); SODIUM 148 MMOL/L (135-145); TOTAL CARBON DIOXIDE 25.7 MMOL/L (24-32); TOTAL PROTEIN 7.2 G/DL (6.4-8.2); VANCOMYCIN,RANDOM 17.6 UG/ML; eGFR 23 ML/MIN
--- NOTE | 2020-05-29 06:22 | NUR ---
Problems reprioritized. Patient report given, questions answered & plan of care reviewed with NIRAV Ge.
[2020-05-29] MEDS: heparin, porcine 5000 units/ml vial SQ SCH ×2 (07:08→20:02)
[2020-05-29] MEDS: levoTHYROXINE 75mcg tablet PO SCH (07:08)
[2020-05-29] MEDS: lactobacillus rhamnosus 10,000 MMU CELLS/CAPSULE PO SCH ×2 (07:08→20:02)
[2020-05-29] MEDS: famotidine/PF 10 mg/ml inj IV SCH ×2 (07:08→20:02)
[2020-05-29] MEDS: mupirocin 2% nasal ointment 1gm UD NS SCH ×2 (07:09→20:02)
[2020-05-29] MEDS: methylnaltrexone br 12mg/0.6ml inj***SubQ only SQ SCH (07:09)
--- NOTE | 2020-05-29 18:20 | NUR ---
Patient in room ICU 2042. I have received report from NIRAV Ge and had the opportunity to ask questions and assume patient care.
[2020-05-29] MEDS: risperiDONE 0.5mg tablet PO SCH (20:02)
[2020-05-29] MEDS: insulin glargine (Lantus) pen - multi-dose SQ SCH (20:28)
[2020-05-30] VITALS (24 sets, daily range): BP systolic 124–142; BP diastolic 72–96
[2020-05-30] MEDS: metroNIDAZOLE-Flagyl 500mg/NS 100ML IVPB IV SCH
[2020-05-30] MEDS: aztreonam inj. 500 MG in normal saline 100ml IV soln 100 ML IV SCH (00:01)
[2020-05-30] MEDS: VANCOMYCIN LEVEL IV SCH (03:00)
[2020-05-30] MEDS: ipratropium/albuterol 3ml nebule NEB SCH ×6 (03:03→23:48)
[2020-05-30 03:18] LABS: ALANINE AMINOTRANSFERASE 32 U/L (12-78); ALBUMIN 1.3 G/DL (3.4-5.0); ALBUMIN/GLOBULIN RATIO 0.2 (1.1-1.5); ALKALINE PHOSPHATASE 500 IU/L (46-116); ANION GAP 12 (8-16); ASPARTATE AMINO TRANSFERASE 33 U/L (10-37); BILIRUBIN,TOTAL 0.9 MG/DL (0.1-1.0); BLOOD UREA NITROGEN 114 MG/DL (7-18); BUN/CREATININE RATIO 43.7 (5.4-32.0); CALCIUM 8.6 MG/DL (8.5-10.1); CHLORIDE 117 MMOL/L (99-107); CREATININE 2.61 MG/DL (0.60-1.10); GLUCOSE 119 MG/DL (70-104); MAGNESIUM 2.1 MG/DL (1.5-2.4); POTASSIUM 4.4 MMOL/L (3.5-5.1); SODIUM 153 MMOL/L (135-145); TOTAL CARBON DIOXIDE 24.5 MMOL/L (24-32); TOTAL PROTEIN 7.2 G/DL (6.4-8.2); VANCOMYCIN,RANDOM 13.6 UG/ML; eGFR 26 ML/MIN
[2020-05-30] MEDS: insulin regular, human U-100 3ml vial - multi-dose SQ SCH ×4 (03:18→19:59)
[2020-05-30 03:23] LABS: BASOPHILS % (AUTO) 0.5 % (0-1); EOSINOPHILS # (AUTO) 0.1 X10'3 (0-0.9); EOSINOPHILS % (AUTO) 0.8 % (0-6); HEMATOCRIT 22.2 % (42.0-52.0); HEMOGLOBIN 7.1 g/dl (14.0-17.9); LYMPHOCYTES # (AUTO) 0.7 X10'3 (1.1-4.8); LYMPHOCYTES % (AUTO) 9.1 % (21-51); MEAN CORPUSCULAR HEMOGLOBIN 30.1 PG (27.0-31.0); MEAN CORPUSCULAR HGB CONC 31.9 g/dL (33.0-36.5); MEAN CORPUSCULAR VOLUME 94.3 FL (78-98); MEAN PLATELET VOLUME 8.8 FL (7.4-10.4); MONOCYTES # (AUTO) 0.7 X10'3 (0-0.9); MONOCYTES % (AUTO) 8.9 % (2-12); NEUTROPHILS # (AUTO) 6.3 X10'3 (1.8-7.7); NEUTROPHILS % (AUTO) 80.7 % (42-75); PLATELET COUNT 301 X10'3 (140-440); RED BLOOD COUNT 2.36 X10'6 (4.70-6.10); RED CELL DISTRIBUTION WIDTH 18.7 % (11.5-14.5); WHITE BLOOD COUNT 7.8 X10'3 (4.5-11.0)
--- NOTE | 2020-05-30 06:22 | NUR ---
Problems reprioritized. Patient report given, questions answered & plan of care reviewed with NIRAV Ge.
[2020-05-30 06:43] LABS: ANISOCYTOSIS 2+; HYPOCHROMASIA 1+; PLATELET ESTIMATE NORMAL; POIKILOCYTOSIS FEW; POLYCHROMASIA FEW
[2020-05-30] MEDS ORDERED: NORepinephrine 8mg/ 250ml NS 250 ML IV ONE (06:56)
[2020-05-30] MEDS: levoTHYROXINE 75mcg tablet PO SCH (07:34)
[2020-05-30] MEDS: famotidine/PF 10 mg/ml inj IV SCH ×2 (07:34→19:51)
[2020-05-30] MEDS: heparin, porcine 5000 units/ml vial SQ SCH ×2 (07:34→19:51)
[2020-05-30] MEDS: lactobacillus rhamnosus 10,000 MMU CELLS/CAPSULE PO SCH ×2 (07:34→19:51)
[2020-05-30] MEDS: mupirocin 2% nasal ointment 1gm UD NS SCH ×2 (07:35→19:51)
[2020-05-30] MEDS: epoetin 20,000 units/ml inj SQ SCH (09:25)
[2020-05-30] MEDS: scopolamine 1.5mg patch.TD72 TD SCH (10:17)
--- NOTE | 2020-05-30 18:13 | NUR ---
Patient report given, questions answered & plan of care reviewed with Wilda GASTELUM.
--- NOTE | 2020-05-30 18:20 | NUR ---
Patient in room ICU 2042. I have received report from NIRAV Ge and had the opportunity to ask questions and assume patient care.
[2020-05-30] MEDS: risperiDONE 0.5mg tablet PO SCH (20:00)
[2020-05-30] MEDS: insulin glargine (Lantus) pen - multi-dose SQ SCH (20:00)
[2020-05-31] VITALS (24 sets, daily range): BP systolic 113–149; BP diastolic 69–101
[2020-05-31] MEDS: insulin regular, human U-100 3ml vial - multi-dose SQ SCH ×4 (02:35→19:31)
[2020-05-31] MEDS: VANCOMYCIN LEVEL IV SCH (03:00)
[2020-05-31] MEDS: ipratropium/albuterol 3ml nebule NEB SCH ×6 (03:04→23:03)
[2020-05-31 05:48] LABS: BASOPHILS # (AUTO) 0.1 X10'3 (0-0.2); BASOPHILS % (AUTO) 0.7 % (0-1); EOSINOPHILS # (AUTO) 0.1 X10'3 (0-0.9); HEMATOCRIT 22.6 % (42.0-52.0); HEMOGLOBIN 7.2 g/dl (14.0-17.9); LYMPHOCYTES # (AUTO) 0.8 X10'3 (1.1-4.8); LYMPHOCYTES % (AUTO) 11.3 % (21-51); MEAN CORPUSCULAR HEMOGLOBIN 30.2 PG (27.0-31.0); MEAN CORPUSCULAR HGB CONC 31.9 g/dL (33.0-36.5); MEAN CORPUSCULAR VOLUME 94.7 FL (78-98); MEAN PLATELET VOLUME 8.9 FL (7.4-10.4); MONOCYTES # (AUTO) 0.7 X10'3 (0-0.9); MONOCYTES % (AUTO) 9.2 % (2-12); NEUTROPHILS # (AUTO) 5.7 X10'3 (1.8-7.7); NEUTROPHILS % (AUTO) 77.8 % (42-75); PLATELET COUNT 314 X10'3 (140-440); RED BLOOD COUNT 2.39 X10'6 (4.70-6.10); RED CELL DISTRIBUTION WIDTH 19.3 % (11.5-14.5); WHITE BLOOD COUNT 7.3 X10'3 (4.5-11.0)
[2020-05-31 06:17] LABS: ALANINE AMINOTRANSFERASE 31 U/L (12-78); ALBUMIN 1.3 G/DL (3.4-5.0); ALBUMIN/GLOBULIN RATIO 0.2 (1.1-1.5); ALKALINE PHOSPHATASE 487 IU/L (46-116); ANION GAP 11 (8-16); ASPARTATE AMINO TRANSFERASE 30 U/L (10-37); BILIRUBIN,TOTAL 0.9 MG/DL (0.1-1.0); BLOOD UREA NITROGEN 110 MG/DL (7-18); BUN/CREATININE RATIO 47.2 (5.4-32.0); CALCIUM 8.6 MG/DL (8.5-10.1); CHLORIDE 121 MMOL/L (99-107); CREATININE 2.33 MG/DL (0.60-1.10); GLUCOSE 81 MG/DL (70-104); MAGNESIUM 1.9 MG/DL (1.5-2.4); POTASSIUM 4.2 MMOL/L (3.5-5.1); TOTAL CARBON DIOXIDE 25.8 MMOL/L (24-32); TOTAL PROTEIN 7.3 G/DL (6.4-8.2); eGFR 29 ML/MIN
[2020-05-31 06:19] LABS: SODIUM 158 MMOL/L (135-145)
--- NOTE | 2020-05-31 06:30 | NUR ---
Patient in room ICU 2042. I have received report from NIRAV Braun and had the opportunity to ask questions and assume patient care.
--- NOTE | 2020-05-31 06:30 | NUR ---
Na Kermit. Tameka Jennings NP notified. order for 200 mL free water flush every 4 hours.
--- NOTE | 2020-05-31 06:33 | NUR ---
Problems reprioritized. Patient report given, questions answered & plan of care reviewed with NIRAV Bowman.
[2020-05-31 07:16] LABS: ANISOCYTOSIS 2+; PLATELET ESTIMATE NORMAL; POLYCHROMASIA 1+; SCHISTOCYTES FEW
[2020-05-31 07:17] LABS: ELLIPTOCYTES FEW; HYPOCHROMASIA 1+
[2020-05-31] MEDS: methylnaltrexone br 12mg/0.6ml inj***SubQ only SQ SCH (07:54)
[2020-05-31] MEDS: mupirocin 2% nasal ointment 1gm UD NS SCH ×2 (07:54→19:23)
[2020-05-31] MEDS: famotidine/PF 10 mg/ml inj IV SCH ×2 (07:54→19:22)
[2020-05-31] MEDS: levoTHYROXINE 75mcg tablet PO SCH (07:54)
[2020-05-31] MEDS: heparin, porcine 5000 units/ml vial SQ SCH ×2 (07:54→19:23)
[2020-05-31] MEDS: lactobacillus rhamnosus 10,000 MMU CELLS/CAPSULE PO SCH ×2 (07:54→19:22)
--- NOTE | 2020-05-31 16:30 | NUR ---
[facility] [facility]ui
--- NOTE | 2020-05-31 18:20 | NUR ---
Patient in room ICU 2042. I have received report from NIRAV Bowman and had the opportunity to ask questions and assume patient care.
[2020-05-31] MEDS: insulin glargine (Lantus) pen - multi-dose SQ SCH (19:32)
[2020-05-31] MEDS: risperiDONE 0.5mg tablet PO SCH (20:09)
[2020-06-01] VITALS (24 sets, daily range): BP systolic 122–142; BP diastolic 77–99
[2020-06-01] MEDS: insulin regular, human U-100 3ml vial - multi-dose SQ SCH ×4 (01:44→21:09)
[2020-06-01] MEDS: ipratropium/albuterol 3ml nebule NEB SCH ×6 (02:48→23:26)
[2020-06-01 05:34] LABS: BASOPHILS % (AUTO) 0.4 % (0-1); EOSINOPHILS # (AUTO) 0.1 X10'3 (0-0.9); HEMATOCRIT 22.2 % (42.0-52.0); LYMPHOCYTES # (AUTO) 0.9 X10'3 (1.1-4.8); MEAN CORPUSCULAR HEMOGLOBIN 30.1 PG (27.0-31.0); MEAN CORPUSCULAR HGB CONC 31.5 g/dL (33.0-36.5); MEAN CORPUSCULAR VOLUME 95.4 FL (78-98); MEAN PLATELET VOLUME 8.9 FL (7.4-10.4); MONOCYTES # (AUTO) 0.7 X10'3 (0-0.9); NEUTROPHILS # (AUTO) 5.3 X10'3 (1.8-7.7); NEUTROPHILS % (AUTO) 75.6 % (42-75); PLATELET COUNT 305 X10'3 (140-440); RED BLOOD COUNT 2.33 X10'6 (4.70-6.10); RED CELL DISTRIBUTION WIDTH 19.7 % (11.5-14.5)
[2020-06-01 06:04] LABS: ALANINE AMINOTRANSFERASE 29 U/L (12-78); ALBUMIN 1.4 G/DL (3.4-5.0); ALBUMIN/GLOBULIN RATIO 0.2 (1.1-1.5); ALKALINE PHOSPHATASE 455 IU/L (46-116); ANION GAP 12 (8-16); ASPARTATE AMINO TRANSFERASE 35 U/L (10-37); BILIRUBIN,TOTAL 0.9 MG/DL (0.1-1.0); BLOOD UREA NITROGEN 104 MG/DL (7-18); CALCIUM 8.1 MG/DL (8.5-10.1); CHLORIDE 116 MMOL/L (99-107); CREATININE 2.04 MG/DL (0.60-1.10); GLUCOSE 115 MG/DL (70-104); MAGNESIUM 1.7 MG/DL (1.5-2.4); POTASSIUM 4.2 MMOL/L (3.5-5.1); SODIUM 152 MMOL/L (135-145); TOTAL CARBON DIOXIDE 24.3 MMOL/L (24-32); TOTAL PROTEIN 7.4 G/DL (6.4-8.2); eGFR 34 ML/MIN
--- NOTE | 2020-06-01 06:12 | NUR ---
Hgb 7.0 Hct 22.2 called to Tameka Jennings NP. No new orders at this time.
--- NOTE | 2020-06-01 06:14 | NUR ---
Problems reprioritized. Patient report given, questions answered & plan of care reviewed with NIRAV Bowman.
[2020-06-01] MEDS: levoTHYROXINE 75mcg tablet PO SCH (07:51)
[2020-06-01] MEDS: lactobacillus rhamnosus 10,000 MMU CELLS/CAPSULE PO SCH ×2 (07:51→20:52)
[2020-06-01] MEDS: famotidine/PF 10 mg/ml inj IV SCH ×2 (07:51→20:51)
[2020-06-01] MEDS: mupirocin 2% nasal ointment 1gm UD NS SCH ×2 (07:51→20:52)
[2020-06-01] MEDS: heparin, porcine 5000 units/ml vial SQ SCH ×2 (07:52→20:51)
[2020-06-01 07:53] LABS: ANISOCYTOSIS 2+; PLATELET ESTIMATE NORMAL; POLYCHROMASIA FEW
[2020-06-01 07:54] LABS: HYPOCHROMASIA 1+; LARGE PLATELETS FEW
[2020-06-01 07:55] LABS: SCHISTOCYTES 1+
--- NOTE | 2020-06-01 11:16 | NUR ---
F/u 06/01: Pt TF halved today per sustainability executive director given pt eating. Not indicated at this time given PO 0-25% avg meals fluctuating w/ refusals and pt will not meet protein/kcal needs for wound healing post-op. Colostomy output 300ml WNL. Na 152 today up to 158 yesterday now off HD w/ 200ml Q4 free water started today per EMR. Will continue to monitor for PO tolerance and nutrition support needs. Recommendations: 1. Vital High Protein via PEG at 85ml/hr goal; to provide 2040ml volume, 1714ml water, 2040kcals, and 173g protein. 2. Mayito BID for wound healing needs; mix one packet w/ 120ml free water and flush tube w/ 30ml before and after each administration; total 360ml free water daily 3. PALB Q /; daily wts 4. Phos binder if MD agreeable 5. Only consider weaning EN IF PO consistently at least ~65% avg meals 6. bowel care per rx Addendum: 06/01/20 at [address] Amended: Links added.
[2020-06-01 11:26] LABS: PREALBUMIN 16.2 MG/DL (19-36)
[2020-06-01] MEDS ORDERED: acetaminophen 325mg/10.15ml oral unit dose solution PEG PRN ×2 (11:45)
[2020-06-01] MEDS ORDERED: dextrose ORAL solution 15 GM/59 ML bottle PEG PRN ×2 (11:46)
--- NOTE | 2020-06-01 14:43 | NUR ---
TF Consult: FELICIA rodriguez/porsche RN accidental consult. See prior note for FELICIA recs. Addendum: 06/01/20 at [address] Amended: Links added.
--- NOTE | 2020-06-01 15:22 | NUR ---
Per Hao replace K+ as needed and an order for a one time dose of 30mew kphos Addendum: 06/01/20 at 1524 by Kary Pastrana RN VOID in correct pt
--- NOTE | 2020-06-01 18:13 | NUR ---
Problems reprioritized. Patient report given, questions answered & plan of care reviewed with NIRAV Saunders.
[2020-06-01] MEDS: risperiDONE 0.5mg tablet PEG SCH (20:52)
[2020-06-01] MEDS: insulin glargine (Lantus) pen - multi-dose SQ SCH (21:06)
[2020-06-02] VITALS (28 sets, daily range): BP systolic 108–157; BP diastolic 42–97
[2020-06-02] MEDS: ipratropium/albuterol 3ml nebule NEB SCH ×6 (03:00→23:44)
[2020-06-02 04:55] LABS: BASOPHILS % (AUTO) 0.6 % (0-1); EOSINOPHILS # (AUTO) 0.1 X10'3 (0-0.9); EOSINOPHILS % (AUTO) 1.3 % (0-6); LYMPHOCYTES # (AUTO) 0.9 X10'3 (1.1-4.8); LYMPHOCYTES % (AUTO) 13.8 % (21-51); MEAN CORPUSCULAR HEMOGLOBIN 29.7 PG (27.0-31.0); MEAN CORPUSCULAR HGB CONC 31.7 g/dL (33.0-36.5); MEAN CORPUSCULAR VOLUME 93.7 FL (78-98); MEAN PLATELET VOLUME 8.5 FL (7.4-10.4); MONOCYTES # (AUTO) 0.7 X10'3 (0-0.9); MONOCYTES % (AUTO) 10.3 % (2-12); NEUTROPHILS # (AUTO) 4.9 X10'3 (1.8-7.7); PLATELET COUNT 287 X10'3 (140-440); RED BLOOD COUNT 2.18 X10'6 (4.70-6.10); RED CELL DISTRIBUTION WIDTH 18.7 % (11.5-14.5); WHITE BLOOD COUNT 6.6 X10'3 (4.5-11.0)
[2020-06-02 04:57] LABS: HEMATOCRIT 20.4 % (42.0-52.0); HEMOGLOBIN 6.5 g/dl (14.0-17.9)
--- NOTE | 2020-06-02 05:06 | NUR ---
Chadwick AGRAWAL informed of Pt's H & H orders received.
[2020-06-02 05:28] LABS: ALANINE AMINOTRANSFERASE 34 U/L (12-78); ALBUMIN 1.3 G/DL (3.4-5.0); ALBUMIN/GLOBULIN RATIO 0.2 (1.1-1.5); ALKALINE PHOSPHATASE 436 IU/L (46-116); ANION GAP 11 (8-16); ASPARTATE AMINO TRANSFERASE 33 U/L (10-37); BILIRUBIN,TOTAL 0.8 MG/DL (0.1-1.0); BLOOD UREA NITROGEN 90 MG/DL (7-18); BUN/CREATININE RATIO 48.6 (5.4-32.0); CALCIUM 8.1 MG/DL (8.5-10.1); CHLORIDE 117 MMOL/L (99-107); CREATININE 1.85 MG/DL (0.60-1.10); GLUCOSE 112 MG/DL (70-104); POTASSIUM 3.7 MMOL/L (3.5-5.1); SODIUM 152 MMOL/L (135-145); TOTAL CARBON DIOXIDE 24.2 MMOL/L (24-32); TOTAL PROTEIN 7.1 G/DL (6.4-8.2); eGFR 38 ML/MIN
--- NOTE | 2020-06-02 06:18 | NUR ---
Patient in room ICU 2042. I have received report from NIRAV Garcia and had the opportunity to ask questions and assume patient care.
[2020-06-02] MEDS: lactobacillus rhamnosus 10,000 MMU CELLS/CAPSULE PO SCH ×2 (07:52→21:15)
[2020-06-02] MEDS: methylnaltrexone br 12mg/0.6ml inj***SubQ only SQ SCH (07:52)
[2020-06-02] MEDS: heparin, porcine 5000 units/ml vial SQ SCH ×3 (07:52→21:15)
[2020-06-02] MEDS: levoTHYROXINE 75mcg tablet PEG SCH (07:53)
[2020-06-02] MEDS: famotidine/PF 10 mg/ml inj IV SCH ×2 (07:53→21:15)
[2020-06-02] MEDS: mupirocin 2% nasal ointment 1gm UD NS SCH ×2 (07:54→21:14)
[2020-06-02] MEDS: epoetin 20,000 units/ml inj SQ SCH (08:18)
[2020-06-02] MEDS: scopolamine 1.5mg patch.TD72 TD SCH (12:33)
[2020-06-02] MEDS: insulin regular, human U-100 3ml vial - multi-dose SQ SCH ×2 (14:06→21:03)
[2020-06-02] MEDS: furosemide 40mg/4ml inj IV SCH (15:11)
--- NOTE | 2020-06-02 18:30 | NUR ---
Patient in room ICU 2042. I have received report from ngoc and had the opportunity to ask questions and assume patient care.
[2020-06-02] MEDS: insulin glargine (Lantus) pen - multi-dose SQ SCH (21:11)
[2020-06-02] MEDS: risperiDONE 0.5mg tablet PEG SCH (21:14)
[2020-06-03] VITALS (24 sets, daily range): BP systolic 123–151; BP diastolic 79–98
[2020-06-03] MEDS: furosemide 40mg/4ml inj IV SCH ×3 (00:16→16:02)
[2020-06-03] MEDS: insulin regular, human U-100 3ml vial - multi-dose SQ SCH ×4 (02:12→19:10)
[2020-06-03] MEDS: ipratropium/albuterol 3ml nebule NEB SCH ×6 (03:02→23:29)
--- NOTE | 2020-06-03 06:30 | NUR ---
Patient in room ICU 2042. I have received report from [facility] and had the opportunity to ask questions and assume patient care.
--- NOTE | 2020-06-03 06:33 | NUR ---
Problems reprioritized. Patient report given, questions answered & plan of care reviewed with Shazia GASTELUM.
--- NOTE | 2020-06-03 06:33 | NUR ---
I have reviewed Carla GASTELUM charting and I agree.
[2020-06-03 08:18] LABS: HEMATOCRIT 23.7 % (42.0-52.0); HEMOGLOBIN 7.7 g/dl (14.0-17.9); MEAN CORPUSCULAR HEMOGLOBIN 30.1 PG (27.0-31.0); MEAN CORPUSCULAR HGB CONC 32.5 g/dL (33.0-36.5); MEAN CORPUSCULAR VOLUME 92.9 FL (78-98); MEAN PLATELET VOLUME 8.8 FL (7.4-10.4); PLATELET COUNT 293 X10'3 (140-440); RED BLOOD COUNT 2.55 X10'6 (4.70-6.10); WHITE BLOOD COUNT 6.6 X10'3 (4.5-11.0)
[2020-06-03] MEDS: famotidine/PF 10 mg/ml inj IV SCH ×2 (08:26→21:15)
[2020-06-03] MEDS: heparin, porcine 5000 units/ml vial SQ SCH ×2 (08:27→21:16)
[2020-06-03] MEDS: lactobacillus rhamnosus 10,000 MMU CELLS/CAPSULE PO SCH ×2 (08:27→21:15)
[2020-06-03] MEDS: mupirocin 2% nasal ointment 1gm UD NS SCH ×2 (08:28→21:15)
[2020-06-03] MEDS: levoTHYROXINE 75mcg tablet PEG SCH (08:28)
[2020-06-03 10:01] LABS: ALANINE AMINOTRANSFERASE 40 U/L (12-78); ALBUMIN 1.5 G/DL (3.4-5.0); ALBUMIN/GLOBULIN RATIO 0.2 (1.1-1.5); ALKALINE PHOSPHATASE 473 IU/L (46-116); ANION GAP 10 (8-16); ASPARTATE AMINO TRANSFERASE 35 U/L (10-37); BILIRUBIN,TOTAL 0.8 MG/DL (0.1-1.0); BLOOD UREA NITROGEN 79 MG/DL (7-18); BUN/CREATININE RATIO 48.5 (5.4-32.0); CALCIUM 8.1 MG/DL (8.5-10.1); CHLORIDE 117 MMOL/L (99-107); CREATININE 1.63 MG/DL (0.60-1.10); GLUCOSE 102 MG/DL (70-104); MAGNESIUM 1.6 MG/DL (1.5-2.4); PHOSPHORUS 4.3 MG/DL (2.3-4.5); POTASSIUM 3.7 MMOL/L (3.5-5.1); SODIUM 152 MMOL/L (135-145); TOTAL CARBON DIOXIDE 24.6 MMOL/L (24-32); TOTAL PROTEIN 7.8 G/DL (6.4-8.2); eGFR 44 ML/MIN
--- NOTE | 2020-06-03 10:30 | NUR ---
Per MD- stop 200ml water flushes for now.
[2020-06-03 10:41] LABS: ANISOCYTOSIS 2+; PLATELET ESTIMATE NORMAL; TOTAL CELLS COUNTED 100
[2020-06-03 10:42] LABS: HYPOCHROMASIA 1+; SCHISTOCYTES FEW
--- NOTE | 2020-06-03 11:22 | NUR ---
F/u 06/06: Pt PO 0-25% avg meals refusing breakfast this AM; relief captain is agreeable to returning TF to prior goal rate today to better meet needs. Na 152 w/ free water to stop today in order to keep on pearl glue drier side per relief captain at rounds. Will continue to monitor for additional protein/kcal needs and PO acceptance. Recommendations: 1. Vital High Protein via PEG at 85ml/hr goal; to provide 2040ml volume, 1714ml water, 2040kcals, and 173g protein. 2. Mayito BID for wound healing needs; mix one packet w/ 120ml free water and flush tube w/ 30ml before and after each administration; total 360ml free water daily 3. PALB Q ; daily wts 4. Phos binder if MD agreeable 5. Only consider weaning EN IF PO consistently at least ~65% avg meals 6. bowel care per rx Addendum: 06/03/20 at [address] Amended: Links added.
--- NOTE | 2020-06-03 18:22 | NUR ---
Problems reprioritized. Patient report given, questions answered & plan of care reviewed with RN.
[2020-06-03] MEDS: risperiDONE 0.5mg tablet PEG SCH (21:15)
[2020-06-03] MEDS: insulin glargine (Lantus) pen - multi-dose SQ SCH (21:27)
[2020-06-04] VITALS (12 sets, daily range): BP systolic 112–140; BP diastolic 70–91
[2020-06-04] MEDS: furosemide 40mg/4ml inj IV SCH ×2 (00:24→08:40)
[2020-06-04] MEDS: ipratropium/albuterol 3ml nebule NEB SCH ×3 (03:20→11:28)
[2020-06-04 06:04] LABS: BASOPHILS % (AUTO) 0.6 % (0-1); EOSINOPHILS # (AUTO) 0.1 X10'3 (0-0.9); EOSINOPHILS % (AUTO) 1.1 % (0-6); HEMATOCRIT 25.3 % (42.0-52.0); HEMOGLOBIN 8.4 g/dl (14.0-17.9); LYMPHOCYTES % (AUTO) 12.3 % (21-51); MEAN CORPUSCULAR HEMOGLOBIN 30.9 PG (27.0-31.0); MEAN CORPUSCULAR HGB CONC 33.1 g/dL (33.0-36.5); MEAN CORPUSCULAR VOLUME 93.4 FL (78-98); MEAN PLATELET VOLUME 8.9 FL (7.4-10.4); MONOCYTES # (AUTO) 0.8 X10'3 (0-0.9); MONOCYTES % (AUTO) 9.9 % (2-12); NEUTROPHILS % (AUTO) 76.1 % (42-75); PLATELET COUNT 297 X10'3 (140-440); RED BLOOD COUNT 2.71 X10'6 (4.70-6.10); RED CELL DISTRIBUTION WIDTH 18.7 % (11.5-14.5); WHITE BLOOD COUNT 7.8 X10'3 (4.5-11.0)
--- NOTE | 2020-06-04 06:13 | NUR ---
Problems reprioritized. Patient report given, questions answered & plan of care reviewed with Janene GASTELUM.
[2020-06-04 06:20] LABS: ALBUMIN 1.5 G/DL (3.4-5.0); ANION GAP 11 (8-16); BLOOD UREA NITROGEN 70 MG/DL (7-18); BUN/CREATININE RATIO 42.9 (5.4-32.0); CALCIUM 8.1 MG/DL (8.5-10.1); CHLORIDE 112 MMOL/L (99-107); CREATININE 1.63 MG/DL (0.60-1.10); GLUCOSE 128 MG/DL (70-104); MAGNESIUM 1.5 MG/DL (1.5-2.4); PHOSPHORUS 3.8 MG/DL (2.3-4.5); POTASSIUM 3.7 MMOL/L (3.5-5.1); SODIUM 147 MMOL/L (135-145); TOTAL CARBON DIOXIDE 24.3 MMOL/L (24-32); eGFR 44 ML/MIN
[2020-06-04 08:11] LABS: ANISOCYTOSIS 2+; PLATELET ESTIMATE NORMAL
[2020-06-04 08:12] LABS: POLYCHROMASIA FEW; SCHISTOCYTES FEW; TEAR DROP CELLS FEW
[2020-06-04 08:14] LABS: HYPOCHROMASIA 1+
[2020-06-04] MEDS: mupirocin 2% nasal ointment 1gm UD NS SCH (08:42)
[2020-06-04] MEDS: lactobacillus rhamnosus 10,000 MMU CELLS/CAPSULE PO SCH (08:42)
[2020-06-04] MEDS: famotidine/PF 10 mg/ml inj IV SCH (08:42)
[2020-06-04] MEDS: heparin, porcine 5000 units/ml vial SQ SCH (08:42)
[2020-06-04] MEDS: levoTHYROXINE 75mcg tablet PEG SCH (08:45)
[2020-06-04] MEDS: epoetin 20,000 units/ml inj SQ SCH (08:46)
--- NOTE | 2020-06-04 09:30 | NUR ---
Dr. Leblanc at bedside. New orders to d/c accue checks and insulin. Also, new order to d/c TDC to right chest prior to discharge to [facility].
[2020-06-04] MEDS ORDERED: normal saline 1000ml 1,000 ML IV ONE (10:15)
--- NOTE | 2020-06-04 11:00 | NUR ---
LINCOLN Rodriguez at bedside to remove TDC. Patient tolerated procedure well. No bleeding noted.
--- NOTE | 2020-06-04 12:25 | NUR ---
Called [facility] and gave patient report to NIRAV Estrada. All questions and concerns addressed.
--- NOTE | 2020-06-04 13:30 | NUR ---
[facility] here to picking belt operator patient to transport to [facility]. Patient transfered to [facility]. MRSA swab obtained and sent to lab.
--- NOTE | 2020-06-04 18:09 | NUR ---
I have reviewed and agree with all medications administered and interventions performed by QUALITY SYSTEMS TECHNICIAN Student Vandana Sparks.
== END 2020-06-04 13:30 | DRG 3 ==
LOC: ER 17:36 → ICU 2S 04-21 02:00 → CMPBEDREQ 04-21 23:20
PROVIDERS: ADMIT Internal Medicine Critical Care Medicine; ATTEND Internal Medicine Critical Care Medicine
PROC: 04CS0ZZ Extirpation of Matter from Left Posterior Tibial Artery, Open Approach (ICD-10-PCS; 2020-04-20)
PROC: 0KNT0ZZ Release Left Lower Leg Muscle, Open Approach (ICD-10-PCS; 2020-04-20)
PROC: 041 Lower Arteries, Bypass (ICD-10-PCS; 2020-04-20)
PROC: 30233N1 Transfusion of Nonautologous Red Blood Cells into Peripheral Vein, Percutaneous Approach (ICD-10-PCS; 2020-04-20)
PROC: 30233R1 Transfusion of Nonautologous Platelets into Peripheral Vein, Percutaneous Approach (ICD-10-PCS; 2020-04-20)
PROC: 02HV33Z Insertion of Infusion Device into Superior Vena Cava, Percutaneous Approach (ICD-10-PCS; 2020-04-20)
PROC: B548ZZA Ultrasonography of Superior Vena Cava, Guidance (ICD-10-PCS; 2020-04-20)
PROC: B32T1ZZ Computerized Tomography (CT Scan) of Left Pulmonary Artery using Low Osmolar Contrast (ICD-10-PCS; 2020-04-20)
PROC: B3201ZZ Computerized Tomography (CT Scan) of Thoracic Aorta using Low Osmolar Contrast (ICD-10-PCS; 2020-04-20)
PROC: B32S1ZZ Computerized Tomography (CT Scan) of Right Pulmonary Artery using Low Osmolar Contrast (ICD-10-PCS; 2020-04-20)
PROC: B4201ZZ Computerized Tomography (CT Scan) of Abdominal Aorta using Low Osmolar Contrast (ICD-10-PCS; 2020-04-20)
PROC: B4241ZZ Computerized Tomography (CT Scan) of Superior Mesenteric Artery using Low Osmolar Contrast (ICD-10-PCS; 2020-04-20)
PROC: B4281ZZ Computerized Tomography (CT Scan) of Bilateral Renal Arteries using Low Osmolar Contrast (ICD-10-PCS; 2020-04-20)
PROC: B4211ZZ Computerized Tomography (CT Scan) of Celiac Artery using Low Osmolar Contrast (ICD-10-PCS; 2020-04-20)
PROC: 04CL0ZZ Extirpation of Matter from Left Femoral Artery, Open Approach (ICD-10-PCS; principal; 2020-04-20 19:45)
PROC: 5A1955Z Respiratory Ventilation, Greater than 96 Consecutive Hours (ICD-10-PCS; 2020-04-21)
PROC: 0DBN0ZZ Excision of Sigmoid Colon, Open Approach (ICD-10-PCS; 2020-04-21)
PROC: 30233K1 Transfusion of Nonautologous Frozen Plasma into Peripheral Vein, Percutaneous Approach (ICD-10-PCS; 2020-04-21)
PROC: 06HY33Z Insertion of Infusion Device into Lower Vein, Percutaneous Approach (ICD-10-PCS; 2020-04-21)
PROC: 0BH17EZ Insertion of Endotracheal Airway into Trachea, Via Natural or Artificial Opening (ICD-10-PCS; 2020-04-21)
PROC: 5A1D90Z Performance of Urinary Filtration, Continuous, Greater than 18 hours Per Day (ICD-10-PCS; 2020-04-22)
PROC: 5A1D90Z Performance of Urinary Filtration, Continuous, Greater than 18 hours Per Day (ICD-10-PCS; 2020-04-23)
PROC: 4A10X4Z Monitoring of Central Nervous Electrical Activity, External Approach (ICD-10-PCS; 2020-04-24)
PROC: 5A1D90Z Performance of Urinary Filtration, Continuous, Greater than 18 hours Per Day (ICD-10-PCS; 2020-04-24)
PROC: 06HY33Z Insertion of Infusion Device into Lower Vein, Percutaneous Approach (ICD-10-PCS; 2020-04-25)
PROC: 5A1D90Z Performance of Urinary Filtration, Continuous, Greater than 18 hours Per Day (ICD-10-PCS; 2020-04-25)
PROC: 5A1D90Z Performance of Urinary Filtration, Continuous, Greater than 18 hours Per Day (ICD-10-PCS; 2020-04-26)
PROC: 02HV33Z Insertion of Infusion Device into Superior Vena Cava, Percutaneous Approach (ICD-10-PCS; 2020-04-27)
PROC: B548ZZA Ultrasonography of Superior Vena Cava, Guidance (ICD-10-PCS; 2020-04-27)
PROC: 0JH63XZ Insertion of Tunneled Vascular Access Device into Chest Subcutaneous Tissue and Fascia, Percutaneous Approach (ICD-10-PCS; 2020-04-27)
PROC: 02HV33Z Insertion of Infusion Device into Superior Vena Cava, Percutaneous Approach (ICD-10-PCS; 2020-04-27)
PROC: B548ZZA Ultrasonography of Superior Vena Cava, Guidance (ICD-10-PCS; 2020-04-27)
PROC: B5181ZA Fluoroscopy of Superior Vena Cava using Low Osmolar Contrast, Guidance (ICD-10-PCS; 2020-04-27)
PROC: B32T1ZZ Computerized Tomography (CT Scan) of Left Pulmonary Artery using Low Osmolar Contrast (ICD-10-PCS; 2020-04-27)
PROC: B3201ZZ Computerized Tomography (CT Scan) of Thoracic Aorta using Low Osmolar Contrast (ICD-10-PCS; 2020-04-27)
PROC: B32S1ZZ Computerized Tomography (CT Scan) of Right Pulmonary Artery using Low Osmolar Contrast (ICD-10-PCS; 2020-04-27)
PROC: 5A1D90Z Performance of Urinary Filtration, Continuous, Greater than 18 hours Per Day (ICD-10-PCS; 2020-04-27)
PROC: 5A1D90Z Performance of Urinary Filtration, Continuous, Greater than 18 hours Per Day (ICD-10-PCS; 2020-04-28)
PROC: 5A1D90Z Performance of Urinary Filtration, Continuous, Greater than 18 hours Per Day (ICD-10-PCS; 2020-04-29)
PROC: 5A1D90Z Performance of Urinary Filtration, Continuous, Greater than 18 hours Per Day (ICD-10-PCS; 2020-04-30)
PROC: BW211ZZ Computerized Tomography (CT Scan) of Abdomen and Pelvis using Low Osmolar Contrast (ICD-10-PCS; 2020-05-01)
PROC: 5A1D90Z Performance of Urinary Filtration, Continuous, Greater than 18 hours Per Day (ICD-10-PCS; 2020-05-01)
PROC: 5A1D90Z Performance of Urinary Filtration, Continuous, Greater than 18 hours Per Day (ICD-10-PCS; 2020-05-02)
PROC: 0JQP3ZZ Repair Left Lower Leg Subcutaneous Tissue and Fascia, Percutaneous Approach (ICD-10-PCS; 2020-05-07)
PROC: 5A1955Z Respiratory Ventilation, Greater than 96 Consecutive Hours (ICD-10-PCS; 2020-05-07)
PROC: 0BH17EZ Insertion of Endotracheal Airway into Trachea, Via Natural or Artificial Opening (ICD-10-PCS; 2020-05-07)
PROC: 4A10X4Z Monitoring of Central Nervous Electrical Activity, External Approach (ICD-10-PCS; 2020-05-08)
PROC: CT131ZZ Planar Nuclear Medicine Imaging of Kidneys, Ureters and Bladder using Technetium 99m (Tc-99m) (ICD-10-PCS; 2020-05-12)
PROC: 0B110F4 Bypass Trachea to Cutaneous with Tracheostomy Device, Open Approach (ICD-10-PCS; 2020-05-14)
PROC: 0DH63UZ Insertion of Feeding Device into Stomach, Percutaneous Approach (ICD-10-PCS; 2020-05-14)
PROC: 0W9G3ZZ Drainage of Peritoneal Cavity, Percutaneous Approach (ICD-10-PCS; 2020-05-17)
DX: A41.4 Sepsis due to anaerobes (principal); I71.3 Abdominal aortic aneurysm, ruptured; K66.1 Hemoperitoneum; J96.00 Acute respiratory failure, unspecified whether with hypoxia or hypercapnia; E87.2 Acidosis; G93.40 Encephalopathy, unspecified; K55.9 Vascular disorder of intestine, unspecified; L03.311 Cellulitis of abdominal wall; N17.9 Acute kidney failure, unspecified; R57.9 Shock, unspecified; E87.0 Hyperosmolality and hypernatremia; K56.7 Ileus, unspecified; B96.1 Klebsiella pneumoniae [K. pneumoniae] as the cause of diseases classified elsewhere; R56.9 Unspecified convulsions; R74.01 Elevation of levels of liver transaminase levels; Z20.828 Contact with and (suspected) exposure to other viral communicable diseases; I72.3 Aneurysm of iliac artery; J45.909 Unspecified asthma, uncomplicated; Z87.442 Personal history of urinary calculi; Z88.1 Allergy status to other antibiotic agents; Z88.8 Allergy status to other drugs, medicaments and biological substances; L27.0 Generalized skin eruption due to drugs and medicaments taken internally; T36.0X5A Adverse effect of penicillins, initial encounter; Y92.230 Patient room in hospital as the place of occurrence of the external cause
CPT/HCPCS: 36430; 36558; 36573; 49083; 49440; 93308; 99285; Z7506; Z7508; 36415; 36589; 36600; 70496; 70544; 70551; 71045; 71275; 74018; 74174; 74176; 74177; 76604; 76775; 76937; 78707; 80047; 80048; 80053; 80069; 80076; 80202; 81001; 82140; 82150; 82272; 82330; 82570; 82728; 82803; 82945; 82948; 83540; 83550; 83605; 83615; 83690; 83735; 84100; 84134; 84145; 84156; 84157; 84300; 84439; 84443; 84478; 84484; 85007; 85008; 85018; 85025; 85027; 85045; 85379; 85384; 85610; 85730; 86706; 86885; 86900; 86901; 86920; 87040; 87070; 87075; 87077; 87081; 87102; 87185; 87186; 87207; 87340; 87635; 89051; 90935; 92508; 92616; 94002; 94003; 94640; 94760; 94799; 95816; 97110; 97161; 97530; 97535; A4421; A4618; A4628; A6223; A6253; A6258; A6402; A6446; A6449; A7000; A7521; A9270; A9562; B4087; C1713; C1750; C1757; C1758; C1768; C1769; C1894; C9113; C9803; E1594; G0378; J0610; J0690; J0694; J1100; J1170; J1450; J1610; J1644; J1720; J1815; J1940; J1953; J1956; J2001; J2060; J2150; J2212; J2250; J2270; J2370; J2405; J2543; J2597; J2704; J2710; J2765; J2997; J3010; J3370; J3475; J3480; J3490; J7030; J7040; J7050; J7120; J8597; P9016; P9035; P9045; P9047; P9059; Q4081; Q9963; Q9967

== ENCOUNTER 2022-08-19 09:15 | Emergency (ER) | payer BC ==
[~2022-08-19] VITALS: Ht 175.3 cm; Wt 90.9 kg
[~2022-08-19 09:15] MED LIST: DIPH25TA62 PO
[2022-08-19 10:34] VITALS: BP 139/80
== END 2022-08-19 11:03 | disposition home or self-care (01) ==
LOC: ER 09:16
DX: K46.9 Unspecified abdominal hernia without obstruction or gangrene (principal); R05.9 Cough, unspecified; J45.909 Unspecified asthma, uncomplicated; Z87.442 Personal history of urinary calculi; Z88.5 Allergy status to narcotic agent; Z79.899 Other long term (current) drug therapy
CPT/HCPCS: 99281

== ENCOUNTER 2022-10-05 10:25 | Day surgery (SDC) | payer BC ==
[2022-09-30 11:40] LABS: BASOPHILS % (AUTO) 0.8 % (0-1); EOSINOPHILS # (AUTO) 0.1 X10'3 (0-0.9); EOSINOPHILS % (AUTO) 1.2 % (0-6); LYMPHOCYTES # (AUTO) 1.4 X10'3 (1.1-4.8); LYMPHOCYTES % (AUTO) 22.3 % (21-51); MEAN CORPUSCULAR HEMOGLOBIN 33.5 PG (27.0-31.0); MEAN CORPUSCULAR HGB CONC 33.6 g/dL (33.0-36.5); MEAN CORPUSCULAR VOLUME 99.6 FL (78-98); MEAN PLATELET VOLUME 8.1 FL (7.4-10.4); MONOCYTES # (AUTO) 0.7 X10'3 (0-0.9); MONOCYTES % (AUTO) 11.2 % (2-12); NEUTROPHILS # (AUTO) 4.1 X10'3 (1.8-7.7); NEUTROPHILS % (AUTO) 64.5 % (42-75); PRE OP HEMATOCRIT 44.7 % (42.0-52.0); PRE OP PLATELET COUNT 177 X10'3 (140-440); RED BLOOD COUNT 4.48 X10'6 (4.70-6.10); RED CELL DISTRIBUTION WIDTH 14.5 % (11.5-14.5)
[2022-09-30 11:44] LABS: CLARITY,URINE CLEAR (Clear); COLOR,URINE YELLOW (Yellow); GLUCOSE, URINE NEGATIVE (Neg); KETONES,URINE NEGATIVE (Neg); LEUKOCYTE ESTERASE ,URINE NEGATIVE (Neg); NITRITES, URINE NEGATIVE (Neg); OCCULT BLOOD,URINE TRACE-INTACT (Neg); PH,URINE 6.5 (4.8-8.0); PROTEIN,URINE NEGATIVE (Neg); UROBILINOGEN,URINE 0.2 E.U/dL (0.2-1.0)
[2022-09-30 11:45] LABS: UA COLLECTION TYPE CLN CATCH MIDSTREAM
[2022-09-30 11:46] LABS: BACTERIA,URINE FEW /HPF (Neg); RBC,URINE 0-2 /HPF (0-2); SQUAMOUS EPITHELIAL CELL,UR FEW /LPF (FEW); WBC,URINE 0-4 /HPF (0-4)
[2022-09-30 11:50] LABS: ALKALINE PHOSPHATASE 85 IU/L (46-116); BLOOD UREA NITROGEN 15 MG/DL (7-18); BUN/CREATININE RATIO 15.3 (10.0-20.0); CALCIUM 8.9 MG/DL (8.5-10.1); CHLORIDE 104 MMOL/L (99-107); CREATININE 0.98 MG/DL (0.60-1.10); PRE OP ALT 27 U/L (30-65); PRE OP ANION GAP 7 (8-16); PRE OP AST 24 U/L (10-37); PRE OP BILIRUB, TOTAL 0.5 MG/DL (0.0-1.0); PRE OP GLUCOSE 99 MG/DL (70-104); PRE OP POTASSIUM 4.1 MMOL/L (3.4-5.1); PRE OP SODIUM 138 MMOL/L (135-145); TOTAL CARBON DIOXIDE 27.3 MMOL/L (24-32); TOTAL PROTEIN 8.2 G/DL (6.4-8.2); eGFR 79 ML/MIN
[~2022-10-05] VITALS: Ht 177.8 cm; Wt 98.6 kg
[~2022-10-05 10:25] MED LIST changes: -DIPH25TA62 PO; +NO HOME MEDS; +cefazolin 2gm/D5W 100mL 100 ML IV ONE; +famotidine 20mg tablet PO ONE; +ringers solution, lacted 1,000 ML IV SCH
[2022-10-05 10:40] VITALS: BP 147/98
[2022-10-05] MEDS ORDERED: BUPIVAcaine/PF 2.5 mg/ml (0.25%) 30ml vial ONE (17:30)
[2022-10-05] MEDS ORDERED: BUPIVACAINE liposomal/PF 13.3 MG/ML vial IM ONE (17:31)
[2022-10-05] MEDS ORDERED: midazolam 1 mg/ML 2ml injection ONE (17:33)
[2022-10-05] MEDS ORDERED: fentaNYL/PF 50MCG/1 ML 2ML syringe ONE (17:33)
[2022-10-05] MEDS ORDERED: bacitracin 15gm ointment TP ONE (17:36)
[2022-10-05] MEDS ORDERED: LIDOcaine 1%/PF 5ML 10 MG/ML VIAL ONE (17:45)
[2022-10-05] MEDS ORDERED: ondansetron/PF 4mg/2ml inj ONE (17:45)
[2022-10-05] MEDS ORDERED: propofol inj 20 ML IV ONE (17:45)
[2022-10-05] MEDS ORDERED: rocuronium 10mg/ml inj IV ONE (17:45)
[2022-10-05] MEDS ORDERED: dexamethasone sod phosphate 4mg/ml inj. ONE (17:45)
[2022-10-05] MEDS ORDERED: meperidine/PF 25mg/ml syringe IV PRN ×2 (17:50)
[2022-10-05] MEDS ORDERED: ringers solution, lacted 1,000 ML IV SCH (17:50)
[2022-10-05] MEDS ORDERED: HYDROmorphone/PF 0.2 MG/ML SYRINGE IV PRN ×2 (17:50)
[2022-10-05] MEDS ORDERED: ondansetron/PF 4mg/2ml inj IV PRN (17:50)
[2022-10-05] MEDS ORDERED: acetaminophen 1000 MG/100ml vial IV ONE (17:53)
[2022-10-05] MEDS ORDERED: sevoflurane 250ml liquid IH ONE (17:53)
[2022-10-05] MEDS ORDERED: glycopyrrolate 0.2mg/ml inj ONE (18:45)
[2022-10-05] MEDS ORDERED: neostigmine methylsulfate 1 MG/ML 10ml vial ONE (18:45)
[2022-10-05] MEDS ORDERED: meperidine/PF 25mg/ml syringe ONE (18:45)
[2022-10-05 18:47] VITALS: BP 150/101
--- NOTE | 2022-10-05 18:47 | NUR ---
Received from OR via [facility], accompanied by Anesthesiologist and report given by MATEO Anesthesiologist. PATIENT A&OX4, DENIES PAIN, V/S WNL, SCD ON , PIV 20G LEFT WRIST, DERMABONDED LAPS SITES CLOSED C/D/I TO ABDOMEN. Addendum: 10/05/22 at 0 by Clovis Hightower RN Amended: Links added.
[2022-10-05 18:50] VITALS: BP 156/93
[2022-10-05 19:00] VITALS: BP 158/98
[2022-10-05 19:10] VITALS: BP 113/97
[2022-10-05 19:20] VITALS: BP 152/75
--- NOTE | 2022-10-05 19:27 | NUR ---
ALL DISCHARGE CRITERIA HAS BEEN MET. VSS, PAIN AT A TOLERABLE LEVEL, ABLE TO SAFELY AMBULATE AND TRANSFER SELF. IV TAKEN OUT WITHOUT ANY COMPLICATIONS. ALL DISCHARGE INSTRUCTIONS COVERED WITH PATIENT AND ALL QUESTIONS ANSWERED. PATIENT TAKEN OUT VIA WHEELCHAIR WITH ALL BELONGINGS TO PERSONAL VEHICLE WHERE FAMILY DROVE PATIENT HOME. Addendum: 10/05/22 at 1958 by Clovis Hightower RN Amended: Links added.
== END 2022-10-05 19:27 | disposition home or self-care (01) ==
LOC: PAS 10:25
PROVIDERS: ATTEND Surgery
DX: K43.0 Incisional hernia with obstruction, without gangrene (principal); Z79.899 Other long term (current) drug therapy; Z98.890 Other specified postprocedural states; Z87.891 Personal history of nicotine dependence; Z88.6 Allergy status to analgesic agent; Z72.89 Other problems related to lifestyle; Z87.442 Personal history of urinary calculi
CPT/HCPCS: 36415; 49594; 64488; 80053; 81001; 82948; 85025; 93005; C9290; J0131; J0690; J1100; J2175; J2250; J2405; J2704; J2710; J3010; J3490; J7030; J7120; Z7506; Z7512; A4618; A7000